=== PATIENT | female | born 1960 | race Caucasian/White ===

== ENCOUNTER 2023-04-09 11:28 | Outpatient (OUT) | payer MEDICARE, SELFPAY ==
--- NOTE | 2023-04-09 11:53 | US_ITS ---
[place] [id number] Patient Name: STONE ESPINOZA MRN: [id number] date: 1960 Sex: F Assigned Patient Location: [facility] Current Patient Location: [facility] Accession/Order Number: [id number] Exam Date: 04/09/2023 12:10 Report Date: 04/09/2023 15:19 At the request of: TIFF NORRIS Procedure: US venous doppler LE LT EXAMINATION: US venous doppler LE LT HISTORY: edema COMPARISON: No relevant comparison available. TECHNIQUE: Grayscale, color and Doppler FINDINGS: Region: Left leg Thrombus: None Flow: Normal Compressibility: Normal Augmentation: Normal US/US venous doppler LE LT IMPRESSION: No deep or superficial vein thrombus identified in the left leg *Exam performed in accordance with [facility] practice guidelines- Peripheral venous ultrasound, August 27, 2009. Electronically authenticated by: VANE WALKER Date: 04/09/2023 15:19
== END 2023-04-09 11:29 | disposition home or self-care (01) ==
PROVIDERS: PCP Family Medicine; Visit Provider Nurse Practitioner Family
DX: R60.0 Localized edema (principal)
CPT/HCPCS: 93971

== ENCOUNTER 2023-04-23 12:52 | Outpatient (OUT) | payer MEDICARE, SELFPAY ==
--- NOTE | 2023-04-23 12:56 | MM_ITS ---
Patient Name: STONE ESPINOZA MR#: [id number] : 1960 Exam Date: 04/23/2023 Ordering Doctor: TIFF NORRIS CNP RADIOLOGY REPORT PROCEDURE: MM TOMOSYNTHESIS SCREENING BI COMPARISON: MG MAMM SCREEN 3D SOSA CAD, 04/10/2022. MG MAMM SCREEN 3D SOSA CAD, 03/01/2021. MG MAMM SCREEN SOSA W CAD, 02/29/2020. MG MAMM SOSA SCRN W CAD DIG, 10/14/2013. INDICATIONS: Screening Calculator Name NCI Breast Cancer Risk Assessment Tool 5 Year Breast Cancer Risk 1.60% Lifetime Breast Cancer Risk 6.80% Personal Breast Cancer No Personal Ovarian Cancer No Treatments None Family Cancers Mother with lung cancer at age 88. LOCATION: [facility] BREAST COMPOSITION: Almost entirely fatty. FINDINGS: DIAGNOSTIC CATEGORY 2--BENIGN FINDING: RIGHT BREAST: No significant suspicious finding. Scattered benign-appearing calcifications are present. No significant change has occurred. LEFT BREAST: No significant suspicious finding. No significant change has occurred. RECOMMENDATIONS: ROUTINE MAMMOGRAM AND CLINICAL EVALUATION IN 12 MONTHS. PLEASE NOTE: A NORMAL MAMMOGRAM DOES NOT EXCLUDE THE POSSIBILITY OF BREAST CANCER. A CLINICALLY SUSPICIOUS PALPABLE LUMP SHOULD BE BIOPSIED. Dictated by: Damian Monterroso M.D. on 04/24/2023 at 13:42 Approved by: Damian Monterroso M.D. on 04/24/2023 at 13:48
--- NOTE | 2023-04-23 12:56 | XR_ITS ---
[address] [address] Patient Name: STONE ESPINOZA MRN: [id number] date: 1960 Sex: F Assigned Patient Location: [facility] Current Patient Location: [facility] Accession/Order Number: [id number] Exam Date: 04/23/2023 13:15 Report Date: 04/23/2023 13:47 At the request of: TIFF NORRIS Procedure: XR DEXA axial skeleton EXAMINATION: XR DEXA axial skeleton HISTORY: Senile Osteoporosis M81.0 COMPARISON: DEXA bone densitometry 04/19/2021 TECHNIQUE: Dual-energy X-ray absorptiometry (DXA) was performed. FINDINGS: SPINE ANALYSIS: Average bone mineral density is 0.899 g/cm2. T-score (standard deviation relative to young adult mean): -2.3 . +1.7% change since prior study. FOREARM ANALYSIS: Average bone mineral density is 0.608 g/cm2. T-score (standard deviation relative to young adult mean): -1.5 . +1.0% change since prior study. XR/XR DEXA axial skeleton IMPRESSION: World [employer] Classification: Osteopenia - Moderate Fracture Risk Electronically authenticated by: ASHWINI ARIZMENDI Date: 04/23/2023 13:47
== END 2023-04-23 12:53 | disposition home or self-care (01) ==
LOC: MAMMO 12:52
PROVIDERS: PCP Family Medicine; Visit Provider Nurse Practitioner Family
DX: M81.0 Age-related osteoporosis without current pathological fracture (principal); Z12.31 Encounter for screening mammogram for malignant neoplasm of breast; Z80.1 Family history of malignant neoplasm of trachea, bronchus and lung; M85.80 Other specified disorders of bone density and structure, unspecified site
CPT/HCPCS: 77063; 77067; 77080

== ENCOUNTER 2023-04-29 21:01 | Outpatient (REF) | payer MEDICARE, SELFPAY ==
[2023-05-06 10:14] LABS: Age Gdln ACOG Testing Note (.); HPV Aptima Negative (Negative); IGP, Aptima HPV, rfx 16/18,45 Note (.)
== END 2023-04-29 21:02 | disposition home or self-care (01) ==
LOC: LAB 21:01
PROVIDERS: PCP Family Medicine; Visit Provider Physician Assistant
DX: Z01.419 Encounter for gynecological examination (general) (routine) without abnormal findings (principal)
CPT/HCPCS: 87624; G0145

== ENCOUNTER 2023-05-28 20:08 | Outpatient (REF) | payer MEDICARE, SELFPAY ==
[2023-06-04 13:07] LABS: Age Gdln ACOG Testing Note (.); HPV Aptima Negative (Negative); IGP, Aptima HPV, rfx 16/18,45 Note (.)
== END 2023-05-28 20:09 | disposition home or self-care (01) ==
LOC: LAB 20:08
PROVIDERS: PCP Family Medicine; Visit Provider Physician Assistant
DX: Z01.419 Encounter for gynecological examination (general) (routine) without abnormal findings (principal)
CPT/HCPCS: 87624; G0145

== ENCOUNTER 2024-04-28 10:52 | Outpatient (OUT) | payer MEDICARE, SELFPAY ==
--- NOTE | 2024-04-28 10:54 | MM_ITS ---
Patient Name: STONE ESPINOZA MR#: [id number] : 1960 Exam Date: 04/28/2024 Ordering Doctor: JOO Bah . RADIOLOGY REPORT PROCEDURE: MM TOMOSYNTHESIS SCREENING BI COMPARISON: MM TOMOSYNTHESIS SCREENING BI, 04/23/2023. MG MAMM SCREEN 3D SOSA CAD, 04/10/2022. MG MAMM SCREEN 3D SOSA CAD, 03/01/2021. MG MAMM SOSA SCRN W CAD DIG, 10/14/2013. INDICATIONS: Screening Calculator Name NCI Breast Cancer Risk Assessment Tool 5 Year Breast Cancer Risk 1.60% Lifetime Breast Cancer Risk 6.60% Personal Breast Cancer No Personal Ovarian Cancer No Treatments None Family Cancers Mother with lung cancer at age 88. LOCATION: [facility] BREAST COMPOSITION: The breasts are almost entirely fatty. FINDINGS: DIAGNOSTIC CATEGORY 0--INCOMPLETE: NEED ADDITIONAL IMAGING EVALUATION. RIGHT BREAST: No significant suspicious finding. Scattered benign-appearing calcifications are present. No significant change has occurred. LEFT BREAST: New 5 mm round circumscribed mass within the anterior lower-inner quadrant. Spot magnification views and ultrasound evaluation recommended. RECOMMENDATIONS: ADDITIONAL MAMMOGRAPHIC VIEWS REQUIRED: LEFT BREAST - LEFT CRANIOCAUDAL SPOT MAGNIFICATION VIEW - LEFT OBLIQUE SPOT MAGNIFICATION VIEW - ULTRASOUND: LEFT BREAST PLEASE NOTE: A NORMAL MAMMOGRAM DOES NOT EXCLUDE THE POSSIBILITY OF BREAST CANCER. A CLINICALLY SUSPICIOUS PALPABLE LUMP SHOULD BE BIOPSIED. Dictated by: Damian Monterroso M.D. on 04/28/2024 at 15:28 Approved by: Damian Monterroso M.D. on 04/28/2024 at 15:31
== END 2024-04-28 10:53 | disposition home or self-care (01) ==
LOC: MAMMO 10:52
PROVIDERS: PCP Family Medicine; Visit Provider Physician Assistant
DX: Z12.31 Encounter for screening mammogram for malignant neoplasm of breast (principal); Z80.1 Family history of malignant neoplasm of trachea, bronchus and lung; N63.24 Unspecified lump in the left breast, lower inner quadrant
CPT/HCPCS: 77063; 77067

== ENCOUNTER 2024-05-05 19:41 | Outpatient (REF) | payer MEDICARE, SELFPAY ==
--- OUTSIDE RECORDS SUMMARY | 2024-05-05 19:47 | XMS_ITS | CCD ---
Author Organization [facility] Care Team Providers Care Poultry Raiser Name Role Phone TIFF NORRIS Admitting Unavailable TIFF NORIRS Attending Unavailable DAREK, DR KELLY Primary Care Unavailable TIFF NORRIS Consulting Unavailable KARASIK, DR MURRELL Admitting Unavailable KARASIK, DR MURRELL Attending Unavailable HOY, DR KELLY Primary Care Unavailable KARASIK, DR MURRELL Consulting Unavailable KARASIK, DR MURRELL Admitting Unavailable KARASIK, DR MURRELL Attending Unavailable HOY, DR KELLY Primary Care Unavailable KARASIK, DR MURRELL Consulting Unavailable WEST, DR VANE García Consulting Unavailable TIFF NORRIS Admitting Unavailable TIFF NORRIS Attending Unavailable HOY, DR KELLY Primary Care Unavailable TIFF NORRIS Consulting Unavailable DAREK, DR KELLY Admitting Unavailable AYAHY, DR KELLY Attending Unavailable DAREK, DR KELLY Primary Care Unavailable HOY, DR KELLY Consulting Unavailable HOY, DR KELLY Admitting Unavailable HOY, DR KELLY Attending Unavailable DAREK, DR KELLY Primary Care Unavailable DAREK, DR KELLY Consulting Unavailable Shan Calero Unavailable Robin Zhao MD Primary Care Provider [phone] QUINN QUICK Attending Unavailable ROBIN ZHAO Referring Unavailable JR. RIVERA GEORGE C Attending Unavaila IVY Billy Attending Unavailable JONAS VALDEZ Attending Unavailable JR. RIVERA GEORGE C Attending Unavaila chapo RIVERA JR., GEORGE C Referring Unavaila IVY Billy Attending Unavailable TYSON GONZALEZ Attending Unavailable TYSON GONZALEZ Referring Unavailable IVY MANRIQUE Attending Unavailable TYSON GONZALEZ Attending Unavailable Allergies Allergy Classification Reported Allergen(s) Allergy Type Date of Onset Reaction(s) Facility (1 source) Penicillins Drug allergy (disorder) 8 [facility] (12 sources) Penicillin G Drug Allergy 3 Unknown [facility] (9 sources) Other Propensity to adverse reactions 3 Unknown [facility] Medications Current Medications Medication Drug Class(es) Dates Sig (Normalized) Sig (Original) alendronic acid 70 mg oral tablet (14 sources) Bisphosphonate Start: 05-05-2024 take 1 tablet by mouth every week alendronate (Fosamax) 70 MG tablet Indications: Osteoporosis, post-menopausal (CMS/HCC) TAKE 1 TABLET BY MOUTH ONE TIME PER WEEK 30 tablet 11 05/05/2024 Active Start: 05-05-2024 take 1 tablet by chelsea th every week alendronate (Fosamax) 70 MG tablet Indications: Osteoporosis, post-menopausal (CMS/HCC) TAKE 1 TABLET BY MOUTH ONE TIME PER WEEK 30 tablet 11 05/05/2024 Active Start: 03-20-2023 End: 05-05-2024 take 1 tablet by mouth every week alendronate (Fosamax) 70 MG tablet Indications: Osteoporosis, post-menopausal (CMS/HCC) TAKE 1 TABLET BY MOUTH ONE TIME PER WEEK 30 tablet 11 03/20/2023 05/05/2024 Discontinued (Reorder) take 1 tablet by chelsea th once daily Fosamax 70 MG 1 tablet 30 minutes before the first food, beverage or medicine of the day with plain water Orally Active Zenaida Allergy 180 MG (3 sources) take 1 tablet by mouth once daily Zenaida Allergy 180 MG 1 tablet Swallow whole with water; do not take with fruit juices. Orally Once a day Active ascorbic acid 1000 mg oral tablet (9 sources) Vitamin C Ascorbic Acid (vitamin C) 1000 MG tablet 1 (one) time each day at the same time. Active aspirin 81 mg delayed release oral tablet (9 sources) Platelet Aggregation Inhibitor, Nonsteroidal Anti-inflammatory Drug aspirin 81 MG EC tablet 1 (one) time each day at the same time. Active B Complex Vitamins (VITAMIN B COMPLEX 100 IJ) (9 sources) B Complex Vitami ns (VITAMIN B COMPLEX 100 IJ) Vitamin B Complex Active B Complex Vitami ns (VITAMIN B COMPLEX 100 IJ) Vitamin B Complex 0 Active B Complex-Folic Acid (SUPER B COMPLEX MAXI PO) (9 sources) B Complex-Folic Acid (SUPER B COMPLEX MAXI PO) Super B Complex Active B Complex-Folic Acid (SUPER B COMPLEX MAXI PO) Super B Complex 0 Active betamethasone 0.5 mg/ml / clotrimazole 10 mg/ml topical cream (3 sources) Azole Antifungal, Corticosteroid clotrimazole-betamet hasone (Lotrisone) cream 1 application every 12 (twelve) hours. 0 Active Calcium (3 sources) Phosphate Binder, Calcium Calcium Active calcium citrate 1190 mg / cholecalciferol 0.005 mg oral tablet (9 sources) Vitamin D Calcium Citrate- Vitamin D (Calcium Citrate + D) 250-5 MG-MCG tablet Calcium Citrate +D Active Calcium Citrate-Vitamin D (Calcium Citrate + D3) 200-6.25 MG-MCG tablet (9 sources) Calcium Citrate- Vitamin D (Calcium Citrate + D3) 200-6.25 MG-MCG tablet Calcium Citrate+D3 Active Calcium Citrate- Vitamin D (Calcium Citrate + D3) 200-6.25 MG-MCG tablet Calcium Citrate+D3 0 Active cholecalciferol 0.125 mg ora l capsule (12 sources) Vitamin D cholecalciferol (Vitamin D-3) 125 MCG (5000 UT) capsule 1 (one) time each day at the same time. Active take 1 capsule by mouth once adam ly Cholecalciferol 125 MCG (5000 UT) 1 capsule Orally Once a day Active clobetasol propionate 0.5 mg/ml topical cream (5 sources) Corticosteroid Start: 04-16-2024 End: 06-04-2024 clobetasol (Temovate) 0.05 % cream Indications: Dermatitis Apply 1 application topically in the morning and 1 application before bedtime. Apply pea-size amount to affected area.. 30 g 05/05/2024 06/04/2024 Active docusate sodium 10 mg/ml oral suspension (3 sources) docusate sodium (Stool Softener) 150 MG/15ML oral liquid Stool Softener 0 Active estradiol 0.1 mg/ml vaginal cream (3 sources) Estrogen estradiol (Estra ce) 0.1 MG/GM vaginal cream 2 grams at bedtime Vaginal 3 times a week 0 Active fexofenadine hydrochloride 180 mg oral tablet (12 sources) Histamine-1 Receptor Antagonist fexofenadine (Zenaida) 180 MG tablet 1 (one) time each day at the same time. Active Zenaida Active Glucosamine Chondr Complex 500-400 MG (3 sources) take 1 capsule by mo uth once daily Glucosamine Chondr Complex 500-400 MG 1 capsule with a meal Orally Once a day Active Telnnbdjlaj-Jzhrcucoo-Gxh C-Mn (Glucosamine Chondroitin Complx) capsule (9 sources) take 1 capsule by mo uth every twelve hours Wzvlqbvfain-Bjylslcpk-Ihq C-Mn (Glucosamine Chondroitin Complx) capsule 1 capsule every 12 (twelve) hours. Active take 1 capsule by mo uth every twelve hours Trqfnixqihz-Kqkraubce-Ryi C-Mn (Glucosam ine Chondroitin Complx) capsule 1 capsule every 12 (twelve) hours. 0 Active magnesium gluconate 550 mg oral tablet (6 sources) take 1 tablet by chelsea th in the morning magnesium 30 MG tablet Take 30 mg by mouth in the morning and 30 mg before bedtime. Active Misc Natural Products (Glucosamine Chondroitin Adv) tablet (9 sources) Misc Natural Pro ducts (Glucosamine Chondroitin Adv) tablet as directed Orally Active Misc Natural Pro ducts (Glucosamine Chondroitin Adv) tablet as directed Orally 0 Active Multi For Her 50+ (3 sources) Multiple Vitamin (Multi Shavon min) tablet (9 sources) Multiple Vitamin (Multi Vitamin) tablet 1 (one) time each day at the same time. Active Multiple Vitamin (Multi Vitamin) tablet 1 (one) time each day at the same time. 0 Active Turmeric Curcumin 500 MG (3 sources) Turmeric Curcumi n 500 MG as directed Orally Active turmeric extract 500 mg oral capsule (9 sources) Turmeric 500 MG capsule Orally Active Turmeric 500 MG capsule Orally 0 Active vitamin b12 1 mg oral tablet (12 sources) Vitamin B12 cyanocobalamin ( Vitamin B-12) 1000 MCG tablet 1 (one) time each day at the same time. Active take 1 tablet by mouth once marisol y Cyanocobalamin 1000 MCG 1 tablet Orally Once a day Active Vitamin C 1000 MG (3 sources) take 1 tablet by chelsea th once daily Vitamin C 1000 MG 1 tablet Orally Once a day Active Zinc (10 sources) zinc 50 MG table t 1 (one) time each day at the same time. Active zinc 50 MG table t 1 (one) time each day at the same time. 0 Active take 1 tablet by mouth once marisol y Zinc 50 MG 1 tablet Orally Once a day Active zinc gluconate 50 mg oral ta blet (11 sources) zinc gluconate 5 0 MG tablet 1 (one) time each day at the same time. Active Completed/Discontinued Medications Medication Drug Class(es) Dates Sig (Normalized) Sig (Original) HYLAN G-F 20 (4 sources) Start: 03-15-2023 Synvisc Mar 16 mg Start: 03-01-2023 Synvisc Feb 16 mg Start: 02-21-2023 Synvisc Feb 16 mg Vitamin D 2000 UNIT (3 sources) Vitamin D 2000 U NIT Orally Not-Taking Problems Active Problems Problem Classification Problem Date Documented Date Episodic/Chronic Acquired foot deformities (2 sources) Hallux valgus (acquired), right foot; Translations: [Hallux valgus (acquired)] 03-11-2024 Chronic Acquired foot deformities (2 sources) Acquired deformity of toe of right foot; Translations: [Acquired deformities of toe(s), unspecified, right foot] 03-11-2024 Episodic Disorders of lipid metabolism (1 source) Hyperlipidemia, unspecified; Translations: [HYPERLIPIDEMIA UNSPECIFIED] Onset: 12-08-2021 Chronic Immunizations and screening for infectious disease (1 source) Encounter for screening for human papillomavirus (HPV); Translations: [ENC SCREENING HUMAN PAPILLOMAVIRUS] Onset: 04-01-2022 Episodic Menopausal disorders (18 sources) Primary ovarian failure; Translations: [Other primary ovarian failure] Onset: 06-24-2023 06-24-2023 Chronic Nutritional deficiencies (4 sources) Vitamin D deficiency, unspecified; Translations: [VITAMIN D DEFICIENCY UNSPECIFIED] Onset: 12-01-2021 Chronic Osteoarthritis (19 sources) Osteoarthritis of knee; Translations: [Unilateral primary osteoarthritis, left knee] Onset: 06-24-2023 Chronic Osteoporosis (11 sources) Senile osteoporosis; Translations: [Age-related osteoporosis without current pathological fracture] Onset: 06-24-2023 06-24-2023 Chronic Other ear and sense organ disorders (9 sources) Hearing loss in left ear; Translations: [Unspecified hearing loss, left ear] Onset: 06-24-2023 06-24-2023 Chronic Other ear and sense organ disorders (9 sources) Mixed conductive AND sensorineural hearing loss; Translations: [Mixed conductive and sensorineural hearing loss, unilateral, right ear with restricted hearing on the contralateral side] Onset: 06-24-2023 06-24-2023 Chronic Other ear and sense organ disorders (9 sources) Sensorineural hearing loss, bilateral; Translations: [Sensorineural hearing loss, bilateral] Onset: 06-24-2023 06-24-2023 Chronic Other female genital disorders (2 sources) Pruritus of vagina; Translations: [Other specified noninflammatory disorders of vagina] 05-05-2024 Episodic Other nervous system disorders (3 sources) Chronic pain; Translations: [Other chronic pain] Chronic Other nervous system disorders (3 sources) Other chronic pain Chronic Other non-traumatic joint disorders (3 sources) Pain in left knee Episodic Other non-traumatic joint disorders (3 sources) Pain in right hip joint; Translations: [Pain in right hip] Onset: 06-24-2023 06-24-2023 Episodic Other nutritional; endocrine; and metabolic disorders (9 sources) Obesity; Translations: [Obesity, unspecified] Onset: 06-24-2023 06-24-2023 Chronic Other screening for suspected conditions (not mental disorders or infectious disease) (9 sources) Encounter for screening mammogram for malignant neoplasm of breast; Translations: [Encounter for screening for malignant neoplasm of cervix] Onset: 12-08-2021 Episodic Other upper respiratory disease (9 sources) Chronic rhinitis; Translations: [Chronic rhinitis] Onset: 06-24-2023 06-24-2023 Chronic Residual codes; unclassified (1 source) Family history of malignant neoplasm of trachea, bronchus and lung; Translations: [FAM HX MALIG NEOPLSM TRACH BRON LNG] Onset: 04-15-2022 Episodic Residual codes; unclassified (2 sources) Postmenopausal state; Translations: [Asymptomatic menopausal state] 05-05-2024 Episodic Thyroid disorders (18 sources) Goiter; Translations: [Nontoxic goiter, unspecified] Onset: 06-24-2023 06-24-2023 Chronic Unclassified (2 sources) CONTACT W/AND (SUSP) EXPOS COVID-19; Translations: [CONTACT W/AND (SUSP) EXPOS COVID-19] Onset: 09-08-2021 Viral infection (1 source) COVID-19; Translations: [COVID-19] Onset: 09-08-2021 Past or Other Problems Problem Classification Problem Date Documented Da te Episodic/Chronic Deficiency and other anemia (1 source) Anemia, unspecified; Translations: [ANEMIA UNSPECIFIED] Onset: 12-08-2021 Episodic Diabetes mellitus without complication (1 source) Other abnormal glucose; Translations: [OTHER ABNORMAL GLUCOSE] Onset: 12-08-2021 Episodic Genitourinary symptoms and ill-defined conditions (1 source) Other abnormal findings in urine; Translations: [OTHER ABNORMAL FINDINGS IN URINE] Onset: 12-26-2021 Episodic Malaise and fatigue (1 source) Other fatigue; Translations: [OTHER FATIGUE] Onset: 12-08-2021 Episodic Other ear and sense organ disorders (9 sources) Cholesteatoma; Translations: [Unspecified cholesteatoma, unspecified ear] Onset: 06-24-2023 06-24-2023 Episodic Other ear and sense organ disorders (9 sources) Impacted cerumen of bilateral ears; Translations: [Impacted cerumen, bilateral] Onset: 06-26-2023 06-26-2023 Episodic Other inflammatory condition of skin (4 sources) Other pruritus; Translations: [OTHER PRURITUS] Onset: 12-22-2021 Episodic Other non-traumatic joint disorders (9 sources) Arthralgia of the pelvic region and thigh; Translations: [Pain in unspecified hip] Onset: 06-24-2023 06-24-2023 Episodic Other non-traumatic joint disorders (6 sources) Hip pain; Translations: [Pain in right hip] Onset: 06-24-2023 06-24-2023 Episodic Other upper respiratory infections (1 source) Acute sinusitis, unspecified; Translations: [ACUTE SINUSITIS UNSPECIFIED] Onset: 09-08-2021 Episodic Otitis media and related conditions (18 sources) Perforation of tympanic membrane; Translations: [Unspecified perforation of tympanic membrane, unspecified ear] Onset: 06-24-2023 06-24-2023 Episodic Unclassified (1 source) CONTACT W/AND (SUSP) EXPOS COVID-19; Translations: [CONTACT W/AND (SUSP) EXPOS COVID-19] Onset: 09-06-2021 Results Test Name Value Interpretation Reference Range Facility CULTURE URINEon 2022 CULTURE URINE Culture Observations : NO GROWTH. Normal [facility] Comment on above: Performed By: #### U RCX #### [facility] [address] [place] [address] Dr. Nellie Muller UA RANDOM W/MICROSCOPICon BACTERIA NONE SEEN Normal NONE SEEN [facility] Comment on above: Performed By: #### A 1C #### [facility] [address] [place] [address] Dr. Nellie Muller Bilirubin Ql (U) Negative Normal NEGATIVE [facility] Comment on above: Performed By: #### A 1C #### [facility] [address] [place] [address] Dr. Nellie Muller CAST NONE SEEN Normal NONE SEEN [facility] Comment on above: Performed By: #### A 1C #### [facility] [address] [place] [address] Dr. Nellie Muller Clarity (U) CLEAR Normal CLEAR [facility] Comment on above: Performed By: #### A 1C #### [facility] [address] [place] [address] Dr. Nellie Muller Color (U) DK. YELLOW Normal YELLOW [facility] Comment on above: Performed By: #### A 1C #### [facility] [address] [place] [address] Dr. Nellie Muller Crystals LM Nom (Urine sed) NONE SEEN Normal NONE SEEN [facility] Comment on above: Performed By: #### A 1C #### [facility] [address] [place] [address] Dr. Nellie Muller Epithelial cells LM Ql (Urine sed) RARE Normal NONE SEEN /RARE [facility] Comment on above: Performed By: #### A 1C #### [facility] [address] [place] [address] Dr. Nellie Muller Glucose Ql (U) Negative Normal NEGATIVE [facility] Comment on above: Performed By: #### A 1C #### [facility] [address] [place] [address] Dr. Nellie Muller Hemoglobin Ql (U) Negative Normal NEGATIVE [facility] Comment on above: Performed By: #### A 1C #### [facility] [address] [place] [address] Dr. Nellie Muller Ketones Ql (U) Negative Normal NEGATIVE [facility] Comment on above: Performed By: #### A 1C #### [facility] [address] [place] [address] Dr. Nellie Muller LEUKOCYTES Negative Normal NEGATIVE [facility] Comment on above: Performed By: #### A 1C #### [facility] [address] [place] [address] Dr. Nellie Muller MUCOUS NONE SEEN Normal NONE SEEN [facility] Comment on above: Performed By: #### A 1C #### [facility] [address] [place] [address] Dr. Nellie Muller Nitrite Ql (U) Negative Normal NEGATIVE [facility] Comment on above: Performed By: #### A 1C #### [facility] [address] [place] [address] Dr. Nellie Muller pH (U) 6.0 [pH] Normal 5-9 [facility] Comment on above: Performed By: #### A 1C #### [facility] [address] [place] [address] Dr. Nellie Muller RBC 0-2 Normal 0-2 [facility] Comment on above: Performed By: #### A 1C #### [facility] [address] [place] [address] Dr. Nellie Muller SPEC GRAVITY 1.020 Normal 1.005-<=1.025 [facility] Comment on above: Performed By: #### A 1C #### [facility] [address] [place] [address] Dr. Nellie Muller UA PROTEIN Negative Normal NEGATIVE/ TRACE [facility] Comment on above: Performed By: #### A 1C #### [facility] [address] [place] [address] Dr. Nellie Muller Urobilinogen Qn (U) 0.2 {Dylan'U}/dL Normal 0.2 - 1. 0 [facility] Comment on above: Performed By: #### A 1C #### [facility] [address] [place] [address] Dr. Nellie Muller WBC NONE SEEN Normal NONE SEEN [facility] Comment on above: Performed By: #### A 1C #### [facility] [address] [address] [address] Nellie Muller MG MAMM SCREEN 3D SOSA CADon 04-10-2022 MG MAMM SCREEN 3D SOSA CAD Patient: ASHLEY GANT Exam Date: 04/10/2022 : 1960 Gender:F Ordering : DR HANDY JACOME . Admission #: [id number] Family : Order #: [id number] CLICK HERE TO VIEW EXAM RADIOLOGY REPORT PROCEDURE: MAMMOGRAM SCREENING 3D BILATERAL CAD COMPARISON: MG MAMM SCREEN SOSA W CAD, 02/29/2020. MG MAMM SCREEN 3D SOSA CAD, 03/01/2021. INDICATIONS: Screening mammography Calculator Name NCI Breast Cancer Risk Assessment Tool 5 Year Breast Cancer Risk 1.50% Lifetime Breast Cancer Risk 7.00% Personal Breast Cancer No Personal Ovarian Cancer No Treatments None Family Cancers Mother with lung cancer at age 88. LOCATION: [facility] BREAST COMPOSITION: Almost entirely fatty. FINDINGS: DIAGNOSTIC CATEGORY 2--BENIGN FINDING. NO CHANGE FROM COMPARISON. Scattered benign-appearing calcifications are present. Scattered benign-appearing lymph nodes are present. RIGHT BREAST: No significant suspicious finding. Asymmetrically small, stable. Coarse calcification and densities posterior breast 12 o'clock position, unchanged LEFT BREAST: No significant suspicious finding. RECOMMENDATIONS: ROUTINE MAMMOGRAM AND CLINICAL EVALUATION IN 12 MONTHS. PLEASE NOTE: A NORMAL MAMMOGRAM DOES NOT EXCLUDE THE POSSIBILITY OF BREAST CANCER. A CLINICALLY SUSPICIOUS PALPABLE LUMP SHOULD BE BIOPSIED. Dictated by: Vane Rivas MD on 04/11/2022 at 07:19 Approved by: Vane Rivas MD on 04/11/2022 at 07:21 Normal [facility] PAP ACOG PANEL 2: 30 to 65on 04-06-2022 . . Normal [facility] Comment on above: Result Comment: Perf ormed at: WB Performed By: #### A 1C #### [facility] [address] [address] [address] Nellie Muller Age Gdln ACOG Testing 30-65 Normal [facility] Comment on above: Performed By: #### A 1C #### [facility] [address] [place] [address] Dr. Nellie Muller DIAGNOSIS: Comment Normal [facility] Comment on above: Result Comment: NEGA TIVE FOR INTRAEPITHELIAL LESION OR MALIGNANCY. CELLULAR CHANGES ASSOCIATED WITH ATROPHY ARE PRESENT. Performed at: WB Performed By: #### A 1C #### [facility] [address] [address] [address] Nellie Muller HPV Aptima Negative Normal Negative [facility] Comment on above: Result Comment: This nucleic acid amplification test detects fourteen high-risk HPV types (16,18,31,33,35,39,45,51,52,56,58,59,66,68) without differentiation. Performed at: =G Performed By: #### A 1C #### [facility] [address] [address] [address] Nellie Muller HPV Genotype Reflex Comment Normal [facility] Comment on above: Result Comment: Crit eria not met, HPV Genotype not performed. Performed at: WB Performed By: #### A 1C #### [facility] [address] [place] [address] Dr. Nellie Muller Methodology: Comment Normal [facility] Comment on above: Result Comment: This liquid based ThinPrep(R) pap test was screened with the use of an image guided system. Performed at: WB Performed By: #### A 1C #### [facility] [address] [place] [address] Dr. Nellie Muller Note: Comment Normal [facility] Comment on above: Result Comment: The Pap smear is a screening test designed to aid in the detection of premalignant and malignant conditions of the uterine cervix. It is not a diagnostic procedure and should not be used as the sole means of detecting cervical cancer. Both false-positive and false-negative reports do occur. . Performed at: WB Performed By: #### A 1C #### [facility] [address] [address] [address] Nellie Muller Performed by: Comment Normal [facility] Comment on above: Result Comment: Debbi Costa, Special Projects Coordinator Performed at: WB Performed By: #### A 1C #### [facility] [address] [address] [address] Nellie Muller Specimen adequacy: Comment Normal [facility] Comment on above: Result Comment: Sati sfactory for evaluation. Endocervical component may not be distinguished in cases of atrophy. Performed at: WB Performed By: #### A 1C #### [facility] [address] [place] [address] Dr. Nellie Muller CULTURE URINEon 12-22-2021 CULTURE URINE Culture Observations : NO GROWTH. Normal [facility] Comment on above: Performed By: #### A 1C #### [facility] [address] [place] [address] Dr. Nellie Muller UA RANDOM W/MICROSCOPICon BACTERIA TRACE Abnormal NONE SEEN [facility] Comment on above: Performed By: #### A 1C #### [facility] [address] [place] [address] Dr. Nellie Muller Bilirubin Ql (U) Negative Normal NEGATIVE [facility] Comment on above: Performed By: #### A 1C #### [facility] [address] [place] [address] Dr. Nellie Muller CAST NONE SEEN Normal NONE SEEN [facility] Comment on above: Performed By: #### A 1C #### [facility] [address] [place] [address] Dr. Nellie Muller Clarity (U) CLEAR Normal CLEAR [facility] Comment on above: Performed By: #### A 1C #### [facility] [address] [place] [address] Dr. Nellie Muller Color (U) YELLOW Normal YELLOW [facility] Comment on above: Performed By: #### A 1C #### [facility] [address] [place] [address] Dr. Nellie Muller Crystals LM Nom (Urine sed) NONE SEEN Normal NONE SEEN [facility] Comment on above: Performed By: #### A 1C #### [facility] [address] [place] [address] Dr. Nellie Muller Epithelial cells LM Ql (Urine sed) RARE Normal NONE SEEN /RARE [facility] Comment on above: Performed By: #### A 1C #### [facility] [address] [place] [address] Dr. Nellie Muller Glucose Ql (U) Negative Normal NEGATIVE [facility] Comment on above: Performed By: #### A 1C #### [facility] [address] [place] [address] Dr. Nellie Muller Hemoglobin Ql (U) Negative Normal NEGATIVE [facility] Comment on above: Performed By: #### A 1C #### [facility] [address] [place] [address] Dr. Nellie Muller Ketones Ql (U) Negative Normal NEGATIVE [facility] Comment on above: Performed By: #### A 1C #### [facility] [address] [place] [address] Dr. Nellie Muller LEUKOCYTES Negative Normal NEGATIVE [facility] Comment on above: Performed By: #### A 1C #### [facility] [address] [place] [address] Dr. Nellie Muller MUCOUS NONE SEEN Normal NONE SEEN [facility] Comment on above: Performed By: #### A 1C #### [facility] [address] [place] [address] Dr. Nellie Muller Nitrite Ql (U) Negative Normal NEGATIVE [facility] Comment on above: Performed By: #### A 1C #### [facility] [address] [place] [address] Dr. Nellie Muller pH (U) 5.0 [pH] Normal 5-9 [facility] Comment on above: Performed By: #### A 1C #### [facility] [address] [place] [address] Dr. Nellie Muller RBC 0-2 Normal 0-2 [facility] Comment on above: Performed By: #### A 1C #### [facility] [address] [place] [address] Dr. Nellie Muller SPEC GRAVITY >=1.030 Abnormal 1.005-<=1.025 [facility] Comment on above: Performed By: #### A 1C #### [facility] [address] [place] [address] Dr. Nellie Muller UA PROTEIN Negative Normal NEGATIVE/ TRACE [facility] Comment on above: Performed By: #### A 1C #### [facility] [address] [place] [address] Dr. Nellie Muller Urobilinogen Qn (U) 0.2 {Dylan'U}/dL Normal 0.2 - 1. 0 [facility] Comment on above: Performed By: #### A 1C #### [facility] [address] [place] [address] Dr. Nellie Muller WBC 0-2 Abnormal NONE SEEN [facility] Comment on above: Performed By: #### A 1C #### [facility] [address] [place] [address] Dr. Nellie Muller INSULINon 12-02-2021 Insulin 10.3 uIU/mL Normal 2.6-24.9 [facility] Comment on above: Performed By: #### A 1C #### [facility] [address] [place] [address] Dr. Nellie Muller CBC AUTO DIFFon 12-01-2021 BASO # 0.1 103/ul Normal 0.0-0.1 [facility] Comment on above: Performed By: #### C BC #### [facility] [address] [place] [address] Dr. Nellie Muller Basophils/100 WBC (Bld) 1.8 % Normal 0.2-2.0 [facility] Comment on above: Performed By: #### C BC #### [facility] [address] [place] [address] Dr. Nellie Muller EO # 0.2 103/ul Normal 0.0-0.7 [facility] Comment on above: Performed By: #### C BC #### [facility] [address] [place] [address] Dr. Nellie Muller Eosinophils/100 WBC (Bld) 4.0 % Normal 0.9-7.0 [facility] Comment on above: Performed By: #### C BC #### [facility] [address] [place] [address] Dr. Nellie Muller Erythrocyte distribution width (RBC) [Ratio] 13.1 % Normal 11.0-15.0 [facility] Comment on above: Performed By: #### C BC #### [facility] [address] [place] [address] Dr. Nellie Muller Hematocrit (Bld) [Volume fraction] 46.5 % Normal 36.0-48.0 [facility] Comment on above: Performed By: #### C BC #### [facility] [address] [place] [address] Dr. Nellie Muller Hemoglobin (Bld) [Mass/Vol] 15.3 g/dL Normal 12.0-16.0 [facility] Comment on above: Performed By: #### C BC #### [facility] [address] [place] [address] Dr. Nellie Muller IG # 0.02 10e3/ul Normal 0.00-0.03 [facility] Comment on above: Performed By: #### C BC #### [facility] [address] [place] [address] Dr. Nellie Muller IG % 0.4 % Normal 0.0-0.5 [facility] Comment on above: Performed By: #### C BC #### [facility] [address] [place] [address] Dr. Nellie Muller LYMPH # 1.3 103/ul Normal 1.2-3.8 [facility] Comment on above: Performed By: #### C BC #### [facility] [address] [place] [address] Dr. Nellie Muller Lymphocytes/100 WBC (Bld) 28.4 % Normal 20.5-60.0 [facility] Comment on above: Performed By: #### C BC #### [facility] [address] [place] [address] Dr. Nellie Muller MANUAL DIFF REQ NO Normal [facility] Comment on above: Performed By: #### C BC #### [facility] [address] [place] [address] Dr. Nellie Muller MCH (RBC) [Entitic mass] 30.4 pg Normal 26.7-34.0 [facility] Comment on above: Performed By: #### C BC #### [facility] [address] [place] [address] Dr. Nellie Muller MCHC (RBC) [Mass/Vol] 32.9 g/dL Normal 29.9-35.2 [facility] Comment on above: Performed By: #### C BC #### [facility] [address] [address] [address] Nellie Muller MCV (RBC) [Entitic vol] 92.4 fL Normal 81.0-99.0 [facility] Comment on above: Performed By: #### C BC #### [facility] [address] [address] [address] Nellie Muller MONO # 0.4 103/ul Normal 0.3-0.8 [facility] Comment on above: Performed By: #### C BC #### [facility] [address] [place] [address] Dr. Nellie Muller Monocytes/100 WBC (Bld) 9.2 % Normal 1.7-12.0 [facility] Comment on above: Performed By: #### C BC #### [facility] [address] [address] [address] Nellie Muller NEUT # 2.6 103/ul Normal 1.4-6.5 [facility] Comment on above: Performed By: #### C BC #### [facility] [address] [place] [address] Dr. Nellie Muller Neutrophils/100 WBC (Bld) 56.2 % Normal 43.0-75.0 [facility] Comment on above: Performed By: #### C BC #### [facility] [address] [address] [address] Nellie Muller Platelet mean volume (Bld) [Entitic vol] 8.9 fL Critically low 9.5-13.5 [facility] Comment on above: Performed By: #### C BC #### [facility] [address] [place] [address] Dr. Nellie Muller PLT 197 103/ul Normal 150-450 [facility] Comment on above: Performed By: #### C BC #### [facility] [address] [place] [address] Dr. Nellie Muller RBC 5.03 106/ul Normal 4.20-5.40 [facility] Comment on above: Performed By: #### C BC #### [facility] [address] [place] [address] Dr. Nellie Muller WBC 4.6 103/ul Normal 4.0-11.0 [facility] Comment on above: Performed By: #### C BC #### [facility] [address] [place] [address] Dr. Nellie Muller FREE T3on 12-01-2021 FREE T3 2.70 pg/mlL Normal 2.18-3.98 [facility] Comment on above: Performed By: #### C MP, T4, LIPID, FT3, TSH #### [facility] [address] [place] [address] Dr. Nellie Muller GLYCOHEMOGLOBIN A1Con 2021 ADA RECOMMENDATION SEE BELOW Normal [facility] Comment on above: Result Comment: ADA RECOMMENDED LIMIT 4.0 - 6.0 ADA THERAPEUTIC TARGET < 7.0 ACTION SUGGESTED > 7.0 Performed By: #### A 1C #### [facility] [address] [place] [address] Dr. Nellie Mullre Glucose [Mass/Vol] 114 mg/dL Normal [facility] Comment on above: Performed By: #### A 1C #### [facility] [address] [place] [address] Dr. Nellie Muller HbA1c (Bld) [Mass fraction] 5.6 % Normal 4.5-6.2 [facility] Comment on above: Performed By: #### A 1C #### [facility] [address] [place] [address] Dr. Nellie Muller LIPID PROFILEon 12-01-2021 CHOL-HDL RATIO NORM SEE BELOW Normal [facility] Comment on above: Result Comment: 3.3 - 4.4 LOW RISK 4.4 - 7.1 AVERAGE RISK 7.1 - 11.0 MODERATE RISK >11.0 HIGH RISK Performed By: #### C MP, T4, LIPID, FT3, TSH #### [facility] [address] [place] [address] Dr. Nellie Muller Cholesterol [Mass/Vol] 280 mg/dL Critically high <=200 [facility] Comment on above: Performed By: #### C MP, T4, LIPID, FT3, TSH #### [facility] [address] [address] [address] Nellie Muller Cholesterol in HDL [Mass/Vol] 69 mg/dL Critically high 40-60 [facility] Comment on above: Performed By: #### C MP, T4, LIPID, FT3, TSH #### [facility] [address] [address] [address] Nellie Muller Cholesterol in LDL [Mass/Vol] 186.2 mg/dL Normal [facility] Comment on above: Performed By: #### C MP, T4, LIPID, FT3, TSH #### [facility] [address] [address] [address] Nellie Muller Cholesterol.total/Ch olesterol in HDL [Mass ratio] 4.1 {ratio} Normal [facility] Comment on above: Performed By: #### C MP, T4, LIPID, FT3, TSH #### [facility] [address] [address] [address] Nellie Muller HDL NORMAL > or = 60 mg/dl - LO W CARDIOVASCULAR RISK <40 mg/dl - HIGH CARDIOVASCULAR RISK Normal [facility] Comment on above: Performed By: #### C MP, T4, LIPID, FT3, TSH #### [facility] [address] [address] [address] Nellie Muller LDL CALC NORMAL SEE BELOW Normal [facility] Comment on above: Result Comment: <100 mg/dl OPTIMAL 100 - 129 mg/dl NEAR OR ABOVE OPTIMAL 130 - 159 mg/dl BORDERLINE HIGH 160 - 189 mg/dl HIGH >190 mg/dl VERY HIGH Performed By: #### C MP, T4, LIPID, FT3, TSH #### [facility] [address] [address] [address] Nellie Muller Triglyceride [Mass/Vol] 124 mg/dL Normal <=150 [facility] Comment on above: Performed By: #### C MP, T4, LIPID, FT3, TSH #### [facility] [address] [place] [address] Dr. Nellie Muller VLDL CALC 24.8 mg/dL Normal [facility] Comment on above: Performed By: #### C MP, T4, LIPID, FT3, TSH #### [facility] [address] [place] [address] Dr. Nellie Muller PROF 14(COMP METB)on 022 Albumin [Mass/Vol] 4.0 g/dL Normal 3.4-5.0 [facility] Comment on above: Performed By: #### C MP, T4, LIPID, FT3, TSH #### [facility] [address] [place] [address] Dr. Nellie Muller Albumin/Globulin [Mass ratio] 1.4 {ratio} Normal [facility] Comment on above: Performed By: #### C MP, T4, LIPID, FT3, TSH #### [facility] [address] [place] [address] Dr. Nellie Muller ALP [Catalytic activity/Vol] 77 U/L Normal 46-116 [facility] Comment on above: Performed By: #### C MP, T4, LIPID, FT3, TSH #### [facility] [address] [place] [address] Dr. Nellie Muller ALT [Catalytic activity/Vol] 26 U/L Normal 14-59 [facility] Comment on above: Performed By: #### C MP, T4, LIPID, FT3, TSH #### [facility] [address] [place] [address] Dr. Nellie Muller Anion gap [Moles/Vol] 9.1 mmol/L Normal [facility] Comment on above: Performed By: #### C MP, T4, LIPID, FT3, TSH #### [facility] [address] [place] [address] Dr. Nellie Muller AST [Catalytic activity/Vol] 35 U/L Normal 15-37 [facility] Comment on above: Performed By: #### C MP, T4, LIPID, FT3, TSH #### [facility] [address] [place] [address] Dr. Nellie Muller Bilirubin [Mass/Vol] 0.7 mg/dL Normal 0.2-1.0 [facility] Comment on above: Performed By: #### C MP, T4, LIPID, FT3, TSH #### [facility] [address] [address] [address] Nellie Muller Calcium [Mass/Vol] 8.8 mg/dL Normal 8.5-10.1 [facility] [place] Comment on above: Performed By: #### C MP, T4, LIPID, FT3, TSH #### [facility] [address] [address] [address] Nellie Muller Chloride [Moles/Vol] 105 mmol/L Normal 98-107 [facility] Comment on above: Performed By: #### C MP, T4, LIPID, FT3, TSH #### [facility] [address] [place] [address] Dr. Nellie Muller CO2 [Moles/Vol] 31.2 mmol/L Normal 21.0-32.0 [facility] Comment on above: Performed By: #### C MP, T4, LIPID, FT3, TSH #### [facility] [address] [place] [address] Dr. Nellie Muller Creatinine [Mass/Vol] 0.94 mg/dL Normal 0.55-1.02 [facility] Comment on above: Performed By: #### C MP, T4, LIPID, FT3, TSH #### [facility] [address] [place] [address] Dr. Nellie Muller EGFR-AF CHADIAN >60 Normal >=60 [facility] Comment on above: Performed By: #### C MP, T4, LIPID, FT3, TSH #### [facility] [address] [address] [address] Nellie Muller EGFR-NON AF CHADIAN 60 mL/min/1.73m2 Normal >=60 [facility] Comment on above: Performed By: #### C MP, T4, LIPID, FT3, TSH #### [facility] [address] [address] [address] Nellie Muller Globulin (S) [Mass/Vol] 2.9 g/dL Normal [facility] Comment on above: Performed By: #### C MP, T4, LIPID, FT3, TSH #### [facility] [address] [place] [address] Dr. Nellie Muller Glucose [Mass/Vol] 101 mg/dL Normal 74-106 [facility] Comment on above: Performed By: #### C MP, T4, LIPID, FT3, TSH #### [facility] [address] [place] [address] Dr. Nellie Muller Potassium [Moles/Vol] 4.3 mmol/L Normal 3.5-5.1 [facility] Comment on above: Performed By: #### C MP, T4, LIPID, FT3, TSH #### [facility] [address] [place] [address] Dr. Nellie Muller Protein [Mass/Vol] 6.9 g/dL Normal 6.4-8.2 [facility] Comment on above: Performed By: #### C MP, T4, LIPID, FT3, TSH #### [facility] [address] [place] [address] Dr. Nellie Muller Sodium [Moles/Vol] 141 mmol/L Normal 136-145 [facility] Comment on above: Performed By: #### C MP, T4, LIPID, FT3, TSH #### [facility] [address] [place] [address] Dr. Nellie Muller Urea nitrogen [Mass/Vol] 12.0 mg/dL Normal 7.0-18.0 [facility] Comment on above: Performed By: #### C MP, T4, LIPID, FT3, TSH #### [facility] [address] [place] [address] Dr. Nellie Muller Urea nitrogen/Creatinine [Mass ratio] 12.8 mg/mg Normal [facility] Comment on above: Performed By: #### C MP, T4, LIPID, FT3, TSH #### [facility] [address] [place] [address] Dr. Nellie Muller T4on 12-01-2021 T4 [Mass/Vol] 10.00 ug/dL Normal 4.80-13.90 [facility] Comment on above: Performed By: #### C MP, T4, LIPID, FT3, TSH #### [facility] [address] [place] [address] Dr. Nellie Muller TSHon 12-01-2021 TSH 2.842 uIU/mL Normal 0.358-3.740 [facility] Comment on above: Performed By: #### C MP, T4, LIPID, FT3, TSH #### [facility] [address] [address] [address] Nellie Muller VITAMIN D 25 OHon 12-01-2021 VIT D 25-OH 110.9 ng/mL Normal [facility] Comment on above: Performed By: #### V ITAD #### [facility] [address] [place] [address] Dr. Nellie Muller VIT D RANGES SEE BELOW Normal [facility] Comment on above: Result Comment: <20 ng/mL Vit D deficient 20 - <30 ng/mL Vit D insufficient 30 - 100 ng/mL Vit D sufficient >100 ng/mL Potential Toxicity Performed By: #### V ITAD #### [facility] [address] [place] [address] Dr. Nellie Muller Covid-19 PCR ([facility])on SARS-CoV-2 (COVID-19) RNA CHRISTY+probe Ql (Unsp spec) Detected Critically abnormal NOT DETECTED [facility] Comment on above: Result Comment: This test is not yet approved or cleared by the [place] FDA. When there are no FDA-approved or cleared tests available, and other criteria are met, FDA can make tests available under an emergency access mechanism called an Emergency Use Authorization (EUA). The EUA for this test is supported by the Supervisor Picking Crew of Health and Human Service's (HHS's) declaration that circumstances exist to justify the emergency use of in vitro diagnostics for the detection and/or diagnosis of the virus that causes COVID-19. This EUA will remain in effect (meaning this test can be used) for the duration of the COVID-19 declaration justifying emergency of IVDs, unless it is terminated or revoked by FDA (after which the test may no longer be used). Performed By: #### A 1C #### [facility] [address] [place] [address] Dr. Nellie Muller INFLUENZA A AND B AGon 09-06 INFLUANE SEE BELOW Normal [facility] Comment on above: Result Comment: Nega tive for Flu A protein angiten. Infection due to Flu A cannot be ruled out. Flu A angiten in the sample may be below the detection limit of the test. Performed By: #### I NFLUAB #### [facility] [address] [place] [address] Dr. Nellie Muller INFLUBNEG SEE BELOW Normal [facility] Comment on above: Result Comment: Nega tive for Flu B protein antigen. Infection due to Flu B cannot be ruled out. Flu B antigen in the sample may be below the detection limit of the test. Performed By: #### I NFLUAB #### [facility] [address] [place] [address] Dr. Nellie Muller INFLUENZA A AG Negative Normal NEGATIVE SEE COMMENT [facility] Comment on above: Performed By: #### I NFLUAB #### [facility] [address] [place] [address] Dr. Nellie Muller INFLUENZA B AG Negative Normal NEGATIVE SEE COMMENT [facility] Comment on above: Performed By: #### I NFLUAB #### [facility] [address] [place] [address] Dr. Nellie Muller INTERNAL CONTROLS Within Normal Limits Normal Wi thin Normal Limits [facility] Comment on above: Performed By: #### I NFLUAB #### [facility] [address] [place] [address] Dr. Nellie Muller Vital Signs Date Time Vital Sign Value Performing Clinician Facility 05-05-2024 09:04-0500 Body mass index (BMI) [Ratio] 32.89 kg/m2 [facility] [employer] Work Phone: [facility] 05-05-2024 09:04-0500 Body weight 106.96 kg [employer] Work Phone: [facility] 05-05-2024 09:04-0500 Diastolic blood pressure 78 mm[Hg] [employer] Work Phone: [facility] 05-05-2024 09:04-0500 Systolic blood pressure 122 mm[Hg] [employer] Work Phone: [facility] 03-17-2024 12:58-0400 Body height 180.3 cm Tyson Gonzalez DPM Work Phone: [facility] 03-17-2024 12:58-0400 Body mass index (BMI) [Ratio] 33.33 kg/m2 Tyson Gonzalez DPM Work Phone: [facility] 03-17-2024 12:58-0400 Body weight 108.41 kg Tyson Gonzalez DPM Work Phone: [facility] 03-17-2024 12:58-0400 Diastolic blood pressure 75 mm[Hg] Tyson Gonzalez DPM Work Phone: [facility] 03-17-2024 12:58-0400 Heart rate 82 /min Tyson Gonzalez DPM Work Phone: [facility] 03-17-2024 12:58-0400 Systolic blood pressure 125 mm[Hg] Tyson Gonzalez DPM Work Phone: [facility] 03-15-2023 11:00-0400 Body height 180.34 cm Shan Calero Other [employer] Other 03-15-2023 11:00-0400 Body mass index (BMI) [Ratio] 31.94 kg/m2 Shan Calero Other [employer] Other 03-15-2023 11:00-0400 Body weight 103.87 kg Shan Calero Other [employer] Other 03-15-2023 11:00-0400 Diastolic blood pressure 80 mm[Hg] Shan Calero Other [employer] Other 03-15-2023 11:00-0400 Systolic blood pressure 130 mm[Hg] Shan Calero Other [employer] Other 02-21-2023 15:15-0400 Body height 180.34 cm Shan Calero Other [employer] Other 02-21-2023 15:15-0400 Body mass index (BMI) [Ratio] 32.02 kg/m2 Shan Calero Other [employer] Other 02-21-2023 15:15-0400 Body weight 104.15 kg Shan Calero Other [employer] Other 02-21-2023 15:15-0400 Diastolic blood pressure 80 mm[Hg] Shan Calero Other [employer] Other 02-21-2023 15:15-0400 SaO2% (BldA) [Mass fraction] 94 % Shan Calero Other [employer] Other 02-21-2023 15:15-0400 Systolic blood pressure 120 mm[Hg] Shan Calero Other [employer] Other 02-08-2023 10:00-0400 Body height 180.34 cm Shan Calero Other [employer] Other 02-08-2023 10:00-0400 Body mass index (BMI) [Ratio] 30.68 kg/m2 Shan Calero Other [employer] Other 02-08-2023 10:00-0400 Body weight 99.79 kg Shan Calero Other [employer] Other 02-08-2023 10:00-0400 Diastolic blood pressure 80 mm[Hg] Shan Calero Other [employer] Other 02-08-2023 10:00-0400 Systolic blood pressure 124 mm[Hg] Shan Calero Other [employer] Other Encounters Encounter Date Encounter Type Care Provider Facility Start: 05-05-2024 End: 05-05-2024 Bamboo flowsheet [employer] Work Phone: [facility] Start: 05-05-2024 End: 05-05-2024 Bamboo flowsheet [employer] Work Phone: [facility] Start: 05-05-2024 End: 05-05-2024 Patient encounter procedure [facility] [employer] Work Phone: [facility] Work Phone: Start: 05-05-2024 End: 05-05-2024 Periodic preventive med est patient 40-64yrs [facility] [employer] Work Phone: [facility] Comment on above: Well woman exam with routine gynecological exam; Postmenopausal state; Osteoporosis, post-menopausal (CMS/HCC); Vaginal itching Start: 03-17-2024 End: 03-17-2024 Bamboo flowsheet Tyson Gonzalez DPM Work Phone: [facility] Start: 03-17-2024 End: 03-17-2024 Bamboo flowsheet Tyson Gonzalez DPM Work Phone: [facility] Start: 03-17-2024 End: 03-17-2024 Office outpatient visit 15 minutes Tyson Gonzalez DPM Work Phone: [facility] Comment on above: Hav (hallux abducto valgus), right (Primary Dx); Acquired deformity of right toe; DJD (degenerative joint disease), ankle and foot, left Start: 03-17-2024 End: 03-17-2024 ambulatory TYSON GONZALEZ Not Available Start: 02-24-2024 End: 02-24-2024 ambulatory IVY MANRIQUE Not Available Start: 02-18-2024 End: 02-18-2024 ambulatory TYSON A OTIS Not Available Start: 01-13-2024 End: 01-13-2024 ambulatory LORETTA SHEEHAN Not Available Start: 10-22-2023 End: 10-22-2023 ambulatory JONAS VALDEZ Not Available Start: 07-15-2023 Chart abstracting Jr. Loretta Rivera DO Work Phone: [facility] Start: 07-15-2023 End: 07-15-2023 Office outpatient visit 25 minutes Jr. Loretta Rivera DO Work Phone: [facility] Comment on above: Primary osteoarthrit is of left knee (Primary Dx) Start: 07-15-2023 End: 07-15-2023 ambulatory LOERTTA SHEEHAN Not Available Start: 06-26-2023 End: 06-26-2023 ambulatory QUINN QUICK Not Available Start: 05-28-2023 End: 05-28-2023 ambulatory IVY BURTON Not Available Start: 04-29-2023 End: 04-29-2023 ambulatory IVY BURTON Not Available Start: 03-15-2023 End: 03-15-2023 ambulatory Shan Calero Other [employer] Other Start: 03-15-2023 Patient encounter procedure Shan Calero [facility] Start: 02-21-2023 End: 02-21-2023 ambulatory Shan Galilea Other [employer] Other Start: 02-21-2023 Patient encounter procedure Shan Calero [facility] Start: 02-08-2023 End: 02-08-2023 ambulatory Shan Galilea Other [employer] Other Start: 02-08-2023 Office consultation new/estab patient 60 min Shan Calero [facility] [place] Start: 2022 End: 06-01-2022 ambulatory TIFF NORRIS Facility:[facility] Start: 04-10-2022 End: 04-11-[address] HANDY JACOME Facility:[facility] Start: 03-29-2022 End: 03-29-[address] HANDY JACOME Facility:[facility] Start: 12-22-2021 End: 12-23-2021 ambulatory TIFF NORRIS Facility:[facility] Start: 12-01-2021 End: 12-02-[address] ROBIN ZHAO Facility:[facility] Start: 09-06-2021 End: 09-06-[address] ROBIN ZHAO Facility:[facility] Procedures Date Procedure Procedure Detail Performing Clinician Start: 04-28-2024 Mammography Ivy GE Work Phone: Start: 05-28-2023 Microscopic observat ion [Identifier] in Cervix by Cyto stain Tyson Gonzalez DPM Work Phone: Start: 04-10-2022 Mammography Jr. Isaiah lowe DO Work Phone: Plan of Treatment Date Care Activity Detail Author Start: 05-28-2028 Screening for malignant neoplasm of cervix [facility] Start: 03-25-2026 Screening for malignant neoplasm of colon [facility] Start: 04-28-2025 Screening for malignant neoplasm of breast Mammogram [facility] Start: 01-18-2025 End: 01-18-2025 Patient encounter procedure [facility] Start: 07-13-2024 End: 07-13-2024 Patient encounter procedure 07/13/2024 9:00 AM EST Office Visit [facility] [address] [place] [address] Jr. Loretta Rivera, [address] [address] [facility] Start: 05-05-2024 End: 05-05-2025 DXA Skeletal system Views for bone density DEXA bone density Imaging Routine Postmenopausal state Expected: 05/05/2024 (Approximate), Expires: 05/05/2025 [facility] Work Phone: Comment on above: Expected: 05/05/2024 (Approximate), Expires: 05/05/2025 Start: 05-05-2024 End: 05-05-2024 Patient encounter procedure [facility] Comment on above: Arrived Start: 04-29-2024 Medicare Annual Wellness (AWV) Medicare Annual Wellness (AWV) [facility] Start: 03-17-2024 End: 03-17-2024 Patient encounter procedure 03/17/2024 1:00 PM EDT Office Visit [facility] [address] [place] [address] Tyson Gonzalez DPM [address] [facility] [address] [place] [address] Hav (hallux abducto valgus), right (Primary Dx); Acquired deformity of right toe; DJD (degenerative joint disease), ankle and foot, left [facility] Comment on above: Hav (hallux abducto valgus), right (Primary Dx); Acquired deformity of right toe; DJD (degenerative joint disease), ankle and foot, left Start: 02-02-2024 Influenza vaccination Influenza Vacc ine (#1) [facility] Start: 01-13-2024 End: 01-13-2024 Patient encounter procedure 01/13/2024 8:30 AM EDT Office Visit [facility] [address] [facility] [address] [place] [id number] Jr. Loretta Rivera, DO [address] [facility] [address] [place] [address] [facility] Start: 07-15-2023 End: 07-15-2023 Patient encounter procedure 07/15/2023 8:00 AM EST Office Visit [facility] [address] [place] [address] [place] [phone] Jr. Loretta Rivera, DO [address] [facility] [address] [place] [address] [facility] Start: 04-10-2023 Screening for malignant neoplasm of breast Mammogram [facility] Start: 02-01-2023 Influenza vaccination Influenza Vacc ine (#1) [facility] Start: 1960 Screening for malignant neoplasm of colon [facility] THIN PREP TIS PAP AN D HR HPV DNA THIN PREP TIS PAP AND HR HPV DNA Pathology and Cytology Routine Well woman exam with routine gynecological exam Ordered: 05/05/2024 [facility] Comment on above: Ordered: 05/05/2024 Immunizations Immunization Date Immunization Notes Care Provider Fa cility 04-21-2021 influenza virus vacc ine, unspecified formulation Jr. Stepanic DO Work Phone: [facility] 06-19-2013 zoster vaccine, live Jr. Rivas panic DO Work Phone: [facility] Payers Date Payer Category Payer Medicaid [employer] MEDICARE A DVANTAGE [id number] 2022 Medicare A[employer]NA MEDICARE A DVANTAGE A[employer]NA MEDICARE REPLACEMENT [id number] 2022-Present [address] [place] [address] [id number] 1960 Medicare [id number] 1960 Medicare [id number] 1960 Unknown [id number] 1960 Unknown [id number] [id number] 1959 Unknown [id number] 2.16.840.1.380444.3.579.2.593 1959 Unknown [id number] 2.16.840.1.313968.3.579.2.593 1959 Unknown [id number] 2.16.840.1.410914.3.579.2.593 1959 Unknown [id number] 2.16.840.1.637244.3.579.2.593 1959 Unknown [id number] 2.16.840.1.415015.3.579.2.1259 1959 Unknown [id number] 2.16.840.1.351152.3.579.2.1259 1959 Unknown [id number] 2.16.840.1.710021.3.579.2.1259 1959 Unknown [id number] 2.16.840.1.784793.3.579.2.1259 1959 Unknown [id number] 2.16.840.1.092614.3.579.2.1259 1959 Unknown [id number] 2.16.840.1.036068.3.579.2.1259 1959 Unknown [id number] 2.16.840.1.857918.3.579.2.1259 1959 Unknown [id number] 2.16.840.1.819492.3.579.2.1259 1959 Unknown [id number] 2.16.840.1.164676.3.579.2.1259 1959 Unknown [id number] 2.16.840.1.472619.3.579.2.1259 1959 Unknown [id number] Social History Date Type Detail Facility Start: 06-26-2023 End: 03-17-2024 Sex Assigned At [facility] [employer] Other Start: 01-14-2023 Tobacco smoking status NHIS Never smoked tobacco [facility] Start: 01-14-2023 Tobacco use and exposure Smokeless tobacco non-user [facility] Start: 06-26-2023 End: 05-05-2024 Alcohol intake Lifetime non-drinker (finding) [facility] Start: 06-26-2023 End: 03-17-2024 History of Social function [facility] Start: 01-14-2023 Alcohol Comment caffeine 1-2 c ups per day [facility] Start: 1960 Sex Assigned At Not on file [facility] History of Present illness Narrative 05-05-2024 JOO Chamberlain - 05/05/2024 9:00 AM EST Note Date & Type Note Facility 05-05-2024 History of Presen t illness Narrative Reason for Appointment: Patient ID: Ashley Gant is a 63 y.o. female who presents for Well Women Visit Patient presents today for Annual Exam. and Consult appointment. MEDICATIONS Current Outpatient Medications Medication Instructions alendronate (Fosamax) 70 MG tablet TAKE 1 TABLET BY MOUTH ONE TIME PER WEEK Ascorbic Acid (vitamin C) 1000 MG tablet Every 24 hours aspirin 81 MG EC tablet Every 24 hours B Complex Vitamins (VITAMIN B COMPLEX 100 IJ) Vitamin B Complex B Complex-Folic Acid (SUPER B COMPLEX MAXI PO) Super B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 this document.
[2024-05-12 11:09] LABS: Age Gdln ACOG Testing Note (.); HPV Aptima Negative (Negative); IGP, Aptima HPV, rfx 16/18,45 Note (.)
== END 2024-05-05 19:42 | disposition home or self-care (01) ==
LOC: LAB 19:41
PROVIDERS: PCP Family Medicine; Visit Provider Physician Assistant
DX: Z01.419 Encounter for gynecological examination (general) (routine) without abnormal findings (principal)
CPT/HCPCS: 87624; 88175

== ENCOUNTER 2024-05-08 13:43 | Outpatient (OUT) | payer MEDICARE, SELFPAY ==
--- NOTE | 2024-05-08 13:49 | US_ITS ---
Patient Name: STONE ESPINOZA MR#: [id number] : 1960 Exam Date: 05/08/2024 Ordering Doctor: JOO Bah . RADIOLOGY REPORT PROCEDURE: MM DIAGNOSTIC MAMMO UNILAT LT, 05/08/2024, 14:03 US BREAST LT LIMITED, 05/08/2024, 14:15 COMPARISON: MM TOMOSYNTHESIS SCREENING BI, 04/28/2024. MM TOMOSYNTHESIS SCREENING BI, 04/23/2023. MG MAMM SCREEN 3D SOSA CAD, 04/10/2022. MG MAMM SCREEN 3D SOSA CAD, 03/01/2021. INDICATIONS: Abnormal Mammogram Calculator Name NCI Breast Cancer Risk Assessment Tool 5 Year Breast Cancer Risk 1.60% Lifetime Breast Cancer Risk 6.60% Personal Breast Cancer No Personal Ovarian Cancer No Treatments None Family Cancers Mother with lung cancer at age 88. LOCATION: [facility] BREAST COMPOSITION: The breasts are almost entirely fatty. FINDINGS: DIAGNOSTIC CATEGORY 4--SUSPICIOUS FOR MALIGNANCY. FINDING DOES NOT EXHIBIT CLASSIC FINDINGS OF BREAST CANCER: LEFT BREAST: Spot magnification views demonstrate persistence of a circumscribed round mass within lower-inner quadrant. Ultrasound evaluation demonstrates 2 adjacent structures at the 9 o'clock position, 5.5 cm from the nipple. One represents a 3 mm simple cyst. The other represents a 6 x 5 x 4 mm mixed cystic and solid structure which is taller than wide which increases suspicion for neoplasm. Ultrasound-guided tissue sampling is recommended. Alternatively a follow-up ultrasound evaluation in 3 months to document stability could be performed. RECOMMENDATIONS: ULTRASOUND-GUIDED CORE BIOPSY: LEFT BREAST PLEASE NOTE: A NORMAL MAMMOGRAM DOES NOT EXCLUDE THE POSSIBILITY OF BREAST CANCER. A CLINICALLY SUSPICIOUS PALPABLE LUMP SHOULD BE BIOPSIED. Dictated by: Damain Monterroso M.D. on 05/08/2024 at 14:42 Approved by: Damian Monterroso M.D. on 05/08/2024 at 15:12
== END 2024-05-08 13:44 | disposition home or self-care (01) ==
LOC: MAMMO 13:43
PROVIDERS: PCP Family Medicine; Visit Provider Physician Assistant
DX: R92.8 Other abnormal and inconclusive findings on diagnostic imaging of breast (principal); Z80.1 Family history of malignant neoplasm of trachea, bronchus and lung; N63.24 Unspecified lump in the left breast, lower inner quadrant
CPT/HCPCS: 76642; 77065

== ENCOUNTER 2024-05-19 14:12 | Outpatient (OUT) | payer MEDICARE, SELFPAY ==
--- NOTE | 2024-05-19 14:16 | US_ITS ---
[address] [address] Patient Name: STONE ESPINOZA MRN: [id number] date: 1960 Sex: F Assigned Patient Location: Current Patient Location: US Accession/Order Number: [id number] Exam Date: 05/19/2024 14:17 Report Date: 05/19/2024 15:32 At the request of: JOSY MANRIQUE Procedure: US breast vac bx w/ clip LT EXAMINATION: US breast vac bx w/ clip LT HISTORY: Mixed Cystic and Solid Left Breast Lesion COMPARISON: No relevant comparison available. TECHNIQUE: After obtaining informed consent, ultrasound-guided fine needle aspiration was performed in the usual sterile manner. FINDINGS: IMAGING: Ultrasound. BIOPSY NEEDLE: 13-gauge vacuum-assisted mammotome LOCATION: 9:00 left breast 6.3 mm lesion SPECIMEN TYPE: 4 core samples. LOCAL ANESTHETIC: 2 cc lidocaine without epi, 6 cc lidocaine with epi COMPLICATIONS: None. LABORATORY: Prepared slide smears and washings for cell block evaluation. OTHER: Negative. PATHOLOGY: Pending. An addendum will be added when results are available. US/US breast vac bx w/ clip LT IMPRESSION: 1. Uneventful ultrasound guided core biopsy left breast lesion 2. Pathology results are pending. Electronically authenticated by: VANE WALKER Date: 05/19/2024 15:32
--- NOTE | 2024-05-19 14:16 | MM_ITS ---
Patient Name: STONE ESPINOZA MR#: [id number] : 1960 Exam Date: 05/19/2024 Ordering Doctor: JOO Bah . This report includes an Addendum and supersedes previous reports for this exam. RADIOLOGY REPORT PROCEDURE: MM POST BIOPSY LT COMPARISON: MM DIAGNOSTIC MAMMO UNILAT LT, 05/08/2024. INDICATIONS: Mixed Cystic and Solid Left Breast Lesion BREAST COMPOSITION: The breasts are almost entirely fatty. FINDINGS: Post-Procedure Mammogram for Marker Placement BIOPSY MARKER: A metallic marker has been placed in the targeted location within the lower inner quadrant of the left breast. BREAST FINDINGS: The targeted lesion is no longer present Dictated by: Don Rivas MD on 05/19/2024 at 15:34 Approved by: Don Rivas MD on 05/19/2024 at 15:35 ADDENDUM: FINDINGS: DIAGNOSTIC CATEGORY 2--BENIGN FINDING: Pathologic diagnosis: No evidence of malignancy or glandular atypia. RECOMMENDATIONS: ROUTINE MAMMOGRAM AND CLINICAL EVALUATION IN 12 MONTHS. Dictated by: Don Rivas MD on 05/25/2024 at 14:50 Approved by: Don Rivas MD on 05/25/2024 at 14:51
[2024-05-19] MEDS: LIDOCAINE HCL 10 ML, SODIUM BICARBONATE 1 MEQ INJ (15:04)
[2024-05-19 15:46] VITALS: BMI 32.8
[2024-05-19] MEDS: LIDOCAINE HCL 1%-EPINEPHRINE 1:100,000 20 ML MDV 10 ML INJ (15:59)
== END 2024-05-19 16:00 | disposition home or self-care (01) ==
LOC: US 06-16 08:23
PROVIDERS: Radiology Diagnostic Radiology; PCP Family Medicine; Visit Provider Physician Assistant
DX: R92.8 Other abnormal and inconclusive findings on diagnostic imaging of breast (principal); R92.0 Mammographic microcalcification found on diagnostic imaging of breast; N63.25 Unspecified lump in the left breast, overlapping quadrants; N63.20 Unspecified lump in the left breast, unspecified quadrant
CPT/HCPCS: 19083; 77065; 88305; 88341; 88342

== ENCOUNTER 2024-05-25 08:50 | Outpatient (REF) | payer MEDICARE, SELFPAY | END 2024-05-25 08:51 | disposition home or self-care (01) | LOC: LAB 08:50 | PROVIDERS: PCP Family Medicine; Visit Provider Obstetrics & Gynecology | DX: L30.9 Dermatitis, unspecified (principal) ==

== ENCOUNTER 2025-02-11 08:50 | Outpatient (RCR) | payer MEDICARE, SELFPAY | END 2025-03-04 12:44 | disposition home or self-care (01) | LOC: PT 08:50 | PROVIDERS: PCP Family Medicine; Visit Provider Orthopaedic Surgery | DX: M17.12 Unilateral primary osteoarthritis, left knee (principal); M25.562 Pain in left knee | CPT/HCPCS: 97110; 97161 ==

== ENCOUNTER 2025-04-12 12:47 | Outpatient (OUT) | payer MEDICARE, SELFPAY ==
--- OUTSIDE RECORDS SUMMARY | 2025-03-29 09:00 | XMS_ITS | Encounter Summary ---
Author Organization [facility] Address [address] [place] [place] [address] Care Team Providers Care Hose Inspector Name Role Phone Reece Oswald MD Primary Care Provider [phone] Reason for Referral * Rehabilitation - Outpatient (Routine) - Pending ReviewSpecialtyDiagnoses / ProceduresReferred By ContactReferred To ContactPhysical Therapy Diagnoses Primary osteoarthritis of left knee Procedures MT OFFICE/OUTPATIENT NEW HIGH MDM 60 MINUTES Ivan Stevenson NP [address] [place] [address] Phone: tel: fax: Betito Chiang, PT [address] [place] [address] Phone: tel: fax: Referral IDStatusReasonStart DateExpiration DateVisits RequestedVisits [id number] Review Specialty Services Required / Reason for Visit * ReasonCommentsPre-op Visit Encounter Details DateTypeDepartmentCare Team (Latest Contact Info)Tmxjudtupaq65/27/2025 10:00 AM EDTOffice Visit [facility] [address] [place] [address] Ivan Stevenson NP [address] [place], [place] [id number] Pre-op evaluation (Primary Dx); Primary osteoarthritis of left knee Social History Tobacco UseTypesPacks/DayYears UsedDateSmoking Tobacco: NeverSmokeless Tobacco: NeverAlcohol UseStandard Drinks/WeekCommentsNever0 (1 standard drink = 0.6 oz pure alcohol)caffeine 1-2 cups per dayCommentsNoSex and Gender InformationValueDate RecordedSex Assigned at BirthNot on fileLegal SexFemale 08/15/2022 6:56 PM EDTGender IdentityNot on fileSexual OrientationNot on file documented as of this encounter Last Filed Vital Signs Vital SignReadingTime TakenCommentsBlood Pressure--Pulse--Temperature-- Respiratory Rate--Oxygen Saturation--Inhaled Oxygen Concentration--Jmggsp634 kg (239 lb)03/29/2025 9:58 AM MMLEzxbwa664.3 cm (5' 11 )03/29/2025 9:58 AM EDTBody Mass Index33.331 9:58 AM EDTdocumented in this encounter Progress Notes * Ivan Stevenson NP - 03/29/2025 10:00 AM EDT Images from the original note were not included. GENERAL HISTORY AND PHYSICAL: NAME: Ashley Gant : 1960 HISTORY OF PRESENT ILLNESS: Ashley Gant is an 64 y.o. @ female. Here for surgery instructions [place] [facility] [place] PAST MEDICAL HISTORY: Medical History[1] PAST SURGICAL HISTORY: Surgical History[2] SOCIAL HISTORY: Social History Occupational History Not on file Tobacco Use Smoking status: Never Smokeless tobacco: Never Substance and Sexual Activity Alcohol use: Never Comment: caffeine 1-2 cups per day Drug use: Never Sexual activity: Defer control/protection: Female Sterilization ALLERGIES: Allergies[3] MEDICATIONS: Current Outpatient Medications Medication Instructions alendronate (Fosamax) 70 MG tablet TAKE 1 TABLET BY MOUTH ONE TIME PER WEEK Ascorbic Acid (vitamin C) 1000 MG tablet Every 24 hours aspirin 81 MG EC tablet Every 24 hours B Complex Vitamins (VITAMIN B COMPLEX 100 IJ) Calcium Citrate-Vitamin D (Calcium Citrate + D3) 200-6.25 MG-MCG tablet cholecalciferol (VITAMIN D-3) 1,000 Units, Daily cyanocobalamin (Vitamin B-12) 1000 MCG tablet Every 24 hours Ferrex 150 Forte 150-0.025-1 MG capsule 1 capsule, Oral, Daily fexofenadine (Zenaida) 180 MG tablet Every 24 hours Pvqdhirtbwg-Oszlvbgly-Yaf C-Mn (Glucosamine Chondroitin Complx) capsule 1 capsule, Every 12 hours magnesium 30 mg, 2 times daily Multiple Vitamin (Multi Vitamin) tablet Every 24 hours Turmeric 500 MG capsule zinc 50 MG tablet Every 24 hours REVIEW OF SYSTEMS: Review of Systems Constitutional: Negative for fatigue, fever and unexpected weight change. Eyes: Negative for redness and visual disturbance. Gastrointestinal: Negative for abdominal pain. Denies Indigestion Musculoskeletal: See note: Skin: Negative for color change and rash. Neurological: Negative for light-headedness and numbness. Vitals: Body mass index is 33.33 kg/m??. PHYSICAL EXAM: Physical Exam Constitutional: General: She is not in acute distress. Appearance: Normal appearance. HENT: Head: Normocephalic and atraumatic. Right Ear: External ear normal. Left Ear: External ear normal. Nose: Nose normal. No rhinorrhea. Mouth/Throat: Mouth: Mucous membranes are moist. Dentition: No gingival swelling or dental abscesses. Pharynx: Oropharynx is clear. No pharyngeal swelling or posterior oropharyngeal erythema. Eyes: Extraocular Movements: Extraocular movements intact. Conjunctiva/sclera: Conjunctivae normal. Cardiovascular: Rate and Rhythm: Normal rate and regular rhythm. Pulses: Normal pulses. Heart sounds: Normal heart sounds. No murmur heard. Pulmonary: Effort: Pulmonary effort is normal. No respiratory distress. Breath sounds: Normal breath sounds. No wheezing or rhonchi. Abdominal: Palpations: Abdomen is soft. Tenderness: There is no abdominal tenderness. Musculoskeletal: Cervical back: Normal range of motion and neck supple. Lymphadenopathy: Cervical: No cervical adenopathy. Skin: General: Skin is warm and dry. Findings: No erythema or rash. Neurological: General: No focal deficit present. Mental Status: She is alert and oriented to person, place, and time. Psychiatric: Mood and Affect: Mood normal. Behavior: Behavior normal. Orders Placed This Encounter Procedures Ambulatory referral to Physical Therapy [place] for [place] [facility] [place] Status: Future Expected Date: 03/29/2025 Expiration Date: 09/27/2025 Referral Priority: Routine Referral Type: Rehabilitation - Outpatient Referral Reason: Specialty Services Required Referred to Provider: Betito Chiang PT Requested Specialty: Physical Therapy Number of Visits Requested: 1 ASSESSMENT: ICD-10-CM 1. Pre-op evaluation Z01.818 2. Primary osteoarthritis of left knee M17.12 Ambulatory referral to Physical Therapy PLAN: This patient presents for preadmission testing for upcoming surgery. Complete history with medical,surgery, and current allergy and medication list obtained. Consent for surgery signed and witnessedafter verbal consent to perform surgery received. All questions answered and proposed surgery scheduled. SURGERY INSTRUCTIONS March PAT April DR. OSWALD April PRE CERT SENT PT SENT NAREN NOTIFIED Follow up in about 5 weeks (around 05/06/2025) for Post-Op May 06 @ 1:00 with [facility] in [place]. [1] Past Medical History: Diagnosis Date Anemia Arthritis Bilateral tympanic membrane perforation Breast cancer screening by mammogram 04/10/2023 neg Cholesteatoma Chronic rhinitis COVID-19 Detached retina DVT (deep venous thrombosis) (HCC) Hearing loss Hearing loss of right ear History of section History of hysterectomy Nonsmoker Nontoxic multinodular goiter Obesity (BMI 30.0-34.9) Osteopenia of spine Osteoporosis Otorrhea of right ear Ovarian failure Palpitations Perforated tympanic membrane, bilateral Post-menopausal Tachycardia Thyroid nodule Vaginal atrophy Venous insufficiency Vulvar itching [2] Past Surgical History: Procedure Laterality Date BREAST SURGERY breast implant, removed after 14 years SECTION, LOW TRANSVERSE x2 HYSTERECTOMY 2017 TOTAL HIP ARTHROPLASTY Left 2011 DR FERGUSON TOTAL HIP ARTHROPLASTY Right 2012 DR FERGUSON TYMPANOSTOMY Left with T tube VAGINAL DELIVERY [3] Allergies Allergen Reactions Other Unknown Penicillin G Unknown documented in this encounter Plan of Treatment DateTypeDepartmentCare Team (Latest Contact Info)Lzgryvkrlvw25/04/2025 1:00 PM ESTOffice Visit [facility] [place] [facility] [address] [place] [address] Luis M Casey, JOO [address] [place] [address] 07/06/2025 8:30 AM ESTOffice Visit [facility] [place] [facility] [address] [facility] [address] [place] [address] Antonia Jackson MD [address] [facility] [address] [place] [address] NameTypePriorityAssociated DiagnosesOrder ScheduleAmbulatory referral to Physical TherapyOutpatient ReferralRoutine Primary osteoarthritis of left knee Expected: 03/29/2025 (Approximate), Expires: 09/27/2025documented as of this encounter Visit Diagnoses Diagnosis Pre-op evaluation- Primary Primary osteoarthritis of left knee documented in this encounter Care Teams Team MemberRelationshipSpecialtyStart DateEnd Date Reece Oswald MD [address] [place] [address] PCP - GeneralFamily Medicine01/14/23documented as of this encounter
--- OUTSIDE RECORDS SUMMARY | 2025-04-12 12:49 | XMS_ITS | Encounter Summary ---
Author Organization [facility] Address [address] [place] [address] Care Team Providers Care Stockroom Helper Name Role Phone Reece Zhao MD Primary Care Provider [phone] Encounter Details DateTypeDepartmentCare Team (Latest Contact Info)Womfukyfyea66/10/2025External Result Encounter [facility] External Department Unsolicited Jr. Stoney Rivera DO [address] [facility] [address] [place] [address] Social History Tobacco UseTypesPacks/DayYears UsedDateSmoking Tobacco: NeverSmokeless Tobacco: NeverAlcohol UseStandard Drinks/WeekCommentsNever0 (1 standard drink = 0.6 oz pure alcohol)caffeine 1-2 cups per dayCommentsNoSex and Gender InformationValueDate RecordedSex Assigned at BirthNot on fileLegal SexFemale 08/15/2022 6:56 PM EDTGender IdentityNot on fileSexual OrientationNot on file documented as of this encounter Plan of Treatment DateTypeDepartmentCare Team (Latest Contact Info)Aibdgirmppy23/04/2025 1:00 PM ESTOffice Visit [facility] [address] [facility] [address] [place] [address] Luis M Casey, JOO [address] [place] [address] 07/06/2025 8:30 AM ESTOffice Visit [facility] [address] [facility] [address] [place] [address] Antonia Jackson MD 112 [facility] [address] [place] [address] documented as of this encounter Procedures Procedure NamePriorityDate/TimeAssociated DiagnosisCommentsURINALYSIS, MANUAL EIWZPvccpef80/10/2025 10:05 AM EST documented in this encounter Results * Urinalysis, manual only (04/12/2025 10:05 AM EST)ComponentValueRef RangeTest MethodAnalysis TimePerformed AtPathologist SignatureCOLOR,URINELight-Yellow Mwohja0604/12/2025 10:19 AM [facility]trAPPEARANCE,URINE DlehsRqdva00/10/2025 10:19 AM [facility] CtrSPECIFICY GRAVITY,URINE1.0181.001 - 1.1990904/12/2025 10:19 AM [facility] CtrPH,URINE5.55.0 - 9.011 10:19 AM [facility] CtrLEUKOCYTE ESTERASE,BDJAMKjhxekncXwnwtwjb04/10/2025 10:19 AM [facility] CtrNITRITE,RUYJRYgvmfmjbYypfzjmb77/10/2025 10:19 AM [facility] CtrPROTEIN,URINENegativeNegative mg/dL04/12/2025 10:19 AM [facility] CtrGLUCOSE,URINE (UA)NormalNormal mg/dL 04/12/2025 10:19 AM [facility] CtrKETONES,URINENegative Xbfblvlo85/10/2025 10:19 AM [facility] UROBILINOGEN,URINENormalNormal mg/dL04/12/2025 10:19 AM [facility] CtrBILIRUBIN,XQPLBIztsbdrtGsoqetno40/10/2025 10:19 AM [facility] CtrOCCULT BLOOD,GYCICAfrnapsuMjyauxge09/10/2025 10:19 AM [facility] CtrSpecimen (Source)Anatomical Location / LateralityCollection Method / VolumeCollection TimeReceived TimeOther 04/12/2025 10:05 AM EST04/12/2025 10:13 AM EST Narrative [facility] - 04/12/2025 10:19 AM EST Comment please run c s if UA+ Name Collection Type:: Clean-Voided Midstream Authorizing ProviderResult TypeResult StatusJr. Stoney Boateng Stepanic DOLAB URINE ORDERABLESFinal ResultPerforming OrganizationAddressCity/State/ZIP CodePhone Number [facility] [address] [place] [address], [facility] [address] [place] [address] documented in this encounter Visit Diagnoses Not on filedocumented in this encounter Care Teams Team MemberRelationshipSpecialtyStart DateEnd Date Reece Zhao MD [address] [place] [address] PCP - GeneralFamily Medicine01/14/23documented as of this encounter
--- OUTSIDE RECORDS SUMMARY | 2025-04-12 12:49 | XMS_ITS | Encounter Summary ---
Author Organization [facility] Address [address] [place] [address] Care Team Providers Care Silk Screen Etcher Name Role Phone Reece Zhao MD Primary Care Provider [phone] Encounter Details DateTypeDepartmentCare Team (Latest Contact Info)Nzupmqvkjjn11/10/2025External Result Encounter [facility] External Department Unsolicited Jr. Stoney Rivera DO 112 [facility] [address] [place] [address] Social History Tobacco UseTypesPacks/DayYears UsedDateSmoking Tobacco: NeverSmokeless Tobacco: NeverAlcohol UseStandard Drinks/WeekCommentsNever0 (1 standard drink = 0.6 oz pure alcohol)caffeine 1-2 cups per dayCommentsNoSex and Gender InformationValueDate RecordedSex Assigned at BirthNot on fileLegal SexFemale 08/15/2022 6:56 PM EDTGender IdentityNot on fileSexual OrientationNot on file documented as of this encounter Plan of Treatment DateTypeDepartmentCare Team (Latest Contact Info)Vpiihbkjeai91/04/2025 1:00 PM ESTOffice Visit [facility] [address] [facility] [address] [place] [address] Luis M Casey, JOO [address] [place] [address] 07/06/2025 8:30 AM ESTOffice Visit [facility] [address] [facility] [address] [place] [place] [address] Antonia Jackson MD 112 [facility] [address] [address] documented as of this encounter Procedures Procedure NamePriorityDate/TimeAssociated DiagnosisCommentsCBC WITH AUTO JVKTLFBDCHDBOlwpodo40/10/2025 10:35 AM EST documented in this encounter Results * CBC auto differential (04/12/2025 10:35 AM EST)ComponentValueRef RangeTest MethodAnalysis TimePerformed AtPathologist SignatureWBC5.63.8 - 11.6 [CFU]/mL 04/12/2025 10:[address] [facility] CtrUNCORRECTED WHITE BLOOD COUNT5.63.8 - 11.6 10*3/uL04/12/2025 10:[address] [facility] CtrRBC4.703.60 - 5.00 10*6/uL04/12/2025 10:[address] [facility] FexMDUNDUKUSC62.411.8 - 15.4 g/dL04/12/2025 10:[address] [facility] DywMUNPLQKSTM17.734.0 - 46.4 %04/12/2025 10:[address] [facility] HylGNQ04.080 - 100 fL04/12/2025 10:[address] [facility] CkgKPU33.824.7 - 34.3 pg04/12/2025 10:[address] [facility] NxpPKFO32.832.0 - 35.0 g/dL04/12/2025 10:[address] [facility] CtrRED CELL DISTRIBUTION WIDTH, RDW13.311.9 - 15.3 % 04/12/2025 10:[address] [facility] CtrPLATELET FWMMH314839 - 450 10*3/uL04/12/2025 10:[address] [facility] CtrMEAN PLATELET VOLUME, MPV7.16.3 - 10.7 fL04/12/2025 10:[address] [facility] CtrNEUTROPHILS, %62.8. %04/12/2025 10:[address] [facility]tr LYMPHOCYTES, %23.5. %04/12/2025 10:[address] [facility] MONOCYTE/MACROPHAGE, %9.4. %04/12/2025 10:[address] [facility] CtrEOSINOPHILS, %2.9. %04/12/2025 10:[address] [facility] BASOPHILS, %1.4. %04/12/2025 10:[address] [facility] CtrNRBC0.0 0 - 0.5 /100{WBC}04/12/2025 10:[address] [facility] NEUTROPHILS3.51.8 - 7.7 10*3/uL04/12/2025 10:[address] [facility] CtrLYMPHOCYTES1.31.00 - 4.8 10*3/uL04/12/2025 10:[address] [facility] CtrMONOCYTES0.50.0 - 0.8 10*3/uL04/12/2025 10:55 AM [facility] CtrEOSINOPHILS0.20.0 - 0.45 10*3/uL04/12/2025 10:[address] [facility] CtrBASOPHILS0.10.0 - 0.2 10*3/uL04/12/2025 10:[address] [facility] CtrSpecimen (Source)Anatomical Location / LateralityCollection Method / VolumeCollection TimeReceived TimeBlood (Blood)04/12/2025 10:35 AM EST04/12/2025 10:42 AM EST Narrative Authorizing ProviderResult TypeResult StatusJr. Stoney NEVAREZAB BLOOD ORDERABLESFinal ResultPerforming OrganizationAddressCity/State/ZIP CodePhone Number [facility] [address] [place] [address], [facility] [address] [place] [address] documented in this encounter Visit Diagnoses Not on filedocumented in this encounter Care Teams Team MemberRelationshipSpecialtyStart DateEnd Date Reece Zhao MD [address] [facility] [place] [address] PCP - GeneralFamily Medicine01/14/23documented as of this encounter
--- OUTSIDE RECORDS SUMMARY | 2025-04-12 12:49 | XMS_ITS | Clinical Summary ---
Author Organization [facility] Healthcare Address [address] [place] [address] Care Team Providers Care Thermostat Repairer Name Role Phone Reece Zhao MD Primary Care Provider [phone] Allergies Active AllergyReactionsCriticalityNoted HfkfYnobdxbfSwtstIcpuefh28/27/2023 Penicillin GOfqfkdc92/14/2023 Medications MedicationSigDispense QuantityRefillsLast FilledStart DateEnd DateStatus Bfncniayxhi-Tkmjaykus-Tvi C-Mn (Glucosamine Chondroitin Complx) capsule 1 capsule every 12 (twelve) hoursActive cyanocobalamin (Vitamin B-12) 1000 MCG tablet 1 (one) time each day at the same timeActive fexofenadine (Zenaida) 180 MG tablet 1 (one) time each day at the same timeActive aspirin 81 MG EC tablet 1 (one) time each day at the same timeActive Ascorbic Acid (vitamin C) 1000 MG tablet 1 (one) time each day at the same timeActive B Complex Vitamins (VITAMIN B COMPLEX 100 IJ) Active Turmeric 500 MG capsule Active Multiple Vitamin (Multi Vitamin) tablet 1 (one) time each day at the same timeActive Calcium Citrate-Vitamin D (Calcium Citrate + D3) 200-6.25 MG-MCG tablet Active zinc 50 MG tablet 1 (one) time each day at the same timeActive magnesium 30 MG tablet Take 30 mg by mouth in the morning and 30 mg before bedtime.Active alendronate (Fosamax) 70 MG tablet Indications:Osteoporosis, post-menopausalTAKE 1 TABLET BY MOUTH ONE TIME PER WEEK 30 tablet ctive cholecalciferol (Vitamin D-3) 25 MCG (1000 UT) tablet Take 1,000 Units by mouth DailyActive Ferrex 150 Forte 150-0.025-1 MG capsule Indications:Pre-op evaluationTAKE 1 CAPSULE BY MOUTH EVERY DAY 90 capsule 5Active Additional Information Patient taking differently:1 capsule Oral Daily,(No times of day reported), Reported on 03/29/2025 Active Problems ProblemNoted DateDiagnosed DateHistory of fxkaunevicbd50/04/2025Otorrhea of right ear01/04/2025Mammogram afsrertt21/09/2024Mass of left vbvizo7105/11/2024 Bilateral tympanic membrane xltqptjuszi76/24/2024ilateral impacted cerumen 06/26/2023ge-related osteoporosis without current pathological fracture 06/24/20235436Gfxizekouqxxf61/22/2024hronic ffzkeynb17/22/3253Wgndgg54/22/2024 Hearing loss of left ear06/24/2023Nontoxic multinodular jdeqif6506/24/2023Obesity 06/24/2023Other primary ovarian itkpyyl6306/24/2023Osteoarthritis of knee 4Pain in joint involving pelvic region and thigh06/24/2023erforation of tympanic cloyizre68/22/2024Right hip pain06/24/2023Mixed conductive and sensorineural hearing loss of right ear with restricted hearing of left ear 06/24/2023Sensorineural hearing loss (SNHL), uxmevqbcy44/22/2024Vaginal atrophy 06/24/2023 Encounters DateTypeDepartmentCare ZxtxEvdhmxgrwpc60/10/2025External Result Encounter [facility] External Department Unsolicited Jr. Stoney Rivera, DO 04/12/2025External Result Encounter NOMS External Department Unsolicited Jr. Stoney Rivera, DO 04/12/2025External Result Encounter NOM External Department UnsolicJr. Stoney Taveras, DO 03/29/2025 10:00 AM EDTOffice Visit [facility] [address] [place] [phone] Ivan Stevenson, KIER DRIER Pre-op evaluation (Primary Dx); Primary osteoarthritis of left knee03/29/2025amboo flowsheet [facility] [address] [facility] [place] [address] Ivan Stevenson NP 03/29/20257361Neqaup22/15/2025 8:45 AM EDTOffice Visit [facility] [address] [place] [address] Jr. Stoney Rivera, DO Primary osteoarthritis of left knee (Primary Dx); Acute pain of left knee03/17/2025amboo flowsheet [facility] [address] [place] [address] Jr. Stoney Rivera, DO 03/17/20251188Ganqka31/26/2025Refill [facility] [address] [facility] [place] [address] Jr. Stoney Rivera, DO Pre-op cencvgwgzs29/10/2025Telephone [facility] [address] [place] [address] Jr. Stoney Rivera, DO 02/10/2025Orders Only [facility] [address] [facility] [place] [address] Michelle Adam MA Primary osteoarthritis of left knee (Primary Dx)02/08/2025Telephone [facility] [address] [facility] [place] [phone] Jr. Stoney Rivera, DO Surgery Questions; dental work prior to sx; Fuwxachpd11/04/2025 1:30 PM EDT Office Visit [facility] [address] [place] [address] Ivan Stevenson, HONG Pre-op evaluation (Primary Dx)02/04/2025External Result Encounter [facility]S External Department Unsolicited Jr. Stoney Rivera, DO 02/04/20259020Hdxprn61/04/2025External Result Encounter [facility]OMS External Department Unsolicited Jr. Stoney Rivera, DO 09/04/2025External Result Encounter [facility]OMS External Department Unsolicited Jr. Stoney Rivera, DO 02/04/2025External Result Encounter NOMS External Department Unsolicited Jr. Stoney Rivera, DO 02/04/2025External Result Encounter NOMS External Department Unsolicited Jr. Stoney Rivera, DO 01/21/2025 5:15 PM EDTAncillary Procedure [facility] [address] [place] [phone] Pain of left calf01/21/20254785Vnijie26/20/6329Vndogj78/19/2025 8:40 AM EDTAncillary Procedure [facility] [address] [place], [place] [address] [place] [address] 01/19/2025 8:35 AM EDTAncillary Procedure [facility] [address] [place], [place] [address] [place] [phone] 01/19/2025 8:30 AM EDTOffice Visit [facility] [address] [place], [place] [address] [place] [place] [phone] Jr. Stoney Rivera, DO Right hip pain; Left hip pain; Pain of left calf01/19/2025amboo flowsheet [facility] [place] [phone] Jr. Stoney Rivera, DO 01/19/2025Travelfrom Last 3 Months Immunizations ImmunizationAdministration DatesNext Edwin, live06/19/2013 Family History Medical HistoryRelationNameCommentsHodgkin's lymphomaBrotherEmphysemaFather CancerMaternal GrandmotherLung cancerMotherRelationNameStatusCommentsBrother Deceased2, 1 deceasedFatherDeceasedMaternal GrandfatherDeceasedMaternal GrandmotherDeceasedMotherDeceasedPaternal GrandfatherDeceasedPaternal GrandmotherDeceased Social History Tobacco UseTypesPacks/DayYears UsedDateSmoking Tobacco: NeverSmokeless Tobacco: Never Tobacco Cessation:Counseling Given: Not Answered Alcohol UseStandard Drinks/WeekCommentsNever0 (1 standard drink = 0.6 oz pure alcohol)caffeine 1-2 cups per dayCommentsNoSex and Gender Information ValueDate RecordedSex Assigned at BirthNot on fileLegal XfzKmutkb50/15/2023 6:56 PM EDTGender IdentityNot on fileSexual OrientationNot on file Last Filed Vital Signs Vital SignReadingTime TakenCommentsBlood Aljfpwih687/7708 9:08 AM EDT Lhnvt4122 8:58 AM ESTTemperature--Respiratory Shbx255702/18/2024 1:30 PM EDTOxygen Saturation--Inhaled Oxygen Concentration--Iroihe900 kg (239 lb) 03/29/2025 9:58 AM DOUZiirbi738.3 cm (5' 11 )03/29/2025 9:58 AM EDTBody Mass Index33.331 9:58 AM EDT Plan of Treatment DateTypeDepartmentCare Team (Latest Contact Info)Uvnjxfrodms12/04/2025 1:00 PM ESTOffice Visit [facility] [place] [facility] [address] [facility] [address] [place] [address] Luis M Casey, PA [address] [place] [address] 07/06/2025 8:30 AM ESTOffice Visit [facility] [address] [facility] [address] [place] [address] Antonia Jackson MD [address] [facility] [address] [place], [place] [address] Procedures Procedure NamePriorityDate/TimeAssociated DiagnosisCommentsBASIC METABOLIC PANEL Falzhdf1804/12/2025 10:35 AM EST CBC WITH AUTO AZGFHKMYKYZMUpxywnn48/10/2025 10:35 AM EST URINALYSIS, MANUAL JROSBdshytv77/10/2025 10:05 AM EST XR TIBIA/FIBULA BI02/04/2025 2:27 PM EDT URINALYSIS, MANUAL PYTFBeqtire67/04/2025 9:30 AM EDT BASIC METABOLIC YEOVVAgrylrp26/04/2025 9:20 AM EDT CBC WITH AUTO MLGWWSIOZXJXShgckbz89/04/2025 9:20 AM EDT ECG 12-LEAD02/04/2025 9:11 AM EDT VASC US LOWER EXTREMITY VENOUS DUPLEX WKUZItklbza50/21/2025 5:22 PM EDT Pain of left calf XR HIP 2 OR 3 VW DLIDGrfrlru78/19/2025 8:34 AM EDT Left hip pain XR HIP 2 OR 3 VW TIMPGIyxblho95/19/2025 8:34 AM EDT Right hip pain from Last 3 Months Results * CBC auto differential (04/12/2025 10:35 AM EST) Only the most recent of2 resultswithin the time period is included. ComponentValueRef RangeTest MethodAnalysis TimePerformed AtPathologist Signature WBC5.63.8 - 11.6 [CFU]/mL04/12/2025 10:55 AM [facility] UNCORRECTED WHITE BLOOD COUNT5.63.8 - 11.6 10*3/uL04/12/2025 10:55 AM [facility] CtrRBC4.703.60 - 5.00 10*6/uL04/12/2025 10:55 AM [facility] GvfBYDWCUYRQZ35.411.8 - 15.4 g/dL04/12/2025 10:55 AM [facility] XrmRDLZDHHVNM68.734.0 - 46.4 %04/12/2025 10:55 AM [facility] ZyoOAB43.080 - 100 fL04/12/2025 10:55 AM [facility] ZhxIUL75.824.7 - 34.3 pg04/12/2025 10:55 AM [facility] YbgWXMS02.832.0 - 35.0 g/dL04/12/2025 10:55 AM [facility] CtrRED CELL DISTRIBUTION WIDTH, RDW13.311.9 - 15.3 % 04/12/2025 10:55 AM [facility] CtrPLATELET FHJYO297769 - 450 10*3/uL04/12/2025 10:55 AM [facility] CtrMEAN PLATELET VOLUME, MPV7.16.3 - 10.7 fL04/12/2025 10:55 AM [facility] NEUTROPHILS, %62.8. %04/12/2025 10:55 AM [facility] LYMPHOCYTES, %23.5. %04/12/2025 10:55 AM [facility] MONOCYTE/MACROPHAGE, %9.4. %04/12/2025 10:55 AM [facility] CtrEOSINOPHILS, %2.9. %04/12/2025 10:55 AM [facility] BASOPHILS, %1.4. %04/12/2025 10:55 AM [facility] CtrNRBC0.00 - 0.5 /100{WBC}04/12/2025 10:55 AM [facility] CtrNEUTROPHILS 3.51.8 - 7.7 10*3/uL04/12/2025 10:55 AM [facility] LYMPHOCYTES1.31.00 - 4.8 10*3/uL04/12/2025 10:55 AM [facility] CtrMONOCYTES0.50.0 - 0.8 10*3/uL04/12/2025 10:55 AM [facility] CtrEOSINOPHILS0.20.0 - 0.45 10*3/uL04/12/2025 10:55 AM [facility] CtrBASOPHILS0.10.0 - 0.2 10*3/uL04/12/2025 10:55 AM [facility] CtrSpecimen (Source)Anatomical Location / LateralityCollection Method / VolumeCollection TimeReceived TimeBlood (Blood) 04/12/2025 10:35 AM EST04/12/2025 10:42 AM EST Narrative Authorizing ProviderResult TypeResult StatusJr. Stoney MONTGOMERY BLOOD ORDERABLESFinal ResultPerforming OrganizationAddressCity/State/ZIP CodePhone Number [facility] [address] [place] [address], [facility] [address] [place] [address] * (ABNORMAL) Basic metabolic panel (04/12/2025 10:35 AM EST) Only the most recent of2 resultswithin the time period is included. ComponentValueRef RangeTest MethodAnalysis TimePerformed AtPathologist Signature Fehfgcs3166 - 100 mg/dL04/12/2025 11:15 AM [facility] Comment: Random Glucose Reference Range is dependent on time and content of last meal. Glucose of more than 200 mg/dL in a nonstressed, ambulatory subject supports the diagnosis of Diabetes Mellitus. ADA recommended reference range QFS720 - 25 mg/dL04/12/2025 11:15 AM [facility] CtrCREATININE 0.840.60 - 1.20 mg/dL04/12/2025 11:15 AM [facility] ESTIMATED GFR>60. 11:15 AM [facility] LmkEgvlvy908 136 - 145 mmol/L106/12/2024 11:15 AM [facility] CtrPotassium, Bld4.43.5 - 5.1 mmol/L106/12/2024 11:15 AM [facility] Fgzaexfh87644 - 107 mmol/L106/12/2024 11:15 AM [facility] Carbon Xaxfkdm43.9(H)21.0 - 31.0 mmol/L106/12/2024 11:15 AM [facility] CtrAnion Gap8.56.0 - 15. 11:15 AM [facility] CtrCalcium9.28.6 - 10.3 mg/dL04/12/2025 11:15 AM [facility] CtrSpecimen (Source)Anatomical Location / LateralityCollection Method / VolumeCollection TimeReceived TimeOtherTopography unknown / Pjrsmmj2104/12/2025 10:35 AM EST04/12/2025 10:42 AM EST Narrative Authorizing ProviderResult TypeResult StatusJr. Stoney Rivera DOLAB BLOOD ORDERABLESFinal ResultPerforming OrganizationAddressCity/State/ZIP CodePhone Number [address] [address], [facility] [address] [place] [address] * Urinalysis, manual only (04/12/2025 10:05 AM EST) Only the most recent of2 resultswithin the time period is included. ComponentValueRef RangeTest MethodAnalysis TimePerformed AtPathologist Signature COLOR,URINELight-CgyyksHqycku50/10/2025 10:19 AM [facility] CtrAPPEARANCE,EWLJJNrknbHwuxw14/10/2025 10:19 AM [facility] CtrSPECIFICY GRAVITY,URINE1.0181.001 - 1.14987 10:19 AM [facility] CtrPH,URINE5.55.0 - 9.011 10:19 AM [facility] CtrLEUKOCYTE ESTERASE,MCMFHJpbpbsamCkwlaaya16/10/2025 10:19 AM [facility] CtrNITRITE,KATJWQsjmrswcYcdoyjvi66/10/2025 10:19 AM [facility] CtrPROTEIN,URINENegativeNegative mg/dL 04/12/2025 10:19 AM [facility] CtrGLUCOSE,URINE (UA)Normal Normal mg/dL04/12/2025 10:19 AM [facility] CtrKETONES,URINE RlxmtvoqSzfcuzjk80/10/2025 10:19 AM [facility] UROBILINOGEN,URINENormalNormal mg/dL04/12/2025 10:19 AM [facility] CtrBILIRUBIN,HLVQQLsdumbofMgsxycyn63/10/2025 10:19 AM [facility] CtrOCCULT BLOOD,CDESFLirpuywkZwbrdxvu13/10/2025 10:19 AM [facility] CtrSpecimen (Source)Anatomical Location / Laterality Collection Method / VolumeCollection TimeReceived RdrsMfmpk26/10/2025 10:05 AM EST04/12/2025 10:13 AM EST Narrative [facility] - 04/12/2025 10:19 AM EST Comment please run c s if UA+ Name Collection Type:: Clean-Voided Midstream Authorizing ProviderResult TypeResult StatusJr. Stoney Boateng Stepanic DOLAB URINE ORDERABLESFinal ResultPerforming OrganizationAddressCity/State/ZIP CodePhone Number [facility] [address] [place] [address], [facility] [address] [place] [address] * XR TIBIA/FIBULA BI (02/04/2025 2:27 PM EDT)Anatomical RegionLateralityModality Radiographic ImagingSpecimen (Source)Anatomical Location / Laterality Collection Method / VolumeCollection TimeReceived Time02/04/2025 2:27 PM EDT Impressions 02/04/2025 2:30 PM EDT NO ACUTE PROCESS. ? Impression dictated by: Chad White Jr., DEzioOEzio ??02/04/2025 2:28 PM ? Dictation Location: RADIO-PC-23 ? Transcribed By: ? PWS ?02/04/251427 ? Dictated By: ?Chad White Jr DO ?02/04/25 1427 ? Signed By: <Electronically signed by Chad White Jr, DO in OV> ?02/04/25 1428 Narrative 02/04/2025 2:30 PM EDT [facility] ?[facility] [place] ?[address] ? [place] [address] ?XRay Report ? Signed ? Patient: Morsher,Ashley ?MR#: [id number] ?? 8 ? : 1960 ?Acct:[id number] ? Age/Sex: 64 / F ?ADM Date: 02/04/25 ? Loc: [facility] ? Room: ?Type: REG CLI ?? Attending Dr: Stoney Rivera Jr DO ?? Copies to: Stoney Rivera Jr, DO ? Ordering Provider: Stoney Rivera Jr, DO ?? Date of Service: 02/04/25 ?? XR/XR tibia/fibula BI: PRE OP ?? ([id number]) XR/XR femur BI: PRE OP ? Bilateral lower extremity series one view each ? CLINICAL HISTORY: Preop left TKA ? COMPARISON: None ? AP views of both lower kidneys were obtained. ? Bilateral hip prostheses are place without radiographic complication. ??No acute bony process is seen. ??Mild degenerative changes involving the knees. ??Ankle mortises appears intact. ? XR/XR femur BI ?? Procedure Note Chad White Jr., DO - 02/04/2025 [facility] [place] [address] [place] [address] XRay Report Signed Patient: Elijah Gant#: [id number] 8 : 9Acct:[id number] Age/Sex: 64 / FADM Date: 02/04/25 Loc: [facility] Room:Type: REG CLI Attending Dr: Stoney Rivera Jr DO Copies to: Stoney Rivera Jr, DO Ordering Provider: Stoney Rivera Jr, DO Date of Service: 02/04/25 XR/XR tibia/fibula BI: PRE OP ([id number]) XR/XR femur BI: PRE OP Bilateral lower extremity series one view each CLINICAL HISTORY: Preop left TKA COMPARISON: None AP views of both lower kidneys were obtained. Bilateral hip prostheses are place without radiographic complication. Noacute bony process is seen. Mild degenerative changes involving the knees. Ankle mortisesappears intact. XR/XR femur BI IMPRESSION: NO ACUTE PROCESS. Impression dictated by: Chad White Jr., D.OEzio 02/04/2025 2:28 PM Dictation Location: RADIO-PC-23 Transcribed By: [facility] 02/04/25 1428 Dictated By: Chad White Jr, DO 02/04/25 1427 Signed By: <Electronically signed by Chad White Jr, DO inOV> 02/04/25 1428 Authorizing ProviderResult TypeResult StatusJr. Stoney Rivera DOIMG XR PROCEDURESFinal Result * ECG 12 lead (02/04/2025 9:11 AM EDT)Specimen (Source)Anatomical Location / LateralityCollection Method / VolumeCollection TimeReceived Time02/04/2025 9:11 AM EDT [facility] 02/04/2025 10:59 AM EDT [facility] ?[facility] [place] ?[address] ? [place] [address] ? Electrocardiograph Report ? Signed ? Patient: Ashley Gant ?MR#: [id number] ?? 8 ? : 1960 ?Acct:[id number] ? Age/Sex: 64 / F ?ADM Date: 02/04/25 ? Loc: [facility] ?Room: ?Type: REG CLI ?? Attending Dr: Stoney Rivera Jr DO ? Ordering Provider: Stoney Rivera Jr, DO ?? Date of Service: 02/04/2509/25/845 ?? ECG/ECG 12 lead ECG: pst ? Copies to: ? Test Reason : ?? Blood Pressure : ?? */* ?? mmHG ?? Vent. Rate : ??71 BPM ? Atrial Rate : ??71 BPM ? P-R Int : 150 ms ?QRS Dur : ??80 ms ?QT Int : 404 ms ? P-R-T Axes : ??33 ??14 ??46 degrees ?QTcB Int : 439 ms ? Normal sinus rhythm ?? Normal ECG ?? Confirmed by Ashley Rand ([id number]) on 02/04/2025 10:58:57 AM ? Referred By: ?Electronically Signed By: Ashley Rand ? Transcribed By: ? MUS ? Signed By ? Ashley Rand MD ? 5 1058 Procedure Note Ashley Rand MD - 02/04/2025 [facility] [place] [address] Electrocardiograph Report Signed Patient: Elijah Gant#: [id number] 8 : 9Acct:[id number] Age/Sex: 64 / FADM Date: 02/04/25 Loc: [facility] Room:Type: [facility] Attending Dr: Stoney Rivera Jr, DO Ordering Provider: Stoney Rivera Jr, DO Date of Service: 02/04/2509/25/845 ECG/ECG 12 lead ECG: pst Copies to: Test Reason : Blood Pressure : */* mmHG Vent. Rate : 71 BPM Atrial Rate : 71 BPM P-R Int : 150 ms QRS Dur : 80 ms QT Int : 404 ms P-R-T Axes : 33 14 46 degrees QTcB Int : 439 ms Normal sinus rhythm Normal ECG Confirmed by Ashley Rand ([id number]) on 02/04/2025 10:58:57 AM Referred By: Electronically Signed By: Ashley Rand Transcribed By: MUS Signed By Ashley Rand MD [id number] Authorizing ProviderResult TypeResult StatusJr. Stoney Rivera DOECG ORDERABLESFinal ResultPerforming OrganizationAddressCity/State/ZIP CodePhone Number [facility] [address] [place] [address], [place] * Vascular lower extremity venous duplex left (01/21/2025 5:22 PM EDT) Anatomical RegionLateralityModalityLower ExtremitiesUltrasoundSpecimen (Source)Anatomical Location / LateralityCollection Method / VolumeCollection TimeReceived Time01/22/2025 12:54 PM EDT Impressions 01/22/2025 1:08 PM EDT No sonographic evidence of deep venous thrombosis of the left lower extremity. ELECTRONICALLY SIGNED BY: Giovani Mcdonnell DO Narrative 01/22/2025 1:08 PM EDT EXAM: [facility] US LOWER EXTREMITY VENOUS DUPLEX LEFT TECHNIQUE: LEFT lower extremity venous duplex exam was performed. HISTORY: Left calf pain. FINDINGS: The common femoral, femoral, deep femoral, popliteal and calf veins were evaluated for deep venous thrombosis. ??The veins were evaluated with color Doppler imaging, compression and augmentation if possible. ??No sonographic evidence of deep venous thrombosis. Procedure Note Giovani Mcdonnell DO - 01/22/2025 EXAM: [facility] US LOWER EXTREMITY VENOUS DUPLEX LEFT TECHNIQUE: LEFT lower extremity venous duplex exam was performed. HISTORY: Left calf pain. FINDINGS: The common femoral, femoral, deep femoral, popliteal and calf veins were evaluated for deep venous thrombosis. The veins were evaluated with colorDoppler imaging, compression and augmentation if possible. No sonographicevidence of deep venous thrombosis. IMPRESSION: No sonographic evidence of deep venous thrombosis of the left lowerextremity. ELECTRONICALLY SIGNED BY: Giovani J Kecia, DO Authorizing ProviderResult TypeResult StatusJr. Stoney Rivera [facility] US PROCEDURESFinal Result * XR hip right 2 or 3 views (01/19/2025 8:34 AM EDT)Anatomical RegionLaterality ModalityLower Extremities, HipRightRadiographic ImagingSpecimen (Source) Anatomical Location / LateralityCollection Method / VolumeCollection Time Received Time Narrative 01/19/2025 8:51 AM EDT Imaging Result: AP and lateral of right hip showed acceptable position and alignment of right total hip arthroplasty. ??There was no evidence of loosening of the acetabular cup or femoral stem. ??Femoral head was well centered in the acetabular liner without evidence of asymmetric or accelerated wear. ?? There was no gross evidence of fracture and/or dislocation. ??Impression: Unremarkable right total hip arthroplasty. Authorizing ProviderResult TypeResult StatusJr. Stoney [facility] XR PROCEDURESFinal Result * XR hip left 2 or 3 views (01/19/2025 8:34 AM EDT)Anatomical RegionLaterality ModalityLower Extremities, HipLeftRadiographic ImagingSpecimen (Source) Anatomical Location / LateralityCollection Method / VolumeCollection Time Received Time Narrative 01/19/2025 8:51 AM EDT Imaging Result: AP and lateral of left hip showed acceptable position and alignment of left total hip arthroplasty. ??There was no evidence of loosening of the acetabular cup or femoral stem. ??Femoral head was well centered in the acetabular liner without evidence of asymmetric or accelerated wear. ?? There was no gross evidence of fracture and/or dislocation. ??Impression: Unremarkable left total hip arthroplasty. Authorizing ProviderResult TypeResult StatusJr. Stoney [facility] XR PROCEDURESFinal Result from Last 3 Months Insurance * Guarantor: Ashley Gant TypeRelation to PatientDate of BirthPhone Billing AddressPersonal/DyfqddRgvw1960 [address] [address] Care Teams Team MemberRelationshipSpecialtyStart Date Reece Zhao MD [address] [place] [address] PCP - GeneralFamily Medicine01/14/23
--- OUTSIDE RECORDS SUMMARY | 2025-04-12 12:49 | XMS_ITS | Encounter Summary ---
Author Organization [facility] Address [address] [place] [address] [place] [address] Care Team Providers Care Care Clinician Name Role Phone Reece Zhao MD Primary Care Provider [phone] Encounter Details DateTypeDepartmentCare Team (Latest Contact Info)Ocnrvjoixkb49/10/2025External Result Encounter [facility] Unsolicited Jr. Stoney Rivera DO [address] [facility] [address] [place] [address] Social History Tobacco UseTypesPacks/DayYears UsedDateSmoking Tobacco: NeverSmokeless Tobacco: NeverAlcohol UseStandard Drinks/WeekCommentsNever0 (1 standard drink = 0.6 oz pure alcohol)caffeine 1-2 cups per dayCommentsNoSex and Gender InformationValueDate RecordedSex Assigned at BirthNot on fileLegal SexFemale 08/15/2022 6:56 PM EDTGender IdentityNot on fileSexual OrientationNot on file documented as of this encounter Plan of Treatment DateTypeDepartmentCare Team (Latest Contact Info)Qemwndqnvhl79/04/2025 1:00 PM ESTOffice Visit [facility] [address] [facility] [address] [place] [address] uLis M Casey, JOO [address] [place] [address] 07/06/2025 8:30 AM ESTOffice Visit [facility] [address] [facility] [address] [place] [id number] Antonia Jackson MD [address] [facility] [address] [place] [address] documented as of this encounter Procedures Procedure NamePriorityDate/TimeAssociated DiagnosisCommentsBASIC METABOLIC PANEL Oqsqrjr7604/12/2025 10:35 AM EST documented in this encounter Results * (ABNORMAL) Basic metabolic panel (04/12/2025 10:35 AM EST)ComponentValueRef RangeTest MethodAnalysis TimePerformed AtPathologist MutazonhcZvxhpsx2772 - 100 mg/dL04/12/2025 11:15 AM [facility]trComment: Random Glucose Reference Range is dependent on time and content of last meal. Glucose of more than 200 mg/dL in a nonstressed, ambulatory subject supports the diagnosis of Diabetes Mellitus. ADA recommended reference range PZQ613 - 25 mg/dL04/12/2025 11:15 AM [facility] CtrCREATININE 0.840.60 - 1.20 mg/dL04/12/2025 11:15 AM [facility] ESTIMATED GFR>60. 11:15 AM [facility] BxbBxjvuc700 136 - 145 mmol/L106/12/2024 11:15 AM [facility] CtrPotassium, Bld4.43.5 - 5.1 mmol/L106/12/2024 11:15 AM [facility] Kygghzxp46793 - 107 mmol/L106/12/2024 11:15 AM [facility] Carbon Zrctmhb11.9(H)21.0 - 31.0 mmol/L106/12/2024 11:15 AM [facility] CtrAnion Gap8.56.0 - 15. 11:15 AM [facility] CtrCalcium9.28.6 - 10.3 mg/dL04/12/2025 11:15 AM [facility] CtrSpecimen (Source)Anatomical Location / LateralityCollection Method / VolumeCollection TimeReceived TimeOtherTopography unknown / Xyictea0804/12/2025 10:35 AM EST04/12/2025 10:42 AM EST Narrative Authorizing ProviderResult TypeResult StatusJr. Stoney Rivera DOLAB BLOOD ORDERABLESFinal ResultPerforming OrganizationAddressCity/State/ZIP CodePhone Number [facility] [address] [place] [address], [facility] [address] [place] [address] documented in this encounter Visit Diagnoses Not on filedocumented in this encounter Care Teams Team MemberRelationshipSpecialtyStart DateEnd Date Reece Zhao MD [address] [place] [id number] PCP - GeneralFamily Medicine01/14/23documented as of this encounter
--- NOTE | 2025-04-12 12:50 | US_ITS ---
The [address] [address] Patient Name: STONE ESPINOZA MRN: [id number] date: 1960 Sex: F Assigned Patient Location: US Current Patient Location: Accession/Order Number: [id number] Exam Date: 04/12/2025 12:51 Report Date: 04/13/2025 08:21 At the request of: TIFF NORRIS Procedure: US thyroid THYROID ULTRASOUND COMPARISON: None CLINICAL DATA: Thyroid nodule The right thyroid lobe measures 5.3 x 2.0 x 2.2 cm. The left lobe measures 4.0 x 1.8 x 1.8 cm. The isthmus measures 7 mm. Thyroid echotexture is heterogeneous. At the superior pole on the right, there is a cystic lesion with hypoechoic mural nodularity measuring 12 x 8 x 11 mm. At the inferior pole, there is a heterogeneous mixed echogenicity nodule measuring 6 x 6 x 6 mm. On the left at the mid to upper pole, there is an ill-defined nodule with isoechoic rim and cystic center measuring 10 x 10 x 8 mm. At the inferior pole on the left, there is another irregular mixed echogenicity nodule with hypoechoic rim and cystic center measuring 6 x 5 x 6 mm. US/US thyroid IMPRESSION: SMALL BILATERAL THYROID NODULES, DESCRIBED. Impression dictated by: Edith Comer M.D. 04/13/2025 8:21 AM Dictation Location: [place] [address] Electronically authenticated by: [id number] Y Date: 04/13/2025 08:21
--- OUTSIDE RECORDS SUMMARY | 2025-04-12 12:51 | XMS_ITS | Patient Health Record ---
Author Organization The [facility] in [place] Address [address] [place] [address] Care Team Providers Care Purse Seining Hand Name Role Phone Mary Jo Awad Primary Care Provider Hugh Zhao [phone] Allergies Allergen (clinical drug ingredient) Drug/Non Drug Allergy documented on EMR Reaction Allergy Type Onset Date Status Penicillinunknown reactionDrug AllergyActive Results Component Value Reference Range Notes IGP,Aptima HPV,Age Gdln Reviewed date:05/12/2024 08:36:46 PM Interpretation: Performing Lab: Notes/Report: SPATULA-ALONE VAGINA [facility] , Age Gdln ACOG Testing Note . L-Low Normal,H-High Normal,LL-Alert Low,HH-Alert High Performed at: [address] [place] [address] TESTS RESULT FLAG UNITS REF RANGE LAB Clinician Provided Cytology Information Source.............Vagina 01 =G [facility] [place] Age Algo ACOG Kiah... 30-65 01 Johana Quinonez MD, FLAG LEGEND: <-Panic Low,>-Panic High,A-Abnormal,AA-Critical Abnormal No. of containers..01 ThinPrep Vial IGP, Aptima HPV, rfx 16/18,45 Note . Test Methodology: Note 02 <-Panic Low,>-Panic High,A-Abnormal,AA-Critical Abnormal Performed at: L-Low Normal,H-High Normal,LL-Alert Low,HH-Alert High Satisfactory for evaluation. should not be used as the sole means of detecting cervical . 02 02 WB [facility] The Pap smear is a screening test designed to aid in the TESTS RESULT FLAG UNITS REF RANGE LAB the use of an image guided system. occur. [address] [facility] [place] [address] Paramjit Friedman, Assistant Professor Of Religion (ASCP) HPV Genotype Reflex Note 02 Note: Note 02 DIAGNOSIS: 02 detection of premalignant and malignant conditions of the uterine cervix. It is not a diagnostic procedure and Criteria not met, HPV Genotype not performed. This liquid based ThinPrep(R) pap test was screened with FLAG LEGEND: Johana Quinonez MD, NEGATIVE FOR INTRAEPITHELIAL LESION OR MALIGNANCY. Specimen adequacy: 02 Performed by: 02 cancer. Both false-positive and false-negative reports do HPV Aptima Negative Negative Forest Fire Control Officer: Johana Quinonez MD, Phone: [phone] Performed at: [facility] Forest Fire Control Officer: Johana Quinonez MD, Phone: [phone] [address] [facility], [place] [phone] This nucleic acid amplification test detects fourteen high- without differentiation. [address] [place] [phone] risk HPV types (16,18,31,33,35,39,45,51,52,56,58 ,59,66,68) Performed at: =[facility] Performing Lab: see note [facility] LBUS breast vac bx w/ clip RT Reviewed date:06/03/2024 03:32:49 PM Interpretation: Performing Lab: Notes/Report: Source Facility: [place] [address] Ultrasound Report Signed with Addenda Patient: ASHLEY GANT MR#: [id number] : 1960 Acct:[id number] Age/Sex: 63 / F ADM Date: 05/19/24 Loc: Attending Dr: Ivy Manrique Ordering Physician: Ivy Manrique Date of Service: 05/19/24 Procedure(s): US breast vac bx w/ clip LT Accession Number(s): [id number] cc: Ivy Manrique; [place] Zhao M.D. ADDENDUM [address] [place] [address] Patient Name: ASHLEY GANT MRN: [id number] date: 1960 Sex: F Assigned Patient Location: Current Patient Location: US Accession/Order Number: [id number] Exam Date: 05/19/2024 14:17 Report Date: 06/03/2024 04:55 At the request of: IVY MANRIQUE Procedure: US breast vac bx w/ clip LT Begin Addendum #1 COLLECTED DATE: 05/19/2024 Final Diagnosis Report for [facility] [place] Pathological Diagnosis: Left breast lesion at 9 o'clock, core biopsies: -Focal chronic fatty degeneration with associated histiocytic chronic inflammation, occasional small nonspecific granuloma containing hematoidin pigment, and focal pseudocystic degenerations (at last few mm) with thin fibrotic wall. -Only rare glandular element in the surrounding area. -No evidence of malignancy or glandular atypia. -AE1/3 and CD68 immunostains with reactive control are also examined supporting the above interpretation. Original Report EXAMINATION: US breast vac bx w/ clip LT HISTORY: Mixed Cystic and Solid Left Breast Lesion COMPARISON: No relevant comparison available. TECHNIQUE: After obtaining informed consent, ultrasound-guided fine needle aspiration was performed in the usual sterile manner. FINDINGS: IMAGING: Ultrasound. BIOPSY NEEDLE: 13-gauge vacuum-assisted mammotome LOCATION: 9:00 left breast 6. 3 mm lesion SPECIMEN TYPE: 4 core samples. LOCAL ANESTHETIC: 2 cc lidocaine without epi, 6 cc lidocaine with epi COMPLICATIONS: None. LABORATORY: Prepared slide smears and washings for cell block evaluation. OTHER: Negative. PATHOLOGY: Pending. An addendum will be added when results are available. Addendum Dictated By: Vane Walker M.D. Addendum Signed By: 06/03/24 0 457 Addendum Cosigned By: DD/ /27/454 TD/TT: / ADDENDUM US/US breast vac bx w/ clip LT IMPRESSION: 1. Uneventful ultrasound guided core biopsy left breast lesion 2. Pathology results are pending. Electronically authenticated by: VANE WALKER Date: 06/03/2024 04:55 Addendum Dictated By: Vane Walker M.D. Addendum Signed By: 06/03/24 0 457 Addendum Cosigned By: DD/ /27/454 TD/TT: / The [address] [address] Patient Name: ASHLEY GANT MRN: [id number] date: 1960 Sex: F Assigned Patient Location: US Current Patient Location: US Accession/Order Number: [id number] Exam Date: 05/19/2024 14:17 Report Date: 05/19/2024 15:32 At the request of: IVY MANRIQUE Procedure: US breast vac bx w/ clip LT EXAMINATION: US breast vac bx w/ clip LT HISTORY: Mixed Cystic and Solid Left Breast Lesion COMPARISON: No relevant comparison available. TECHNIQUE: After obtaining informed consent, ultrasound-guided fine needle aspiration was performed in the usual sterile manner. FINDINGS: IMAGING: Ultrasound. BIOPSY NEEDLE: 13-gauge vacuum-assisted mammotome LOCATION: 9:00 left breast 6.3 mm lesion SPECIMEN TYPE: 4 core samples. LOCAL ANESTHETIC: 2 cc lidocaine without epi, 6 cc lidocaine with epi COMPLICATIONS: None. LABORATORY: Prepared slide smears and washings for cell block evaluation. OTHER: Negative. PATHOLOGY: Pending. An addendum will be added when results are available. US/US breast vac bx w/ clip LT IMPRESSION: 1. Uneventful ultrasound guided core biopsy left breast lesion 2. Pathology results are pending. Electronically authenticated by: VANE WALKER Date: 05/19/2024 15:32 Dictated By: Vane Walker M.D. Signed By: 05/19/24 1534 DD/ 1532 TD/TT: Paradichlorobenzene Machine Operator:BEVERLEY post biopsy LT Reviewed date:05/25/2024 07:58:55 PM Interpretation: Performing Lab: Notes/Report: Source Facility: [place] [address] Mammography Report Signed Patient: ASHLEY GANT MR#: [id number] : 1960 Acct:[id number] Age/Sex: 63 / F ADM Date: 05/19/24 Loc: US Attending Dr: Ivy Manrique Ordering Physician: Ivy Manrique Results: Date of Service: 05/19/24 Follow Up: Procedure(s): MM post biopsy LT Accession Number(s): [id number] cc: Ivy Manrique; [place] Zhao M.D. Patient Name: ASHLYE GANT MR#: [id number] : 1960 Exam Date: 05/19/2024 Ordering Doctor: JOO Manrique . This report includes an Addendum and supersedes previous reports for this exam. RADIOLOGY REPORT PROCEDURE: MM POST BIOPSY LT COMPARISON: MM DIAGNOSTIC MAMMO UNILAT LT, 05/08/2024. INDICATIONS: Mixed Cystic and Solid Left Breast Lesion BREAST COMPOSITION: The breasts are almost entirely fatty. FINDINGS: Post-Procedure Mammogram for Marker Placement BIOPSY MARKER: A metallic marker has been placed in the targeted location within the lower inner quadrant of the left breast. BREAST FINDINGS: The targeted lesion is no longer present Dictated by: Vane Walker MD on 05/19/2024 at 15:34 Approved by: Vane Walker MD on 05/19/2024 at 15:35 ADDENDUM: FINDINGS: DIAGNOSTIC CATEGORY 2--BENIGN FINDING: Pathologic diagnosis: No evidence of malignancy or glandular atypia. RECOMMENDATIONS: ROUTINE MAMMOGRAM AND CLINICAL EVALUATION IN 12 MONTHS. Dictated by: Vane Walker MD on 05/25/2024 at 14:50 Approved by: Vane Walker MD on 05/25/2024 at 14:51 Dictated By: Vane Walker M.D. Signed By: 05/25/24 1452 DD/ 1451 TD/TT: Paradichlorobenzene Machine Operator:US breast LT limited Reviewed date:05/10/2024 06:21:15 PM Interpretation: Performing Lab: Notes/Report: Source Facility: [place] [address] Ultrasound Report Signed Patient: ASHLEY GANT MR#: [id number] : 1960 Acct:[id number] Age/Sex: 63 / F ADM Date: 05/08/24 Loc: MAMMO Attending Dr: Ivy Manrique Ordering Physician: Ivy Manrique Date of Service: 05/08/24 Procedure(s): US breast LT limited Accession Number(s): [id number] cc: Ivy Manrique; [place] Zhao M.D. Patient Name: ASHLEY GANT MR#: [id number] : 1960 Exam Date: 05/08/2024 Ordering Doctor: JOO Manrique . RADIOLOGY REPORT PROCEDURE: MM DIAGNOSTIC MAMMO UNILAT LT, 05/08/2024, 14:03 US BREAST LT LIMITED, 05/08/2024, 14:15 COMPARISON: MM TOMOSYNTHESIS SCREENING BI, 04/28/2024. MM TOMOSYNTHESIS SCREENING BI, 04/23/2023. MG MAMM SCREEN 3D SOSA CAD, 04/10/2022. MG MAMM SCREEN 3D SOSA CAD, 03/01/2021. INDICATIONS: Abnormal Mammogram Calculator Name NCI Breast Cancer Risk Assessment Tool 5 Year Breast Cancer Risk 1.60% Lifetime Breast Cancer Risk 6.60% Personal Breast Cancer No Personal Ovarian Cancer No Treatments None Family Cancers Mother with lung cancer at age 88. LOCATION: The [facility] BREAST COMPOSITION: The breasts are almost entirely fatty. FINDINGS: DIAGNOSTIC CATEGORY 4--SUSPICIOUS FOR MALIGNANCY. FINDING DOES NOT EXHIBIT CLASSIC FINDINGS OF BREAST CANCER: LEFT BREAST: Spot magnification views demonstrate persistence of a circumscribed round mass within lower-inner quadrant. Ultrasound evaluation demonstrates 2 adjacent structures at the 9 o'clock position, 5.5 cm from the nipple. One represents a 3 mm simple cyst. The other represents a 6 x 5 x 4 mm mixed cystic and solid structure which is taller than wide which increases suspicion for neoplasm. Ultrasound-guided tissue sampling is recommended. Alternatively a follow-up ultrasound evaluation in 3 months to document stability could be performed. RECOMMENDATIONS: ULTRASOUND-GUIDED CORE BIOPSY: LEFT BREAST PLEASE NOTE: A NORMAL MAMMOGRAM DOES NOT EXCLUDE THE POSSIBILITY OF BREAST CANCER. A CLINICALLY SUSPICIOUS PALPABLE LUMP SHOULD BE BIOPSIED. Dictated by: Damian Monterroso M.D. on 05/08/2024 at 14:42 Approved by: Damian Monterroso M.D. on 05/08/2024 at 15:12 Dictated By: Damian Monterroso M.D. Signed By: 05/08/24 1514 DD/ 1513 TD/TT: Paradichlorobenzene Machine Operator:MM diagnostic mammo BI Reviewed date:05/10/2024 06:21:15 PM Interpretation: Performing Lab: Notes/Report: Source Facility: [facility]-[address] [place] [address] [address] Mammography Report Signed Patient: ASHLEY GANT MR#: [id number] : 1960 Acct:[id number] Age/Sex: 63 / F ADM Date: 05/08/24 Loc: MAMMO Attending Dr: Ivy Manrique Ordering Physician: Ivy Manrique Results: Date of Service: 05/08/24 Follow Up: Procedure(s): MM diagnostic mammo unilat LT Accession Number(s): [id number] cc: Ivy Manrique; [place] Zhao M.D. Patient Name: ASHLEY GANT MR#: [id number] : 1960 Exam Date: 05/08/2024 Ordering Doctor: JOO Manrique . RADIOLOGY REPORT PROCEDURE: MM DIAGNOSTIC MAMMO UNILAT LT, 05/08/2024, 14:03 US BREAST LT LIMITED, 05/08/2024, 14:15 COMPARISON: MM TOMOSYNTHESIS SCREENING BI, 04/28/2024. MM TOMOSYNTHESIS SCREENING BI, 04/23/2023. MG MAMM SCREEN 3D SOSA CAD, 04/10/2022. MG MAMM SCREEN 3D SOSA CAD, 03/01/2021. INDICATIONS: Abnormal Mammogram Calculator Name NCI Breast Cancer Risk Assessment Tool 5 Year Breast Cancer Risk 1.60% Lifetime Breast Cancer Risk 6.60% Personal Breast Cancer No Personal Ovarian Cancer No Treatments None Family Cancers Mother with lung cancer at age 88. LOCATION: The [facility] BREAST COMPOSITION: The breasts are almost entirely fatty. FINDINGS: DIAGNOSTIC CATEGORY 4--SUSPICIOUS FOR MALIGNANCY. FINDING DOES NOT EXHIBIT CLASSIC FINDINGS OF BREAST CANCER: LEFT BREAST: Spot magnification views demonstrate persistence of a circumscribed round mass within lower-inner quadrant. Ultrasound evaluation demonstrates 2 adjacent structures at the 9 o'clock position, 5.5 cm from the nipple. One represents a 3 mm simple cyst. The other represents a 6 x 5 x 4 mm mixed cystic and solid structure which is taller than wide which increases suspicion for neoplasm. Ultrasound-guided tissue sampling is recommended. Alternatively a follow-up ultrasound evaluation in 3 months to document stability could be performed. RECOMMENDATIONS: ULTRASOUND-GUIDED CORE BIOPSY: LEFT BREAST PLEASE NOTE: A NORMAL MAMMOGRAM DOES NOT EXCLUDE THE POSSIBILITY OF BREAST CANCER. A CLINICALLY SUSPICIOUS PALPABLE LUMP SHOULD BE BIOPSIED. Dictated by: Damian Monterroso M.D. on 05/08/2024 at 14:42 Approved by: Damian Monterroso M.D. on 05/08/2024 at 15:12 Dictated By: Damian Monterroso M.D. Signed By: 05/08/241513 DD/ 12 TD/TT: Paradichlorobenzene Machine Operator:MM tomosynthesis screening BI Reviewed date:04/28/2024 05:35:58 PM Interpretation: Performing Lab: Notes/Report: Source Facility: [place] [address] [place] [address] Mammography Report Signed Patient: ASHLEY GANT MR#: [id number] : 1960 Acct:[id number] Age/Sex: 63 / F ADM Date: 04/28/24 Loc: MAMMO Attending Dr: Ivy Manrique Ordering Physician: Ivy Manrique Results: Date of Service: 04/28/24 Follow Up: Procedure(s): MM tomosynthesis screening BI Accession Number(s): [id number] cc: Ivy Manrique; [place] Zhao M.D. Patient Name: ASHLEY GANT MR#: [id number] : 1960 Exam Date: 04/28/2024 Ordering Doctor: JOO Manrique . RADIOLOGY REPORT PROCEDURE: MM TOMOSYNTHESIS SCREENING BI COMPARISON: MM TOMOSYNTHESIS SCREENING BI, 04/23/2023. MG MAMM SCREEN 3D SOSA CAD, 04/10/2022. MG MAMM SCREEN 3D SOSA CAD, 03/01/2021. MG MAMM SOSA SCRN W CAD DIG, 10/14/2013. INDICATIONS: Screening Calculator Name NCI Breast Cancer Risk Assessment Tool 5 Year Breast Cancer Risk 1.60% Lifetime Breast Cancer Risk 6.60% Personal Breast Cancer No Personal Ovarian Cancer No Treatments None Family Cancers Mother with lung cancer at age 88. LOCATION: The [facility] BREAST COMPOSITION: The breasts are almost entirely fatty. FINDINGS: DIAGNOSTIC CATEGORY 0--INCOMPLETE: NEED ADDITIONAL IMAGING EVALUATION. RIGHT BREAST: No significant suspicious finding. Scattered benign-appearing calcifications are present. No significant change has occurred. LEFT BREAST: New 5 mm round circumscribed mass within the anterior lower-inner quadrant. Spot magnification views and ultrasound evaluation recommended. RECOMMENDATIONS: ADDITIONAL MAMMOGRAPHIC VIEWS REQUIRED: LEFT BREAST - LEFT CRANIOCAUDAL SPOT MAGNIFICATION VIEW - LEFT OBLIQUE SPOT MAGNIFICATION VIEW - ULTRASOUND: LEFT BREAST PLEASE NOTE: A NORMAL MAMMOGRAM DOES NOT EXCLUDE THE POSSIBILITY OF BREAST CANCER. A CLINICALLY SUSPICIOUS PALPABLE LUMP SHOULD BE BIOPSIED. Dictated by: Damian Monterroso M.D. on 04/28/2024 at 15:28 Approved by: Damian Monterroso M.D. on 04/28/2024 at 15:31 Dictated By: Damian Monterroso M.D. Signed By: 04/28/24 1532 DD/ 30 TD/TT: Paradichlorobenzene Machine Operator: Reason For Referral No Information Medications Medication SIG (Take, Route, Frequency, Duration) Notes Start Date End Date Status Vitamin D3 125 MCG (5000 UT) 1 tablet Orally Onc e a day ActiveZinc 50 MG1 tablet Orally Once a dayActiveAlendronate Sodium 70 MGTAKE 1 TABLET BY MOUTH ONCE A WEEK; Duration: 84ActiveTurmeric Curcumin 500 MGas directed OrallyActiveVitamin C 1000 MG1 tablet Orally Once a dayActiveSuper B ComplexActiveCalcium Citrate +DActiveFexofenadine HCl 180 MG1 tablet Swallow whole with water; do not take with fruit juices. Orally Once a dayActive Glucosamine Chondroitin Adv -as directed OrallyActiveMulti Vitamin -1 tablet Orally Once a dayActive Social History Tobacco Use: Social History Observation Description Date Details (start date - stop date) Never Smoker NA - NA Tobacco Use/Smoking Question Answer Notes Patient is a nonsmoker Alcohol Screen (Audit-C) Question Answer Notes Did you have a drink containing alcohol in the p ast year? No Uoxqvc7UjgymtqbzhunttEfwgljmiFQBVQ-K (Standard) Question Answer Notes Did you have a drink containing alcohol in the p ast year? No Gyaptd9YpbsoblvtyjaldKxucsrrj Problems Problem Type SNOMED Code ICD Code Onset Dates Problem Status W/U Status Risk Notes Problem Age-related osteoporosis (551116 002) Age-related osteoporosis without current pathological fracture (M81.0) ActiveconfirmedProblemOsteoarthritis of knee (446034758)Unilateral primary osteoarthritis, left knee (M17.12)ActiveconfirmedProblemPalpitations (26526023) Palpitations (R00.2)ActiveconfirmedProblemOsteoarthritis (504586687) Osteoarthritis (M19.90)ActiveconfirmedProblemTachycardia (7746774)Tachycardia (R00.0)ActiveconfirmedProblemPeripheral venous insufficiency (55157660)Venous insufficiency (I87.2)ActiveconfirmedProblemAnemia (490396893)Anemia (D64.9) ActiveconfirmedProblemOsteopenia (051552286)Osteopenia (M85.80)Activeconfirmed ProblemInsomnia (380961087)Insomnia (G47.00)ActiveconfirmedProblemHiatal hernia (05297392)Hiatal hernia (K44.9)ActiveconfirmedProblemDeep venous thrombosis (870200571)DVT (deep venous thrombosis) (I82.409)ActiveconfirmedProblem Arthralgia (74543279)Arthralgia (M25.50)ActiveconfirmedProblemThyroid nodule (972344451)Thyroid nodule (E04.1)ActiveconfirmedProblemHearing loss (62284020) Hearing loss (H91.90)ActiveconfirmedProblemParesthesia (32125734)Paresthesia (R20.2)ActiveconfirmedProblemGoiter (4898732)Goiter (E04.9)Activeconfirmed ProblemSynovial popliteal cyst (disorder) (8181440752)Bakers cyst (M71.20)Active confirmedProblemDetached retina (45800213)Detached retina (H33.20)Active confirmedProblemGastroesophageal reflux disease (457256295)GE reflux (K21.9) ActiveconfirmedProblemLow back pain (finding) (777128572)Low back pain at multiple sites (M54.50)Activeconfirmed Vital Signs Temperature 98.5 degrees Fahrenheit 06/08/2024 Blood pressure ckqofpmji02 mm Hg02/08/20255525Ushqol44 in02/08/2025lood pressure tyhqyksn990 mm Hg02/08/20255613Uvaivw841.0 lbs02/08/2025BMI32.77 kg/m202/08/2025 Encounters Encounter Location Date Provider Diagnosis [facility] [address] [phone] 06/08/2024 Mary Jo Awad Cerumen impaction H61.20 [facility] [address] [place] [address] 02/08/2025 Mary Jo Awad Pre-operative clearance Z01.818 and Thyroid nodule E04.1 [facility] [address] [place] [address] 04/28/2024 Hugh mily [facility] [place] [address] [facility] [facility] [place] [address] [place] [address]/01/2025Mary Jo AwadAbnormal mammogram [place]92.[place] [address] [place] [address]/09/2024 Hugh [facility] [place] [address]/01/2025[facility] [facility] [address]/02/2025Mary Jo Awad Assessments Encounter Date Diagnosis (ICD Code) Assessment Notes Treatment Notes Treatment Clinical Notes Section Notes 06/08/2024 Cerumen impaction (ICD-10 - H61. 20) ear wash on left, some cerumen removed ear canal red , irritated fu Timmis abraham 02/08/2025Pre-operative clearance (ICD-10 - Z01.818) PST results reviewed labs ok EKG ok patient denies CP, SOB normal activity level besides knee pain ok for surgery 02/08/2025Thyroid nodule (ICD-10 - E04.1)12/08/2024bnormal mammogram (ICD-10 - R92.8) Plan Of Treatment Pending Test Test Name Order Date CMP (COMPLETE METABOLIC PANEL) 3 HEMOGLOBIN A1C (GLYCO) 03/07/2023 HEMOGLOBIN A1C (GLYCO) 02/08/2025 IRON, TOTAL 03/07/2023 LIPID PANEL (CHOL/TRIG/HDL/LDL) 03/07/20 23 LIPID PANEL (CHOL/TRIG/HDL/LDL) 02/09/20 25 CBC WITH DIFF 03/07/2023 VITAMIN D, 25 LEVEL (TOTAL) 02/08/2025 VITAMIN D, 25 LEVEL (TOTAL) 03/07/2023 DEXA Axial Skeleton (hips, pelvis, spine )* 03/07/2023 US Thyroid 02/08/2025 Insulin Level 02/08/2025 Insulin Level 03/07/2023 MAMM DIAG UNILAT LT LAURA 3D GLOBAL 12/08 THYROID PANEL (T4/TSH/FREE T3) THYROID PANEL (T4/TSH/FREE T3) 3 BI US BREAST COMPLETE LEFT 12/08/2024 Next Appt Details Provider Name:Hugh Zhao, 10:15:00 AM, [address] [place], [address], Insurance Providers Payer Name Payer Address Payer Phone Subscriber Number Group Number Insured Name Patient Relationship to Insured Coverage Start Date Coverage End Date [employer] MED[employer]ARE [address] [place], [place] [phone] [id number] Denise Gant - patient is the insured Medical (General) History Medical History History ICD Code Low back pain at multiple sites M54.50 Venous insufficiency I87.2 Bakers cyst M71.20 DVT (deep venous thrombosis) I82.409 Goiter E04.9 Palpitations R00.2 Insomnia G47.00 Detached retina H33.20 Tachycardia R00.0 Anemia D64.9 Osteoarthritis M19.90 Thyroid nodule E04.1 Arthralgia M25.50 Osteopenia M85.80 Paresthesia R20.2 GE reflux K21.9 Hiatal hernia K44.9 Hearing loss H91.90 Surgical History Surgery Date(Month/Year) Synvisc Injection- Dr Calero 09/24/2024 Complete Hysterectomy 2017 Hip Replacement- Right 2013 Hip Replacement- Left 2011 Heart Catheterization Breast Implant Removal- RightTympanostomy left ear
--- OUTSIDE RECORDS SUMMARY | 2025-04-12 12:51 | XMS_ITS | Encounter Summary ---
Author Organization [facility] Address [address] [place] [place] [address] Care Team Providers Care Provider Enrollment Specialist Name Role Phone Reece Zhao MD Primary Care Provider [phone] Encounter Details DateTypeDepartmentCare Team (Latest Contact Info)Egbshwetooy05/26/2024Clinisync Result Encounter [facility]OM[facility] External Department Unsolicited Ivy Bah PA [address] [facility] [place] [address] Social History Tobacco UseTypesPacks/DayYears UsedDateSmoking Tobacco: NeverSmokeless Tobacco: NeverAlcohol UseStandard Drinks/WeekCommentsNever0 (1 standard drink = 0.6 oz pure alcohol)caffeine 1-2 cups per dayCommentsNoSex and Gender InformationValueDate RecordedSex Assigned at BirthNot on fileLegal SexFemale 08/15/2022 6:56 PM EDTGender IdentityNot on fileSexual OrientationNot on file documented as of this encounter Plan of Treatment DateTypeDepartmentCare Team (Latest Contact Info)Dyilxtpnhry52/04/2025 1:00 PM ESTOffice Visit [facility] [address] [place] [address] Luis M Casey PA [address] [place] [address] 07/06/2025 8:30 AM ESTOffice Visit [facility] [place] [facility] [address] [facility] [address] [place] [address] Antonia Jackson MD [address] [facility] [address] [place] [address] documented as of this encounter Procedures Procedure NamePriorityDate/TimeAssociated DiagnosisCommentsMM TOMOSYNTHESIS SCREENING BI04/28/2024 3:31 PM EST documented in this encounter Results * MM TOMOSYNTHESIS SCREENING BI (04/28/2024 3:31 PM EST)Anatomical Region LateralityModalityOtherSpecimen (Source)Anatomical Location / Laterality Collection Method / VolumeCollection TimeReceived Time04/28/2024 3:31 PM EST Narrative 04/28/2024 3:32 PM EST [facility] ?[address] ? [place] [address] ? Mammography Report ? Signed ? Patient: ASHLEY GANT Jonathan ?MR#: [id number] ?? : 1960 ?Acct:[id number] ?? Age/Sex: 63 / F ?ADM Date: 04/28/24 ?? Loc: MAMMO ? Attending Dr: Ivy Bah ? Ordering Physician: Ivy Bah ?Results: ? Date of Service: 04/28/24 ?Follow Up: ? Procedure(s): MM tomosynthesis screening BI ?? Accession Number(s): [id number] ? cc: Ivy Bah; Reece Zhao M.D. ? Patient Name: ? ASHLEY GANT ? MR#: [id number] ? : 1960 ? Exam Date: 04/28/2024 ?? Ordering Doctor: JOO Bah . ? RADIOLOGY REPORT ? PROCEDURE: ? MM TOMOSYNTHESIS SCREENING BI ? COMPARISON: ? MM TOMOSYNTHESIS SCREENING BI, 04/23/2023. ??MG MAMM SCREEN 3D ?? SOSA CAD, 04/10/2022. ??MG MAMM SCREEN 3D SOSA CAD, 03/01/2021. ??MG MAMM SOSA SCRN ?? W CAD DIG, 10/14/2013. ? INDICATIONS: ? Screening ? Calculator Name ? NCI Breast Cancer Risk Assessment Tool ?? 5 Year Breast Cancer Risk ? 1.60% ?? Lifetime Breast Cancer Risk ? 6.60% ?? Personal Breast Cancer ?No ?? Personal Ovarian Cancer ? No ?? Treatments ? None ?? Family Cancers ? Mother with lung cancer at age 88. ? LOCATION: ? [facility] ? BREAST COMPOSITION: ? The breasts are almost entirely fatty. ? FINDINGS: ? DIAGNOSTIC CATEGORY 0--INCOMPLETE: NEED ADDITIONAL IMAGING EVALUATION. ? RIGHT BREAST: ??No significant suspicious finding. ??Scattered benign-appearing ?? calcifications are present. ??No significant change has occurred. ? LEFT BREAST: ??New 5 mm round circumscribed mass within the anterior ?? lower-inner quadrant. ??Spot magnification views and ultrasound evaluation ?? recommended. ? RECOMMENDATIONS: ? ADDITIONAL MAMMOGRAPHIC VIEWS REQUIRED: LEFT BREAST - LEFT CRANIOCAUDAL SPOT ?? MAGNIFICATION VIEW - LEFT OBLIQUE SPOT MAGNIFICATION VIEW - ? ULTRASOUND: LEFT BREAST ? PLEASE NOTE: ??A NORMAL MAMMOGRAM DOES NOT EXCLUDE THE POSSIBILITY OF BREAST ?? CANCER. ??A CLINICALLY SUSPICIOUS PALPABLE LUMP SHOULD BE BIOPSIED. ? Dictated by: Damian Monterroso M.D. on 04/28/2024 at 15:28 ? Approved by: Damian Monterroso M.D. on 04/28/2024 at 15:31 ? Dictated By: ?Damian Monterroso M.D. ? Signed By: ?04/28/24 1532 ? DD/ 1531 ? TD/TT: ? Social Science Professor: Procedure Note Radiology, Radiologist, MD - 04/28/2024 [place] [address] Mammography Report Signed Patient: ASHLEY GANT SMR#: [id number] : 9Acct:[id number] Age/Sex: 63 / FADM Date: 04/28/24 Loc: MAMMO Attending Dr: Ivy Bah Ordering Physician: Ivy BahResults: Date of Service: 04/28/24Follow Up: Procedure(s): MM tomosynthesis screening BI Accession Number(s): [id number] cc: Ivy Bah; Reece Zhao M.D. Patient Name: ASHLEY GANT MR#: [id number] : 1960 Exam Date: 04/28/2024 Ordering Doctor: JOO Bah . RADIOLOGY REPORT PROCEDURE: MM TOMOSYNTHESIS SCREENING BI COMPARISON: MM TOMOSYNTHESIS SCREENING BI, 04/23/2023. MG MAMM UEOAMY0I SOSA CAD, 04/10/2022. MG MAMM SCREEN 3D SOSA CAD, 03/01/2021. MG MAMM BILSCRN W CAD DIG, 10/14/2013. INDICATIONS: Screening Calculator Name NCI Breast Cancer Risk Assessment Tool 5 Year Breast Cancer Risk 1.60% Lifetime Breast Cancer Risk 6.60% Personal Breast Cancer No Personal Ovarian Cancer No Treatments None Family Cancers Mother with lung cancer at age 88. LOCATION: [facility] BREAST COMPOSITION: The breasts are almost entirely fatty. FINDINGS: DIAGNOSTIC CATEGORY 0--INCOMPLETE: NEED ADDITIONAL IMAGING EVALUATION. RIGHT BREAST: No significant suspicious finding. Scatteredbenign-appearing calcifications are present. No significant change has occurred. LEFT BREAST: New 5 mm round circumscribed mass within the anterior lower-inner quadrant. Spot magnification views and ultrasound evaluation recommended. RECOMMENDATIONS: ADDITIONAL MAMMOGRAPHIC VIEWS REQUIRED: LEFT BREAST - LEFT CRANIOCAUDALSPOT MAGNIFICATION VIEW - LEFT OBLIQUE SPOT MAGNIFICATION VIEW - ULTRASOUND: LEFT BREAST PLEASE NOTE: A NORMAL MAMMOGRAM DOES NOT EXCLUDE THE POSSIBILITY OFBREAST CANCER. A CLINICALLY SUSPICIOUS PALPABLE LUMP SHOULD BE BIOPSIED. Dictated by: Damian Monterroso M.D. on 04/28/2024 at 15:28 Approved by: Damian Monterroso M.D. on 04/28/2024 at 15:31 Dictated By: Damian Monterroso M.D. Signed By:04/28/24 1532 DD/ 1531 TD/TT: Social Science Professor: Authorizing ProviderResult TypeResult StatusAmy Olvin PACLRED BAY HOSPITALYNC IMAGINGFinal Result documented in this encounter Visit Diagnoses Not on filedocumented in this encounter Care Teams Team MemberRelationshipSpecialtyStart DateEnd Date Reece Zhao MD [address] [place] [address] PCP - GeneralFamily Medicine01/14/23documented as of this encounter
--- OUTSIDE RECORDS SUMMARY | 2025-04-12 12:51 | XMS_ITS | Clinical Summary ---
Author Organization [employer] Address [id number] [address] [place] [address] Care Team Providers Care Shank Cementer Hand Name Role Phone Unavailable Primary Care Provider Unavailabl e Social History Tobacco UseTypesPacks/DayYears UsedDateSmoking Tobacco: Never AssessedChildcare AnswerDate BxrosefsQfcyenezgJwbnjeb83/12/2019EmploymentAnswerDate Recorded TyluwgrvutItuaxrq22/12/2019Purpose - LifeAnswerDate RecordedPurpose and direction in wcnlPqjozgu28/11/2021CommentsUnknownSex and Gender InformationValueDate RecordedSex Assigned at BirthNot on fileLegal SexFemale 01/06/2015 12:08 PM EDTGender IdentityNot on fileSexual OrientationNot on file Plan of Treatment Health MaintenanceDue DateLast DoneCommentsDepression Rrvpmckhg07/29/1971Tobacco Yjpehypaj13/29/1971Adult BMI Waqahlghs26/29/1977DTaP,Tdap and Td Vaccines (1 - Tdap)1978Zoster (Shingles) Vaccine (1 of 2)2009Fall Risk Screening 2024Influenza Onvcsif5002/01/2025RSV ( or age 60+ yrs) (1 - 1-dose 75+ series)2034 Medical Devices Not on file
--- OUTSIDE RECORDS SUMMARY | 2025-04-12 12:51 | XMS_ITS | Encounter Summary ---
Author Organization [facility] Address [address] [place] [address] Care Team Providers Care Special Delivery Mail Carrier Name Role Phone Reece Zhao MD Primary Care Provider [phone] Encounter Details DateTypeDepartmentCare Team (Latest Contact Info)Amkrtwqibex30/27/2025Travel Social History Tobacco UseTypesPacks/DayYears UsedDateSmoking Tobacco: NeverSmokeless Tobacco: NeverAlcohol UseStandard Drinks/WeekCommentsNever0 (1 standard drink = 0.6 oz pure alcohol)caffeine 1-2 cups per dayCommentsNoSex and Gender InformationValueDate RecordedSex Assigned at BirthNot on fileLegal SexFemale 08/15/2022 6:56 PM EDTGender IdentityNot on fileSexual OrientationNot on file documented as of this encounter Plan of Treatment DateTypeDepartmentCare Team (Latest Contact Info)Tnvkppunuch02/04/2025 1:00 PM ESTOffice Visit [facility] [address] [facility] [address] [place] [address] Luis M Casey, PA [address] [facility] [place] [address] 07/06/2025 8:30 AM ESTOffice Visit [facility] [address] [place] [address] Antonia Jackson MD [address] [place], [place] [phone] documented as of this encounter Visit Diagnoses Not on filedocumented in this encounter Care Teams Team MemberRelationshipSpecialtyStart DateEnd Date Reece Zhao MD [address] [place] [phone] PCP - GeneralFamily Medicine01/14/23documented as of this encounter
--- OUTSIDE RECORDS SUMMARY | 2025-04-12 12:51 | XMS_ITS | Encounter Summary ---
Author Organization [facility] Address [address] [place] [place] [address] Care Team Providers Care J2Ee Software Engineer Name Role Phone Reece Zhao MD Primary Care Provider [phone] Encounter Details DateTypeDepartmentCare Team (Latest Contact Info)Czlrithgbel86/17/2024Clinisync Result Encounter [facility] External Department Unsolicited Ivy Manrique PA [address] [facility] [place] [address] Social History Tobacco UseTypesPacks/DayYears UsedDateSmoking Tobacco: NeverSmokeless Tobacco: NeverAlcohol UseStandard Drinks/WeekCommentsNever0 (1 standard drink = 0.6 oz pure alcohol)caffeine 1-2 cups per dayCommentsNoSex and Gender InformationValueDate RecordedSex Assigned at BirthNot on fileLegal SexFemale 08/15/2022 6:56 PM EDTGender IdentityNot on fileSexual OrientationNot on file documented as of this encounter Plan of Treatment DateTypeDepartmentCare Team (Latest Contact Info)Jqvkvicpaac47/04/2025 1:00 PM ESTOffice Visit [facility] [address] [address] Luis M Casey PA [address] [place] [address] 07/06/2025 8:30 AM ESTOffice Visit [facility] [place] [facility] [address] [facility] [address] [place] [address] Antonia Jackson MD [address] [facility] [address] [place] [address] documented as of this encounter Procedures Procedure NamePriorityDate/TimeAssociated DiagnosisCommentsUS GUIDED BREAST BIOPSY LT05/19/2024 3:32 PM EST documented in this encounter Results * US GUIDED BREAST BIOPSY LT (05/19/2024 3:32 PM EST)Anatomical RegionLaterality ModalityRadiographic ImagingSpecimen (Source)Anatomical Location / Laterality Collection Method / VolumeCollection TimeReceived Time05/19/2024 3:32 PM EST Narrative 05/19/2024 3:34 PM EST [facility] ?[address] ? [place] [address] ? Ultrasound Report ? Signed ? Patient: MIANTWYLADENNYASHLEY Jonathan ?MR#: [id number] ?? : 1960 ?Acct:[id number] ?? Age/Sex: 63 / F ?ADM Date: 05/19/24 ?? Loc: US ? Attending Dr: Ivy Manrique ? Ordering Physician: Ivy Manrique ?? Date of Service: 05/19/24 ?? Procedure(s): US breast vac bx w/ clip LT ?? Accession Number(s): [id number] ? cc: Ivy Manrique; Reece Zhao M.D. ? [facility] ? [address] ? [place] [address] ? Patient Name: ?? ASHLEY GANT ? MRN: [id number] ? date: 1960 ?Sex: F ?? Assigned Patient Location: US ?? Current Patient Location: US ?? Accession/Order Number: [id number] ?? Exam Date: 05/19/2024 ??14:17 ?Report Date: 05/19/2024 ??15:32 ? At the request of: ?? IVY ??BURTON ? Procedure: ??US breast vac bx w/ clip LT ? EXAMINATION: US breast vac bx w/ clip LT ? HISTORY: Mixed Cystic and Solid Left Breast Lesion ? COMPARISON: No relevant comparison available. ? TECHNIQUE: After obtaining informed consent, ultrasound-guided fine needle ?? aspiration was performed in the usual sterile manner. ? FINDINGS: ?? IMAGING: Ultrasound. ?? BIOPSY NEEDLE: 13-gauge vacuum-assisted mammotome ?? LOCATION: 9:00 left breast 6.3 mm lesion ?? SPECIMEN TYPE: 4 core samples. ?? LOCAL ANESTHETIC: 2 cc lidocaine without epi, 6 cc lidocaine with epi ?? COMPLICATIONS: None. ?? LABORATORY: Prepared slide smears and washings for cell block evaluation. ?? OTHER: Negative. ?? PATHOLOGY: Pending. An addendum will be added when results are available. ? US/US breast vac bx w/ clip LT ?? IMPRESSION: ? 1. Uneventful ultrasound guided core biopsy left breast lesion ?? 2. Pathology results are pending. ? Electronically authenticated by: VANE ??AARON ?? Date: 05/19/2024 ??15:32 ? Dictated By: ?Vane Walker M.D. ? Signed By: ?05/19/24 1534 ? DD/ 1532 ? TD/TT: ? Dietary Director: Procedure Note Radiology, Radiologist, - 05/19/2024 [place] [address] Ultrasound Report Signed Patient: ASHLEY GANT SMR#: [id number] : 1960cct:[id number] Age/Sex: 63 / FADM Date: 05/19/24 Loc: US Attending Dr: Ivy Manrique Ordering Physician: Ivy Manrique Date of Service: 05/19/24 Procedure(s): US breast vac bx w/ clip LT Accession Number(s): [id number] cc: Ivy Manrique; Reece Zhao M.D. The [address] [address] Patient Name: ASHLEY GANT MRN: [id number] date: 1960 Sex: F Assigned Patient Location: US Current Patient Location: US Accession/Order Number: [id number] Exam Date: 05/19/2024 14:17 Report Date: 05/19/2024 [...] 15:32 Dictated By: Vane Walker M.D. Signed By:05/19/24 1534 DD/ 31 TD/TT: Dietary Director: Authorizing ProviderResult TypeResult StatusAmy [place] PAIMG XR PROCEDURESFinal Result documented in this encounter Visit Diagnoses Not on filedocumented in this encounter Care Teams Team MemberRelationshipSpecialtyStart DateEnd Date Reece Zhao MD [address] [place] [phone] PCP - GeneralFamily Medicine01/14/23documented as of this encounter
--- OUTSIDE RECORDS SUMMARY | 2025-04-12 12:51 | XMS_ITS | Encounter Summary ---
Author Organization [facility] Address [address] [place] [address] Care Team Providers Care Ship Rigger Apprentice Name Role Phone Reece Zhao MD Primary Care Provider [phone] Encounter Details DateTypeDepartmentCare Team (Latest Contact Info)Eyenikhqcnk99/06/2024Clinisync Result Encounter [facility]OMS External Department Unsolicited Ivy Bah PA [address] [facility] [place] [address] Social History Tobacco UseTypesPacks/DayYears UsedDateSmoking Tobacco: NeverSmokeless Tobacco: NeverAlcohol UseStandard Drinks/WeekCommentsNever0 (1 standard drink = 0.6 oz pure alcohol)caffeine 1-2 cups per dayCommentsNoSex and Gender InformationValueDate RecordedSex Assigned at BirthNot on fileLegal SexFemale 08/15/2022 6:56 PM EDTGender IdentityNot on fileSexual OrientationNot on file documented as of this encounter Plan of Treatment DateTypeDepartmentCare Team (Latest Contact Info)Lwotmogjbxn06/04/2025 1:00 PM ESTOffice Visit [facility] [address] [place] [address] Luis M Casey PA [address] [place] [address] 07/06/2025 8:30 AM ESTOffice Visit [facility] [place] [facility] [address] [facility] [address] [place] [address] Antonia Jackson MD [address] [facility] [address] [place] [address] documented as of this encounter Procedures Procedure NamePriorityDate/TimeAssociated DiagnosisCommentsUS BREAST LT LIMITED 05/08/2024 3:13 PM EST documented in this encounter Results * US BREAST LT LIMITED (05/08/2024 3:13 PM EST)Anatomical RegionLaterality ModalityOtherSpecimen (Source)Anatomical Location / LateralityCollection Method / VolumeCollection TimeReceived Time05/08/2024 3:13 PM EST Narrative 05/08/2024 3:14 PM EST [facility] ?[address] ? [place] [address] ? Ultrasound Report ? Signed ? Patient: ASHLEY GANT ?MR#: [id number] ?? : 1960 ?Acct:[id number] ?? Age/Sex: 63 / F ?ADM Date: 05/08/24 ?? Loc: MAMMO ? Attending Dr: Ivy Bah ? Ordering Physician: Ivy Bah ?? Date of Service: 05/08/24 ?? Procedure(s): US breast LT limited ?? Accession Number(s): [id number] ? cc: Ivy Bah; Reece Zhao M.D. ? Patient Name: ? ASHLEY GANT ? MR#: [id number] ? : 1960 ? Exam Date: 05/08/2024 ?? Ordering Doctor: JOO Bah . ? RADIOLOGY REPORT ? PROCEDURE: ? MM DIAGNOSTIC MAMMO UNILAT LT, 05/08/2024, 14:03 ?? US BREAST LT LIMITED, 05/08/2024, 14:15 ? COMPARISON: ? MM TOMOSYNTHESIS SCREENING BI, 04/28/2024. ??MM TOMOSYNTHESIS ?? SCREENING BI, 04/23/2023. ??MG MAMM SCREEN 3D SOSA CAD, 04/10/2022. ??MG MAMM ?? SCREEN 3D SOSA CAD, 03/01/2021. ? INDICATIONS: ? Abnormal Mammogram ? Calculator Name ? NCI Breast Cancer Risk Assessment Tool ?? 5 Year Breast Cancer Risk ? 1.60% ?? Lifetime Breast Cancer Risk ? 6.60% ?? Personal Breast Cancer ?No ?? Personal Ovarian Cancer ? No ?? Treatments ? None ?? Family Cancers ? Mother with lung cancer at age 88. ? LOCATION: ? [facility] ? BREAST COMPOSITION: ? The breasts are almost entirely fatty. ? FINDINGS: ? DIAGNOSTIC CATEGORY 4--SUSPICIOUS FOR MALIGNANCY. FINDING DOES NOT EXHIBIT ?? CLASSIC FINDINGS OF BREAST CANCER: ? LEFT BREAST: ??Spot magnification views demonstrate persistence of a ?? circumscribed round mass within lower-inner quadrant. ?? Ultrasound evaluation demonstrates 2 adjacent structures at the 9 o'clock ?? position, 5.5 cm from the nipple. ??One represents a 3 mm simple cyst. ??The ?? other represents a 6 x 5 x 4 mm mixed cystic and solid structure which is ?? taller than wide which increases suspicion for neoplasm. ??Ultrasound-guided ?? tissue sampling is recommended. ??Alternatively a follow-up ultrasound ?? evaluation in 3 months to document stability could be performed. ? RECOMMENDATIONS: ? ULTRASOUND-GUIDED CORE BIOPSY: LEFT BREAST ? PLEASE NOTE: ??A NORMAL MAMMOGRAM DOES NOT EXCLUDE THE POSSIBILITY OF BREAST ?? CANCER. ??A CLINICALLY SUSPICIOUS PALPABLE LUMP SHOULD BE BIOPSIED. ? Dictated by: Damian Monterroso M.D. on 05/08/2024 at 14:42 ? Approved by: Damian Monterroso M.D. on 05/08/2024 at 15:12 ? Dictated By: ?Zieber,Damian M.D. ? Signed By: ?05/08/24 1514 ? DD/ 1513 ? TD/TT: ? Project Consultant: Procedure Note Radiology, Radiologist, MD - 05/08/2024 [place] [address] Ultrasound Report Signed Patient: ASHLEY GANT [facility]#: [id number] : 9Acct:[id number] Age/Sex: 63 / FADM Date: 05/08/24 Loc: MAMMO Attending Dr: Ivy Bah Ordering Physician: Ivy Bah Date of Service: 05/08/24 Procedure(s): US breast LT limited Accession Number(s): [id number] cc: Reece Chowdhury M.D. Patient Name: ASHLEY GANT MR#: [id number] : 1960 Exam Date: 05/08/2024 Ordering Doctor: JOO Bah . RADIOLOGY REPORT PROCEDURE: MM DIAGNOSTIC MAMMO UNILAT LT, 05/08/2024, 14:03 US BREAST LT LIMITED, 05/08/2024, 14:15 COMPARISON: MM TOMOSYNTHESIS SCREENING BI, 04/28/2024. MMTOMOSYNTHESIS SCREENING BI, 04/23/2023. MG MAMM SCREEN 3D SOSA CAD, 04/10/2022. MG MAMM SCREEN 3D SOSA CAD, 03/01/2021. INDICATIONS: Abnormal Mammogram Calculator Name NCI Breast Cancer Risk Assessment Tool 5 Year Breast Cancer Risk 1.60% Lifetime Breast Cancer Risk 6.60% Personal Breast Cancer No Personal Ovarian Cancer No Treatments None Family Cancers Mother with lung cancer at age 88. LOCATION: [facility] BREAST COMPOSITION: The breasts are almost entirely [...] taller than wide which increases suspicion for neoplasm.Ultrasound-guided tissue sampling is recommended. Alternatively a follow-up ultrasound evaluation in 3 months to document stability could be performed. RECOMMENDATIONS: ULTRASOUND-GUIDED CORE BIOPSY: LEFT BREAST PLEASE NOTE: A NORMAL MAMMOGRAM DOES NOT EXCLUDE THE POSSIBILITY OFBREAST CANCER. A CLINICALLY SUSPICIOUS PALPABLE LUMP SHOULD BE BIOPSIED. Dictated by: Damian Monterroso M.D. on 05/08/2024 at 14:42 Approved by: Damian oMnterroso M.D. on 05/08/2024 at 15:12 Dictated By: Damian Monterroso M.D. Signed By:05/08/24 1514 DD/ 12 TD/TT: Project Consultant: Authorizing ProviderResult TypeResult StatusAmy Olvin PACLINISYNC IMAGINGFinal Result documented in this encounter Visit Diagnoses Not on filedocumented in this encounter Care Teams Team MemberRelationshipSpecialtyStart DateEnd Date Reece Zhao MD [address] [place] [phone] PCP - GeneralFamily Medicine01/14/23documented as of this encounter
--- OUTSIDE RECORDS SUMMARY | 2025-04-12 12:51 | XMS_ITS | Encounter Summary ---
Author Organization [facility] Address [address] [place] [place] [address] Care Team Providers Care Net Software Architect Name Role Phone Reece Zhao MD Primary Care Provider [phone] Encounter Details DateTypeDepartmentCare Team (Latest Contact Info)Pkzlkytnrcz23/27/2025amboo flowsheet [facility] [address] [place] [address] Ivan Stevenson, HONG [address] [place] [address] Social History Tobacco UseTypesPacks/DayYears UsedDateSmoking Tobacco: NeverSmokeless Tobacco: NeverAlcohol UseStandard Drinks/WeekCommentsNever0 (1 standard drink = 0.6 oz pure alcohol)caffeine 1-2 cups per dayCommentsNoSex and Gender InformationValueDate RecordedSex Assigned at BirthNot on fileLegal SexFemale 08/15/2022 6:56 PM EDTGender IdentityNot on fileSexual OrientationNot on file documented as of this encounter Plan of Treatment DateTypeDepartmentCare Team (Latest Contact Info)Hvkkqblgpgm52/04/2025 1:00 PM ESTOffice Visit [facility] [address] [place] [address] [place] [address] Luis M Casey, PA [address] [place] [address] 07/06/2025 8:30 AM ESTOffice Visit [facility] [place] [facility] [address] [facility] [address] [place] [address] Antonia Jackson MD [address] [facility] [address] [place] [address] documented as of this encounter Visit Diagnoses Not on filedocumented in this encounter Care Teams Team MemberRelationshipSpecialtyStart DateEnd Date Reece Zhao MD [address] [facility] [place] [address] PCP - GeneralFamily Medicine01/14/23documented as of this encounter
--- OUTSIDE RECORDS SUMMARY | 2025-04-12 12:51 | XMS_ITS | Encounter Summary ---
Author Organization [facility] Address [address] [place] [address] Care Team Providers Care Certified Maintenance Welder Name Role Phone Reece Zhao MD Primary Care Provider [phone] Encounter Details DateTypeDepartmentCare Team (Latest Contact Info)Vyifmajlfyk92/17/2024Clinisync Result Encounter [facility] External Department Unsolicited Ivy Bah PA [address] [place] [address] Social History Tobacco UseTypesPacks/DayYears UsedDateSmoking Tobacco: NeverSmokeless Tobacco: NeverAlcohol UseStandard Drinks/WeekCommentsNever0 (1 standard drink = 0.6 oz pure alcohol)caffeine 1-2 cups per dayCommentsNoSex and Gender InformationValueDate RecordedSex Assigned at BirthNot on fileLegal SexFemale 08/15/2022 6:56 PM EDTGender IdentityNot on fileSexual OrientationNot on file documented as of this encounter Plan of Treatment DateTypeDepartmentCare Team (Latest Contact Info)Gpnzrkyxauh22/04/2025 1:00 PM ESTOffice Visit [facility] [address] [place] [address] Luis M Casey PA [address] [place] [address] 07/06/2025 8:30 AM ESTOffice Visit [facility] [place] [facility] [address] [facility] [address] [place] [address] Antonia Jackson MD [address] [facility] [address] [place] [address] documented as of this encounter Procedures Procedure NamePriorityDate/TimeAssociated DiagnosisCommentsMM POST BIOPSY LT 05/19/2024 3:36 PM EST documented in this encounter Results * MM POST BIOPSY LT (05/19/2024 3:36 PM EST)Anatomical RegionLateralityModality OtherSpecimen (Source)Anatomical Location / LateralityCollection Method / VolumeCollection TimeReceived Time05/19/2024 3:36 PM EST Narrative 05/19/2024 3:37 PM EST [facility] ?[address] ? [place] [address] ? Mammography Report ? Signed ? Patient: ASHLEY GANT ?MR#: [id number] ?? : 1960 ?Acct:[id number] ?? Age/Sex: 63 / F ?ADM Date: 12/17/24 ?? Loc: US ? Attending Dr: Ivy Bah ? Ordering Physician: Ivy Bah ?Results: ? Date of Service: 12/17/24 ?Follow Up: ? Procedure(s): MM post biopsy LT ?? Accession Number(s): [id number] ? cc: Ivy Bah; Reece Zhao M.D. ? Patient Name: ? ASHLEY GANT ? MR#: [id number] ? : 1960 ? Exam Date: 05/19/2024 ?? Ordering Doctor: JOO Bah . ? RADIOLOGY REPORT ? PROCEDURE: ? MM POST BIOPSY LT ? COMPARISON: ? MM DIAGNOSTIC MAMMO UNILAT LT, 05/08/2024. ? INDICATIONS: ? Mixed Cystic and Solid Left Breast Lesion ? BREAST COMPOSITION: ? FINDINGS: ? Post-Procedure Mammogram for Marker Placement ? BIOPSY MARKER: ? A metallic marker has been placed in the targeted location ?? within the lower inner quadrant of the left breast. ?? BREAST FINDINGS: ? The targeted lesion is no longer present ? Dictated by: Don Rivas MD on 05/19/2024 at 15:34 ? Approved by: Don Rivas MD on 05/19/2024 at 15:35 ? Dictated By: ?Don Rivas M.D. ? Signed By: ?05/19/247 ? DD/ 1536 ? TD/TT: ? Psychologist Research Assistant: Procedure Note Radiology, Radiologist, MD - 05/19/2024 [place] [address] Mammography Report Signed Patient: ASHLEY GANT SMR#: [id number] : 1960cct:[id number] Age/Sex: 63 / FADM Date: 05/19/24 Loc: US Attending Dr: Ivy Bah Ordering Physician: Ivy Priceults: Date of Service: 05/19/24Follow Up: Procedure(s): MM post biopsy LT Accession Number(s): [id number] cc: Ivy Bah; Reece Zhao M.D. Patient Name: ASHLEY GANT MR#: [id number] : 1960 Exam Date: 05/19/2024 Ordering Doctor: JOO Bah . RADIOLOGY REPORT PROCEDURE: MM POST BIOPSY LT COMPARISON: MM DIAGNOSTIC MAMMO UNILAT LT, 05/08/2024. INDICATIONS: Mixed Cystic and Solid Left Breast Lesion BREAST COMPOSITION: FINDINGS: Post-Procedure Mammogram for Marker Placement BIOPSY MARKER: A metallic marker has been placed in the targetedlocation within the lower inner quadrant of the left breast. BREAST FINDINGS: The targeted lesion is no longer present Dictated by: Don Rivas MD on 05/19/2024 at 15:34 Approved by: Don Rivas MD on 05/19/2024 at 15:35 Dictated By: Don Rivas M.D. Signed By:05/19/24 1537 DD/ 1536 TD/TT: Psychologist Research Assistant: Authorizing ProviderResult TypeResult StatusAmy Randolph PACLINISYNC IMAGINGFinal Result documented in this encounter Visit Diagnoses Not on filedocumented in this encounter Care Teams Team MemberRelationshipSpecialtyStart DateEnd Date Reece Zhao MD [address] [place] [phone] PCP - GeneralFamily Medicine01/14/23documented as of this encounter
--- OUTSIDE RECORDS SUMMARY | 2025-04-12 12:51 | XMS_ITS | Encounter Summary ---
Author Organization [facility] Address [address] [place] [address] Care Team Providers Care Station Attendant Name Role Phone Reece Zhao MD Primary Care Provider [phone] Encounter Details DateTypeDepartmentCare Team (Latest Contact Info)Drohcbszibt88/06/2024Clinisync Result Encounter [facility] External Department Unsolicited Ivy Bah PA [address] [place] [address] Social History Tobacco UseTypesPacks/DayYears UsedDateSmoking Tobacco: NeverSmokeless Tobacco: NeverAlcohol UseStandard Drinks/WeekCommentsNever0 (1 standard drink = 0.6 oz pure alcohol)caffeine 1-2 cups per dayCommentsNoSex and Gender InformationValueDate RecordedSex Assigned at BirthNot on fileLegal SexFemale 08/15/2022 6:56 PM EDTGender IdentityNot on fileSexual OrientationNot on file documented as of this encounter Plan of Treatment DateTypeDepartmentCare Team (Latest Contact Info)Znapvezlnar64/04/2025 1:00 PM ESTOffice Visit [facility] [address] [place] [address] Luis M Casey PA [address] [place] [address] 07/06/2025 8:30 AM ESTOffice Visit [facility] [place] [facility] [address] [facility] [address] [place] [address] Antonia Jackson MD [address] [facility] [address] [place] [address] documented as of this encounter Procedures Procedure NamePriorityDate/TimeAssociated DiagnosisCommentsMM DIAGNOSTIC MAMMO UNILAT LT05/08/2024 3:13 PM EST documented in this encounter Results * MM DIAGNOSTIC MAMMO UNILAT LT (05/08/2024 3:13 PM EST)Anatomical Region LateralityModalityOtherSpecimen (Source)Anatomical Location / Laterality Collection Method / VolumeCollection TimeReceived Time05/08/2024 3:13 PM EST Narrative 05/08/2024 3:14 PM EST [facility] ?[address] ? [place] [address] ? Mammography Report ? Signed ? Patient: MIANGIRISHASHLEY Jonathan ?MR#: [id number] ?? : 1960 ?Acct:[id number] ?? Age/Sex: 63 / F ?ADM Date: 05/08/24 ?? Loc: MAMMO ? Attending Dr: Ivy Bah ? Ordering Physician: Ivy Bah ?Results: ? Date of Service: 05/08/24 ?Follow Up: ? Procedure(s): MM diagnostic mammo unilat LT ?? Accession Number(s): [id number] ? cc: Ivy Bah; Reece Zhao M.D. ? Patient Name: ? ASHLEY GANT ? MR#: [id number] ? : 1960 ? Exam Date: 05/08/2024 [...] at age 87. ? LOCATION: ? [facility] ? BREAST COMPOSITION: ? The breasts [...] on 05/08/2024 at 15:12 ? Dictated By: ?Damian Monterroso M.D. ? Signed By: ?05/08/24 1514 ? DD/ 1513 ? TD/TT: ? District Associate Judge: Procedure Note Radiology, Radiologist, MD - 05/08/2024 [place] [address] Mammography Report Signed Patient: ASHLEY GANT SMR#: [id number] : 1960cct:[id number] Age/Sex: 63 / FADM Date: 05/08/24 Loc: MAMMO Attending Dr: Ivy Bah Ordering Physician: Ivy BahResults: Date of Service: 05/08/24Follow Up: Procedure(s): MM diagnostic mammo unilat LT Accession Number(s): [id number] cc: Ivy Bah; Reece Zhao M.D. Patient Name: ASHLEY GANT MR#: [id number] : 1960 Exam Date: 05/08/2024 Ordering Doctor: [...] lung cancer at age 87. LOCATION: [facility] BREAST COMPOSITION: The breasts are [...] Damian Monterroso M.D. Signed By:05/08/24 1514 DD/ 1513 TD/TT: District Associate Judge: Authorizing ProviderResult TypeResult StatusAmy [facility] CenterYN IMAGINGFinal Result documented in this encounter Visit Diagnoses Not on filedocumented in this encounter Care Teams Team MemberRelationshipSpecialtyStart DateEnd Date Reece Zhao MD [address] [place] [phone] PCP - GeneralFamily Medicine01/14/23documented as of this encounter
== END 2025-04-12 12:48 | disposition home or self-care (01) ==
LOC: US 12:47
PROVIDERS: PCP Family Medicine; Visit Provider Nurse Practitioner Family
DX: E04.1 Nontoxic single thyroid nodule (principal)
CPT/HCPCS: 76536

== ENCOUNTER 2025-04-14 11:48 | Outpatient (OUT) | payer MEDICARE, SELFPAY ==
--- OUTSIDE RECORDS SUMMARY | 2025-04-12 19:56 | XMS_ITS | Continuity of Care Document ---
Author Organization [facility] Address [address] [place] [address] Phone Care Team Providers Care Needle Leader Name Role Phone Reece Zhao MD Primary Care Provider [phone] Stoney Rivera Jr, DO Attending Provider Care Teams Patient Care Team Team Status: Active Member Role/Relationship Status Dates Reece Zhao MD Primary Care Provider Active Visit Care Team Team Status: Inactive Member Role/Relationship Status Dates Reece Zhao MD Primary Care Provider Active Start: February 04, 2025 End: February 04, 2025George Nicole Gomez DOAttrubin ProviderActiveStart: February 04, 2025 End: February 04, 2025 Visit Care Team Team Status: Inactive Member Role/Relationship Status Dates Reece Zhao MD Primary Care Provider Active Start: April 12, 2025 End: April 12, 2025George Nicole Gomez DOAttrubin ProviderActiveStart: April 12, 2025 End: April 12, 2025 Chief Complaint and Reason for Visit Chief Complaint Admit Date 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, 2025 8:33am DJD April 12, 2025 9:34am Allergies, Adverse Reactions, Alerts Allergen Type Severity Reaction Last Updated Verified Status Penicillins Allergy Unknown Unknown Reaction Lisbethbe r 2024 10:21am Yes Active Social History Smoking Status Status Start Date End Date Date of Observa tion Never smoked tobacco (finding) April 12, 2025 9:58am Observation Status Observation Response Date of Response Legal Sex Female (finding) Sex Assigned At BirthFemaleDecember 1959 Family History Relationship Condition Age at Onset Recorded Date/T lizett brother Hodgkin lymphoma Unknown Myocardial infarctionUnknownDeceasedUnknownfatherPulmonary emphysemaUnknown DeceasedUnknownParkinson's diseaseUnknownmotherDeceasedUnknownMalignant neoplasm of lungUnknown Problems Active Problems Problem Diagnosis/Recorded Date Onset Date Stat us Primary osteoarthritis of left knee August 10, 2024 1 0:36am Unknown Active Chronic pain August 10, 2024 10:36am Unknown Act delta Medications Medication Status Dose Units Route Directions Qty Days Refills S tart Date Stop Date End Date Reason(s) Instructions Adherence Fexofenadine (Zenaida Allergy) 180 mg tablet Active 180 MG PO Daily February 03, 2025 11:00pmUnknownGlucosamine-Chondroitin (Cosamin Ds) 500-400 mg zapmyxCrrvsw3NVGIDIxzyeZniorgkyl 3rd, 2025 11:00pmUnknownMultivitamin (Daily Multi-Vitamin) olkrvdFpbggl6RFFRIYjmxvQvogpkrpb 3rd, 2025 11:00pmUnknownCalcium Citrate-Vitamin D3 (Calcium Citrate + D) 315 mg-5 mcg (200 unit) tabletActive1 TABPOTwice dailySept2024 11:00pmUnknownCholecalciferol (Vitamin D3) (Vitamin D3) 125 mcg (5,000 unit) enellrYiepgp967VUOYUJjpcg dailySept2024 11:00pmUnknownVitamin B Complex (Balanced B-50) axvvikLluveg2XRIAVGpvmy February 03, 2025 11:00pmUnknownZinc 50 mg ijggotClmclm51VHYGNyiicPpjspmqas 3rd, 2025 11:00pmUnknownAscorbic Acid (Vitamin C) (Vitamin C) 1,000 mg tablet Rpqwfe1HOKKSwpbc dailySept2024 11:00pmUnknownAspirin (Aspirin Childrens) 81 mg tablet,ecuqxiujCjdbermycshe20KIBPMbprqHexrxlwqw 3rd, 2025 11:00pmNov2024 10:25amTurmeric Root Extract 500 mg lvjdpziWlkxbh527 MGPOTwice dailySept2024 11:00pmUnknownMagnesium 200 mg tabletActive 400MGPODailySept2024 11:00pmUnknownIron Ps Ozjvcex-O65-Vsdiq Acid (Ferrex 150 Forte) 150-25-1 mg-mcg-mg stmfjitLngagt4FGGAXCihts morningApril 12, 2025 12:00amUnknownAlendronate (Fosamax) 70 mg dwddrxBqyffm96HZSHechtn weekApril 2024 11:00pmTakes on Immunizations Immunization Event Date Not Given Reason Dose Number External Relations Manager Lot Number Reason(s) Given Vaccine Information Statement (VIS) Detail Administration Location COVID-19 mRNA, Comirnaty (Pfizer) August 15 COVID-19 mRNA, Comirnaty (Pfizer)September 06, 2020Influenza Quadrivalent PF MDCK March 13, 2017Influenza Quadrivalent PF MDCKOctober 2017Influenza Quadrivalent PF MDCKNovember 2019influenza, unspecified formulation April 03, 2021Quadrivalent InfluenzaApril 27, 2019Quadrivalent InfluenzaNovember 2020Tetanus, Diphtheria, Pertussis (Tdap)March 13, 2017Shingles (Zoster)June 19, 2013 Procedures Procedure Date Performed Status XR femur BI February 04, 2025 10:02am comp leted XR tibia/fibula BI February 04, 2025 10:01am c ompleted Relevant Diagnostic Tests and/or Laboratory Data Laboratory Results Test Collection Date/Time Result Date/Time Result Interpretation Reference Range Result Comment Performing Site Corrected White Blood Count February 04, 2025 8:20am February 04, 2025 9:00am 4.8 10*3/[facility]L [facility] [id number] [address] [place] [address] 52904Vpdlevkgk White Blood CountNov2024 10:35amNovember 2024 10:55am5.6 10*3/uL3.8-11.6FPro[facility] [id number] [address] [facility] 84321Wwvxdvboujh WBC CountSept2024 8:20amSept2024 9:00am4.8 10*3/uL3.8-11.[address] [place] [address] [id number] [address] [facility] 29784Mlccykgnykt WBC CountNovember 2024 10:35amNovember 2024 10:55am5.6 10*3/uL3.8-11.6F[facility] [id number] [address] [facility] 24166Umi Blood CountSeptember 2024 8:20amSeptember 2024 9:00am4.69 10*6/uL3.60-5.00[facility] [id number] [address] [facility] 58674Ahp Blood CountNovember 2024 10:35amNovember 2024 10:55am4.70 10*6/uL3.60-5.00[facility] [id number] [address] [facility] 08876WteoqolgulXofgzhgzj 2024 8:20amSeptember 2024 9:00am 14.8 g/dL11.8-15.4F[facility] [id number] [address] [facility] 68278CjexacgljlAtbfgyzw 2024 10:35amNovember 2024 10:55am14.4 g/dL11.8-15.4F[facility] [id number] [address] [place] [address] 22145OdysoxhhqtTelnnoibo 2024 8:20amSeptember 2024 9:00am 42.5 %34.0-46.4F[facility] [id number] [address] [place] [address] 23881UuxqnhhpkkPlirrmps 2024 10:35amNovember 2024 10:55am42.7 %34.0-46.4F[facility] [id number] [address] [facility] 73717Ugam Corpuscular VolumeSeptember 2024 8:20amSeptember 2024 9:00am90.5 iG49-214YeyngjtnyOhio [facility] [id number] [address] [facility] 97484Tfhc Corpuscular VolumeNovember 2024 10:35amNovember 2024 10:55am91.0 eD30-884FemnbwtaeOhio State East Hospital [facility]tr [id number] [address] [facility] 20063Udnq Corpuscular HemoglobinSeptember 2024 8:20amSeptember 2024 9:00am31.5 pg24.7-34.[address] [place] [address] Ctr [id number] [address] [facility] 60863Eszp Corpuscular HemoglobinNovember 2024 10:35amNovember 2024 10:55am30.8 pg24.7-34.3F[facility] [id number] [address] [facility] 88892Abpu Corpuscular Hemoglobin ConcentSeptember 2024 8:20am February 04, 2025 9:00am34.8 g/dL32.0-35.0[facility] [id number] [address] [place] [address] 00678Daxo Corpuscular Hemoglobin ConcentNovember 2024 10:35am November 2024 10:55am33.8 g/dL32.0-35.0[facility] [id number] [address] [place] [address] 52440Neh Cell Distribution WidthSeptember 2024 8:20amSeptember 2024 9:00am13.0 %11.9-15.[address] [place] [address] Ctr [id number] [address] [facility] 66032Pjd Cell Distribution WidthNovember 2024 10:35amNovember 2024 10:55am13.3 %11.9-15.[address] [place] [address] Ctr [id number] [address] [place] [address] 85184Joawrpbo CountSeptember 2024 8:20amSeptember 2024 9:50bx394 10*3/pC933-675TcsdfxjgfOhio [facility] [id number] [address] [place] [address] 91634Ptyciocr CountNovember 2024 10:35amNovember 2024 10:49ly301 10*3/oG466-745DnlxkdipeOhio State East Hospital [facility] [id number] [address] [facility] 08395Sqaz Platelet VolumeSeptember 2024 8:20amSeptember 2024 9:00am7.2 fL6.3-10.7F[facility] [id number] [address] [facility] [place] [address]Ybdy Platelet VolumeNov2024 10:35amNovember 2024 10:55am7.1 fL6.3-10.7F[facility] [id number] [address] [facility] [place] [address]Mkuricicsar (%) (Auto)February 04, 2025 8:20amSeptember 2024 9:00am60.2 %.[facility] [id number] [address] [facility] [place] [address]Jtrwrxqvddp (%) (Auto)April 12, 2025 10:35amNovember 2024 10:55am62.8 %.[facility] [id number] [address] [facility] [place] [address]Mmgakvvigrb (%) (Auto)February 04, 2025 8:20amSept2024 9:00am24.2 %.[facility] [id number] [address] [facility] [place] [address]Ddygazggums (%) (Auto)April 12, 2025 10:35amNovember 2024 10:55am23.5 %.[facility] [id number] [address] [facility] [place] [address]Nxqwxbvvf (%) (Auto)February 04, 2025 8:20amSept2024 9:00am10.5 %.[facility] [id number] [address] [facility] [place] [address]Wrcbkclxq (%) (Auto)April 12, 2025 10:35amNovember 2024 10:55am9.4 %.[facility] [id number] [address] [facility] [place] [address]Dxqbfsphboq (%) (Auto)February 04, 2025 8:20amSeptember 2024 9:00am3.4 %.[facility] [id number] [address] [facility] [place] [address]Pzwmijbqipv (%) (Auto)April 12, 2025 10:35amNovember 2024 10:55am2.9 %.[facility] [id number] [address] [facility] 87986Qgdlkgdrg (%) (Auto)February 04, 2025 8:20amSeptember 2024 9:00am1.7 %.[facility] [id number] [address] [facility] 69201Sgrnladge (%) (Auto)April 12, 2025 10:35amNovember 2024 10:55am1.4 %.[facility] [id number] [address] [facility] 38945Ivjqjhimf RBC Relative Count (auto)February 04, 2025 8:20am February 04, 2025 9:00am0.0 /100{WBC}0-0.5F[facility] [id number] [address] [facility] 57624Rurcchuse RBC Relative Count (auto)April 12, 2025 10:35am April 12, 2025 10:55am0.0 /100{WBC}0-0.5F[facility] [id number] [address] [facility] 23281Pibwycmaslf # (Auto)February 04, 2025 8:20amSeptember 2024 9:00am2.9 10*3/uL1.8-7.7F[facility] [id number] [address] [facility] 327[address]Orzxvqwhosi # (Auto)April 12, 2025 10:35amNovember 2024 10:55am3.5 10*3/uL1.8-7.7F[facility] [id number] [address] [facility] 498[address]Ljmykjuxpyp # (Auto)February 04, 2025 8:20amSeptember 2024 9:00am1.2 10*3/uL1.00-4.8[facility] [id number] [address] [facility] 98649Zkwvgnuhpnp # (Auto)April 12, 2025 10:35amNovember 2024 10:55am1.3 10*3/uL1.00-4.8[facility] [id number] [address] [place] [address]Monocytes # (Auto)February 04, 2025 8:20amSeptember 2024 9:00am0.5 10*3/uL0.0-0.8[facility] [id number] [address] [facility] 21539Vjigwyynn # (Auto)April 12, 2025 10:35amNovember 2024 10:55am0.5 10*3/uL0.0-0.8[facility] [id number] [address] [facility] 25456Qeyinobxzds # (Auto)February 04, 2025 8:20amSeptember 2024 9:00am0.2 10*3/uL0.0-0.45[facility] [id number] [address] [facility] 28529Txslazgruqh # (Auto)April 12, 2025 10:35amNovember 2024 10:55am0.2 10*3/uL0.0-0.45[facility] [id number] [address] [facility] 86325Ceeqrmoxz # (Auto)February 04, 2025 8:20amSeptember 2024 9:00am0.1 10*3/uL0.0-0.2F[facility] [id number] [address] [place] [address] 50845Ywrjpjsom # (Auto)April 12, 2025 10:35amNovember 2024 10:55am0.1 10*3/uL0.0-0.2F[facility] [id number] [address] [place] [address] 00154Yjaft ColorSeptember 2024 8:30amSeptember 2024 8:56am Dark-yellowAbnormal (applies to non-numeric results)[facility]ellowOhio [facility] [id number] [address] [place] [address] 33224Rprtw ColorNovember 2024 10:05amNoveer 2024 10:19amLight-yellowYellowOhio State East Hospital [facility]tr [id number] [address] [place] [address] 67829Mnhsg AppearanceSeptember 2024 8:30amSeptember 2024 8:56amClearClearOhio State East Hospital [facility]tr [id number] [address] [facility] 422[address]Nhayj AppearanceNovember 2024 10:05amNovember 2024 10:19amClearClearOhio State East Hospital [facility] [id number] [address] [facility] 453[address]Sdqku Specific GravitySeptember 2024 8:30amSeptember 2024 8:56am1.0231.001-1.030[facility] [id number] [address] [facility] 26244Jpfrt Specific GravityNovember 2024 10:05amNovember 2024 10:19am1.0181.001-1.030[facility] [id number] [address] [facility] 32252Xrzap pHSeptember 2024 8:30amSeptember 2024 8:56am5.5 5.0-9.0[facility] [id number] [address] [facility] 27298Zwycl pHNovember 2024 10:05amNovember 2024 10:19am 5.55.0-9.0[facility] [id number] [address] [facility] 97837Gggkr Leukocyte EsteraseSeptember 2024 8:30amSeptember 2024 8:56amNegativeNegativeOhio State East Hospital [facility] [id number] [address] [facility] 84912Nnshi Leukocyte EsteraseNovember 2024 10:05amNovember 2024 10:19amNegativeNegativeOhio State East Hospital [facility] [id number] [address] [facility] 79156Qavha NitriteSeptember 2024 8:30amSeptember 2024 8:56amNegativeNegativeOhio State East Hospital [facility] [id number] [address] [facility] 62952Yaddt NitriteNovember 2024 10:05amNovember 2024 10:19amNegativeNegativeOhio State East Hospital [facility] [id number] [address] [facility] 20227Hsejm ProteinSeptember 2024 8:30amSeptember 2024 8:56amNegative mg/dLNegativeFirFlower Hospital [facility] [id number] [address] [facility] 52293Ccyfy ProteinNovember 2024 10:05amNovember 2024 10:19amNegative mg/dLNegativeFirstanfords [facility] [id number] [address] [facility] 50882Znenx Glucose (UA)February 04, 2025 8:30amSeptember 2024 8:56amNormal mg/dLNormalFirFlower Hospital Ctr [id number] [address] [facility] 50201Kgacy Glucose (UA)April 12, 2025 10:05amNovember 2024 10:19amNormal mg/dLNormalFirFlower Hospital Ctr [id number] [address] [facility] 29229Vaakb KetonesSeptember 2024 8:30amSeptember 2024 8:56amNegativeNegativeRegency Hospital [facility] [id number] [address] [facility] 48639Yonpw KetonesNovember 2024 10:05amNovember 2024 10:19amNegativeNegativeFirstanfords [facility] [id number] [address] [facility] 73196Bxtoj UrobilinogenSeptember 2024 8:30amSeptember 2024 8:56amNormal mg/dLNormalFirFlower Hospital Ctr [id number] [address] [facility] 11170Lzezj UrobilinogenNovember 2024 10:05amNovember 2024 10:19amNormal mg/dLNormalFirstanfords [facility] [id number] [address] [facility] [place] [address]Dchhm BilirubinSeptember 2024 8:30amSeptember 2024 8:56amNegativeNegativeFirstanfords [facility] [id number] [address] [facility] 48149Gvwcu BilirubinNovember 2024 10:05amNovember 2024 10:19amNegativeNegativeRutherford Regional [facility] [id number] [address] [facility] 07562Zvxap Occult BloodSeptember 2024 8:30amSeptember 2024 8:56amNegativeNegativeOhio State East Hospital [facility] [id number] [address] [facility] 43817Ysxul Occult BloodNovember 2024 10:05amNovember 2024 10:19amNegativeNegativeOhio State East Hospital [facility] [id number] [address] [facility] 32996Zxibbsj LevelSeptember 2024 8:20amSeptember 2024 11:16am94 mg/dD10-346HUS recommended reference rangeRandom Glucose Reference Range is dependent on time and content of last meal. Glucose of more than 200 mg/dL in a nonstressed, ambulatory subject supports the diagnosisof Diabetes Mellitus.[facility] [id number] [address] [facility] 25890Psvxqzc LevelNovember 2024 10:35amNovember 2024 11:15am96 mg/sY85-891MYN recommended reference rangeRandom Glucose Reference Range is dependent on time and content of last meal. Glucose of more than 200 mg/dL in a nonstressed, ambulatory subject supports the diagnosisof Diabetes Mellitus.[facility] [id number] [address] [facility] 90750Bwgpz Urea NitrogenSeptember 2024 8:20amSept2024 11:16am16 mg/dL-[facility] [id number] [address] [facility] 77716Jqroa Urea NitrogenNovember 2024 10:35amNovember 2024 11:15am13 mg/dL7-[facility] [id number] [address] [facility] 87814CejxmdnptzJndvxvujt 2024 8:20amSept2024 11:16am 0.94 mg/dL0.60-1.20[facility] [id number] [address] [facility] 60707YuflgwcrhyMqktkgxa 2024 10:35amNovember 2024 11:15am0.84 mg/dL0.60-1.20[facility] [id number] [address] [facility] 37446Jlpydyxwx GFR (CKD-EPI)February 04, 2025 8:20amSeptember 2024 11:16am> 60.0 mL/MinOhio State East Hospital Ctr [id number] [address] [facility] 69456Ywugrskcf GFR (CKD-EPI)April 12, 2025 10:35amNovember 2024 11:15am> 60.0 mL/MinOhio State East Hospital [facility] [id number] [address] [facility] 938[address]Recpvv LevelSeptember 2024 8:20amSeptember 2024 11:97cf147 mmol/F021-956TuoknuyhmOhio State East Hospital [facility] [id number] [address] [facility] 99082Dcbpar LevelNovember 2024 10:35amNovember 2024 11:93pp851 mmol/H174-206HvznatexuOhio State East Hospital [facility] [id number] [address] [facility] [address]Aptugytgv LevelSeptember 2024 8:20amSeptember 2024 11:16am4.4 mmol/L3.5-5.1F[facility] [id number] [address] [facility] 03272Qowaehmgx LevelNovember 2024 10:35amNovember 2024 11:15am4.4 mmol/L3.5-5.1F[facility]als [facility] [id number] [address] [facility] 95511Iblgsjhf LevelSeptember 2024 8:20amSeptember 2024 11:42wt389 mmol/J99-095GpshvnajnOhio State East Hospital [facility] [id number] [address] [facility] 32609Wkyletci LevelNovember 2024 10:35amNovember 2024 11:90tg300 mmol/H58-277NcxuawpqzOhio State East Hospital [facility] [id number] [address] [facility] 62585Onwaxd Dioxide LevelSeptember 2024 8:20amSeptember 2024 11:16am30.3 mmol/L21.0-31.0[facility] [id number] [address] [facility] 64478Yaneme Dioxide LevelNovember 2024 10:35amNovember 2024 11:15am31.9 mmol/LAbove high .0-31.0[facility] [id number] [address] [facility] 44819Lpfey GapSeptember 2024 8:20amSeptember 2024 11:16am 9.1 mEq/L6.0-15.0[facility] [id number] [address] [facility] 45526Tsibm GapNovember 2024 10:35amNovember 2024 11:15am 8.5 mEq/L6.0-15.0[facility] [id number] [address] [facility] 87721Ahntgus LevelSeptember 2024 8:20amSeptember 2024 11:16am9.4 mg/dL8.6-10.3F[facility] [id number] [address] [facility] 00067Yusolia LevelNovember 2024 10:35amNovember 2024 11:15am9.2 mg/dL8.6-10.3FUniversity [facility]als [facility] [id number] [address] [facility] 434[address]Boopyujc Creatinine Clearance (ChemSeptember 2024 8:20am February 04, 2025 11:16amN/[facility] [id number] [address] [facility] 32869Lmxwryuq Creatinine Clearance (ChemNovember 2024 10:35am April 12, 2025 11:15amN/[facility] [id number] [address] [facility] [address] Diagnostic Imaging Reports Author Chad White The Jewish HospitalAuthoredSeptember 2024 2:27pmReport Dictated Date/TimeDictated ByStatusRadiology ReportSeptember 2024 2:27pm Chad White Jr DOcompleteZanesville [facility] Main [place] [address] [place] [address] XRay Report Signed Patient: Ashley Gant MR#: [id number] : 1960 Acct:[id number] Age/Sex: 64 / F ADM Date: 09/04/2 5 Loc: XDS Room: Type: [facility] Attending Dr: Stoney Rivera Jr, DO Copies to: Stoney Rivera Jr, DO~ Ordering Provider: Stoney Rivera Jr, DO Date of Service: 02/04/25 XR/XR tibia/fibula BI: PRE OP ([id number]) XR/XR femur BI: PRE OP Bilateral lower extremity series one view each CLINICAL HISTORY: Preop left TKA COMPARISON: None AP views of both lower kidneys were obtained. Bilateral hip prostheses are place without radiographic complication. No acute bony process is seen. Mild degenerative changes involving the knees. Ankle mortises appears intact. XR/XR femur BI IMPRESSION: NO ACUTE PROCESS. Impression dictated by: Chad White Jr., D.OEzio 02/04/2025 2:28 PM Dictation Location: [place] [address] Transcribed By: [facility] 02/04/25 1428 Dictated By: Chad White Jr, DO 02/04/25 1427 Signed By: <Electronically signed by Chad White Jr, DO in OV> 02/04/25 1428 Advance Directives Advance Directive Response Recorded Date/ Time Advance Directives No August 10 11:09am Insurance Providers Guarantor Ashley Gant Address [address] [facility] [address] [facility] [address]Agfpuqo Info.Home Phone: Coverage Status Update:2025 Payer Group Member ID Coverage Type Subscriber Relationship to Subscriber Effective Date Expiration Date [employer] [facility] PFFS [id number] Stalin Id: [id number] [address] [place] [phone] Home Phone: Self Encounters Encounter Location(s) Arrival/Admit Date Discharge/Departure Date Discharge/Departure Disposition Provider(s) Departed Clinical -X-Ray [facility] February 04, 2025 8:33am February 04, 2025 8:34am Discharged to home care or self care (routine discharge) Stoney Rivera Jr DO Departed Clinical -Pre-Surgica l Testing April 12, 2025 9:34am April 12, 2025 9:35am Discharged to home care or self care (routine discharge) Stoney Rivera Jr DO
--- OUTSIDE RECORDS SUMMARY | 2025-04-14 11:54 | XMS_ITS | Clinical Summary ---
Author Organization [facility] Healthcare Address [address] [place] [address] Care Team Providers Care Master Printer Name Role Phone Reece Zhao MD Primary Care Provider [phone] Allergies Active AllergyReactionsCriticalityNoted YsmlXbioxhbqHptbgNkgblke65/27/2023 Penicillin FZcdcabx83/14/2023 Medications MedicationSigDispense QuantityRefillsLast FilledStart DateEnd DateStatus Okvbhrrakmu-Xieidqbeu-Vky C-Mn (Glucosamine Chondroitin Complx) capsule 1 capsule [...] 03/29/2025 Active Problems ProblemNoted DateDiagnosed DateHistory of jqaqmxtrumim06/04/2025Otorrhea of right ear01/04/2025Mammogram qopypjpc23/09/2024Mass of left namech3105/11/2024 Bilateral tympanic membrane lytngfptvdt14/24/2024ilateral impacted cerumen 06/26/2023ge-related osteoporosis without current pathological fracture 06/24/20234100Osjouilgmbsny83/22/2024hronic nljiustk20/22/2157Pbzqqf98/22/2024 Hearing loss of left ear06/24/2023Nontoxic multinodular fgdrkd5106/24/2023Obesity 06/24/2023Other primary ovarian nuzasac9906/24/2023Osteoarthritis of knee 4Pain in joint involving pelvic region and thigh06/24/2023erforation of tympanic xgsnfuhw57/22/2024Right hip pain06/24/2023Mixed conductive and sensorineural hearing loss of right ear with restricted hearing of left ear 06/24/2023Sensorineural hearing loss (SNHL), mbztxrbio42/22/2024Vaginal atrophy 06/24/2023 Encounters DateTypeDepartmentCare ZgfmDbqnibfywed65/12/2025Telephone [facility] [place] [address] Ivan Stevenson, HONG 04/12/2025External Result Encounter [facility] External Department Unsolicited Jr. Stoney Rivera, DO 04/12/2025External Result Encounter [facility] External Department Unsolicited Jr. Stoney Rivera, DO 04/12/2025External Result Encounter [facility] External Department Unsolicited Jr. Stoney Rivera, DO 03/29/2025 10:00 AM EDTOffice Visit [facility] [place] [address] [place] [address] Ivan Stevenson, SUPERVISOR FERTILIZER PROCESSING Pre-op evaluation (Primary Dx); Primary osteoarthritis of left knee03/29/2025[facility] flowsheet [facility] [address] [place] [address] Ivan Stevenson, SUPERVISOR FERTILIZER PROCESSING 03/29/20258981Ghdaqn62/15/2025 8:45 AM EDTOffice Visit [facility] [address] [place] [address] Jr. Stoney Rivera, DO Primary osteoarthritis of left knee (Primary Dx); Acute pain of left knee03/17/2025[facility] flowsheet [facility] [address] [place] [address] Jr. Stoney Rivera, DO 03/17/20258777Monzdo09/26/2025Refill [facility] [address] [facility] [place] [address] Jr. Stoney Rivera, DO Pre-op xqyhdsxyck80/10/2025Telephone [facility] [address] [place] [address] Jr. Stoney Rivera, DO 02/10/2025Orders Only [facility] [address] [facility] [place] [address] Michelle Adam MA Primary osteoarthritis of left knee (Primary Dx)02/08/2025Telephone [facility] [address] [facility] [place] [address] Jr. Stoney Rivera, DO Surgery Questions; dental work prior to sx; Jeexidyqy95/04/2025 1:30 PM EDT Office Visit [facility] [address] [facility] [place] [address] Ivan Stevenson, SUPERVISOR FERTILIZER PROCESSING Pre-op evaluation (Primary Dx)02/04/2025External Result Encounter NOM External Department Unsolicited Jr. Stoney Rivera, DO 02/04/20251969Purprx35/04/2025External Result Encounter [facility] External Department Unsolicited Jr. Stoney Rivera, DO 02/04/2025External Result Encounter [facility] External Department Unsolicited Jr. Stoney Rivera, DO 02/04/2025External Result Encounter [facility] External Department Unsolicited Jr. Stoney Rivera, DO 02/04/2025External Result Encounter [facility] External Department Unsolicited Jr. Stoney Rivera, DO 01/21/2025 5:15 PM EDTAncillary Procedure [facility] [place] [facility] [address] [place] [address] Pain of left calf01/21/20255790Fawlkq60/20/7785Bvwdyh53/19/2025 8:40 AM EDTAncillary Procedure [facility] [address] [place], [place] [address] [address] 01/19/2025 8:35 AM EDTAncillary Procedure [facility] [address] [place], [place] [address] [address] 01/19/2025 8:30 AM EDTOffice Visit [facility] [address] [place], [place] [address] [address] Jr. Stoney Rivera, DO Right hip pain; Left hip pain; Pain of left calf01/19/2025amboo flowsheet [facility] [place] [address] Jr. Stoney Rivera, DO 01/19/2025Travelfrom Last 3 Months Immunizations ImmunizationAdministration DatesNext DueZostkatya, live06/19/2013 Family History Medical HistoryRelationNameCommentsHodgkin's lymphomaBrotherEmphysemaFather CancerMaternal GrandmotherLung cancerMotherRelationNameStatusCommentsBrother Deceased2, 1 deceasedFatherDeceasedMaternal GrandfatherDeceasedMaternal GrandmotherDeceasedMotherDeceasedPaternal GrandfatherDeceasedPaternal GrandmotherDeceased Social History Tobacco UseTypesPacks/DayYears UsedDateSmoking Tobacco: NeverSmokeless Tobacco: Never Tobacco Cessation:Counseling Given: Not Answered Alcohol UseStandard Drinks/WeekCommentsNever0 (1 standard drink = 0.6 oz pure alcohol)caffeine 1-2 cups per dayCommentsNoSex and Gender Information ValueDate RecordedSex Assigned at BirthNot on fileLegal SfaJsdmjh59/15/2023 6:56 PM EDTGender IdentityNot on fileSexual OrientationNot on file Last Filed Vital Signs Vital SignReadingTime TakenCommentsBlood Ljsytlnh761/7708 9:08 AM EDT Ovksb1237 8:58 AM ESTTemperature--Respiratory Klfx938102/18/2024 1:30 PM EDTOxygen Saturation--Inhaled Oxygen Concentration--Skpjam901 kg (239 lb) 03/29/2025 9:58 AM DYCZqlacu506.3 cm (5' 11 )03/29/2025 9:58 AM EDTBody Mass Index33.331 9:58 AM EDT Plan of Treatment DateTypeDepartmentCare Team (Latest Contact Info)Nfgtiudmrgc20/04/2025 1:00 PM ESTOffice Visit [facility] [place] [facility] [address] [facility] [address] [place] [address] Luis M Casey PA [address] [place] [address] 07/06/2025 8:30 AM ESTOffice Visit [facility] [address] [facility] [address] [place] [address] Antonia Jackson MD [address] [facility] [address] [place] [address] Procedures Procedure NamePriorityDate/TimeAssociated DiagnosisCommentsBASIC METABOLIC PANEL Gqnmbal6704/12/2025 10:35 AM EST CBC WITH AUTO MDTKLSZTBRHLIopfwql47/10/2025 10:35 AM EST URINALYSIS, MANUAL ICVIHevbgki62/10/2025 10:05 AM EST XR TIBIA/FIBULA BI02/04/2025 2:27 PM EDT URINALYSIS, MANUAL CWOCNdweeyh01/04/2025 9:30 AM EDT BASIC METABOLIC LXBDAHwcykpl11/04/2025 9:20 AM EDT CBC WITH AUTO DCSSRMISGILGHpqnmil74/04/2025 9:20 AM EDT ECG 12-LEAD02/04/2025 9:11 AM EDT VASC US LOWER EXTREMITY VENOUS DUPLEX BWQCZviinqc18/21/2025 5:22 PM EDT Pain of left calf XR HIP 2 OR 3 VW GNSFWtcxgcd60/19/2025 8:34 AM EDT Left hip pain XR HIP 2 OR 3 VW SFZKAYgrbqjt77/19/2025 8:34 AM EDT Right hip pain from Last 3 Months Results * CBC auto differential (04/12/2025 10:35 AM EST) Only the most recent of2 resultswithin the time period is included. ComponentValueRef RangeTest MethodAnalysis TimePerformed AtPathologist Signature WBC5.63.8 - 11.6 [CFU]/mL04/12/2025 10:55 AM [facility] UNCORRECTED WHITE BLOOD COUNT5.63.8 - 11.6 10*3/uL04/12/2025 10:55 AM [facility] CtrRBC4.703.60 - 5.00 10*6/uL04/12/2025 10:55 AM [facility] WbhLDGSYLATHZ86.411.8 - 15.4 g/dL04/12/2025 10:55 AM [facility] HxrXSFHYQVFKM99.734.0 - 46.4 %04/12/2025 10:55 AM [facility] DszWMA57.080 - 100 fL04/12/2025 10:55 AM [facility] XrwXVA13.824.7 - 34.3 pg04/12/2025 10:55 AM [facility] LasURNK87.832.0 - 35.0 g/dL04/12/2025 10:55 AM [facility] CtrRED CELL DISTRIBUTION WIDTH, RDW13.311.9 - 15.3 % 04/12/2025 10:55 AM [facility] CtrPLATELET ZOGFU562161 - 450 10*3/uL04/12/2025 10:55 AM [facility] CtrMEAN PLATELET VOLUME, MPV7.16.3 - 10.7 fL04/12/2025 10:55 AM [facility] NEUTROPHILS, %62.8. %04/12/2025 10:55 AM [facility] LYMPHOCYTES, %23.5. %04/12/2025 10:55 AM [facility] MONOCYTE/MACROPHAGE, %9.4. %04/12/2025 10:55 AM [facility] CtrEOSINOPHILS, %2.9. %04/12/2025 10:55 AM [facility] BASOPHILS, %1.4. %04/12/2025 10:55 AM [facility] CtrNRBC0.00 - 0.5 /100{WBC}04/12/2025 10:55 AM [facility] CtrNEUTROPHILS 3.51.8 - 7.7 10*3/uL04/12/2025 10:55 AM [facility] LYMPHOCYTES1.31.00 - 4.8 10*3/uL04/12/2025 10:55 AM [facility] CtrMONOCYTES0.50.0 - 0.8 10*3/uL04/12/2025 10:55 AM [facility] CtrEOSINOPHILS0.20.0 - 0.45 10*3/uL04/12/2025 10:55 AM [facility] CtrBASOPHILS0.10.0 - 0.2 10*3/uL1103/2025 10:55 AM [facility] CtrSpecimen (Source)Anatomical Location / LateralityCollection Method / VolumeCollection TimeReceived TimeBlood (Blood) 04/12/2025 10:35 AM EST04/12/2025 10:42 AM EST Narrative Authorizing ProviderResult TypeResult StatusJr. Stoney Rivera DOLAB BLOOD ORDERABLESFinal ResultPerforming OrganizationAddressCity/State/ZIP CodePhone Number [facility] [address] [place] [address], [facility] [address] [place] [address] * (ABNORMAL) Basic metabolic panel (04/12/2025 10:35 AM EST) Only the most recent of2 resultswithin the time period is included. ComponentValueRef RangeTest MethodAnalysis TimePerformed AtPathologist Signature Iwluczy3679 - 100 mg/dL04/12/2025 11:15 AM [facility] Comment: Random Glucose Reference Range is dependent on time and content of last meal. Glucose of more than 200 mg/dL in a nonstressed, ambulatory subject supports the diagnosis of Diabetes Mellitus. ADA recommended reference range OPQ951 - 25 mg/dL04/12/2025 11:15 AM [facility] CtrCREATININE 0.840.60 - 1.20 mg/dL04/12/2025 11:15 AM [facility] ESTIMATED GFR>60. 11:15 AM [facility] RujUqxjrf076 136 - 145 mmol/L106/12/2024 11:15 AM [facility] CtrPotassium, Bld4.43.5 - 5.1 mmol/L106/12/2024 11:15 AM [facility] Sstoxafo56458 - 107 mmol/L106/12/2024 11:15 AM [facility] Carbon Tkcfgqy58.9(H)21.0 - 31.0 mmol/L106/12/2024 11:15 AM [facility] CtrAnion Gap8.56.0 - 15. 11:15 AM [facility] CtrCalcium9.28.6 - 10.3 mg/dL04/12/2025 11:15 AM [facility] CtrSpecimen (Source)Anatomical Location / LateralityCollection Method / VolumeCollection TimeReceived TimeOtherTopography unknown / Ktpfvza2704/12/2025 10:35 AM EST04/12/2025 10:42 AM EST Narrative Authorizing ProviderResult TypeResult StatusJr. Stoney Rivera DOLAB BLOOD ORDERABLESFinal ResultPerforming OrganizationAddressCity/State/ZIP CodePhone Number [facility] [address] [place] [address], [facility] [address] [place] [address] * Urinalysis, manual only (04/12/2025 10:05 AM EST) Only the most recent of2 resultswithin the time period is included. ComponentValueRef RangeTest MethodAnalysis TimePerformed AtPathologist Signature COLOR,URINELight-InxbspDqwtem52/10/2025 10:19 AM [facility] CtrAPPEARANCE,GYMYBAfzydNiabm35/10/2025 10:19 AM [facility] CtrSPECIFICY GRAVITY,URINE1.0181.001 - 1.2893904/12/2025 10:19 AM [facility] CtrPH,URINE5.55.0 - 9.011 10:19 AM [facility] CtrLEUKOCYTE ESTERASE,VCPKLLjpsexodYlwqbbde06/10/2025 10:19 AM [facility] CtrNITRITE,SMVSUPfmmzxabUfyubmwl06/10/2025 10:19 AM [facility] CtrPROTEIN,URINENegativeNegative mg/dL 04/12/2025 10:19 AM [facility] CtrGLUCOSE,URINE (UA)Normal Normal mg/dL04/12/2025 10:19 AM [facility] CtrKETONES,URINE ChzazmyrNcewccrs18/10/2025 10:19 AM [facility] UROBILINOGEN,URINENormalNormal mg/dL04/12/2025 10:19 AM [facility] CtrBILIRUBIN,KJUCRKjrbbcedGdbnkbea40/10/2025 10:19 AM [facility] CtrOCCULT BLOOD,XXZDDAuhoxjypDhstniva89/10/2025 10:19 AM EST [facility] CtrSpecimen (Source)Anatomical Location / Laterality Collection Method / VolumeCollection TimeReceived MeuyBtybu38/10/2025 10:05 AM EST04/12/2025 10:13 AM EST Narrative [facility] - 04/12/2025 10:19 AM EST Comment please run c s if UA+ Name Collection Type:: Clean-Voided Midstream Authorizing ProviderResult TypeResult StatusJr. Stoney Boateng Stepanic DOLAB URINE ORDERABLESFinal ResultPerforming OrganizationAddressCity/State/ZIP CodePhone Number [facility] [address] [place] [address], [facility] [address] [place] [address] * XR TIBIA/FIBULA BI (02/04/2025 2:27 PM EDT)Anatomical RegionLateralityModality Radiographic ImagingSpecimen (Source)Anatomical Location / Laterality Collection Method / VolumeCollection TimeReceived Time02/04/2025 2:27 PM EDT Impressions 02/04/2025 2:30 PM EDT NO ACUTE PROCESS. ? Impression dictated by: Chad White Jr., D.OEzio ??02/04/2025 2:28 PM ? Dictation Location: RADIO-PC-23 ? Transcribed By: ? PWS ?02/04/25 1428 ? Dictated By: ?Chad White Jr DO ?02/04/25 1427 ? Signed By: <Electronically signed by Chad White Jr DO in OV> ?09/04/25 1428 Narrative 02/04/2025 2:[address] [facility] ?[facility] [place] ?[address] ? [place] [address] ?XRay Report ? Signed ? Patient: Morsher,Ashley ?MR#: [id number] ?? 8 ? : 1960 ?Acct:[id number] ? Age/Sex: 64 / F ?ADM Date: 02/04/25 ? [facility] Room: ?Type: REG CLI ?? Attending Dr: Stoney Rivera Jr DO ?? Copies to: Stoney Rivera Jr, DO ? Ordering Provider: Stoney Rivera Jr, DO ?? Date of Service: 02/04/25 ?? XR/XR tibia/fibula BI: PRE OP ?? ([id number]) XR/XR femur BI: PRE OP ? Bilateral [...] Note Chad White Jr., DO - 02/04/2025 [facility] [place] [address] [place] [address] XRay Report Signed Patient: Elijah Gant#: [id number] 8 : 9Acct:[id number] Age/Sex: 64 / FADM Date: 02/04/25 Loc: [facility] Room:Type: REG CLI Attending Dr: Stoney Rivera Jr DO Copies to: Stoney Rivera Jr, DO Ordering Provider: Stoney Rivera Jr, DO Date of Service: 02/04/25 XR/XR tibia/fibula BI: PRE OP ([id number]) XR/XR femur BI: PRE OP Bilateral lower [...] Jr., D.OEzio 02/04/2025 2:28 PM Dictation Location: [place] [address] Transcribed By: [facility] 02/04/25 1428 Dictated By: Chad White Jr, DO 02/04/25 1427 Signed By: <Electronically signed by Chad White Jr, DO inOV> 02/04/25 1428 Authorizing ProviderResult TypeResult StatusJr. Stoney Rivera DOIMG XR PROCEDURESFinal Result * ECG 12 lead (02/04/2025 9:11 AM EDT)Specimen (Source)Anatomical Location / LateralityCollection Method / VolumeCollection TimeReceived Time02/04/2025 9:11 AM EDT [facility] - 02/04/2025 10:[address] [facility] ?[facility] [place] ?[address] ? [place] [address] ? Electrocardiograph Report ? Signed ? Patient: Ashley Gant ?MR#: [id number] ?? 8 ? : 1960 ?Acct:[id number] ? Age/Sex: 64 / F ?ADM Date: [...] Normal ECG ?? Confirmed by Ashley Rand ([id number]) on 02/04/2025 10:58:57 AM ? Referred By: ?Electronically Signed By: Ashley Rand ? Transcribed By: ? MUS ? Signed By ? Ashley Rand MD ? 5 [id number] Procedure Note Ashley Rand MD - 02/04/2025 [facility] [place] [address] Electrocardiograph Report Signed Patient: Elijah Gant#: [id number] 8 : 9Acct:[id number] Age/Sex: 64 / FADM Date: 02/04/25 Loc: Room:Type: [facility] Attending Dr: Stoney Rivera Jr, DO Ordering [...] rhythm Normal ECG Confirmed by Ashley Rand ([id number]) on 02/04/2025 10:58:57 AM Referred By: Electronically Signed By: Ashley Rand Transcribed By: MUS Signed By Ashley Rand MD 5 [id number] Authorizing ProviderResult TypeResult StatusJr. Stoney Rivera DOEC ORDERABLESFinal ResultPerforming OrganizationAddressCity/State/ZIP CodePhone Number [facility] [address] [place] [address], [place] * Vascular US lower extremity venous duplex left (01/21/2025 5:22 PM EDT) Anatomical RegionLateralityModalityLower ExtremitiesUltrasoundSpecimen (Source)Anatomical Location / LateralityCollection Method / VolumeCollection TimeReceived Time01/22/2025 12:54 PM EDT Impressions 01/22/2025 1:08 PM EDT No sonographic evidence of deep venous thrombosis of the left lower extremity. ELECTRONICALLY SIGNED BY: Giovani Mcdonnell DO Narrative 01/22/2025 1:08 PM EDT EXAM: [facility] US LOWER EXTREMITY VENOUS DUPLEX LEFT TECHNIQUE: [...] Note Giovani Mcdonnell DO - 01/22/2025 EXAM: [facility] US LOWER EXTREMITY VENOUS DUPLEX LEFT TECHNIQUE: [...] the left lowerextremity. ELECTRONICALLY SIGNED BY: Giovani Mcdonnell DO Authorizing ProviderResult TypeResult StatusJr. Stoney Rivera [facility] US PROCEDURESFinal Result * XR hip right [...] hip arthroplasty. Authorizing ProviderResult TypeResult StatusJr. Stoney Rivera [facility] XR PROCEDURESFinal Result * XR hip left [...] hip arthroplasty. Authorizing ProviderResult TypeResult StatusJr. Stoney Rivera [facility] XR PROCEDURESFinal Result from Last 3 Months Insurance * Guarantor: Ashley Gant TypeRelation to PatientDate of BirthPhone Billing AddressPersonal/AgvcrhXkgr1960 [address] [address] Care Teams Team MemberRelationshipSpecialtyStart DateEnd Reece Zhao MD [address] [place] [address] PCP - GeneralFamily Medicine01/14/23
--- OUTSIDE RECORDS SUMMARY | 2025-04-14 11:54 | XMS_ITS | Encounter Summary ---
Author Organization [facility] Address [address] [place] [address] Care Team Providers Care Rag Sorter And Cutter Name Role Phone Reece Zhao MD Primary Care Provider [phone] Encounter Details DateTypeDepartmentCare Team (Latest Contact Info)Mepzopnvsjk56/10/2025External Result Encounter [facility] External Department Unsolicited Jr. Stoney Rivera DO [address] [facility] [address] [place] [address] Social History Tobacco UseTypesPacks/DayYears UsedDateSmoking Tobacco: NeverSmokeless Tobacco: NeverAlcohol UseStandard Drinks/WeekCommentsNever0 (1 standard drink = 0.6 oz pure alcohol)caffeine 1-2 cups per dayCommentsNoSex and Gender InformationValueDate RecordedSex Assigned at BirthNot on fileLegal SexFemale 08/15/2022 6:56 PM EDTGender IdentityNot on fileSexual OrientationNot on file documented as of this encounter Plan of Treatment DateTypeDepartmentCare Team (Latest Contact Info)Iodsuuqeqbj73/04/2025 1:00 PM ESTOffice Visit [facility] [address] [facility] [address] [place] [address] Luis M Casey, JOO [address] [place] [address] 07/06/2025 8:30 AM ESTOffice Visit [facility] [address] [facility] [address] [place] [address] Antonia Jackson MD [address] [facility] [address] [place] [address] documented as of this encounter Procedures Procedure NamePriorityDate/TimeAssociated DiagnosisCommentsURINALYSIS, MANUAL PROODlrqpsu10/10/2025 10:05 AM EST documented in this encounter Results * Urinalysis, manual only (04/12/2025 10:05 AM EST)ComponentValueRef RangeTest MethodAnalysis TimePerformed AtPathologist SignatureCOLOR,URINELight-Yellow Opzirv6204/12/2025 10:19 AM [facility] CtrAPPEARANCE,URINE SnavuReytm73/10/2025 10:19 AM [facility] CtrSPECIFICY GRAVITY,URINE1.0181.001 - 1.4398304/12/2025 10:19 AM [facility] CtrPH,URINE5.55.0 - 9.011 10:19 AM [facility] CtrLEUKOCYTE ESTERASE,HPYEYXfdwtwgqAlxaczzc76/10/2025 10:19 AM [facility] CtrNITRITE,JEDOREwnluiskNepmlxkg51/10/2025 10:19 AM [facility] CtrPROTEIN,URINENegativeNegative mg/dL04/12/2025 10:19 AM [facility] CtrGLUCOSE,URINE (UA)NormalNormal mg/dL 04/12/2025 10:19 AM [facility] CtrKETONES,URINENegative Xrwhonwl59/10/2025 10:19 AM [facility] UROBILINOGEN,URINENormalNormal mg/dL04/12/2025 10:19 AM [facility] CtrBILIRUBIN,JZNPYDhsbdujzVrazqomz37/10/2025 10:19 AM [facility] CtrOCCULT BLOOD,TRZKRRljrvxupHvhafeku04/10/2025 10:19 AM [facility] CtrSpecimen (Source)Anatomical Location / LateralityCollection Method / VolumeCollection TimeReceived TimeOther 04/12/2025 10:05 AM EST04/12/2025 10:13 AM EST Narrative REPLACED BY [facility] - 04/12/2025 10:19 AM EST Comment please run c s if UA+ Name Collection Type:: Clean-Voided Midstream Authorizing ProviderResult TypeResult StatusJr. Stoney Boateng Stepanic DOLAB URINE ORDERABLESFinal ResultPerforming OrganizationAddressCity/State/ZIP CodePhone Number REPLACED BY [facility] [address] [place] [address], [facility] [address] [place] [address] documented in this encounter Visit Diagnoses Not on filedocumented in this encounter Care Teams Team MemberRelationshipSpecialtyStart DateEnd Date Reece Zhao MD [address] [place] [address] PCP - GeneralFamily Medicine01/14/23documented as of this encounter
--- OUTSIDE RECORDS SUMMARY | 2025-04-14 11:54 | XMS_ITS | Encounter Summary ---
Author Organization [facility] Address [address] [place] [address] Care Team Providers Care Horse Breeder Name Role Phone Reece Zhao MD Primary Care Provider [phone] Encounter Details DateTypeDepartmentCare Team (Latest Contact Info)Xrkwdchrhxx58/10/2025External Result Encounter [facility] External Department Unsolicited Jr. Stoney Rivera DO 112 [facility] [address] [place] [address] Social History Tobacco UseTypesPacks/DayYears UsedDateSmoking Tobacco: NeverSmokeless Tobacco: NeverAlcohol UseStandard Drinks/WeekCommentsNever0 (1 standard drink = 0.6 oz pure alcohol)caffeine 1-2 cups per dayCommentsNoSex and Gender InformationValueDate RecordedSex Assigned at BirthNot on fileLegal SexFemale 08/15/2022 6:56 PM EDTGender IdentityNot on fileSexual OrientationNot on file documented as of this encounter Plan of Treatment DateTypeDepartmentCare Team (Latest Contact Info)Cbiqahxwupm17/04/2025 1:00 PM ESTOffice Visit [facility] [address] [facility] [address] [place] [address] Luis M Casey, JOO [address] [place] [address] 07/06/2025 8:30 AM ESTOffice Visit [facility] [address] [facility] [address] [place] [address] Antonia Jackson MD 112 [facility] [address] [place] [address] documented as of this encounter Procedures Procedure NamePriorityDate/TimeAssociated DiagnosisCommentsCBC WITH AUTO BGSWQVUCWUDMLmqvjhe90/10/2025 10:35 AM EST documented in this encounter Results * CBC auto differential (04/12/2025 10:35 AM EST)ComponentValueRef RangeTest MethodAnalysis TimePerformed AtPathologist SignatureWBC5.63.8 - 11.6 [CFU]/mL 04/12/2025 10:55 AM [facility] CtrUNCORRECTED WHITE BLOOD COUNT5.63.8 - 11.6 10*3/uL04/12/2025 10:55 AM [facility] CtrRBC4.703.60 - 5.00 10*6/uL04/12/2025 10:55 AM [facility] QhyWDZTYSWGCU94.411.8 - 15.4 g/dL04/12/2025 10:55 AM [facility] XvcJZCMPIPGJB47.734.0 - 46.4 %04/12/2025 10:55 AM [facility] LcjEKC34.080 - 100 fL04/12/2025 10:55 AM [facility] ZkcKLL16.824.7 - 34.3 pg04/12/2025 10:55 AM [facility] NbpHQKZ86.832.0 - 35.0 g/dL04/12/2025 10:55 AM [facility] CtrRED CELL DISTRIBUTION WIDTH, RDW13.311.9 - 15.3 % 04/12/2025 10:55 AM [facility] CtrPLATELET EXPTS065533 - 450 10*3/uL04/12/2025 10:55 AM [facility] CtrMEAN PLATELET VOLUME, MPV7.16.3 - 10.7 fL04/12/2025 10:55 AM [facility] CtrNEUTROPHILS, %62.8. %04/12/2025 10:55 AM [facility]tr LYMPHOCYTES, %23.5. %04/12/2025 10:55 AM [facility]tr MONOCYTE/MACROPHAGE, %9.4. %04/12/2025 10:55 AM [facility] CtrEOSINOPHILS, %2.9. %04/12/2025 10:55 AM [facility] BASOPHILS, %1.4. %04/12/2025 10:55 AM [facility] CtrNRBC0.0 0 - 0.5 /100{WBC}04/12/2025 10:55 AM [facility] NEUTROPHILS3.51.8 - 7.7 10*3/uL04/12/2025 10:55 AM [facility] CtrLYMPHOCYTES1.31.00 - 4.8 10*3/uL04/12/2025 10:55 AM [facility] CtrMONOCYTES0.50.0 - 0.8 10*3/uL04/12/2025 10:55 AM [facility] CtrEOSINOPHILS0.20.0 - 0.45 10*3/uL04/12/2025 10:55 AM [facility] CtrBASOPHILS0.10.0 - 0.2 10*3/uL04/12/2025 10:55 AM [facility] CtrSpecimen (Source)Anatomical Location / LateralityCollection Method / VolumeCollection TimeReceived TimeBlood (Blood)04/12/2025 10:35 AM EST04/12/2025 10:42 AM EST Narrative Authorizing ProviderResult TypeResult StatusJr. Stoney NEVAREZAB BLOOD ORDERABLESFinal ResultPerforming OrganizationAddressCity/State/ZIP CodePhone Number [facility] [address] [place] [address], [facility] [address] [place] [address] documented in this encounter Visit Diagnoses Not on filedocumented in this encounter Care Teams Team MemberRelationshipSpecialtyStart DateEnd Date Reece Zhao MD [address] [facility] [place] [address] PCP - GeneralFamily Medicine01/14/23documented as of this encounter
--- OUTSIDE RECORDS SUMMARY | 2025-04-14 11:54 | XMS_ITS | Encounter Summary ---
Author Organization [facility] Address [address] [place] [address] Care Team Providers Care Math Coach Name Role Phone Reece Zhao MD Primary Care Provider [phone] Encounter Details DateTypeDepartmentCare Team (Latest Contact Info)Idkuenjxfgp04/17/2024Clinisync Result Encounter [facility]S External Department Unsolicited Ivy Manrique PA [address] [facility] [place] [address] Social History Tobacco UseTypesPacks/DayYears UsedDateSmoking Tobacco: NeverSmokeless Tobacco: NeverAlcohol UseStandard Drinks/WeekCommentsNever0 (1 standard drink = 0.6 oz pure alcohol)caffeine 1-2 cups per dayCommentsNoSex and Gender InformationValueDate RecordedSex Assigned at BirthNot on fileLegal SexFemale 08/15/2022 6:56 PM EDTGender IdentityNot on fileSexual OrientationNot on file documented as of this encounter Plan of Treatment DateTypeDepartmentCare Team (Latest Contact Info)Nhmnkocqfoa68/04/2025 1:00 PM ESTOffice Visit [facility] [address] [place] [place] [address] Luis M Casey PA [address] [place] [address] 07/06/2025 8:30 AM ESTOffice Visit [facility] [place] [facility] [address] [facility] [address] [place] [address] Antonia Jackson MD [address] [facility] [address] [place] [address] documented as of this encounter Procedures Procedure NamePriorityDate/TimeAssociated DiagnosisCommentsUS GUIDED BREAST BIOPSY LT05/19/2024 3:32 PM EST documented in this encounter Results * US GUIDED BREAST BIOPSY LT (05/19/2024 3:32 PM EST)Anatomical RegionLaterality ModalityRadiographic ImagingSpecimen (Source)Anatomical Location / Laterality Collection Method / VolumeCollection TimeReceived Time05/19/2024 3:32 PM EST Narrative 05/19/2024 3:34 PM EST [facility] ?[address] ? [place] [address] ? Ultrasound Report ? Signed ? Patient: MIANTWYLADENNYASHLEY Jonathan ?MR#: [id number] ?? : 1960 ?Acct:[id number] ?? Age/Sex: 63 / F ?ADM Date: 05/19/24 ?? Loc: US ? Attending Dr: Ivy Manrique ? Ordering Physician: Ivy Manrique ?? Date of Service: 05/19/24 ?? Procedure(s): US breast vac bx w/ clip LT ?? Accession Number(s): [id number] ? cc: Ivy Manrique; Reece Zhao M.D. ? [facility] ? [address] ? [place] [address] ? Patient Name: ?? ASHLEY GANT ? MRN: [id number] ? date: 1960 ?Sex: F ?? Assigned Patient Location: US ?? Current Patient Location: US ?? Accession/Order Number: [id number] ?? Exam Date: 05/19/2024 ??14:17 ?Report Date: [...] 1534 ? DD/ 1532 ? TD/TT: ? Wick And Base Assembler: Procedure Note Radiology, Radiologist, - 05/19/2024 [place] [address] Ultrasound Report Signed Patient: ASHLEY GANT SMR#: [id number] : 1960cct:[id number] Age/Sex: 63 / FADM Date: 05/19/24 Loc: US Attending Dr: Ivy Manrique Ordering Physician: Ivy Manrique Date of Service: 05/19/24 Procedure(s): US breast vac bx w/ clip LT Accession Number(s): [id number] cc: Ivy Manrique; Reece Zhao M.D. The [address] [address] Patient Name: ASHLEY GANT MRN: [id number] date: 1960 Sex: F Assigned Patient Location: US Current Patient Location: US Accession/Order Number: [id number] Exam Date: 05/19/2024 14:17 Report Date: 05/19/2024 [...] M.D. Signed By:05/19/24 1534 DD/ 31 TD/TT: Wick And Base Assembler: Authorizing ProviderResult TypeResult StatusAmy [place] PAIMG XR PROCEDURESFinal Result documented in this encounter Visit Diagnoses Not on filedocumented in this encounter Care Teams Team MemberRelationshipSpecialtyStart DateEnd Date Reece Zhao MD [address] [place] [address] PCP - GeneralFamily Medicine01/14/23documented as of this encounter
--- OUTSIDE RECORDS SUMMARY | 2025-04-14 11:54 | XMS_ITS | Encounter Summary ---
Author Organization [facility] Address [address] [place] [address] Care Team Providers Care Quality Worker Name Role Phone Reece Zhao MD Primary Care Provider [phone] Encounter Details DateTypeDepartmentCare Team (Latest Contact Info)Aljyqdkpfqa87/26/2024Clinisync Result Encounter [facility]S External Department Unsolicited Ivy Bah PA [address] [facility] [place] [address] Social History Tobacco UseTypesPacks/DayYears UsedDateSmoking Tobacco: NeverSmokeless Tobacco: NeverAlcohol UseStandard Drinks/WeekCommentsNever0 (1 standard drink = 0.6 oz pure alcohol)caffeine 1-2 cups per dayCommentsNoSex and Gender InformationValueDate RecordedSex Assigned at BirthNot on fileLegal SexFemale 08/15/2022 6:56 PM EDTGender IdentityNot on fileSexual OrientationNot on file documented as of this encounter Plan of Treatment DateTypeDepartmentCare Team (Latest Contact Info)Atpegzjlajq30/04/2025 1:00 PM ESTOffice Visit [facility] [address] [place] [place] [address] Luis M Casey PA [address] [place] [address] 07/06/2025 8:30 AM ESTOffice Visit [facility] [place] [facility] [address] [place] [address] [place] [address] Antonia Jackson MD [address] [facility] [address] [place] [address] documented as of this encounter Procedures Procedure NamePriorityDate/TimeAssociated DiagnosisCommentsMM TOMOSYNTHESIS SCREENING BI04/28/2024 3:31 PM EST documented in this encounter Results * MM TOMOSYNTHESIS SCREENING BI (04/28/2024 3:31 PM EST)Anatomical Region LateralityModalityOtherSpecimen (Source)Anatomical Location / Laterality Collection Method / VolumeCollection TimeReceived Time04/28/2024 3:31 PM EST Narrative 04/28/2024 3:32 PM EST [facility] ?[address] ? [place] [address] ? Mammography Report ? Signed ? Patient: ASHLEY GANT Jonathan ?MR#: [id number] ?? : 1960 ?Acct:[id number] ?? Age/Sex: 63 / F ?ADM Date: 04/28/24 ?? Loc: MAMMO ? Attending Dr: Ivy Bah ? Ordering Physician: Ivy Bah ?Results: ? Date of Service: 04/28/24 ?Follow Up: ? Procedure(s): MM tomosynthesis screening BI ?? Accession Number(s): [id number] ? cc: Ivy Bah; Reece Zhao M.D. ? Patient Name: ? ASHLEY GANT ? MR#: [id number] ? : 1960 ? Exam Date: 04/28/2024 [...] at age 87. ? LOCATION: ? [facility] ? BREAST COMPOSITION: ? The breasts [...] 1532 ? DD/ 1531 ? TD/TT: ? Filer Repairer: Procedure Note Radiology, Radiologist, MD - 04/28/2024 [place] [address] Mammography Report Signed Patient: ASHLEY GANT SMR#: [id number] : 9Acct:[id number] Age/Sex: 63 / FADM Date: 04/28/24 Loc: MAMMO Attending Dr: Ivy Bah Ordering Physician: Ivy BahResults: Date of Service: 04/28/24Follow Up: Procedure(s): MM tomosynthesis screening BI Accession Number(s): [id number] cc: Ivy Bah; Reece Zhao M.D. Patient Name: ASHLEY GANT MR#: [id number] : 1960 Exam Date: 04/28/2024 Ordering Doctor: JOO Bah . RADIOLOGY REPORT PROCEDURE: MM TOMOSYNTHESIS SCREENING BI COMPARISON: MM TOMOSYNTHESIS SCREENING BI, 04/23/2023. MG MAMM VKFYBY7K SOSA CAD, 04/10/2022. MG MAMM SCREEN 3D SOSA CAD, 03/01/2021. MG MAMM BILSCRN W CAD DIG, 10/14/2013. INDICATIONS: Screening Calculator Name NCI Breast Cancer Risk Assessment Tool 5 Year Breast Cancer Risk 1.60% Lifetime Breast Cancer Risk 6.60% Personal Breast Cancer No Personal Ovarian Cancer No Treatments None Family Cancers Mother with lung cancer at age 88. LOCATION: [facility] BREAST COMPOSITION: The breasts are almost [...] M.D. Signed By:04/28/24 1532 DD/ 1531 TD/TT: Filer Repairer: Authorizing ProviderResult TypeResult StatusAmy Olvin PACLWIREGRASS MEDICAL CENTERYNC IMAGINGFinal Result documented in this encounter Visit Diagnoses Not on filedocumented in this encounter Care Teams Team MemberRelationshipSpecialtyStart DateEnd Date Reece Zhao MD [address] [place] [address] PCP - GeneralFamily Medicine01/14/23documented as of this encounter
--- OUTSIDE RECORDS SUMMARY | 2025-04-14 11:54 | XMS_ITS | Encounter Summary ---
Author Organization [facility] Address [address] [place] [address] Care Team Providers Care Nursing Executive Name Role Phone Reece Zhao MD Primary Care Provider [phone] Encounter Details DateTypeDepartmentCare Team (Latest Contact Info)Inmqltsbddj87/12/2025Telephone [facility] [address] [facility] [place] [address] Ivan Stevenson NP [address] [place] [address] Social History Tobacco UseTypesPacks/DayYears UsedDateSmoking Tobacco: NeverSmokeless Tobacco: NeverAlcohol UseStandard Drinks/WeekCommentsNever0 (1 standard drink = 0.6 oz pure alcohol)caffeine 1-2 cups per dayCommentsNoSex and Gender InformationValueDate RecordedSex Assigned at BirthNot on fileLegal SexFemale 08/15/2022 6:56 PM EDTGender IdentityNot on fileSexual OrientationNot on file documented as of this encounter Miscellaneous Notes * Telephone Encounter - Ivan Stevenson NP - 04/14/2025 9:09 AM EST Xeralto Rx for post op. Will take 10mg for 14 days post op. documented in this encounter Plan of Treatment DateTypeDepartmentCare Team (Latest Contact Info)Twiissrujdc26/04/2025 1:00 PM ESTOffice Visit [facility] [place] [facility] [address] [facility] [address] [place] [address] Luis M Casey PA [address] [facility] [place] [address] 07/06/2025 8:30 AM ESTOffice Visit [facility] [place] [facility] [address] [facility] [address] [place] [address] Antonia Jackson MD [address] [facility] [address] [place] [address] documented as of this encounter Visit Diagnoses Diagnosis History of DVT (deep vein thrombosis)- Primary Status post total left knee replacement documented in this encounter Care Teams Team MemberRelationshipSpecialtyStart DateEnd Date Reece Zhao MD [address] [facility] [place] [address] PCP - GeneralFamily Medicine01/14/23documented as of this encounter
--- OUTSIDE RECORDS SUMMARY | 2025-04-14 11:54 | XMS_ITS | Encounter Summary ---
Author Organization [facility] Address [address] [place] [place] [address] Care Team Providers Care Stereo Equipment Installer Name Role Phone Reece Zhao MD Primary Care Provider [phone] Encounter Details DateTypeDepartmentCare Team (Latest Contact Info)Dcqfwdxfqhr82/06/2024Clinisync Result Encounter [facility]OMS External Department Unsolicited Ivy Bah PA [address] [facility] [place] [address] Social History Tobacco UseTypesPacks/DayYears UsedDateSmoking Tobacco: NeverSmokeless Tobacco: NeverAlcohol UseStandard Drinks/WeekCommentsNever0 (1 standard drink = 0.6 oz pure alcohol)caffeine 1-2 cups per dayCommentsNoSex and Gender InformationValueDate RecordedSex Assigned at BirthNot on fileLegal SexFemale 08/15/2022 6:56 PM EDTGender IdentityNot on fileSexual OrientationNot on file documented as of this encounter Plan of Treatment DateTypeDepartmentCare Team (Latest Contact Info)Jcviqmwuvkt82/04/2025 1:00 PM ESTOffice Visit [facility] [address] [place] [address] Luis M Casey PA [address] [place] [address] 07/06/2025 8:30 AM ESTOffice Visit [facility] [place] [facility] [address] [facility] [address] [place] [address] Antonia Jackson MD [address] [facility] [address] [place] [address] documented as of this encounter Procedures Procedure NamePriorityDate/TimeAssociated DiagnosisCommentsMM DIAGNOSTIC MAMMO UNILAT LT05/08/2024 3:13 PM EST documented in this encounter Results * MM DIAGNOSTIC MAMMO UNILAT LT (05/08/2024 3:13 PM EST)Anatomical Region LateralityModalityOtherSpecimen (Source)Anatomical Location / Laterality Collection Method / VolumeCollection TimeReceived Time05/08/2024 3:13 PM EST Narrative 05/08/2024 3:14 PM EST [facility] ?[address] ? [place] [address] ? Mammography Report ? Signed ? Patient: MIANGIRISHASHLEY Jonathan ?MR#: [id number] ?? : 1960 ?Acct:[id number] ?? Age/Sex: 63 / F ?ADM Date: 05/08/24 ?? Loc: MAMMO ? Attending Dr: Ivy Bah ? Ordering Physician: Ivy Bah ?Results: ? Date of Service: 05/08/24 ?Follow Up: ? Procedure(s): MM diagnostic mammo unilat LT ?? Accession Number(s): [id number] ? cc: Ivy Bah; Reece Zhao M.D. ? Patient Name: ? ASHLEY GANT ? MR#: [id number] ? : 1960 ? Exam Date: 05/08/2024 [...] at age 87. ? LOCATION: ? [facility] ? BREAST COMPOSITION: ? The breasts [...] 1514 ? DD/ 1513 ? TD/TT: ? Senior Medical Technologist: Procedure Note Radiology, Radiologist, MD - 05/08/2024 [place] [address] Mammography Report Signed Patient: ASHLEY GANT SMR#: [id number] : 1960cct:[id number] Age/Sex: 63 / FADM Date: 05/08/24 Loc: MAMMO Attending Dr: Ivy Bah Ordering Physician: Ivy BahResults: Date of Service: 05/08/24Follow Up: Procedure(s): MM diagnostic mammo unilat LT Accession Number(s): [id number] cc: Ivy Bah; Reece Zhao M.D. Patient Name: ASHLEY GANT MR#: [id number] : 1960 Exam Date: 05/08/2024 Ordering Doctor: [...] lung cancer at age 87. LOCATION: [facility] BREAST COMPOSITION: The breasts are almost [...] M.D. Signed By:05/08/24 1514 DD/ 1513 TD/TT: Senior Medical Technologist: Authorizing ProviderResult TypeResult StatusAmy Phoenixville HospitalYN IMAGINGFinal Result documented in this encounter Visit Diagnoses Not on filedocumented in this encounter Care Teams Team MemberRelationshipSpecialtyStart DateEnd Date Reece Zhao MD [address] [place] [address] PCP - GeneralFamily Medicine01/14/23documented as of this encounter
--- OUTSIDE RECORDS SUMMARY | 2025-04-14 11:54 | XMS_ITS | Clinical Summary ---
Author Organization [employer] Address [id number] [address] [place] [address] Care Team Providers Care Dextrine Mixer Name Role Phone Unavailable Primary Care Provider Unavailabl e Social History Tobacco UseTypesPacks/DayYears UsedDateSmoking Tobacco: Never AssessedChildcare AnswerDate TshsbzvzWjhneluvbKwfdzho82/12/2019EmploymentAnswerDate Recorded SnvrqdbezbSvrqyqg32/12/2019Purpose - LifeAnswerDate RecordedPurpose and direction in plgpFljticp70/11/2021CommentsUnknownSex and Gender InformationValueDate RecordedSex Assigned at BirthNot on fileLegal SexFemale 01/06/2015 12:08 PM EDTGender IdentityNot on fileSexual OrientationNot on file Plan of Treatment Health MaintenanceDue DateLast DoneCommentsDepression Vznfjqaam58/29/1971Tobacco Jmydjxfef87/29/1971Adult BMI Vfdjknnzf07/29/1977DTaP,Tdap and Td Vaccines (1 - Tdap)1978Zoster (Shingles) Vaccine (1 of 2)2009Fall Risk Screening 2024Influenza Xrltwqs7702/01/2025RSV ( or age 60+ yrs) (1 - 1-dose 75+ series)2034 Medical Devices Not on file
--- OUTSIDE RECORDS SUMMARY | 2025-04-14 11:54 | XMS_ITS | Encounter Summary ---
Author Organization [facility] Address [address] [place] [address] Care Team Providers Care Web Interface Developer Name Role Phone Reece Zhao MD Primary Care Provider [phone] Encounter Details DateTypeDepartmentCare Team (Latest Contact Info)Ijmolkqrvww51/10/2025External Result Encounter NOMS External Department Unsolicited Jr. Stoney Rivera DO [address] [facility] [address] [place] [address] Social History Tobacco UseTypesPacks/DayYears UsedDateSmoking Tobacco: NeverSmokeless Tobacco: NeverAlcohol UseStandard Drinks/WeekCommentsNever0 (1 standard drink = 0.6 oz pure alcohol)caffeine 1-2 cups per dayCommentsNoSex and Gender InformationValueDate RecordedSex Assigned at BirthNot on fileLegal SexFemale 08/15/2022 6:56 PM EDTGender IdentityNot on fileSexual OrientationNot on file documented as of this encounter Plan of Treatment DateTypeDepartmentCare Team (Latest Contact Info)Blhutgcewzm26/04/2025 1:00 PM ESTOffice Visit [facility] [address] [facility] [address] [place] [address] Luis M Casey, JOO [address] [place] [address] 07/06/2025 8:30 AM ESTOffice Visit [facility] [address] [facility] [address] [place] [address] Antonia Jackson MD 112 [facility] [address] [place] [address] documented as of this encounter Procedures Procedure NamePriorityDate/TimeAssociated DiagnosisCommentsBASIC METABOLIC PANEL Olrvadf8704/12/2025 10:35 AM EST documented in this encounter Results * (ABNORMAL) Basic metabolic panel (04/12/2025 10:35 AM EST)ComponentValueRef RangeTest MethodAnalysis TimePerformed AtPathologist LycppxplpLhjjvie5397 - 100 mg/dL04/12/2025 11:[address] [facility] CtrComment: Random Glucose Reference Range is dependent on time and content of last meal. Glucose of more than 200 mg/dL in a nonstressed, ambulatory subject supports the diagnosis of Diabetes Mellitus. ADA recommended reference range IRC285 - 25 mg/dL04/12/2025 11:[address] [facility] CtrCREATININE 0.840.60 - 1.20 mg/dL04/12/2025 11:[address] [facility] ESTIMATED GFR>60. 11:[address] [facility] ReuCfsibh181 136 - 145 mmol/L106/12/2024 11:[address] [facility] CtrPotassium, Bld4.43.5 - 5.1 mmol/L106/12/2024 11:[address] [facility]tr Pcwpuoch82361 - 107 mmol/L106/12/2024 11:[address] [facility] Carbon Skdxplb48.9(H)21.0 - 31.0 mmol/L106/12/2024 11:[address] [facility] CtrAnion Gap8.56.0 - 15. 11:[address] [facility] CtrCalcium9.28.6 - 10.3 mg/dL04/12/2025 11:[address] [facility] CtrSpecimen (Source)Anatomical Location / LateralityCollection Method / VolumeCollection TimeReceived TimeOtherTopography unknown / Blhyhtz9404/12/2025 10:35 AM EST04/12/2025 10:42 AM EST Narrative Authorizing ProviderResult TypeResult StatusJr. Stoney Rivera DOLAB BLOOD ORDERABLESFinal ResultPerforming OrganizationAddressCity/State/ZIP CodePhone Number [facility] [address] [place] [address], [facility] [address] [place] [address] documented in this encounter Visit Diagnoses Not on filedocumented in this encounter Care Teams Team MemberRelationshipSpecialtyStart DateEnd Date Reece Zhao MD [address] [place] [address] PCP - GeneralFamily Medicine01/14/23documented as of this encounter
--- OUTSIDE RECORDS SUMMARY | 2025-04-14 11:55 | XMS_ITS | Encounter Summary ---
Author Organization [facility] Address [address] [place] [address] Care Team Providers Care Photographic Machine Operator Name Role Phone Reece Zhao MD Primary Care Provider [phone] Encounter Details DateTypeDepartmentCare Team (Latest Contact Info)Pdqchxzavjc31/06/2024Clinisync Result Encounter [facility] External Department Unsolicited Ivy Bah PA [address] [place] [address] Social History Tobacco UseTypesPacks/DayYears UsedDateSmoking Tobacco: NeverSmokeless Tobacco: NeverAlcohol UseStandard Drinks/WeekCommentsNever0 (1 standard drink = 0.6 oz pure alcohol)caffeine 1-2 cups per dayCommentsNoSex and Gender InformationValueDate RecordedSex Assigned at BirthNot on fileLegal SexFemale 08/15/2022 6:56 PM EDTGender IdentityNot on fileSexual OrientationNot on file documented as of this encounter Plan of Treatment DateTypeDepartmentCare Team (Latest Contact Info)Lvgshphytjc23/04/2025 1:00 PM ESTOffice Visit [facility] [address] [place] [address] Luis M Casey PA [address] [place] [address] 07/06/2025 8:30 AM ESTOffice Visit [facility] [place] [facility] [address] [facility] [address] [place] [address] Antonia Jackson MD [address] [facility] [address] [place] [address] documented as of this encounter Procedures Procedure NamePriorityDate/TimeAssociated DiagnosisCommentsUS BREAST LT LIMITED 05/08/2024 3:13 PM EST documented in this encounter Results * US BREAST LT LIMITED (05/08/2024 3:13 PM EST)Anatomical RegionLaterality ModalityOtherSpecimen (Source)Anatomical Location / LateralityCollection Method / VolumeCollection TimeReceived Time05/08/2024 3:13 PM EST Narrative 05/08/2024 3:14 PM EST [facility] ?[address] ? [place] [address] ? Ultrasound Report ? Signed ? Patient: ASHLEY GANT ?MR#: [id number] ?? : 1960 ?Acct:[id number] ?? Age/Sex: 63 / F ?ADM Date: 05/08/24 ?? Loc: MAMMO ? Attending Dr: Ivy Bah ? Ordering Physician: Ivy Bah ?? Date of Service: 05/08/24 ?? Procedure(s): US breast LT limited ?? Accession Number(s): [id number] ? cc: Ivy Bah; Reece Zhao M.D. ? Patient Name: ? ASHLEY GANT ? MR#: [id number] ? : 1960 ? Exam Date: 05/08/2024 [...] at age 87. ? LOCATION: ? [facility] ? BREAST COMPOSITION: ? The breasts [...] ? DD/ 1513 ? TD/TT: ? Senior Marketing Associate: Procedure Note Radiology, Radiologist, MD - 05/08/2024 [place] [address] Ultrasound Report Signed Patient: ASHLEY GANT [facility]#: [id number] : 9Acct:[id number] Age/Sex: 63 / FADM Date: 05/08/24 Loc: MAMMO Attending Dr: Ivy Bah Ordering Physician: Ivy Bah Date of Service: 05/08/24 Procedure(s): US breast LT limited Accession Number(s): [id number] cc: Reece Chowdhury M.D. Patient Name: ASHLEY GANT MR#: [id number] : 1960 Exam Date: 05/08/2024 Ordering Doctor: OJO Bah . RADIOLOGY REPORT PROCEDURE: MM DIAGNOSTIC [...] lung cancer at age 87. LOCATION: [facility] BREAST COMPOSITION: The breasts are almost [...] M.D. Signed By:05/08/24 1514 DD/ 12 TD/TT: Senior Marketing Associate: Authorizing ProviderResult TypeResult StatusAmy Olvin PACLINISYNC IMAGINGFinal Result documented in this encounter Visit Diagnoses Not on filedocumented in this encounter Care Teams Team MemberRelationshipSpecialtyStart DateEnd Date Reece Zhao MD [address] [place] [phone] PCP - GeneralFamily Medicine01/14/23documented as of this encounter
--- OUTSIDE RECORDS SUMMARY | 2025-04-14 11:55 | XMS_ITS | Encounter Summary ---
Author Organization [facility] Address [address] [place] [address] Care Team Providers Care Environmental Health Aide Name Role Phone Reece Zhao MD Primary Care Provider [phone] Encounter Details DateTypeDepartmentCare Team (Latest Contact Info)Mnqhtszaqmm77/17/2024Clinisync Result Encounter [facility] External Department Unsolicited Ivy Bah PA [address] [place] [address] Social History Tobacco UseTypesPacks/DayYears UsedDateSmoking Tobacco: NeverSmokeless Tobacco: NeverAlcohol UseStandard Drinks/WeekCommentsNever0 (1 standard drink = 0.6 oz pure alcohol)caffeine 1-2 cups per dayCommentsNoSex and Gender InformationValueDate RecordedSex Assigned at BirthNot on fileLegal SexFemale 08/15/2022 6:56 PM EDTGender IdentityNot on fileSexual OrientationNot on file documented as of this encounter Plan of Treatment DateTypeDepartmentCare Team (Latest Contact Info)Xdmyziqjswg00/04/2025 1:00 PM ESTOffice Visit [facility] [address] [place] [place] [address] Luis M Casey PA [address] [place] [address] 07/06/2025 8:30 AM ESTOffice Visit [facility] [place] [facility] [address] [facility] [address] [place] [address] Antonia Jackson MD [address] [facility] [address] [place] [address] documented as of this encounter Procedures Procedure NamePriorityDate/TimeAssociated DiagnosisCommentsMM POST BIOPSY LT 05/19/2024 3:36 PM EST documented in this encounter Results * MM POST BIOPSY LT (05/19/2024 3:36 PM EST)Anatomical RegionLateralityModality OtherSpecimen (Source)Anatomical Location / LateralityCollection Method / VolumeCollection TimeReceived Time05/19/2024 3:36 PM EST Narrative 05/19/2024 3:37 PM EST [facility] ?[address] ? [place] [address] ? Mammography Report ? Signed ? Patient: ASHLEY GANT ?MR#: [id number] ?? : 1960 ?Acct:[id number] ?? Age/Sex: 63 / F ?ADM Date: 12/17/24 ?? Loc: US ? Attending Dr: Ivy Bah ? Ordering Physician: Ivy Bah ?Results: ? Date of Service: 12/17/24 ?Follow Up: ? Procedure(s): MM post biopsy LT ?? Accession Number(s): [id number] ? cc: Ivy Bah; Reece Zhao M.D. ? Patient Name: ? ASHLEY GANT ? MR#: [id number] ? : 1960 ? Exam Date: 05/19/2024 [...] ?05/19/247 ? DD/ 1536 ? TD/TT: ? Skid Worker: Procedure Note Radiology, Radiologist, MD - 05/19/2024 [place] [address] Mammography Report Signed Patient: ASHLEY GANT SMR#: [id number] : 1960cct:[id number] Age/Sex: 63 / FADM Date: 05/19/24 Loc: [place] Attending Dr: Ivy Bah Ordering Physician: Ivy Priceults: Date of Service: 05/19/24Follow Up: Procedure(s): MM post biopsy LT Accession Number(s): [id number] cc: Ivy Bah; Reece Zhao M.D. Patient Name: ASHLEY GANT MR#: [id number] : 1960 Exam Date: 05/19/2024 Ordering Doctor: [...] M.D. Signed By:05/19/24 1537 DD/ 1536 TD/TT: Skid Worker: Authorizing ProviderResult TypeResult StatusAmy [place] PACLINISYNC IMAGINGFinal Result documented in this encounter Visit Diagnoses Not on filedocumented in this encounter Care Teams Team MemberRelationshipSpecialtyStart DateEnd Date Reece Zhao MD [address] [place] [phone] PCP - GeneralFamily Medicine01/14/23documented as of this encounter
--- OUTSIDE RECORDS SUMMARY | 2025-04-14 12:02 | XMS_ITS | CCD ---
Author Organization [facility] Care Team Providers Care Printing Plate Maker Name Role Phone MARY JO NORRIS Admitting Unavailable MARY JO NORRIS Attending Unavailable AYAHY, DR KELLY Primary Care Unavailable MARY JO NORRIS Consulting Unavailable KARASIK, DR MURRELL Admitting Unavailable KARASIK, DR MURRELL Attending Unavailable HOY, DR KELLY Primary Care Unavailable KARASIK, DR MURRELL Consulting Unavailable KARASIK, DR MURRELL Admitting Unavailable KARASIK, DR MURRELL Attending Unavailable HOY, DR KELLY Primary Care Unavailable KARASIK, DR MURRELL Consulting Unavailable WEST, DR VANE García Consulting Unavailable MYRNA, MARY JO Admitting Unavailable MYRNA, MARY JO Attending Unavailable HOY, DR KELLY Primary Care Unavailable MYRNA, MARY JO Consulting Unavailable DAREK, DR KELLY Admitting Unavailable HOY, DR KELLY Attending Unavailable AYAHY, DR KELLY Primary Care Unavailable HOY, DR KELLY Consulting Unavailable HOY, DR KELLY Admitting Unavailable HOY, DR KELLY Attending Unavailable DAREK, DR KELLY Primary Care Unavailable DAREK, DR KELLY Consulting Unavailable Shan Kan Unavailable Robin Oswald MD Primary Care Provider Ivy Bah PA-C Attending Provider [phone] Piotr Hutton DO Attending Provider Robin Oswald MD Primary Care Provider Robin Oswald MD Primary Care Provider Robin Oswald MD Primary Care Provider Mary Jo Whitten Attending Provider Loretta Rivera DO Attending Provider Robin Oswald MD Primary Care Provider [phone] QUINN QUICK Attending Unavailable STEPANIC, JR., LORETTA Boateng Attending Unavaila ble STEPANIC, JR., LORETTA Boateng Referring Unavaila ble STEPANIC, JR., LORETTA Boateng Attending Unavaila ble IVY BAH Attending Unavailable STEPANIC, JR., LORETTA Boateng Attending Unavaila ble QUINN QUICK Attending Unavailable STEPANIC, JR., LORETTA Boateng Attending Unavaila ble STEPANIC, JR., LORETTA Boateng Referring Unavaila ble STEPANIC, JR., LORETTA Boateng Referring Unavaila ble DHALIWALHALLE Attending Unavailable STEPANIC, JR., LORETTA Boateng Attending Unavaila ble DHALIWALHALLE Attending Unavailable OLVIN, IVY Attending Unavailable PIOTR HUTTON Attending Unavailable QUINN QUICK Attending Unavailable Robin Oswald Primary Care Unavailable Mary Jo Norrise Admitting Unavailable Mary Jo Norrise Attending Unavailable Stepanic Jr, Loretta Admitting Unavailable Stepanic Jr, Loretta Attending Unavailable Robin Oswald Primary Care Unavailable Robin Oswald Primary Care Unavailable Stepanic Jr Loretta Admitting Unavailable Stepanic Jr, Loretta Attending Unavailable Ivy Bah L Admitting Unavailable Ivy Bah L Attending Unavailable Piort Hutton Admitting Unavailable Piotr Hutton Attending Unavailable Robin Oswald MD Primary Care Provider [phone] Loretta Rivera DO Attending Provider Allergies Allergy ClassificationReported Allergen(s)Allergy TypeDate of OnsetReaction(s) Facility (1 source)PenicillinsDrug allergy (disorder)23-56[facility]6538[facility] ([facility] sources)Penicillin GDrug Fblxzlq51-65-3202YxenyblYUDV Healthcare (20 sources)OtherPropensity to adverse fdiazogfr12-09-8125JgymusxHEAS Healthcare (1 source)PenicillinDrug Gkxenwv82-23-2272QmhdbdkcrFlower Hospital Repository (1 source)PenicillinsDrug allergy (disorder)94-37-4840NaivevzniFlower Hospital Repository Medications Current Medications MedicationDrug Class(es)DatesSig (Normalized)Sig (Original)alendronic acid 70 mg oral tablet (20 sources)BisphosphonateStart: 78-44-4660vixb 1 tablet by mouth every week Start: 03-20-2023 End: 23-11-3899wvuu 1 tablet by mouth every weekalendronate (Fosamax) 70 MG tablet Indications: Osteoporosis, post-menopausal TAKE 1 TABLET BY MOUTH ONE TIME PER WEEK 30 tablet 11 05/05/2024 Activetake 1 tablet by mouth once daily Fosamax 70 MG 1 tablet 30 minutes before the first food, beverage or medicine of the day with plainwater Orally ActiveAllegra Allergy 180 MG (3 sources)take 1 tablet by mouth once dailyAllegra Allergy 180 MG 1 tablet Swallow whole with water; do not take with fruit juices. Orally Once a day Activeascorbic acid 1000 mg oral tablet (20 sources)Vitamin CStart: 76-29-3538jpyr 1 g by mouth twice dailyAscorbic Acid (vitamin C) 1000 MG tablet 1 (one) time each day at the same time ActiveB Complex Vitamins (VITAMIN B COMPLEX 100 IJ) (20 sources)B Complex Vitamins (VITAMIN B COMPLEX 100 IJ) ActiveB Complex Vitamins (VITAMIN B COMPLEX 100 IJ) Vitamin B Complex ActiveB Complex Vitamins (VITAMIN B COMPLEX 100 IJ) Vitamin B Complex 0 ActiveB Complex-Folic Acid (SUPER B COMPLEX MAXI PO) (20 sources) End: 06-12-2024 Complex-Folic Acid (SUPER B COMPLEX MAXI PO) Super B Complex 06/12/2024 Discontinued (Therapy completed)B Complex-Folic Acid (SUPER B COMPLEX MAXI PO) Super B Complex ActiveB Complex-Folic Acid (SUPER B COMPLEX MAXI PO) Super B Complex 0 Activebetamethasone 0.5 mg/ml / clotrimazole 10 mg/ml topical cream (3 sources)Azole Antifungal, Corticosteroidclotrimazole-betamethasone (Lotrisone) cream 1 application every 12 (twelve) hours. 0 ActiveCalcium (3 sources)Phosphate Binder, CalciumCalcium Activecalcium citrate 1500 mg / cholecalciferol 200 unt oral tablet (20 sources)Vitamin DStart: 08-99-2965vlnw 1 tablet by mouth twice daily End: 10-15-2174Biyyazn Citrate-Vitamin D (Calcium Citrate + D) 250-5 MG-MCG tablet Calcium Citrate +D 06/12/2024 Discontinued (Therapy completed)Calcium Citrate-Vitamin D (Calcium Citrate + D3) 200-6.25 MG-MCG tablet (20 sources)Calcium Citrate-Vitamin D (Calcium Citrate + D3) 200-6.25 MG-MCG tablet ActiveCalcium Citrate-Vitamin D (Calcium Citrate + D3) 200-6.25 MG-MCG tablet Calcium Citrate+D3 ActiveCalcium Citrate-Vitamin D (Calcium Citrate + D3) 200-6.25 MG-MCG tablet Calcium Citrate+D3 0 Activecephalexin 500 mg oral capsule (2 sources)Cephalosporin AntibacterialStart: 11-17-2024 End: 69-98-7667nfcq 1 capsule by mouth in the morningcephalexin (Keflex) 500 MG capsule Indications: Yeast infection Take 1 capsule (500 mg) by mouth inthe morning and 1 capsule (500 mg) before bedtime. Do all this for 10 days. 20 capsule 11/17/2024 11/27/2024 Activecholecalciferol 0.125 mg oral tablet (20 sources)Vitamin DStart: 55-28-7036zwjf 1 tablet by mouth twice dailytake 1 tablet by mouth once dailycholecalciferol (Vitamin D-3) 25 MCG (1000 UT) tablet Take 1,000 Units by mouth Daily Active End: 55-43-5809guequkkhuwgraqc (Vitamin D-3) 125 MCG (5000 UT) capsule 1 (one) time each day at the same time. 06/12/2024 Discontinued (Therapy completed)take 1 capsule by mouth once dailyCholecalciferol 125 MCG (5000 UT) 1 capsule Orally Once a day Activechondroitin sulfates 400 mg / glucosamine hydrochloride 500 mg oral tablet (2 sources)Start: 51-04-7958haqe 3 tablets by mouth once dailyciprofloxacin 3 mg/ml / dexamethasone 1 mg/ml otic suspension (3 sources)Corticosteroid, Quinolone AntimicrobialStart: 06-12-2024 End: 54-65-0944nknvpmefghuce-dexAMETHasone (CiproDEX) otic suspension Indications: Bilateral chronic otorrhea Administer 4 drops into each ear in the morning and 4 drops before bedtime. Do all this for 7 days. 7.5 mL 06/12/2024 06/19/2024 Activeclobetasol propionate 0.5 mg/ml topical cream (20 sources)CorticosteroidStart: 06-11-2024 End: 16-51-8099gwsjdcrdts (Temovate) 0.05 % cream Indications: Chronic dermatitis , Atopic dermatitis, unspecifiedtype Apply 1 application topically 2 (two) times a week Pea-size amount applied topically twice weekly. 60 g 3 06/11/2024 09/09/2024 ActiveStart: 04-16-2024 End: 73-84-5646oumxyqquvm (Temovate) 0.05 % cream Indications: Dermatitis Apply 1 application topically in the morning and 1 application before bedtime. Apply pea-size amount to affected area.. 30 g 05/05/2024 06/04/2024 ActiveStart: 02-24-2024 End: 70-39-3307ymscqjbtts (Temovate) 0.05 % cream Indications: Vaginal itching Apply 1 application topically Dailyfor 14 days 45 g 02/24/2024 03/09/2024 Active docusate sodium 10 mg/ml oral suspension (3 sources)docusate sodium (Stool Softener) 150 MG/15ML oral liquid Stool Softener 0 Activeestradiol 0.1 mg/ml vaginal cream (3 sources)Estrogenestradiol (Estrace) 0.1 MG/GM vaginal cream 2 grams at bedtime Vaginal 3 times a week 0 Activefexofenadine hydrochloride 180 mg oral tablet (20 sources)Histamine-1 Receptor AntagonistStart: 27-57-0494qwjx 1 tablet by mouth once dailyAllegra Activefluconazole 150 mg oral tablet (7 sources)Azole AntifungalStart: 11-17-2024 End: 84-71-1608smnzuxbzoby (Diflucan) 150 MG tablet TAKE 1 TABLET BY MOUTH FOR 1 DOSE 11/17/2024 01/05/2025 Discontinued (Therapy completed)Start: 11-17-2024 End: 36-52-6884ekdi 1 tablet by mouth once, then take 1 tablet by mouth once fluconazole (Diflucan) 150 MG tablet Indications: Yeast infection Take 1 tablet (150 mg) by mouth 1(one) time for 1 dose This is a 1 time dose, take single tablet by mouth. 1 tablet 1 11/17/2024 11/17/2024 ExpiredStart: 02-24-2024 End: 04-93-4754insy 1 tablet by mouth once, then take 1 tablet by mouth once fluconazole (Diflucan) 150 MG tablet Indications: Vaginal itching , Yeast infection Take 1 tablet (150 mg) by mouth 1 (one) time for 1 dose This is a 1 time dose, take single tablet by mouth. 1 tablet 1 02/24/2024 02/24/2024 Active folic acid 1 mg / polysaccharide iron complex 150 mg / vitamin b12 0.025 mg oral capsule (16 sources)Vitamin Z06Msxuw: 70-53-5179kihe 1 capsule by mouth once daily in the morningStart: 02-04-2025 End: 81-50-2582csxu 1 capsule by mouth once dailyFerrex 150 Forte 150-0.025-1 MG capsule Indications: Pre-op evaluation TAKE 1 CAPSULE BY MOUTH EVERY DAY 90 capsule 1 03/02/2025 ActiveGlucosamine Chondr Complex 500-400 MG (3 sources)take 1 capsule by mouth once dailyGlucosamine Chondr Complex 500-400 MG 1 capsule with a meal Orally Once a day HopbdwPzdaafsgrnh-Vehzimlfa-Sax C-Mn (Glucosamine Chondroitin Complx) capsule (20 sources)take 1 capsule by mouth every twelve zwqmsMmirpqmpkkh-Evdjpdqfz-Gos C-Mn (Glucosamine Chondroitin Complx) capsule 1 capsule every 12 (twelve)hours Activetake 1 capsule by mouth every twelve kkzjiOmojgvpxdve-Nctyjmdbt-Lbc C-Mn (Glucosamine Chondroitin Complx) capsule 1 capsule every 12 (twelve)hours. Activetake 1 capsule by mouth every twelve ydzfaEhfygwpznpw-Ohefptncg-Jry C-Mn (Glucosamine Chondroitin Complx) capsule 1 capsule every 12 (twelve)hours. 0 ActiveMagnesium (2 sources)Start: 52-71-7508ende 2 tablets by mouth once dailyStart: 02-04-2025 take 2 tablets by mouth once dailymagnesium gluconate 550 mg oral tablet (20 sources)take 1 tablet by mouth in the morningmagnesium 30 MG tablet Take 30 mg by mouth in the morning and 30 mg before bedtime. ActiveMisc Natural Products (Glucosamine Chondroitin Adv) tablet (20 sources) End: 89-42-8772Bawr Natural Products (Glucosamine Chondroitin Adv) tablet as directed Orally 06/12/2024 Discontinued (Therapy completed)Misc Natural Products (Glucosamine Chondroitin Adv) tablet as directed Orally ActiveMisc Natural Products (Glucosamine Chondroitin Adv) tablet as directed Orally 0 ActiveMulti For Her 50+ (3 sources)Multiple Vitamin (Multi Vitamin) tablet (20 sources)Multiple Vitamin (Multi Vitamin) tablet 1 (one) time each day at the same time ActiveMultiple Vitamin (Multi Vitamin) tablet 1 (one) time each day at the same time. ActiveMultiple Vitamin (Multi Vitamin) tablet 1 (one) time each day at the same time. 0 ActiveMultivitamin (Daily Multi-Vitamin) tablet (2 sources)Start: 64-54-1655bflq 1 tablet by mouth once dailyStart: 02-04-2025 take 1 tablet by mouth once dailynystatin 100 unt/mg topical powder (8 sources)Polyene AntifungalStart: 11-17-2024 End: 68-50-8243zmxggjyl (Mycostatin) 795836 UNIT/GM powder Indications: Yeast infection Apply topically in the morning and in the evening and before bedtime. 15 g 11/17/2024 01/05/2025 Discontinued (Therapy completed)Turmeric Curcumin 500 MG (3 sources)Turmeric Curcumin 500 MG as directed Orally ActiveTurmeric extract (20 sources)Turmeric 500 MG capsule ActiveTurmeric 500 MG capsule Orally Active Turmeric 500 MG capsule Orally 0 ActiveTurmeric Root Extract 500 mg capsule (2 sources)Start: 86-71-3237wfvx 1 capsule by mouth twice dailyStart: 02-04-2025 take 1 capsule by mouth twice dailyVitamin B Complex (Balanced B-50) tablet (2 sources)Start: 60-89-4992hklv 1 tablet by mouth once dailyStart: 02-04-2025 take 1 tablet by mouth once dailyvitamin b12 1 mg oral tablet (20 sources)Vitamin Q12bipsfsqvpvrnba (Vitamin B-12) 1000 MCG tablet 1 (one) time each day at the same time Activetake 1 tablet by mouth once daily Cyanocobalamin 1000 MCG 1 tablet Orally Once a day ActiveVitamin C 1000 MG (3 sources)take 1 tablet by mouth once dailyVitamin C 1000 MG 1 tablet Orally Once a day ActiveZinc (20 sources)Start: 68-01-9242yyyr 1 tablet by mouth once dailyStart: 02-04-2025 take 1 tablet by mouth once dailyzinc 50 MG tablet 1 (one) time each day at the same time Activezinc 50 MG tablet 1 (one) time each day at the same time. Active zinc 50 MG tablet 1 (one) time each day at the same time. 0 Activetake 1 tablet by mouth once dailyZinc 50 MG 1 tablet Orally Once a day Activezinc gluconate 50 mg oral tablet (20 sources) End: 76-83-1114chtf gluconate 50 MG tablet 1 (one) time each day at the same time 01/05/2025 Discontinued (Therapycompleted) Completed/Discontinued Medications MedicationDrug Class(es)DatesSig (Normalized)Sig (Original)aspirin 81 mg chewable tablet (20 sources)Platelet Aggregation Inhibitor, Nonsteroidal Anti-inflammatory Drug Start: 02-04-2025 End: 81-26-1216qynm 1 tablet by mouth once dailyAspirin (Aspirin Childrens) 81 mg tablet,chewable Discontinued 81 MG PO Daily February 03, 2025 11:00pm April 12, 2025 10:25amaspirin 81 MG EC tablet 1 (one) time each day at the same time ActiveHYLAN G-F 20 (4 sources)Start: 24-75-2195Zghulab Mar, 16 mgStart: 47-44-3598Gtnwyna Feb, 16 mgStart: 12-19-5094Fkndqkz Feb, 16 mgVitamin D 2000 UNIT (3 sources)Vitamin D 2000 UNIT Orally Not-Taking Problems Active Problems Problem ClassificationProblemDateDocumented DateEpisodic/ChronicAcquired foot deformities (4 sources)Hallux valgus (acquired), right foot; Translations: [Hallux valgus (acquired)]22-94-8572HokufqqJxyfkoyu foot deformities (4 sources)Acquired deformity of toe of right foot; Translations: [Acquired deformities of toe(s), unspecified, right foot]50-18-1761Dyhripxm Administrative/social admission (1 source)Patient encounter status; Translations: [Persons encountering health services in other specified circumstances]29-52-1094HmfalxzdVvcwqckju of lipid metabolism (1 source)Hyperlipidemia, unspecified; Translations: [HYPERLIPIDEMIA UNSPECIFIED]Onset: 78-80-8834LygdwibAowydsfefgyzo and screening for infectious disease (1 source)Encounter for screening for human papillomavirus (HPV); Translations: [ENC SCREENING HUMAN PAPILLOMAVIRUS]Onset: 77-25-0766NfnkrwjyZndqyrxdgv disorders (20 sources)Primary ovarian failure; Translations: [Other primary ovarian failure]Onset: 24-56-835568183642-57-3147DyfidkvLdmfqdv (4 sources)Mycosis; Translations: [Candidiasis, unspecified]23-84-7443Noprzgpc Nutritional deficiencies (4 sources)Vitamin D deficiency, unspecified; Translations: [VITAMIN D DEFICIENCY UNSPECIFIED]Onset: 08-31-4687AcbohwmUfmcvuebpdjigj (20 sources)Osteoarthritis of knee; Translations: [Unilateral primary osteoarthritis, left knee]Onset: 80-59-7822IvbkifwFkzeecrpohqg (20 sources)Senile osteoporosis; Translations: [Age-related osteoporosis without current pathological fracture]Onset: 735614-06-4380GptbxpmKbejw connective tissue disease (2 sources)Pain of left calf; Translations: [Pain in left lower leg]01-19-2025 EpisodicOther ear and sense organ disorders (20 sources)Hearing loss in left ear; Translations: [Unspecified hearing loss, left ear]Onset: 705787-84-6668UnxcucdMifsn ear and sense organ disorders (20 sources)Mixed conductive AND sensorineural hearing loss; Translations: [Mixed conductive and sensorineural hearing loss, unilateral, right ear with restricted hearing on the contralateral side]Onset: hronic Other ear and sense organ disorders (20 sources)Sensorineural hearing loss, bilateral; Translations: [Sensorineural hearing loss, bilateral]Onset: 689830-61-1468BholxojSgxzy ear and sense organ disorders (15 sources)Hearing loss of left ear; Translations: [Unspecified hearing loss, left ear]Onset: 043531-38-2306OwndkjnDovrl ear and sense organ disorders (4 sources)Otorrhea; Translations: [Otorrhea, bilateral]45-71-5798RiozsagiBjorz female genital disorders (5 sources)Pruritus of vagina; Translations: [Other specified noninflammatory disorders of vagina]98-91-2093YrdlglaaArdox nervous system disorders (9 sources)Chronic pain; Translations: [Other chronic pain]48-42-2580Eppwlmk Other nervous system disorders (11 sources)Other chronic pain; Translations: [Other chronic pain]ChronicOther non-traumatic joint disorders (9 sources)Pain in left knee; Translations: [Pain in joint, lower leg]Episodic Other non-traumatic joint disorders (3 sources)Pain in right hip joint; Translations: [Pain in right hip]Onset: 600842-52-8859XenynfzfKnlbd nutritional; endocrine; and metabolic disorders (20 sources)Obesity; Translations: [Obesity, unspecified]Onset: 06-24-2023 08-85-9836ZfhgrjxBhafw upper respiratory disease (20 sources)Chronic rhinitis; Translations: [Chronic rhinitis]Onset: 06-24-2023 15-86-0936MkjqoiuOctypyxi codes; unclassified (1 source)Family history of malignant neoplasm of trachea, bronchus and lung; Translations: [FAM HX MALIG NEOPLSM TRACH BRON LNG]Onset: 78-09-4364Bzidnrbi Residual codes; unclassified (2 sources)Postmenopausal state; Translations: [Asymptomatic menopausal state] 60-14-4399VxnxovhbXxorgacw codes; unclassified (2 sources)Flushing; Translations: [Flushing]67-31-9725ZxvoedhbYydbubr disorders (20 sources)Goiter; Translations: [Nontoxic goiter, unspecified]Onset: 779811-71-5542GyndnvqJymxlhfavcqk (2 sources)CONTACT W/AND (SUSP) EXPOS COVID-19; Translations: [CONTACT W/AND (SUSP) EXPOS COVID-19]Onset: 93-40-3699Pdyewdxyvmtx (2 sources)Preprocedural examination jzeq50-81-7277Citaz infection (1 source)COVID-19; Translations: [COVID-19]Onset: 09-08-2021 Past or Other Problems Problem ClassificationProblemDateDocumented DateEpisodic/ChronicDeficiency and other anemia (1 source)Anemia, unspecified; Translations: [ANEMIA UNSPECIFIED]Onset: 13-36-3570DihrrrxiOknqleqi mellitus without complication (1 source)Other abnormal glucose; Translations: [OTHER ABNORMAL GLUCOSE]Onset: 11-88-9633MutiyoibFhylnrvbmbsrz symptoms and ill-defined conditions (1 source)Other abnormal findings in urine; Translations: [OTHER ABNORMAL FINDINGS IN URINE]Onset: 68-21-2979FoqunbqjKgpjtno and fatigue (1 source)Other fatigue; Translations: [OTHER FATIGUE]Onset: 95-30-4193Swrpgicl Nonmalignant breast conditions (20 sources)Lump in left breast; Translations: [Unspecified lump in the left breast, unspecified quadrant]Onset: 139949-08-1910PfhjbqqzPcanf ear and sense organ disorders (20 sources)Cholesteatoma; Translations: [Unspecified cholesteatoma, unspecified ear]Onset: 674515-34-9323AadogmzePqvhc ear and sense organ disorders (20 sources)Impacted cerumen of bilateral ears; Translations: [Impacted cerumen, bilateral]Onset: 856528-17-2996NzadhhkrMdemu ear and sense organ disorders (20 sources)Otorrhea of right ear; Translations: [Otorrhea, right ear]Onset: 670532-75-8551QjlrdrwwMinim inflammatory condition of skin (4 sources)Other pruritus; Translations: [OTHER PRURITUS]Onset: 12-22-2021 EpisodicOther non-traumatic joint disorders (20 sources)Arthralgia of the pelvic region and thigh; Translations: [Pain in unspecified hip]Onset: 127668-76-1210YotadcnhOdpze non-traumatic joint disorders (20 sources)Hip pain; Translations: [Pain in right hip]Onset: 06-24-2023 31-90-9431ZszzzkpxBevvv screening for suspected conditions (not mental disorders or infectious disease) (20 sources)Encounter for screening mammogram for malignant neoplasm of breast; Translations: [Encounter for screening for malignant neoplasm of cervix]Onset: 65-82-5715CwvqnntwXatsb upper respiratory infections (1 source)Acute sinusitis, unspecified; Translations: [ACUTE SINUSITIS UNSPECIFIED]Onset: 37-84-0132KvwammpyPagagi media and related conditions (20 sources)Perforation of tympanic membrane; Translations: [Unspecified perforation of tympanic membrane, unspecified ear]Onset: EpisodicUnclassified (1 source)CONTACT W/AND (SUSP) EXPOS COVID-19; Translations: [CONTACT W/AND (SUSP) EXPOS COVID-19]Onset: 09-06-2021 Results Test NameValueInterpretationReference RangeFacilityBasic Metabolic PanelOrdered By: Loretta Rivera on 43-81-3495Hyjle gap [Moles/Vol]8.5 mmol/LNormal6.0-15.0 F[facility] HospitalComment on above:Performed By: #### BMP #### [facility] [address] [place] [address] USACalcium [Mass/Vol]9.2 mg/dLNormal8.6-10.3FMagruder Memorial HospitalComment on above:Result Comment: PERFORMED BY: [place] [address] PATHOLOGIST VP TREASURER LONI WRIGHT M.D.Performed By: #### BMP #### [place] [address] USAChloride [Moles/Vol]107 mmol/ZBfpaet69-964LuebeehvpFlower HospitalComment on above:Performed By: #### BMP #### [place] [address] USACO2 [Moles/Vol]31.9 mmol/LHigh21.0-31.0Flower HospitalComment on above:Performed By: #### BMP #### [place] [address] USACreatinine [Mass/Vol]0.84 mg/dLNormal0.60-1.20F[facility] HospitalComment on above:Performed By: #### BMP #### [place] [address] USAGlucose [Mass/Vol]96 mg/fBFwyppg32-173CpmlcxvehFlower HospitalComment on above:Result Comment: Random Glucose Reference Range is dependent on time and content of last meal. Glucose of more than 200 mg/dL in a nonstressed, ambulatory subject supports the diagnosis of Diabetes Mellitus. ADA recommended reference rangePerformed By: #### BMP #### [facility] [address] [place] [address] USAADA recommended reference rangeRandom Glucose Reference Range is dependent on time and content of last meal. Glucose of more than 200 mg/dL in a nonstressed, ambulatory subject supports the diagnosisof Diabetes Mellitus.Potassium [Moles/Vol]4.4 mmol/LNormal3.5-5.1FMagruder Memorial HospitalComment on above:Performed By: #### BMP #### [facility] [address] [place] [address] USASodium [Moles/Vol]143 mmol/LIimizy250-754IiznrdvfmFlower HospitalComment on above:Performed By: #### BMP #### [facility] [address] [place] [address] USAUrea nitrogen [Mass/Vol]13 mg/dLNormal7-25Flower HospitalComment on above:Performed By: #### BMP #### [facility] [address] [place] [address] USABasic Metabolic Panelon 08-59-1588KDV/1.73 sq M.predicted MDRD (S/P/Bld) [Vol rate/Area]mL/min/{1.73_m2}NormalThe [facility] Harrisburg Physician GroupComment on above:Performed By: #### BMP #### [facility] [address] [place] [address] USABasic metabolic 1998 panelon 61-18-9125Mfhcm gap [Moles/Vol]8.5 mmol/L6.0 - 15.0NOMS HealthcareCalcium [Mass/Vol]9.2 mg/dL8.6 - 10.3 mg/dLNOMS HealthcareChloride [Moles/Vol]107 mmol/L98 - 107 mmol/LNOMS HealthcareCO2 [Moles/Vol]31.9 mmol/LHigh21.0 - 31.0 mmol/LNOMS Healthcare Creatinine (U) [Mass/Vol]0.84 mg/dL0.60 - 1.20 mg/dLNOMS HealthcareESTIMATED GFR NOMS HealthcareGlucose [Mass/Vol]96 mg/dL70 - 100 mg/dLNOCO HealthcareComment on above:Random Glucose Reference Range is dependent on time and content of last meal. Glucose of more than 200 mg/dL in a nonstressed, ambulatory subject supports the diagnosis of Diabetes Mellitus. ADA recommended reference range Interpretation and review of laboratory resultsAbnormalNOCO HealthcarePotassium [Moles/Vol]4.4 mmol/L3.5 - 5.1 mmol/LNOMS HealthcareSodium [Moles/Vol]143 mmol/L 136 - 145 mmol/LNOMS HealthcareUrea nitrogen [Mass/Vol]13 mg/dL7 - 25 mg/dLNOCass Medical CenterNOCO HealthcareBilirubin Test strip Ql (U)Ordered By: Loretta Rivera on 61-78-3706Uvxsyvmsp Ql (U)NegativeNegativeFlower Hospital CBC W Auto Differential panel (Bld)on 01-84-7133Sfdeycavo (Bld) [#/Vol]0.1 10*3/uL0.0 - 0.2 10*3/uLNOMS HealthcareBasophils/100 WBC Manual cnt (Syn fld)1.4 %.[facility] Veterans' HospitalEosinophils (Bld) [#/Vol]0.2 10*3/uL0.0 - 0.45 10*3/uLNOMS HealthcareEosinophils/100 WBC Manual cnt (Syn fld)2.9 %.[facility] Erythrocyte distribution width (RBC) [Ratio]13.3 %11.9 - 15.3 %[facility] Hematocrit (Bld) [Volume fraction]42.7 %34.0 - 46.4 %[facility] HospitalHemoglobin (Bld) [Mass/Vol]14.4 g/dL11.8 - 15.4 g/dLHarry S. Truman Memorial Veterans' HospitalLymphocytes (Bld) [#/Vol]1.3 10*3/uL1.00 - 4.8 10*3/uLNOMS HealthcareLymphocytes/100 WBC Manual cnt (Syn fld)23.5 %.[facility]' HospitalMCH (RBC) [Entitic mass]30.8 pg24.7 - 34.3 pg [facility] HospitalMCHC (RBC) [Mass/Vol]33.8 g/dL32.0 - 35.0 g/dLHarry S. Truman Memorial Veterans' HospitalMCV (RBC) [Entitic vol]91.0 fL80 - 100 fLHarry S. Truman Memorial Veterans' HospitalMonocytes (Bld) [#/Vol]0.5 10*3/uL0.0 - 0.8 10*3/uLNOMS HealthcareMonocytes+Macrophages/100 WBC Manual cnt (Syn fld)9.4 %.NOMS HealthcareNeutrophils (Bld) [#/Vol]3.5 10*3/uL1.8 - 7.7 10*3/uLNOMS HealthcareNeutrophils/100 WBC Manual cnt (Syn fld)62.8 %.NOMS HealthcareNRBC0.0 /100{WBC}0 - 0.5 /100{WBC}NOMS HealthcarePlatelet mean volume (Bld) [Entitic vol]7.1 fL6.3 - 10.7 fLNOMS HealthcarePlatelets (Bld) [#/Vol]243 10*3/uL150 - 450 10*3/uLNOMS HealthcareRBC LM.HPF (Urine sed) [#/Area]4.70 10*6/uL3.60 - 5.00 10*6/uLNOMS HealthcareWBC (Bld) [#/Vol]5.6 10*3/uL3.8 - 11.6 10*3/uLNOMS HealthcareWBC LM.HPF (Urine sed) [#/Area]5.6 [CFU]/mL3.8 - 11.6 [CFU]/mLNOMS HealthcareNOMS HealthcareComplete Blood Count Auto DiffOrdered By: Loretta Rivera on 50-33-3332Lgaayawpz (Bld) [#/Vol]0.1 10*3/uLNormal0.0-0.2 [facility] HospitalComment on above:Result Comment: PERFORMED BY: [place] [address] PATHOLOGIST VP TREASURER LONI WRIGHT M.D.Performed By: #### CBC #### [facility] [address] [place] [address] USABasophils/100 WBC (Bld)1.4 %Normal.Flower HospitalComment on above:Performed By: #### CBC #### [facility] [address] [place] [address] USAEosinophils (Bld) [#/Vol]0.2 10*3/uLNormal0.0-0.45 [facility] HospitalComment on above:Performed By: #### CBC #### [facility] [address] [place] [id number] USAEosinophils/100 WBC (Bld)2.9 %Normal.Flower HospitalComment on above:Performed By: #### CBC #### [facility] [address] [place] [address] USAErythrocyte distribution width (RBC) [Ratio]13.3 %Normal 11.9-15.3FMagruder Memorial HospitalComment on above:Performed By: #### CBC #### [facility] [address] [place] [address] USAHematocrit (Bld) [Volume fraction]42.7 %Thdept47.0-46.4 [facility] HospitalComcorewell health [facility] on above:Performed By: #### CBC #### [facility] [address] [place] [address] USAHemoglobin (Bld) [Mass/Vol]14.4 g/hCCtyhja48.8-15.4 [facility] HospitalComment on above:Performed By: #### CBC #### [facility] [address] [place] [address] USALymphocytes (Bld) [#/Vol]1.3 10*3/uLNormal1.00-4.8 [facility]lower HospitalComment on above:Performed By: #### CBC #### [facility] [address] [place] [id number] USALymphocytes/100 WBC (Bld)23.5 %Normal.Flower HospitalComment on above:Performed By: #### CBC #### [facility] [address] [place] [address] USAMCH (RBC) [Entitic mass]30.8 edEgmbzj78.7-34.3FMagruder Memorial HospitalComment on above:Performed By: #### CBC #### [facility] [address] [place] [address] USAMCV (RBC) [Entitic vol]91.0 zCCyjfqg70-870BowzqruwvFlower HospitalComment on above:Performed By: #### CBC #### [facility] [address] [place] [address] USAMonocytes (Bld) [#/Vol]0.5 10*3/uLNormal0.0-0.8Flower HospitalComment on above:Performed By: #### CBC #### [facility] [address] [place] [address] USAMonocytes/100 WBC (Bld)9.4 %Normal.Flower HospitalComment on above:Performed By: #### CBC #### [facility] [address] [place] [address] USANeutrophils (Bld) [#/Vol]3.5 10*3/uLNormal1.8-7.7FMagruder Memorial HospitalComment on above:Performed By: #### CBC #### [facility] [address] [place] [address] USANeutrophils/100 WBC (Bld)62.8 %Normal.Flower HospitalComment on above:Performed By: #### CBC #### [facility] [address] [place] [address] USAPlatelet mean volume (Bld) [Entitic vol]7.1 fLNormal 6.3-10.7FMagruder Memorial HospitalComment on above:Performed By: #### CBC #### [facility] [address] [place] [address] USAPlatelets (Bld) [#/Vol]243 10*3/cXKahlyb482-052YpnatmzmjFlower HospitalComment on above:Performed By: #### CBC #### [facility] [address] [place] [address] USARBC (Bld) [#/Vol]4.70 10*6/uLNormal3.60-5.00Flower HospitalComment on above:Performed By: #### CBC #### [facility] [address] [place] [address] USAWBC (Bld) [#/Vol]5.6 10*3/uLNormal3.8-11.6FMagruder Memorial HospitalComment on above:Performed By: #### CBC #### [facility] [address] [place] [address] USAComplete Blood Count Auto Diffon 40-11-9788Toav Corpuscular HGB Conc33.8 g/lYZdoqdb77.0-35.0The [facility] Physician GroupComment on above:Performed By: #### CBC #### [facility] [address] [place] [address] USANRBC%0.0 /100{WBC}Normal0-0.5The [facility] Comment on above:Performed By: #### CBC #### [facility] [address] [place] [address] USAWhite Blood Count5.6 [CFU]/mLNormal3.8-11.6The [facility] Physician GroupComment on above:Performed By: #### CBC #### [facility] [address] [place] [address] USAGlomerular filtration rate [Volume Rate/Area] in Serum, Plasma or Blood by CreatinineOrdered By: Loretta Rivera on 42-45-0961Nhbhmhgztm filtration rate [Volume Rate/Area] in Serum, Plasma or Blood by Creatinine> 60.0 mL/MinFlower HospitalGlucose [Mass/volume] in Urine by Test stripOrdered By: Loretta Rivera on 01-11-7304Iofzymd Test strip (U) [Mass/Vol] Normal mg/dLNormalFlower HospitalHemoglobin Test strip Ql (U) Ordered By: Loretta Rivera on 29-26-0231Xsaoantexx Ql (U)NegativeNegative Flower HospitalLeukocytes [#/volume] corrected for nucleated erythrocytes in Blood by Automated counOrdered By: Loretta Rivera on 04-12-2025 WBC corrected for nucl RBC Auto (Bld) [#/Vol]5.6 10*3/uL3.8-11.6FMagruder Memorial HospitalMCHC Auto (RBC) [Mass/Vol]Ordered By: Loretta Rivera on 32-61-5097QXDQ (RBC) [Mass/Vol]33.8 g/dL32.0-35.0Flower HospitalNitrite Test strip Ql (U)Ordered By: Loretta Rivera on 23-25-1749Kbxnkij Ql (U)NegativeNegativeFlower HospitalNo Panel Information Ordered By: Loretta Rivera on 06-69-5865Riuivcrl Creatinine Clearance (ChemN/A Flower HospitalNucleated erythrocytes [Presence] in Blood by Automated countOrdered By: Loretta Rivera on 67-50-1186Xeeibbknc RBC Auto Ql (Bld)0.0 /100{WBC}0-0.5FMagruder Memorial HospitalPST Type and Screenon 47-19-4999AJA and Rh group Nom (Bld)Blood group A Rh(D) positiveNoCentral Harnett Hospital Physician GroupComment on above:Order Comment: Comment please run c s if UA+ Name Collection Type:: Clean-Voided MidstreamProtein Test strip (U) [Mass/Vol] Ordered By: Loretta Rivera on 29-13-5124Pqrgipz (U) [Mass/Vol]NegativeNegative [facility] Hospitalpecific gravity Test strip (U) [Rel density] Ordered By: Loretta Rivera on 74-85-4423Leqagmxx gravity (U) [Rel density]1.018 1.001-1.030Flower HospitalUrinalysisOrdered By: Loretta Rivera on 95-63-8551Ctvzlngedm (U)ClearNormalClearFlower HospitalComment on above:Order Comment: Comment please run c s if UA+ Name Collection Type:: Clean-Voided MidstreamPerformed By: #### UA #### [facility] [address] [place] [address] USAColor (U)Light-yellowNormalYellowFlower HospitalComment on above:Order Comment: Comment please run c s if UA+ Name Collection Type:: Clean-Voided MidstreamPerformed By: #### UA #### [facility] [address] [place] [id number] USAKetones Ql (U)NegativeNormalNegAultman Alliance Community HospitalComment on above:Order Comment: Comment please run c s if UA+ Name Collection Type:: Clean-Voided MidstreamPerformed By: #### UA #### [facility] [address] [place] [address] USALeukocyte esterase Test strip Ql (U)NegativeNormalNegative Flower HospitalComment on above:Order Comment: Comment please run c s if UA+ Name Collection Type:: Clean-Voided MidstreamPerformed By: #### UA #### [facility] [address] [place] [address] USApH (U)5.5 [pH]Normal5.0-9.0Flower HospitalComment on above:Order Comment: Comment please run c s if UA+ Name Collection Type:: Clean-Voided MidstreamPerformed By: #### UA #### [place] [address] USAUrinalysison 73-89-9751Vgtwyppgm,UrineNegativeNormal NegativeThe [facility] Physician GroupComment on above:Order Comment: Comment please run c s if UA+ Name Collection Type:: Clean-Voided MidstreamPerformed By: #### UA #### [place] [address] USAGlucose Ql (U)NormalNormalNormBrecksville VA / Crille Hospitale [facility] Physician GroupComment on above:Order Comment: Comment please run c s if UA+ Name Collection Type:: Clean-Voided MidstreamPerformed By: #### UA #### [place] [address] USANitrite,UrineNegativeNormalNegativeThe [facility] Physician GroupComment on above:Order Comment: Comment please run c s if UA+ Name Collection Type:: Clean-Voided MidstreamPerformed By: #### UA #### [place] [id number] USAOccult Blood,UrineNegativeNormalNegativeThe [facility] Physician GroupComment on above:Order Comment: Comment please run c s if UA+ Name Collection Type:: Clean-Voided MidstreamResult Comment: PERFORMED BY: [place] [address] PATHOLOGIST VP TREASURER LONI WRIGHT M.D.Performed By: #### UA #### [facility] [address] [place] [address] USAProtein,UrineNegativeNormalNegativeThe [facility] Physician GroupComment on above:Order Comment: Comment please run c s if UA+ Name Collection Type:: Clean-Voided MidstreamPerformed By: #### UA #### [facility] [address] [place] [address] USASpecificy [place],Urine1.553Pyyfou3.001-1.030The [facility] Physician GroupComment on above:Order Comment: Comment please run c s if UA+ Name Collection Type:: Clean-Voided MidstreamPerformed By: #### UA #### [place] [address] USAUrobilinogen,UrineNormalNormalNormalThe [facility] Physician GroupComment on above:Order Comment: Comment please run c s if UA+ Name Collection Type:: Clean-Voided MidstreamPerformed By: #### UA #### [place] [address] USAUrinalysis, manual onlyon 56-94-3485Arvucroxwb (U)Clear ClearNOMS HealthcareBILIRUBIN,URINENegativeNegativeNOMS HealthcareColor (U) Light-YellowYellowNOMS HealthcareGlucose Ql (U)NormalNormal mg/dLNOCO Healthcare Ketones Ql (U)NegativeNegativeNOCass Medical CenterLeukocyte esterase Test strip Ql (U)NegativeNegativeNOCO HealthcareNITRITE,URINENegativeNegativeNOCO Healthcare OCCULT BLOOD,URINENegativeNegativeNOMS HealthcarepH (U)5.5 [pH]5.0 - 9.0NOMS HealthcarePROTEIN,URINENegativeNegative mg/dLNOCO HealthcareSPECIFICY GRAVITY,URINE1.0181.001 - 1.030NOMS HealthcareUROBILINOGEN,URINENormalNormal mg/dLNOCO HealthcareComment please run c s if UA+ Name Collection Type:: Clean-Voided MidstreamFIRSt. Clair Hospital Urobilinogen Test strip (U) [Mass/Vol]Ordered By: Loretta Rivera on 04-12-2025 Urobilinogen (U) [Mass/Vol]Normal mg/dLNoCleveland Clinic Mercy Hospital Appearance of UrineOrdered By: Loretta Rivera on 47-59-4064Lzpyucnymd (U)Clear NormalCleThe Jewish HospitalComment on above:Order Comment: Comment Culture if UA positive Name Collection Type:: Clean-Voided MidstreamPerformed By: #### UA #### [facility] [address] [place] [address] USABasic Metabolic Panelon 70-32-3818CMX/1.73 sq M.predicted MDRD (S/P/Bld) [Vol rate/Area]mL/min/{1.73_m2}NormalThe [facility] Physician GroupComment on above:Performed By: #### BMP, CBC #### [facility] [address] [place] [id number] USABasic metabolic 1998 panelon 78-88-3695Afwaj gap [Moles/Vol]9.1 mmol/L6.0 - 15.0NOMS HealthcareCalcium [Mass/Vol]9.4 mg/dL8.6 - 10.3 mg/dLNOMS HealthcareChloride [Moles/Vol]105 mmol/L98 - 107 mmol/LNOMS HealthcareCO2 [Moles/Vol]30.3 mmol/L21.0 - 31.0 mmol/LNOMS HealthcareCreatinine (U) [Mass/Vol]0.94 mg/dL0.60 - 1.20 mg/dLNOCO HealthcareESTIMATED GFRNOMS HealthcareGlucose [Mass/Vol]94 mg/dL70 - 100 mg/dLNOCO HealthcareComment on above:Random Glucose Reference Range is dependent on time and content of last meal. Glucose of more than 200 mg/dL in a nonstressed, ambulatory subject supports the diagnosis of Diabetes Mellitus. ADA recommended reference range Potassium [Moles/Vol]4.4 mmol/L3.5 - 5.1 mmol/LNOMS HealthcareSodium [Moles/Vol] 140 mmol/L136 - 145 mmol/LNOMS HealthcareUrea nitrogen [Mass/Vol]16 mg/dL7 - 25 mg/dLNOCass Medical CenterNOMS HealthcareBasophils [#/volume] in Blood by Automated counton 77-23-7421Euhybyiuk (Bld) [#/Vol]0.1 10*3/uLNormal0.0-0.2N[facility] Healthcare Comment on above:Result Comment: PERFORMED BY: [place] [address] PATHOLOGIST VP TREASURER LONI WRIGHT M.D.Performed By: #### BMP, CBC #### [facility] [address] [place] [address] USABasophils/100 leukocytes in Blood by Automated count Ordered By: Loretta Rivera on 78-29-0505Rfqwxhgmz/100 WBC (Bld)1.7 %Normal. Flower HospitalComment on above:Performed By: #### BMP, CBC #### [place] [address] USABilirubin Test strip Ql (U)Ordered By: Loretta Rivera on 51-75-9242Ddlxrcwed Ql (U)NegativeNegativeAultman Orrville Hospital W Auto Differential panel (Bld)on 41-39-2576Cyrsvxnwi/100 WBC Manual cnt (Syn fld)1.7 %.NOMS HealthcareEosinophils/100 WBC Manual cnt (Syn fld)3.4 %.[facility] HospitalErythrocyte distribution width (RBC) [Ratio]13 %11.9 - 15.3 %NOMPutnam County Memorial HospitalLymphocytes/100 WBC Manual cnt (Syn fld)24.2 %.[facility] Monocytes+Macrophages/100 WBC Manual cnt (Syn fld)10.5 %.[facility] Neutrophils/100 WBC Manual cnt (Syn fld)60.2 %.NOMS HealthcareNRBC0 /100{WBC}0 - 0.5 /100{WBC}NOM HealthcareRBC LM.HPF (Urine sed) [#/Area]4.69 10*6/uL3.60 - 5.00 10*6/uLNOMS HealthcareWBC LM.HPF (Urine sed) [#/Area]4.8 [CFU]/mL3.8 - 11.6 [CFU]/mLNOMS HealthcareCalcium [Mass/volume] in Serum or PlasmaOrdered By: Loretta Rivera on 80-17-4544Ncytuqk [Mass/Vol]9.4 mg/dLNormal8.6-10.3FMagruder Memorial HospitalComment on above:Result Comment: PERFORMED BY: [place] [address] PATHOLOGIST VP TREASURER LONI WRIGHT M.D.Performed By: #### BMP, CBC #### [place] [address] USACarbon dioxide, total [Moles/volume] in Serum or Plasma Ordered By: Loretta Rivera on 71-39-6267RB2 [Moles/Vol]30.3 mmol/LNormal 21.0-31.0Flower HospitalComment on above:Performed By: #### BMP, CBC #### [place] [address] USAChloride [Moles/volume] in Serum or PlasmaOrdered By: Loretta Rivera on 69-12-9818Glzkuvld [Moles/Vol]105 mmol/TUupalz35-570NgysqfcnuFlower HospitalComment on above:Performed By: #### BMP, CBC #### [place] [address] USAColor of Urine by AutoOrdered By: Loretta Rivera on 63-56-4535Uaqhk (U)Dark-yellowCritically abnormalYellowFlower HospitalComment on above:Order Comment: Comment Culture if UA positive Name Collection Type:: Clean-Voided MidstreamPerformed By: #### UA #### [place] [address] USAComplete Blood Count Auto Diffon 95-27-8489Ousd Corpuscular HGB Conc34.8 g/qCJtlshu74.0-35.0The [facility] Physician GroupComment on above:Performed By: #### BMP, CBC #### [place] [address] USANRBC%0.0 /100{WBC}Normal0-0.5The [facility] Comment on above:Performed By: #### BMP, CBC #### [place] [address] USAWhite Blood Count4.8 [CFU]/mLNormal3.8-11.6The [facility] Physician GroupComment on above:Performed By: #### BMP, CBC #### [facility] [address] [place], [place] [address] USACreatinine [Mass/volume] in Serum or PlasmaOrdered By: Loretta Rivera on 94-87-1204Yruhjkafxt [Mass/Vol]0.94 mg/dLNormal0.60-1.20 Flower HospitalComment on above:Performed By: #### BMP, CBC #### [facility] [address] [place] [address] USAECG 12 lead ECGon 34-61-1671AID 12 lead [facility]UC [facility] [address] [place], [place] [id number] Electrocardiograph Report Signed Patient: Aslhey Espinoza MR#: [id number] 8 : 1960 Acct:[id number] Age/Sex: 64 / F ADM Date: 02/04/25 Loc: Room: Type: [facility] Attending Dr: Loretta Rivera Jr, DO Ordering Provider: Loretta Rivera Jr, DO Date of Service: 02/04/2509/25/845 [...] rhythm Normal ECG Confirmed by Ashley Rand ([id number]) on 02/04/2025 10:58:57 AM Referred By: Electronically Signed By: Ashley Rand Transcribed By: MUS Signed By Ashley Rand MD 5 [id number] Physician GroupEosinophils [#/volume] in Blood by Automated counton 12-94-5364Kusxhtlpsor (Bld) [#/Vol]0.2 10*3/uLNormal0.0-0.45 NOMS HealthcareComment on above:Performed By: #### BMP, CBC #### [facility] [address] [place] [id number] USAEosinophils/100 leukocytes in Blood by Automated count Ordered By: Loretta Rivera on 15-86-4229Nbzvzsumykh/100 WBC (Bld)3.4 %Normal. Flower HospitalComment on above:Performed By: #### BMP, CBC #### [facility] [address] [place] [address] USAErythrocyte distribution width [Ratio] by Automated count Ordered By: Loretta Rivera on 16-06-8619Tgrrgyncrub distribution width (RBC) [Ratio]13.0 %Ptmqcp76.9-15.3FMagruder Memorial HospitalComment on above: Performed By: #### BMP, CBC #### [facility] [address] [place] [address] USAErythrocytes [#/volume] in Blood by Automated countOrdered By: Loretta Rivera on 44-86-0658KMB (Bld) [#/Vol]4.69 10*6/uLNormal3.60-5.00 Flower HospitalComment on above:Performed By: #### BMP, CBC #### [facility] [address] [place] [address] USAGlomerular filtration rate [Volume Rate/Area] in Serum, Plasma or Blood by CreatinineOrdered By: Loretta Rivera on 53-62-4428Ptuhdxabhs filtration rate [Volume Rate/Area] in Serum, Plasma or Blood by Creatinine> 60.0 mL/MinFlower HospitalGlucose [Mass/volume] in Serum or Plasma Ordered By: Loretta Rivera on 44-13-8843Lslnztm [Mass/Vol]94 mg/hFMqunty76-300 Flower HospitalComment on above:ADA recommended reference rangeRandom Glucose Reference Range is dependent on time and content of last meal. Glucose of more than 200 mg/dL in a nonstressed, ambulatory subject supports the diagnosisof Diabetes Mellitus.Result Comment: Random Glucose Reference Range is dependent on time and content of last meal. Glucose of more than 200 mg/dL in a nonstressed, ambulatory subject supports the diagnosis of Diabetes Mellitus. ADA recommended reference rangePerformed By: #### BMP, CBC #### [facility] [address] [place] [address] USAGlucose [Mass/volume] in Urine by Test stripOrdered By: Loretta Rivera on 07-86-1517Ngqyjiv Test strip (U) [Mass/Vol]Normal mg/dLNormal [facility] HospitalHematocrit [Volume Fraction] of Blood by Automated counton 25-69-5214Jzyujflcgo (Bld) [Volume fraction]42.5 %Normal 34.0-46.4NOCO HealthcareComment on above:Performed By: #### BMP, CBC #### [facility] [address] [place] [address] USAHemoglobin Test strip Ql (U)Ordered By: Loretta Rivera on 82-43-9280Okvnqrdtgt Ql (U)NegativeNegAultman Alliance Community Hospital Hemoglobin [Mass/volume] in Bloodon 85-36-2940Zphwyukcyq (Bld) [Mass/Vol]14.8 g/oGGkeuza31.8-15.4NOCO HealthcareComment on above:Performed By: #### BMP, CBC #### [facility] [address] [place] [address] USAKetones [Presence] in Urine by Test stripOrdered By: Loretta Rivera on 21-60-0964Qmjjair Ql (U)NegativeKnox Community HospitalComment on above:Order Comment: Comment Culture if UA positive Name Collection Type:: Clean-Voided MidstreamPerformed By: #### UA #### [facility] [address] [place] [address] USALeukocyte esterase [Presence] in Urine by Test strip Ordered By: Loretta Rivera on 14-89-1575Exsmxqvgk esterase Test strip Ql (U) NegativeNormProvidence HospitalComment on above:Order Comment: Comment Culture if UA positive Name Collection Type:: Clean-Voided MidstreamPerformed By: #### UA #### [facility] [address] [place] [address] USALeukocytes [#/volume] corrected for nucleated erythrocytes in Blood by Automated counOrdered By: Loretta iRvera on 72-86-7375NUH corrected for nucl RBC Auto (Bld) [#/Vol]4.8 10*3/uL3.8-11.6FMagruder Memorial HospitalLeukocytes [#/volume] in Blood by Automated counton 97-24-6937GKQ (Bld) [#/Vol]4.8 10*3/uLNormal3.8-11.6NOMS HealthcareComment on above:Performed By: #### BMP, CBC #### [facility] [address] [place] [id number] USALymphocytes [#/volume] in Blood by Automated counton 31-73-1522Ngfplsvslln (Bld) [#/Vol]1.2 10*3/uLNormal1.00-4.8N[facility] Healthcare Comment on above:Performed By: #### BMP, CBC #### [place] [address] USALymphocytes/100 leukocytes in Blood by Automated count Ordered By: Loretta Rivera on 15-47-7633Kscxfeahoct/100 WBC (Bld)24.2 %Normal. [facility]lower HospitalComment on above:Performed By: #### BMP, CBC #### [place] [id number] USAMCH [Entitic mass] by Automated counton 62-37-7071CFN (RBC) [Entitic mass]31.5 daInwfue52.7-34.3NOMS HealthcareComment on above: Performed By: #### BMP, CBC #### [place] [id number] USAMCHC [Mass/volume] by Automated counton 09-49-8534NDUI (RBC) [Mass/Vol]34.8 g/dL32.0-35.0NOMS HealthcareMCV [Entitic volume] by Automated counton 87-93-3794HTR (RBC) [Entitic vol]90.5 kQDiidff47-856QWAM HealthcareComment on above:Performed By: #### BMP, CBC #### [place] [id number] USAMonocytes [#/volume] in Blood by Automated counton 36-57-5969Axbmjgiqk (Bld) [#/Vol]0.5 10*3/uLNormal0.0-0.8NOCO HealthcareComment on above:Performed By: #### BMP, CBC #### [facility] [address] [place] [address] USAMonocytes/100 leukocytes in Blood by Automated count Ordered By: Loretta Rivera on 90-58-3283Nvjasolfm/100 WBC (Bld)10.5 %Normal. Flower HospitalComment on above:Performed By: #### BMP, CBC #### [facility] [address] [place] [address] USANeutrophils [#/volume] in Blood by Automated counton 95-02-1997Baxwshmxeym (Bld) [#/Vol]2.9 10*3/uLNormal1.8-7.7N[facility] Healthcare Comment on above:Performed By: #### BMP, CBC #### [facility] [address] [place] [address] USANeutrophils/100 leukocytes in Blood by Automated count Ordered By: Loretta Rivera on 63-95-6856Rxwojhsozjd/100 WBC (Bld)60.2 %Normal. Flower HospitalComment on above:Performed By: #### BMP, CBC #### [facility] [address] [place] [address] USANitrite Test strip Ql (U)Ordered By: Loretta Rivera on 82-19-3938Ckzcjiv Ql (U)NegativeNegativeFlower HospitalNo Panel Informationon 66-09-4560XCYNHarry S. Truman Memorial Veterans' HospitalNo Panel InformationOrdered By: Loretta Rivera on 18-74-1887Cqaanfkk Creatinine Clearance (ChemN/AFMagruder Memorial HospitalNucleated erythrocytes [Presence] in Blood by Automated countOrdered By: Loretta Rivera on 81-16-0317Kejestiht RBC Auto Ql (Bld)0.0 /100{WBC}0-0.5FMagruder Memorial HospitalPST Type and Screenon 02-04-2025 ABO and Rh group Nom (Bld)Blood group A Rh(D) positiveNormalThe [facility] Physician GroupComment on above:Order Comment: Date of Surgery: [id number] # of PRBC units on hold?: 2Platelet mean volume [Entitic volume] in Blood by Automated counton 78-99-6480Pmrusvpk mean volume (Bld) [Entitic vol]7.2 fLNormal 6.3-10.7NOMS HealthcareComment on above:Performed By: #### BMP, CBC #### [facility] [address] [place] [id number] USAPlatelets [#/volume] in Blood by Automated counton 72-08-5345Nutpdsktx (Bld) [#/Vol]222 10*3/yBLwncfy990-533ZMYR HealthcareComment on above:Performed By: #### BMP, CBC #### [address] [address] USAPotassium [Moles/volume] in Serum or PlasmaOrdered By: Loretta Rivera on 57-91-4221Midkqtvcz [Moles/Vol]4.4 mmol/LNormal3.5-5.1 Flower HospitalComment on above:Performed By: #### BMP, CBC #### [place] [id number] USAProtein Test strip (U) [Mass/Vol]Ordered By: Loretta Rivera on 56-87-1960Wjcpisi (U) [Mass/Vol]NegativeNegativeUC West Chester Hospitalerum or plasma anion gap determinationOrdered By: Loretta Rivera on 61-10-5250Lxsfl gap [Moles/Vol]9.1 mmol/LNormal6.0-15.0Flower HospitalComment on above:Performed By: #### BMP, CBC #### [address] [address] USASodium [Moles/volume] in Serum or PlasmaOrdered By: Loretta Rivera on 25-61-4313Ophvtw [Moles/Vol]140 mmol/FFwpicv840-611NnrorfbbyFlower HospitalComment on above:Performed By: #### BMP, CBC #### [address] [address] USASpecific gravity Test strip (U) [Rel density]Ordered By: Loretta Pastranaregency hospital of [place] on 56-01-9117Tkkezpaa gravity (U) [Rel density]1.0231.001-1.030 Flower HospitalUrea nitrogen [Mass/volume] in Serum or Plasma Ordered By: Loretta Victorianoregency hospital of [facility] on 58-59-9399Fpbo nitrogen [Mass/Vol]16 mg/dLNormal 12-25Flower HospitalComment on above:Performed By: #### BMP, CBC #### [facility] [address] [place] [address] USAUrinalysison 16-79-3644Yipnytnql,UrineNegativeNormal NegativeThe [facility] Physician GroupComment on above:Order Comment: Comment Culture if UA positive Name Collection Type:: Clean-Voided MidstreamPerformed By: #### UA #### [place] [address] USAGlucose Ql (U)NormalNormalNormalThe [facility] Physician GroupComment on above:Order Comment: Comment Culture if UA positive Name Collection Type:: Clean-Voided MidstreamPerformed By: #### UA #### [place] [address] USANitrite,UrineNegativeNormalNegativeThe [facility] Physician GroupComment on above:Order Comment: Comment Culture if UA positive Name Collection Type:: Clean-Voided MidstreamPerformed By: #### UA #### [place] [id number] USAOccult Blood,UrineNegativeNormalNegativeThe [facility] Physician GroupComment on above:Order Comment: Comment Culture if UA positive Name Collection Type:: Clean-Voided MidstreamResult Comment: PERFORMED BY: [place] [address] PATHOLOGIST VP TREASURER LONI WRIGHT M.D.Performed By: #### UA #### [place] [address] USAProtein,UrineNegativeNormalNegativeThe [facility] Physician GroupComment on above:Order Comment: Comment Culture if UA positive Name Collection Type:: Clean-Voided MidstreamPerformed By: #### UA #### [facility] [address] [place] [address] USASpecificy [place],Urine1.148Cdfyvj7.001-1.030The [facility] Physician GroupComment on above:Order Comment: Comment Culture if UA positive Name Collection Type:: Clean-Voided MidstreamPerformed By: #### UA #### [facility] [address] [place] [address] USAUrobilinogen,UrineNormalNormalNormalThe [facility] Physician GroupComment on above:Order Comment: Comment Culture if UA positive Name Collection Type:: Clean-Voided MidstreamPerformed By: #### UA #### [place] [address] USAUrinalysis, manual onlyon 98-85-3578Lvitqzdtsk (U)Clear ClearNOMS HealthcareBILIRUBIN,URINENegativeNegativeNOMS HealthcareColor (U) Dark-YellowCritically abnormalYellowNOMS HealthcareGlucose Ql (U)NormalNormal mg/dLNOCO HealthcareInterpretation and review of laboratory resultsAbnormalNOMS HealthcareKetones Ql (U)NegativeNegativeNOMS HealthcareLeukocyte esterase Test strip Ql (U)NegativeNegativeNOMS HealthcareNITRITE,URINENegativeNegativeNOMS HealthcareOCCULT BLOOD,URINENegativeNegativeNOMS HealthcarepH (U)5.5 [pH]5.0 - 9.0NOMS HealthcarePROTEIN,URINENegativeNegative mg/dLNOCO HealthcareSPECIFICY GRAVITY,URINE1.0231.001 - 1.030NOMS HealthcareUROBILINOGEN,URINENormalNormal mg/dLNOMS HealthcareComment Culture if UA positive Name Collection Type:: Clean-Voided MidstreamFIRELANDSUrobilinogen Test strip (U) [Mass/Vol]Ordered By: Loretta Rivera on 54-39-1663Zldwykkvxsup (U) [Mass/Vol]Normal mg/dLNoCleveland Clinic Mercy HospitalX-ray reportOrdered By: Chad White on 62-88-6167Vnjob reportUC MEDICAL CENTER Main [facility] [address] [place] [address] XRay Report Signed Patient: Ashley Espinoza MR#: [id number] : 1960 Acct:[id number] Age/Sex: 64 / F ADM Date: 5 Loc: [facility]: Loretta Rivera Jr DO Copies to: Loretta Rivera Jr, DO~ Ordering Provider: Loretta Rivera Jr, DO Date of Service: 02/04/25 XR/XR tibia/fibula BI: PRE OP ([id number]) XR/XR femur BI: PRE OP Bilateral lower [...] Jr., D.OEzio 02/04/2025 2:28 PM Dictation Location: [place] [address] Transcribed By: [facility] 02/04/25 1428 Dictated By: Chad White Jr, DO 02/04/25 1427 Signed By: 02/04/25 1428 Flower HospitalXR tibia/fibula BIon 80-41-5583MM tibia/fibula [facility] Main [address] [address] XRay Report Signed Patient: Ashley Espinoza MR#: [id number] : 1960 Acct:[id number] Age/Sex: 64 / F ADM Date: 02/04/25 Loc: [facility] Room: Type: [facility] Attending Dr: Loretta Rivera Jr DO Copies to: Loretta Rivera Jr, DO Ordering Provider: Loretta Rivera Jr, DO Date of Service: 02/04/25 XR/XR tibia/fibula BI: PRE OP ([id number]) XR/XR femur BI: PRE OP Bilateral lower [...] PROCESS. Impression dictated by: Chad White Jr., D.O. 02/04/2025 2:28 PM Dictation Location: [place] [address] Transcribed By: [facility] 02/04/25 1428 Dictated By: Chad White Jr, DO 02/04/25 1427 Signed By: 02/04/25 1428[facility] Physician GrouppH of Urine by Test stripOrdered By: Loretta Rivera on 60-32-0059dR (U)5.5 [pH]Normal5.0-9.0Flower HospitalComment on above:Order Comment: Comment Culture if UA positive Name Collection Type:: Clean-Voided MidstreamPerformed By: #### UA #### [place] [address] USAUS.doppler Lower extremity vein - lefton 01-22-2025 No sonographic evidence of deep venous thrombosis of the left lower extremity. ELECTRONICALLY SIGNED BY: FAITH Price EXAM: [facility] US LOWER EXTREMITY VENOUS DUPLEX LEFT TECHNIQUE: LEFT lower extremity venous duplex exam was performed. HISTORY: Left calf pain. FINDINGS: The common femoral, femoral, deep femoral, popliteal and calf veins were evaluated for deep venous thrombosis. The veins were evaluated with color Doppler imaging, compression and augmentation if possible. No sonographic evidence of deep venous thrombosis. IMAGINGSteffGiovani minor DO - 01/22/2025 EXAM: [facility] US LOWER EXTREMITY VENOUS DUPLEX LEFT TECHNIQUE: LEFT lower extremity venous duplex exam was performed. HISTORY: Left calf pain. FINDINGS: The common femoral, femoral, deep femoral, popliteal and calf veins were evaluated for deep venous thrombosis. The veins were evaluated with color Doppler imaging, compression and augmentation if possible. No sonographic evidence of deep venous thrombosis. IMPRESSION: No sonographic evidence of deep venous thrombosis of the left lower extremity. ELECTRONICALLY SIGNED BY: Giovani Mcdonnell DO [facility].doppler Lower extremity vein - leftOrdered By: Giovani Mcdonnell on 47-71-8394YXWK gloStream Work Phone: US.doppler Lower extremity vein - lefton 01-21-2025 Radiology Study observation (narrative)[facility] US LOWER EXTREMITY VENOUS DUPLEX LEFTon 16-28-5260DIMX US LOWER EXTREMITY VENOUS DUPLEX LEFTEXAM: [facility] US LOWER EXTREMITY VENOUS DUPLEX LEFT TECHNIQUE: LEFT lower extremity venous duplex exam was performed. HISTORY: Left calf pain. FINDINGS: The common femoral, femoral, deep femoral, popliteal and calf veins were evaluated for deep venous thrombosis. The veins were evaluated with color Doppler imaging, compression and augmentation if possible. No sonographic evidence of deep venous thrombosis. IMPRESSION: No sonographic evidence of deep venous thrombosis of the left lower extremity. ELECTRONICALLY SIGNED BY: Sara PriceDeer Park Hospital Informationon 25-80-8384Ckdiflyhy Study observation (narrative)[facility] Hip - left 3 Viewson 08-81-4859Xodiyme Result: AP and lateral of left hip showed acceptable position and alignment of left total hip arthroplasty. There was no evidence of loosening of the acetabular cup or femoral stem. Femoral head was well centered in the acetabular liner without evidence of asymmetric or accelerated wear. There was no gross evidence of fracture and/or dislocation. Impression: Unremarkable left total hip arthroplasty. [facility] Hip - right 3 Viewson 02-73-1416Rtbffkw Result: AP and lateral of right hip showed acceptable position and alignment of right total hip arthroplasty. There was no evidence of loosening of the acetabular cup or femoral stem. Femoral head was well centered in the acetabular liner without evidence of asymmetric or accelerated wear. There was no gross evidence of fracture and/or dislocation. Impression: Unremarkable right total hip arthroplasty. [facility] diagnostic mammo LT w/CADon 37-15-1210GO diagnostic mammo LT w/[facility] [address] [place], [place] [address] Mammography Report Signed Patient: Ashley Espinoza MR#: [id number] 8 : 1960 Acct:[id number] Age/Sex: 64 / F Adm Date: 01/04/25 Loc: [place] Room: Type: [facility] Attending Dr: Mary Jo Norris [employer]-C Ordering Provider: Mary Jo Norris CNP Date of Service: 01/04/25 Procedure(s): MM diagnostic mammo LT w/CAD Accession Number(s): ([id number]) MM/MM diagnostic mammo LT w/CAD: R92 Copies to: MD Mary Jo Baez CNP CLINICAL DATA: History of benign biopsy of the left breast. Follow-up. Left DIAGNOSTIC MAMMOGRAM - WITH TOMOSYNTHESIS AND CAD COMPARISON:Mammograms dating back to 2023. Tomosynthesis imaging was obtained using low-dose digital technique. This examination was reviewed with the aid of CAD. FINDINGS: The left breast is composed of scattered fibroglandular densities. No new areas of architectural distortion, worrisome masses or suspicious microcalcifications. MM/MM diagnostic mammo LT w/CAD IMPRESSION: NO MAMMOGRAPHIC EVIDENCE OF MALIGNANCY. PATIENT SHOULD RETURN IN APRIL 2025 FOR BILATERAL SCREENING MAMMOGRAPHY. RESULT CODE: 1 Negative DENSITY CODE: 2 (approximately 25-50% glandular) There are scattered areas of fibroglandular density. FOLLOW UP: 6M The false-negative rate of mammography is approximately 10-percent. Management of a palpable abnormality must be based on clinical grounds. Patient was entered into a reminder system with a target due date for the next mammogram. Impression dictated by: Chad White Jr., D.OEzio 01/04/2025 9:12 AM Dictation Location: [facility] Dictated By: Chad White Jr, DO 01/04/25 0909 Signed By: 01/04/[address] [place] [address] Physician GroupMammography reportOrdered By: Chad White on 10-38-4904Nnilgwrugh imaging [facility] [address] [place] [address] Mammography Report Signed Patient: Ashley Espinoza MR#: [id number] : 1960 Acct:[id number] Age/Sex: 64 / F Adm Date: 5 Loc: [place] Room: Type: [facility] Attending Dr: Mary Jo Norris [employer]-C Ordering Provider: Mary Jo Norris CNP Date of Service: 01/04/25 Procedure(s): MM diagnostic mammo LT w/CAD Accession Number(s): ([id number]) MM/MM diagnostic mammo LT w/CAD: R92 Copies to: MD Mary Jo Baez CNP~ CLINICAL DATA: History of benign biopsy of the left breast. Follow-up. Left DIAGNOSTIC MAMMOGRAM - WITH TOMOSYNTHESIS AND CAD COMPARISON:Mammograms dating back to 2023. Tomosynthesis imaging was obtained using low-dose digital technique. This examination was reviewed with the aid of CAD. FINDINGS: The left breast is composed of scattered fibroglandular densities. No new areas of architectural distortion, worrisome masses or suspicious microcalcifications. MM/MM diagnostic mammo LT w/CAD IMPRESSION: NO MAMMOGRAPHIC EVIDENCE OF MALIGNANCY. PATIENT SHOULD RETURN IN APRIL 2025 FOR BILATERAL SCREENING MAMMOGRAPHY. RESULT CODE: 1 Negative DENSITY CODE: 2 (approximately 25-50% glandular) There are scattered areas of fibroglandular density. FOLLOW UP: 6M The false-negative rate of mammography is approximately 10-percent. Management of a palpable abnormality must be based on clinical grounds. Patient was entered into a reminder system with a target due date for the next mammogram. Impression dictated by: Chad White Jr., D.O. 01/04/2025 9:12 AM Dictation Location: [facility] Dictated By: Chad White Jr, DO 01/04/25 0909 Signed By: 01/04/25 0912 Flower HospitalXR Knee - left 1 or 2 Viewson 48-48-2342Mpveoif Result: X-rays AP and lateral of left knee show mild degenerative changes with mild flattening of the articular surfaces to the medial joint line with decreased joint space height to the medial joint line. Lateral joint line appeared to be well preserved there was subchondral sclerosis noted at the medial joint line, patellofemoral joint showed significant DJD. There is no evidence of fracture or dislocation. Bony structures visualized appeared to be adequately ossified. NOMS HealthcareNOMS HealthcareRadiology Study observation (narrative)[facility] HealthcareNo Panel InformationOrdered By: Piotr Hutton on 44-84-9471Uosgsfsrzfzvg Pathology TestSee Wyandot Memorial HospitalComment on above:See report. Scanned copy available in EMR.Pathology Request for Lab Corpon 42-05-0718Nrekvggmv Request for Lab CorpNoCentral [facility] Comment on above:Order Comment: PATHOLOGY AMBULATORY SPECIMENResult Comment: See report. Scanned copy available in EMR. PERFORMED BY: [address] [place] [address] PATHOLOGIST VP TREASURER LOREE MADDEN M.D.Performed By: #### PATH TO [facility] #### [address] [address] [facility] 05-19-2024L Specimen: [id number] Received: 05/20/24 Status: EDGAR Moya Num: [id number] Spec Type: Surgical Subm Dr: Vane Rivas MD Tissues: A BREAST CORE NO CALCS (LT BREAST) Procedures: HE/4, Gross/Micro L4, AE1-AE3/2, CD68/2 Age/ Patient Sex Location Account Attending Physician Ashley Espinoza 63/F LABELL [id number] Ivy Bah NP-C SPEC NUM: [id number] RECD: 05/20/24 STATUS: EDGAR MOYA NUM: [id number] HILDA: 05/19/24 [facility] DR: Vane Rivas MD ENTERED: 05/20/[address]: Go,Crista ARZATE SPEC TYPE: Surgical DEPT: [facility] ENTERED BY: [id number] RECV BY: [id number] ORDERED: HE/4, Gross/Micro L4, AE1-AE3/2, CD68/2 ORDERED: HE/4, Gross/Micro L4, AE1-AE3/2, CD68/2 Pathological Diagnosis Left breast lesion at the 9:00, core biopsies: -Focal chronic fatty degeneration with associated histiocytic chronic inflammation, occasional small nonspecific granuloma containing hematoidin pigment, and focal pseudocystic degenerations (at least few mm) with thin fibrotic wall -Only rare glandular element in the surrounding area -No evidence of malignancy or glandular atypia -AE1/3 and CD68 immunostains with reactive control are also examined supporting the above interpretation Clinical Information Left breast 9:00 mixed cystic and solid lesion Gross Description Part A is received in formalin labeled with the patients name, date of , and L breast are 4 pale king to yellow sanchez, delicate needle core biopsy segments, 0.9-1.8 cm in length with detached fragments of fibrofatty tissue, 0.9 x 0.6 x 0.2 cm in aggregate. The cores are entirely submitted in Cassette A1 with the fragmented fibrofatty tissue filtered, and Specimen: [id number] Received: 05/20/24 Status: EDGAR Moya Num: [id number] Spec Type: Surgical Subm Dr: Vane Rivas MD Tissues: A BREAST CORE NO CALCS (LT BREAST) Procedures: HE/4, Gross/Micro L4, AE1-AE3/2, CD68/2 Patient: MadhuTed aldanaa [id number] (Continued) Specimen: [id number] Received: 05/20/24 (Continued) Gross Description (Continued) Signed (signature on file) Kar Muller MD 05/22/24 0901 Specimen: [id number] Received: 05/20/24 Status: EDGAR Moya Num: [id number] Spec Type: Surgical Subm Dr: Vane Rivas MD Tissues: A BREAST CORE NO CALCJonathan (LT BREAST) Procedures: HE/4, Gross/Micro L4, AE1-AE3/2, CD68/2 Patient: Ashley Espinoza [id number] (Continued) Specimen: [id number] Received: 05/20/24-1347 (Continued) Gross Description (Continued) entirely submitted in Cassette A2. Fixation time: Time tissue removed from patient: 1507 Time specimen placed in formalin: 1508 Cold ischemic time: 1 minute Total fixation time: 26 hours and 30 minutes (2, anders, GR91-0500 A) Microscopic Description Microscopic examinations are performed supporting the above interpretation CPT Codes 43458 97014 93712 Specimen: [id number] Received: 05/20/24 Status: EDGAR Moya Num: [id number] Spec Type: Surgical Subm Dr: Vane Rivas MD Tissues: A BREAST CORE NO CALCS (LT BREAST) Procedures: HE/4, Gross/Micro L4, AE1-AE3/2, CD68/2 Patient: Ashley Espinoza [id number] (Continued) Signed (signature on file) Kar Muller MD 05/22/[address] [place] [address] Physician Group POST BIOPSY LTon 95-44-[place]204[place] [address] Mammography Report Signed Patient: ASHLEY ESPINOZA MR#: [id number] : 1960 Acct:[id number] Age/Sex: 63 / F ADM Date: 05/19/24 Loc: US Attending Dr: Ivy Bah Ordering Physician: Ivy Bah Results: Date of Service: 05/19/24 Follow Up: Procedure(s): MM post biopsy LT Accession Number(s): [id number] cc: Ivy Bah; Robin Oswald M.D. Patient Name: ASHLEY ESPINOZA MR#: [id number] : 1960 Exam Date: 05/19/2024 Ordering Doctor: [...] is no longer present Dictated by: Vane Rivas MD on 05/19/2024 at 15:34 Approved by: Vane Rivas MD on 05/19/2024 at 15:35 Dictated By: Vane Rivas M.D. Signed By: 05/19/24 1537 DD/ TD/TT: Management Professionals:TBHRadiology, Radiologist, - 05/19/2024 [place] [address] Mammography Report Signed Patient: ASHLEY ESPINOZA MR#: [id number] : 1960 Acct:[id number] Age/Sex: 63 / F ADM Date: 05/19/24 Loc: US Attending Dr: Ivy Bah Ordering Physician: Ivy Bah Results: Date of Service: 05/19/24 Follow Up: Procedure(s): MM post biopsy LT Accession Number(s): [id number] cc: Ivy Bah; Robin Oswald M.D. Patient Name: ASHLEY ESPINOZA MR#: [id number] : 1960 Exam Date: 05/19/2024 Ordering Doctor: [...] is no longer present Dictated by: Vane Rivas MD on 05/19/2024 at 15:34 Approved by: Vane Rivas MD on 05/19/2024 at 15:35 Dictated By: Vane Rivas M.D. Signed By: 05/19/24 1537 DD/ 35 TD/TT: Management Professionals: MARE HealthcareRadiology Study observation (narrative)MARE HealthcareMM POST BIOPSY LTOrdered By: Radiologist Radiology on 02-28-8476YXOU Healthcare Work Phone: US GUIDED BREAST BIOPSY LTon 47-78-6792JfvHoliday, [place] [address] Ultrasound Report Signed Patient: ASHLEY ESPINOZA MR#: [id number] : 1960 Acct:[id number] Age/Sex: 63 / F ADM Date: 05/19/24 Loc: US Attending Dr: Ivy Bah Ordering Physician: Ivy Bah Date of Service: 05/19/24 Procedure(s): US breast vac bx w/ clip LT Accession Number(s): [id number] cc: Ivy Bah; Robin Oswald M.D. [place] [phone] Patient Name: ASHLEY ESPINOZA MRN: [id number] date: 1960 Sex: F Assigned Patient Location: Current Patient Location: Accession/Order Number: [id number] Exam Date: 05/19/2024 14:17 Report Date: 05/19/2024 15:32 At the request of: IVY BAH Procedure: US breast vac bx w/ clip [...] results are pending. Electronically authenticated by: VANE RIVAS Date: 05/19/2024 15:32 Dictated By: Vane Rivas M.D. Signed By: 05/19/24 1534 DD/ 31 TD/TT: Management Professionals:TBHRadiology, Radiologist, MD - 05/19/2024 [place] [address] Ultrasound Report Signed Patient: ASHLEY ESPINOZA MR#: [id number] : 1960 Acct:[id number] Age/Sex: 63 / F ADM Date: 05/19/24 Loc: US Attending Dr: Ivy Bah Ordering Physician: Ivy Bah Date of Service: 05/19/24 Procedure(s): US breast vac bx w/ clip LT Accession Number(s): [id number] cc: Ivy Bah; Robin Oswald M.D. [place] [id number] Patient Name: ASHLEY ESPINOZA MRN: [id number] date: 1960 Sex: F Assigned Patient Location: Current Patient Location: Accession/Order Number: [id number] Exam Date: 05/19/2024 14:17 Report Date: 05/19/2024 15:32 At the request of: IVY BAH Procedure: US breast vac bx w/ clip [...] results are pending. Electronically authenticated by: VANE RIVAS Date: 05/19/2024 15:32 Dictated By: Vane Rivas M.D. Signed By: 05/19/241533 DD/ 31 TD/TT: Management Professionals: [facility] HealthcareRadiology Study observation (narrative)NOMS HealthcareUS GUIDED BREAST BIOPSY LTOrdered By: Radiologist Radiology on 61-09-3943DTQA Healthcare Work Phone: IGP,APTIMA HPV,AGE GDLNon 39-42-0130WTC GDLN ACOG TESTINGNote.[facility] HealthcareComment on above:TESTS RESULT FLAG UNITS REF RANGE LAB Clinician Provided Cytology Information Source.............Vagina No. of containers..01 ThinPrep Vial Age Algo ACOG Kiah... 30-65 01 FLAG LEGEND: L-Low Normal,H-High Normal,LL-Alert Low,HH-Alert High <-Panic Low,>-Panic High,A-Abnormal,AA-Critical Abnormal Performed at: 01 =[address] [facility] [address] Johana Quinonez MD, HPV APTIMANegativeNegativeMOUNTAINSTAR HEALTHCARE HealthcareComment on above:This nucleic acid amplification test detects fourteen high- risk HPV types (16,18,31,33,35,39,45,51,52,56,58,59,66,68) without differentiation. Performed at: =[address] [id number] Hot Box Operator: Johana Quinonez MD, Phone: [phone] Performed at: [address] [id number] Hot Box Operator: Johana Quinonez MD, Phone: [phone] IGP, APTIMA HPV, RFX 16/18,45Note.[facility] Memorial Veterans' HospitalComment on above:TESTS RESULT FLAG UNITS REF RANGE LAB DIAGNOSIS: 02 NEGATIVE FOR INTRAEPITHELIAL LESION OR MALIGNANCY. Specimen adequacy: 02 Satisfactory for evaluation. Performed by: Claire Friedman, Atmospheric Sciences Professor (ASCP) . 02 Note: Note 02 The Pap smear is a screening test designed to aid in the detection of premalignant and malignant conditions of the uterine cervix. It is not a diagnostic procedure and should not be used as the sole means of detecting cervical cancer. Both false-positive and false-negative reports do occur. Test Methodology: Note 02 This liquid based ThinPrep(R) pap test was screened with the use of an image guided system. HPV Genotype Reflex Note 02 Criteria not met, HPV Genotype not performed. FLAG LEGEND: L-Low Normal,H-High Normal,LL-Alert Low,HH-Alert High <-Panic Low,>-Panic High,A-Abnormal,AA-Critical Abnormal Performed at: 02 [facility] [address] [place] [address] Johana Quinonez MD, [facility] DIAGNOSTIC MAMMO UNILAT LTon 27-28-2711YzrHoliday, [place] [address] Mammography Report Signed Patient: ASHLEY ESPINOZA MR#: [id number] : 1960 Acct:[id number] Age/Sex: 63 / F ADM Date: 05/08/24 Loc: MAMMO Attending Dr: Ivy Bah Ordering Physician: Ivy Bah Results: Date of Service: 05/08/24 Follow Up: Procedure(s): MM diagnostic mammo unilat LT Accession Number(s): [id number] cc: Ivy Bah; Robin Oswald M.D. Patient Name: ASHLEY ESPINOZA MR#: [id number] : 1960 Exam Date: 05/08/2024 Ordering Doctor: JOO Bah . RADIOLOGY REPORT PROCEDURE: MM DIAGNOSTIC MAMMO UNILAT LT, 05/08/2024, 14:03 US BREAST LT LIMITED, 05/08/2024, 14:15 COMPARISON: MM TOMOSYNTHESIS SCREENING BI, 04/28/2024. MM TOMOSYNTHESIS SCREENING BI, 04/23/2023. MG MAMM SCREEN 3D EDGARDO CAD, 04/10/2022. MG MAMM SCREEN 3D EDGARDO CAD, 03/01/2021. INDICATIONS: Abnormal Mammogram Calculator Name NCI Breast Cancer Risk Assessment Tool 5 Year Breast Cancer Risk 1.60% Lifetime Breast Cancer Risk 6.60% Personal Breast Cancer No Personal Ovarian Cancer No Treatments None Family Cancers Mother with lung cancer at age 88. LOCATION: [facility] BREAST COMPOSITION: The breasts are almost [...] M.D. Signed By: 05/08/241513 DD/ 12 TD/TT: Management Professionals:TBHRadiology, Radiologist, MD - 05/08/2024 [place] [address] Mammography Report Signed Patient: ASHLEY ESPINOZA MR#: [id number] : 1960 Acct:[id number] Age/Sex: 63 / F ADM Date: 05/08/24 Loc: MAMMO Attending Dr: Ivy Bah Ordering Physician: Ivy Bah Results: Date of Service: 05/08/24 Follow Up: Procedure(s): MM diagnostic mammo unilat LT Accession Number(s): [id number] cc: Ivy Bah; Robin Oswald M.D. Patient Name: ASHLEY ESPINOZA MR#: [id number] : 1960 Exam Date: 05/08/2024 Ordering Doctor: JOO Bah . RADIOLOGY REPORT PROCEDURE: MM DIAGNOSTIC MAMMO UNILAT LT, 05/08/2024, 14:03 US BREAST LT LIMITED, 05/08/2024, 14:15 COMPARISON: MM TOMOSYNTHESIS SCREENING BI, 04/28/2024. MM TOMOSYNTHESIS SCREENING BI, 04/23/2023. MG MAMM SCREEN 3D EDGARDO CAD, 04/10/2022. MG MAMM SCREEN 3D EDGARDO CAD, 03/01/2021. INDICATIONS: Abnormal Mammogram Calculator Name NCI Breast Cancer Risk Assessment Tool 5 Year Breast Cancer Risk 1.60% Lifetime Breast Cancer Risk 6.60% Personal Breast Cancer No Personal Ovarian Cancer No Treatments None Family Cancers Mother with lung cancer at age 88. LOCATION: [facility] BREAST COMPOSITION: The breasts are almost [...] Signed By: 05/08/24 1514 DD/ 1513 TD/TT: Management Professionals: MARE Flores InformationOrdered By: Radiologist Radiology on 25-14-2761KQRF [employer] Work Phone: No Panel Informationon 81-71-8250Wnkrmxrzd Study observation (narrative)MARE Mathew BREAST LT LIMITEDon 27-83-7643[place], [place] [address] Ultrasound Report Signed Patient: ASHLEY ESPIONZA MR#: [id number] : 1960 Acct:[id number] Age/Sex: 63 / F ADM Date: 05/08/24 Loc: MAMMO Attending Dr: Ivy Bah Ordering Physician: Ivy Bah Date of Service: 05/08/24 Procedure(s): US breast LT limited Accession Number(s): [id number] cc: Ivy Bah; Robin Oswald M.D. Patient Name: ASHLEY ESPINOZA MR#: [id number] : 1960 Exam Date: 05/08/2024 Ordering Doctor: JOO Bah . RADIOLOGY REPORT PROCEDURE: MM DIAGNOSTIC MAMMO UNILAT LT, 05/08/2024, 14:03 US BREAST LT LIMITED, 05/08/2024, 14:15 COMPARISON: MM TOMOSYNTHESIS SCREENING BI, 04/28/2024. MM TOMOSYNTHESIS SCREENING BI, 04/23/2023. MG MAMM SCREEN 3D EDGARDO CAD, 04/10/2022. MG MAMM SCREEN 3D EDGARDO CAD, 03/01/2021. INDICATIONS: Abnormal Mammogram Calculator Name NCI Breast Cancer Risk Assessment Tool 5 Year Breast Cancer Risk 1.60% Lifetime Breast Cancer Risk 6.60% Personal Breast Cancer No Personal Ovarian Cancer No Treatments None Family Cancers Mother with lung cancer at age 88. LOCATION: [facility] BREAST COMPOSITION: The breasts are almost [...] Monterroso M.D. Signed By: 05/08/24 1514 DD/ TD/TT: Management Professionals:TBHRadiology, Radiologist, - 05/08/2024 [place] [address] Ultrasound Report Signed Patient: ASHLEY ESPINOZA MR#: [id number] : 1960 Acct:[id number] Age/Sex: 63 / F ADM Date: 05/08/24 Loc: MAMMO Attending Dr: Ivy Bah Ordering Physician: Ivy Bah Date of Service: 05/08/24 Procedure(s): US breast LT limited Accession Number(s): [id number] cc: Ivy Bah; Robin Oswald M.D. Patient Name: ASHLEY ESPINOZA MR#: [id number] : 1960 Exam Date: 05/08/2024 Ordering Doctor: JOO Bah . RADIOLOGY REPORT PROCEDURE: MM DIAGNOSTIC MAMMO UNILAT LT, 05/08/2024, 14:03 US BREAST LT LIMITED, 05/08/2024, 14:15 COMPARISON: MM TOMOSYNTHESIS SCREENING BI, 04/28/2024. MM TOMOSYNTHESIS SCREENING BI, 04/23/2023. MG MAMM SCREEN 3D EDGARDO CAD, 04/10/2022. MG MAMM SCREEN 3D EDGARDO CAD, 03/01/2021. INDICATIONS: Abnormal Mammogram Calculator Name NCI Breast Cancer Risk Assessment Tool 5 Year Breast Cancer Risk 1.60% Lifetime Breast Cancer Risk 6.60% Personal Breast Cancer No Personal Ovarian Cancer No Treatments None Family Cancers Mother with lung cancer at age 88. LOCATION: [facility] BREAST COMPOSITION: The breasts are almost [...] Dictated By: Damian Monterroso M.D. Signed By: 05/08/244 DD/ 12 TD/TT: Management Professionals: MARE Arias TOMOSYNTHESIS SCREENING BIon [id number], [place] [address] Mammography Report Signed Patient: ASHLEY ESPINOZA MR#: [id number] : 1960 Acct:[id number] Age/Sex: 63 / F ADM Date: 04/28/24 Loc: MAMMO Attending Dr: Ivy Bah Ordering Physician: Ivy Bah Results: Date of Service: 04/28/24 Follow Up: Procedure(s): MM tomosynthesis screening BI Accession Number(s): [id number] cc: Ivy Bah; Robin Oswald M.D. Patient Name: ASHLEY ESPINOZA MR#: [id number] : 1960 Exam Date: 04/28/2024 Ordering Doctor: JOO Bah . RADIOLOGY REPORT PROCEDURE: MM TOMOSYNTHESIS SCREENING BI COMPARISON: MM TOMOSYNTHESIS SCREENING BI, 04/23/2023. MG MAMM SCREEN 3D EDGARDO CAD, 04/10/2022. MG MAMM SCREEN 3D EDGARDO CAD, 03/01/2021. MG MAMM EDGARDO SCRN W CAD DIG, 10/14/2013. INDICATIONS: Screening Calculator Name NCI Breast Cancer Risk Assessment Tool 5 Year Breast Cancer Risk 1.60% Lifetime Breast Cancer Risk 6.60% Personal Breast Cancer No Personal Ovarian Cancer No Treatments None Family Cancers Mother with lung cancer at age 88. LOCATION: [facility] BREAST COMPOSITION: The breasts are almost [...] By: Damian Monterroso M.D. Signed By: 04/28/24 153 DD/ 153 TD/TT: Management Professionals:TBHRadiology, Radiologist, MD - 04/28/2024 [place] [address] Mammography Report Signed Patient: ASHLEY ESPINOZA MR#: [id number] : 1960 Acct:[id number] Age/Sex: 63 / F ADM Date: 04/28/24 Loc: MAMMO Attending Dr: Ivy Bah Ordering Physician: Ivy Bah Results: Date of Service: 04/28/24 Follow Up: Procedure(s): MM tomosynthesis screening BI Accession Number(s): [id number] cc: Ivy Bah; Robin Oswald M.D. Patient Name: ASHLEY ESPINOZA MR#: [id number] : 1960 Exam Date: 04/28/2024 Ordering Doctor: JOO Bah . RADIOLOGY REPORT PROCEDURE: MM TOMOSYNTHESIS SCREENING BI COMPARISON: MM TOMOSYNTHESIS SCREENING BI, 04/23/2023. MG MAMM SCREEN 3D EDGARDO CAD, 04/10/2022. MG MAMM SCREEN 3D EDGARDO CAD, 03/01/2021. MG MAMM EDGARDO SCRN W CAD DIG, 10/14/2013. INDICATIONS: Screening Calculator Name NCI Breast Cancer Risk Assessment Tool 5 Year Breast Cancer Risk 1.60% Lifetime Breast Cancer Risk 6.60% Personal Breast Cancer No Personal Ovarian Cancer No Treatments None Family Cancers Mother with lung cancer at age 88. LOCATION: [facility] BREAST COMPOSITION: The breasts are almost [...] Monterroso M.D. Signed By: 04/28/24 1532 DD/ 1531 TD/TT: Management Professionals: [facility] HospitalRad[facility] Study observation (narrative)[facility] TOMOSYNTHESIS SCREENING BIOrdered By: Radiologist Radiology on 19-89-9601ZXBMHarry S. [facility]' [facility] Work Phone: URETHRITIS/DISCHARGE PLUS VAGINITIS (HTRX)on 96-57-8834GYIPCKQBQ VAGINAE0.000NOMS HealthcareATOPOBIUM VAGINAENot detectedNOMS HealthcareBVAB 2,3 (BACTERIAL VAGINOSIS ASSOCIATED BACTERIA 2, 3); MOBILUNCUS SPP0.000NOMS HealthcareBVAB 2,3 (BACTERIAL VAGINOSIS ASSOCIATED BACTERIA 2, 3); MOBILUNCUS SPPNot detectedNOMS HealthcareCANDIDA ALBICANS, PARAPSILOSIS, TROPICALIS0.000NOMS HealthcareCANDIDA ALBICANS, PARAPSILOSIS, TROPICALISNot detectedNOMS HealthcareCANDIDA GLABRATA0.000NOMS HealthcareCANDIDA GLABRATANot detectedNOMS HealthcareCANDIDA KRUSEI0.000NOMS HealthcareCANDIDA KRUSEINot detectedNOMS HealthcareCHLAMYDIA TRACHOMATIS0.000NOMS HealthcareCHLAMYDIA TRACHOMATISNot detectedNOMS HealthcareGARDNERELLA VAGINALIS0.000[facility] GARDNERELLA VAGINALISNot detectedNOMS HealthcareMEGASPHAERA (TYPES 1, 2)0.000 NOMS HealthcareMEGASPHAERA (TYPES 1, 2)Not detectedNOMS HealthcareMYCOPLASMA GENITALIUM0.000NOMS HealthcareMYCOPLASMA GENITALIUMNot detectedNOMS Healthcare NEISSERIA GONORRHOEAE0.000NOMS HealthcareNEISSERIA GONORRHOEAENot detectedNOMS HealthcareTRICHOMONAS VAGINALIS0.000NOMS HealthcareTRICHOMONAS VAGINALISNot detectedNOMS HealthcareNOMS HealthcareCytology Cervical or vaginal smear or scraping studyon 57-40-3935WJPT HealthcareCULTURE URINEon 58-03-5515LRDCAUM URINECulture Observations: NO GROWTH.NormalCherrington HospitalComment on above:Performed By: #### URCX #### [facility] [address] [address] [address] Nellie Schuler RANDOM W/MICROSCOPICon 26-91-5101DGEKKUJGRFPL SEENNormalNONE SEENCherrington HospitalComment on above:Performed By: #### A1C #### [facility] [address] [address] [address] Nellie Solano Ql (U)NegativeNormalNEGATIVECherrington Hospital Comment on above:Performed By: #### A1C #### [facility] [address] [address] [address] Nellie Galvez SEENNormalNONE SEENCherrington HospitalComment on above:Performed By: #### A1C #### [facility] [address] [address] [address] Nellie Garcia (U)CLEARNormalCLEARCherrington HospitalComment on above: Performed By: #### A1C #### [facility] [address] [address] [address] Nellie Linda (U)DK. YELLOWNormalYELLOWCherrington HospitalComment on above:Performed By: #### A1C #### [facility] [address] [address] [address] Nellie Jo LM Nom (Urine sed)NONE SEENNormalNONE SEENCherrington HospitalComment on above:Performed By: #### A1C #### [facility] [address] [address] [address] Yilan ChangEpithelial cells LM Ql (Urine sed)RARENormalNONE SEEN /RAREThe [facility] HospitalComment on above:Performed By: #### A1C #### [facility] [address] [place] [address] Dr. Nellie MullerGlucose Ql (U)NegativeNormalNEGATIVECherrington HospitalComment on above:Performed By: #### A1C #### [facility] [address] [place] [address] Dr. Nellie MullerHemoglobin Ql (U)NegativeNormalNEGATIVEAcmc Healthcare System Glenbeigh on above:Performed By: #### A1C #### [facility] [address] [place] [address] Dr. Nellie MullerKetones Ql (U)NegativeNormalNEGATIVECherrington HospitalComment on above:Performed By: #### A1C #### [facility] [address] [place] [address] Dr. Nellie MullerLEUKOCYTESNegativeNormalNEGATIVECherrington HospitalComment on above:Performed By: #### A1C #### [facility] [address] [place] [address] Dr. Nellie MullerMUCOUSNONE SEENNormalNONE SEENCherrington HospitalComment on above:Performed By: #### A1C #### [facility] [address] [place] [address] Dr. Nellie MullerNitrite Ql (U)NegativeNormalNEGATIVECherrington HospitalComment on above:Performed By: #### A1C #### [facility] [address] [place] [address] Dr. Nellie MullerpH (U)6.0 [pH]Normal5-9[facility] on above: Performed By: #### A1C #### [facility] [address] [place] [address] Dr. Nellie MullerWathiUXZ0-9Jrbzzx2-6Txu [facility] HospitalComment on above:Performed By: #### A1C #### [facility] [address] [place] [address] Dr. Yilan ChangSPEC GRAVITY1.836Iznaiw4.005-<=1.025The [facility] HospitalComment on above:Performed By: #### A1C #### [facility] [address] [address] [address] Nellie Schuler PROTEINNegativeNormalNEGATIVE/ TRACEThe [facility] Comment on above:Performed By: #### A1C #### [facility] [address] [address] [address] Nellie MullerUrobilinogen Qn (U)0.2 {Dylan'U}/dLNormal0.2 - 1.0The [facility] HospitalComment on above:Performed By: #### A1C #### [facility] [address] [place] [address] Dr. Nellie MullerWBCNONE SEENNormalNONE SEENThe [facility] HospitalComment on above: Performed By: #### A1C #### [facility] [address] [place] [address] Dr. Nellie MullerMG MAMM SCREEN 3D EDGARDO CADon 17-86-4673GP MAMM SCREEN 3D EDGARDO CAD Patient: ASHLEY ESPINOZA Exam Date: 04/10/2022 : 1960 Gender:F Ordering : DR HANDY JACOME . Admission #: [id number] Family : Order #: [id number] CLICK HERE TO VIEW EXAM RADIOLOGY REPORT PROCEDURE: MAMMOGRAM SCREENING 3D BILATERAL CAD COMPARISON: MG MAMM SCREEN EDGARDO W CAD, 02/29/2020. MG MAMM SCREEN 3D EDGARDO CAD, 03/01/2021. INDICATIONS: Screening mammography Calculator Name NCI Breast Cancer Risk Assessment Tool 5 Year Breast Cancer Risk 1.50% Lifetime Breast Cancer Risk 7.00% Personal Breast Cancer No Personal Ovarian Cancer No Treatments None Family Cancers Mother with lung cancer at age 88. LOCATION: [facility] BREAST COMPOSITION: Almost entirely fatty. FINDINGS: DIAGNOSTIC [...] LUMP SHOULD BE BIOPSIED. Dictated by: Vane Rvias MD on 04/11/2022 at 07:19 Approved by: Vane Rivas MD on 04/11/2022 at 07:21[facility] HospitalOG PANEL 2: 30 to 65on 04-06-2022..NormalThe [facility] HospitalComcorewell health [facility] on above:Result Comment: Performed at: WBPerformed By: #### A1C #### [facility] [address] [place] [address] Dr. Nellie MullerAge Gdln ACOG Zwpvtni62-17RrgejyZedCommunity Regional Medical CenterComcorewell health [facility] on above:Performed By: #### A1C #### [facility] [address] [place] [address] Dr. Nellie MullerDIAGNOSIS:CommentKettering Health Springfield on above: Result Comment: NEGATIVE FOR INTRAEPITHELIAL LESION OR MALIGNANCY. CELLULAR CHANGES ASSOCIATED WITH ATROPHY ARE PRESENT. Performed at: WBPerformed By: #### A1C #### [facility] [address] [place] [address] Dr. Nellie Verdugo AptimaNegativeNormalNegativeCherrington HospitalComcorewell health [facility] on above:Result Comment: This nucleic acid amplification test detects fourteen high-risk HPV types (16,18,31,33,35,39,45,51,52,56,58,59,66,68) without differentiation. Performed at: =GPerformed By: #### A1C #### [facility] [address] [place] [address] Dr. Nellie Verdugo Genotype ReflexCommentFisher-Titus Medical CenterComcorewell health [facility] on above:Result Comment: Criteria not met, HPV Genotype not performed. Performed at: WBPerformed By: #### A1C #### [facility] [address] [place] [address] Dr. Nellie MullerMethodology:CommentKettering Health Springfield on above: Result Comment: This liquid based ThinPrep(R) pap test was screened with the use of an image guided system. Performed at: WBPerformed By: #### A1C #### [facility] [address] [place] [address] Dr. Nellie MullerNote:CommentKettering Health Springfield on above:Result Comment: The Pap smear is a screening test designed to aid in the detection of premalignant and malignant conditions of the uterine cervix. It is not a diagnostic procedure and should not be used as the sole means of detecting cervical cancer. Both false-positive and false-negative reports do occur. . Performed at: WBPerformed By: #### A1C #### [facility] [address] [place] [address] Dr. Nellie MullerPerformed by:CommentKettering Health Springfield on above: Result Comment: Carla Costa, Atmospheric Sciences Professor Performed at: WBPerformed By: #### A1C #### [facility] [address] [place] [address] Dr. Nellie Ramosimeselwyn adequacy:CommentKettering Health Springfield on above:Result Comment: Satisfactory for evaluation. Endocervical component may not be distinguished in cases of atrophy. Performed at: WBPerformed By: #### A1C #### [facility] [address] [place] [address] Dr. Nellie StoreyLTSELENA URINEon 73-14-7543RGVCFVJ URINECulture Observations: NO GROWTH.NormalThe [facility] HospitalComment on above:Performed By: #### A1C #### [facility] [address] [place] [address] Dr. Nellie MullerUA RANDOM W/MICROSCOPICon 02-25-1319OLSRCLNVVYLMIRlthpaqkFXEX SEENCherrington HospitalComment on above:Performed By: #### A1C #### [facility] [address] [place] [address] Dr. Nellie MullerBilirubin Ql (U)NegativeNormalNEGATIVEThe [facility] Comment on above:Performed By: #### A1C #### [facility] [address] [place] [address] Dr. Nellie MullerCASTTAE SEENNormalNONE SEENCherrington HospitalComment on above:Performed By: #### A1C #### [facility] [address] [address] [address] Nellie MullerClarity (U)CLEARNormalCLEARCherrington HospitalComment on above: Performed By: #### A1C #### [facility] [address] [address] [address] Nellie Perkinslor (U)YELLOWNormalYELLOWCherrington HospitalComment on above: Performed By: #### A1C #### [facility] [address] [address] [address] Nellie MullerCrystals LM Nom (Urine sed)NONE SEENNormalNONE SEENCherrington HospitalComment on above:Performed By: #### A1C #### [facility] [address] [place] [address] Dr. Ballard ChangEpithelial cells LM Ql (Urine sed)RARENormalNONE SEEN /RARECherrington HospitalComment on above:Performed By: #### A1C #### [facility] [address] [place] [address] Dr. Nellie MullerGlucose Ql (U)NegativeNormalNEGATIVECherrington HospitalComment on above:Performed By: #### A1C #### [facility] [address] [place] [address] Dr. Nellie MullerHemoglobin Ql (U)NegativeNormalNEGATIVEAcmc Healthcare System Glenbeigh on above:Performed By: #### A1C #### [facility] [address] [place] [address] Dr. Nellie MullerKetones Ql (U)NegativeNormalNEGATIVECherrington HospitalComment on above:Performed By: #### A1C #### [facility] [address] [address] [address] Nellie MullerLEUKOCYTESNegativeNormalNEGATIVECherrington HospitalComcorewell health [facility] on above:Performed By: #### A1C #### [facility] [address] [place] [address] Dr. Nellie MullerMUCOUSNONE SEENNormalNONE SEENCherrington HospitalComment on above:Performed By: #### A1C #### [facility] [address] [place] [address] Dr. Nellie Hargrove Ql (U)NegativeNormalNEGATIVEThe [facility] HospitalComment on above:Performed By: #### A1C #### [facility] [address] [place] [address] Dr. Nellie MullerpH (U)5.0 [pH]Normal5-9The [facility] HospitalComment on above: Performed By: #### A1C #### [facility] [address] [place] [address] Dr. Nellie MullerXpajvLJA5-9Lzoecc0-5Erm [facility] HospitalComment on above:Performed By: #### A1C #### [facility] [address] [place] [address] Dr. Nellie MullerSPEC GRAVITY>=1.755Fskiyrzp3.005-<=1.025The [facility] Comment on above:Performed By: #### A1C #### [facility] [address] [place] [address] Dr. Nellie Schuler PROTEINNegativeNormalNEGATIVE/ TRACEThe [facility] Comment on above:Performed By: #### A1C #### [facility] [address] [place] [address] Dr. Nellie Johnson Qn (U)0.2 {Dylan'U}/dLNormal0.2 - 1.0The [facility] HospitalComment on above:Performed By: #### A1C #### [facility] [address] [place] [address] Dr. Nellie MullerWBC0-2AbnormalNONE SEENThe [facility] HospitalComment on above: Performed By: #### A1C #### [facility] [address] [place] [address] Dr. Nellie MullerINSULINon 12-61-0610Ykqrpla04.3 uIU/mLNormal2.6-24.9The [facility] HospitalComment on above:Performed By: #### A1C #### [facility] [address] [place] [address] Dr. Nellie Corado AUTO DIFFon 10-17-7276TEOD #0.1 103/ulNormal0.0-0.1The [facility] HospitalComment on above:Performed By: #### CBC #### [facility] [address] [place] [address] Dr. Nellie MullerBasophils/100 WBC (Bld)1.8 %Normal0.2-2.0The [facility] Comment on above:Performed By: #### CBC #### [facility] [address] [place] [address] Dr. Nellie Patel #0.2 103/ulNormal0.0-0.7The [facility] HospitalComment on above: Performed By: #### CBC #### [facility] [address] [place] [address] Dr. Nellie Roseosinophils/100 WBC (Bld)4.0 %Normal0.9-7.0[facility] Comment on above:Performed By: #### CBC #### [facility] [address] [place] [address] Dr. Nellie Roserythrocyte distribution width (RBC) [Ratio]13.1 %Gfzqyz54.0-15.0 The [facility] HospitalComment on above:Performed By: #### CBC #### [facility] [address] [place] [address] Dr. Nellie MullerHematocrit (Bld) [Volume fraction]46.5 %Gshzrm70.0-48.0The [facility] HospitalComment on above:Performed By: #### CBC #### [facility] [address] [place] [address] Dr. Nellie MullerHemoglobin (Bld) [Mass/Vol]15.3 g/jXSbqnvj60.0-16.0The [facility] HospitalComment on above:Performed By: #### CBC #### [facility] [address] [place] [address] Dr. Nellie Kothari #0.02 10e3/ulNormal0.00-0.03The [facility] HospitalComment on above:Performed By: #### CBC #### [facility] [address] [place] [address] Dr. Nellie Kothari %0.4 %Normal0.0-0.5The [facility] on above: Performed By: #### CBC #### [facility] [address] [place] [address] Dr. Nellie Spann #1.3 103/ulNormal1.2-3.8The [facility] HospitalComcorewell [facility] on above:Performed By: #### CBC #### [facility] [address] [place] [address] Dr. Nellie Hectorhocytes/100 WBC (Bld)28.4 %Lgqkrd08.5-60.0[facility] on above:Performed By: #### CBC #### [facility] [address] [place] [address] Dr. Nellie DuarnUAL DIFF REQNONormalThe [facility] HospitalComment on above: Performed By: #### CBC #### [facility] [address] [place] [address] Dr. Nellie Bragg (RBC) [Entitic mass]30.4 dsHzknsr33.7-34.0[facility] on above:Performed By: #### CBC #### [facility] [address] [place] [address] Dr. Nellie Bragg (RBC) [Mass/Vol]32.9 g/cUJgvulg05.9-35.2[facility] on above:Performed By: #### CBC #### [facility] [address] [place] [address] Dr. Nellie Bragg (RBC) [Entitic vol]92.4 uJBtmpeu61.0-99.0[facility] on above:Performed By: #### CBC #### [facility] [address] [place] [address] Dr. Nellie Cardenas #0.4 103/ulNormal0.3-0.8[facility] on above:Performed By: #### CBC #### [facility] [address] [address] [address] Nellie Vidalocytes/100 WBC (Bld)9.2 %Normal1.7-12.0[facility] Comment on above:Performed By: #### CBC #### [facility] [address] [place] [address] Dr. Nellie SpicerUT #2.6 103/ulNormal1.4-6.5The [facility] HospitalComment on above:Performed By: #### CBC #### [facility] [address] [place] [address] Dr. Nellie Spicerutrophils/100 WBC (Bld)56.2 %Kpkjur35.0-75.0The [facility] HospitalComment on above:Performed By: #### CBC #### [facility] [address] [place] [address] Dr. Nellie Lovelllet mean volume (Bld) [Entitic vol]8.9 fLCritically low 9.5-13.5The [facility] HospitalComment on above:Performed By: #### CBC #### [facility] [address] [place] [address] Dr. Nellie MullerPLT197 103/myIrbpwz893-925Biq [facility] HospitalComment on above: Performed By: #### CBC #### [facility] [address] [place] [address] Dr. Nellie MullerRBC5.03 106/ulNormal4.20-5.40The [facility] HospitalComment on above:Performed By: #### CBC #### [facility] [address] [place] [address] Dr. Nellie MullerWBC4.6 103/ulNormal4.0-11.0The [facility] HospitalComment on above: Performed By: #### CBC #### [facility] [address] [place] [address] Dr. Nellie MullerFRTRACY T3on 05-80-2645DPCG T32.70 pg/mlLNormal2.18-3.98The Go HospitalComment on above:Performed By: #### CMP, T4, LIPID, FT3, TSH #### [facility] [address] [address] [address] Nellie MullerGLYCOHEMOGLOBIN A1Con 14-11-7247MTT RECOMMENDATIONSEE BELOWMercy Health St. Vincent Medical CenterComcorewell [facility] on above:Result Comment: ADA RECOMMENDED LIMIT 4.0 - 6.0 ADA THERAPEUTIC TARGET < 7.0 ACTION SUGGESTED > 7.0Performed By: #### A1C #### [facility] [address] [place] [address] Dr. Nellie MullerGlucose [Mass/Vol]114 mg/dLKettering Health Springfield on above:Performed By: #### A1C #### [facility] [address] [place] [address] Dr. Nellie MullerHbA1c (Bld) [Mass fraction]5.6 %Normal4.5-6.2[facility] on above:Performed By: #### A1C #### [facility] [address] [place] [address] Dr. Nellie MullerLIPID PROFILEon [id number]-HDL RATIO NORMSEE [facility] HospitalComcorewell [facility] on above:Result Comment: 3.3 - 4.4 LOW RISK 4.4 - 7.1 AVERAGE RISK 7.1 - 11.0 MODERATE RISK >11.0 HIGH RISKPerformed By: #### CMP, T4, LIPID, FT3, TSH #### [facility] [address] [place] [address] Dr. Nellie MullerCholesterol [Mass/Vol]280 mg/dLCritically high<=200The [facility] on above:Performed By: #### CMP, T4, LIPID, FT3, TSH #### [facility] [address] [place] [address] Dr. Nellie MullerCholesterol in HDL [Mass/Vol]69 mg/dLCritically jzfd61-39Nkh [facility] on above:Performed By: #### CMP, T4, LIPID, FT3, TSH #### [facility] [address] [place] [address] Dr. Nellie Laraesterol in LDL [Mass/Vol]186.2 mg/dLFisher-Titus Medical CenterComment on above:Performed By: #### CMP, T4, LIPID, FT3, TSH #### [facility] [address] [address] [address] Nellie Gilmore.total/Cholesterol in HDL [Mass ratio]4.1 {ratio} NormalThe [facility] HospitalComment on above:Performed By: #### CMP, T4, LIPID, FT3, TSH #### [facility] [address] [address] [address] Nellie Iniguez NORMAL> or = 60 mg/dl - LOW CARDIOVASCULAR RISK <40 mg/dl - HIGH CARDIOVASCULAR RISKNoCommunity Regional Medical CenterComment on above:Performed By: #### CMP, T4, LIPID, FT3, TSH #### [facility] [address] [address] [address] Nellie MullerLDL CALC NORMALSEE BELOWFisher-Titus Medical CenterComment on above:Result Comment: <100 mg/dl OPTIMAL 100 - 129 mg/dl NEAR OR ABOVE OPTIMAL 130 - 159 mg/dl BORDERLINE HIGH 160 - 189 mg/dl HIGH >190 mg/dl VERY HIGH Performed By: #### CMP, T4, LIPID, FT3, TSH #### [facility] [address] [address] [address] Nellie MullerTriglyceride [Mass/Vol]124 mg/dLNormal<=150[facility] Comment on above:Performed By: #### CMP, T4, LIPID, FT3, TSH #### [facility] [address] [address] [address] Nellie MullerVLDL CALC24.8 mg/dLNoCommunity Regional Medical CenterComment on above: Performed By: #### CMP, T4, LIPID, FT3, TSH #### [facility] [address] [address] [address] Nellie MullerPROF 14(COMP METB)on 54-67-4580Jtolunu [Mass/Vol]4.0 g/dLNormal 3.4-5.0The [facility] Hospitalment on above:Performed By: #### CMP, T4, LIPID, FT3, TSH #### [facility] [address] [place] [address] Dr. Nellie MullerAlbumin/Globulin [Mass ratio]1.4 {ratio}NormalThe [facility] Hospitalment on above:Performed By: #### CMP, T4, LIPID, FT3, TSH #### [facility] [address] [place] [address] Dr. Nellie Jacome [Catalytic activity/Vol]77 U/IGjyeoa90-541Gjw [facility] HospitalComcorewell [facility] on above:Performed By: #### CMP, T4, LIPID, FT3, TSH #### [facility] [address] [place] [address] Dr. Nellie Patel [Catalytic activity/Vol]26 U/DXbhsog87-78Krw [facility] HospitalComment on above:Performed By: #### CMP, T4, LIPID, FT3, TSH #### [facility] [address] [place] [address] Dr. Nellie Aguilera gap [Moles/Vol]9.1 mmol/LNormalThe [facility] Hospitalment on above:Performed By: #### CMP, T4, LIPID, FT3, TSH #### [facility] [address] [place] [address] Dr. Nellie Jolly [Catalytic activity/Vol]35 U/XWqedwt42-34Hnj [facility] on above:Performed By: #### CMP, T4, LIPID, FT3, TSH #### [facility] [address] [place] [address] Dr. Nellie MullerBilirubin [Mass/Vol]0.7 mg/dLNormal0.2-1.0The [facility] Comment on above:Performed By: #### CMP, T4, LIPID, FT3, TSH #### [facility] [address] [place] [address] Dr. Nellie MullerCalcium [Mass/Vol]8.8 mg/dLNormal8.5-10.1[facility] Comment on above:Performed By: #### CMP, T4, LIPID, FT3, TSH #### [facility] [address] [place] [address] Dr. Nellie MullerChloride [Moles/Vol]105 mmol/OAluizt05-569SxzCherrington Hospital Comment on above:Performed By: #### CMP, T4, LIPID, FT3, TSH #### [facility] [address] [address] [address] Nellie MullerCO2 [Moles/Vol]31.2 mmol/KEdmcxu93.0-32.0[facility] Comment on above:Performed By: #### CMP, T4, LIPID, FT3, TSH #### [facility] [address] [place] [address] Dr. Nellie MullerCreatinine [Mass/Vol]0.94 mg/dLNormal0.55-1.02[facility] HospitalComment on above:Performed By: #### CMP, T4, LIPID, FT3, TSH #### [facility] [address] [place] [address] Dr. Nellie RoseGFR-AF CUBAN>60Normal>=60C[facility]rington HospitalComment on above:Performed By: #### CMP, T4, LIPID, FT3, TSH #### [facility] [address] [place] [address] Dr. Nellie Aranda-NON AF QHMGDIUY51 mL/min/1.45m5Wdnmkd>=60C[facility] HospitalComment on above:Performed By: #### CMP, T4, LIPID, FT3, TSH #### [facility] [address] [place] [address] Dr. Nellie MullerGlobulin (S) [Mass/Vol]2.9 g/dLNormalThe [facility] HospitalComment on above:Performed By: #### CMP, T4, LIPID, FT3, TSH #### [facility] [address] [place] [address] Dr. Nellie MullerGlucose [Mass/Vol]101 mg/bEHphpxw53-688KouCherrington Hospital Comment on above:Performed By: #### CMP, T4, LIPID, FT3, TSH #### [facility] [address] [place] [address] Dr. Nellie MullerPotassium [Moles/Vol]4.3 mmol/LNormal3.5-5.1The [facility] Comment on above:Performed By: #### CMP, T4, LIPID, FT3, TSH #### [facility] [address] [place] [address] Dr. Nellie MullerProtein [Mass/Vol]6.9 g/dLNormal6.4-8.2The [facility] Comment on above:Performed By: #### CMP, T4, LIPID, FT3, TSH #### [facility] [address] [place] [address] Dr. Nellie MullerSodium [Moles/Vol]141 mmol/FGexylc939-183Kyb [facility] Comment on above:Performed By: #### CMP, T4, LIPID, FT3, TSH #### [facility] [address] [place] [address] Dr. Nellie MullerUrea nitrogen [Mass/Vol]12.0 mg/dLNormal7.0-18.0[facility]rington HospitalComment on above:Performed By: #### CMP, T4, LIPID, FT3, TSH #### [facility] [address] [place] [address] Dr. Nellie Mora nitrogen/Creatinine [Mass ratio]12.8 mg/mgNormalThe [facility] HospitalComment on above:Performed By: #### CMP, T4, LIPID, FT3, TSH #### [facility] [address] [place] [address] Dr. Nellie Brush4on 20-41-4600F2 [Mass/Vol]10.00 ug/dLNormal4.80-13.90The [facility] on above:Performed By: #### CMP, T4, LIPID, FT3, TSH #### [facility] [address] [place] [address] Dr. Nellie Hardy 18-52-8689LWI7.842 uIU/mLNormal0.358-3.740[facility] on above:Performed By: #### CMP, T4, LIPID, FT3, TSH #### [facility] [address] [place] [address] Dr. Nellie MullerVITAMIN D 25 OHon 63-06-2121RWK D 25-OH110.9 ng/mLNormalAdena Health System on above:Performed By: #### VITAD #### [facility] [address] [place] [address] Dr. Nellie Traore D RANGESSEE [facility] on above: Result Comment: <20 ng/mL Vit D deficient 20 - <30 ng/mL Vit D insufficient 30 - 100 ng/mL Vit D sufficient >100 ng/mL Potential ToxicityPerformed By: #### VITAD #### [facility] [address] [place] [address] Dr. Nellie MullerCovid-19 PCR (CVDTBH)on 08-55-6846ZYJJ-CoV-2 (COVID-19) RNA CHRISTY+probe Ql (Unsp spec)DetectedCritically abnormalNOT DETECTEDAdena Health System on above:Result Comment: This test is not yet approved or cleared by the [place] FDA. When there are no FDA-approved or cleared tests available, and other criteria are met, FDA can make tests available under an emergency access mechanism called an Emergency Use Authorization (EUA). The EUA for this test is supported by the [place] of Health and Human Service's (HHS's) declaration [...] no longer be used). Performed By: #### A1C #### [facility] [address] [place] [address] Dr. Nellie MullerINFLLUZ ELENANZA A AND B AGon 06-19-7301KBQYLEFLZSYIJ [facility] on above:Result Comment: Negative for Flu A protein angiten. Infection due to Flu A cannot be ruled out. FluA angiten in the sample may be below the detection limit of the test.Performed By: #### INFLUAB #### [facility] [address] [place] [address] Dr. Nellie WagnerUBNEGHSEE Marion HospitalComment on above: Result Comment: Negative for Flu B protein antigen. Infection due to Flu B cannot be ruled out. FluB antigen in the sample may be below the detection limit of the test.Performed By: #### INFLUAB #### [facility] [address] [place] [address] Dr. Nellie Betancourt AGNegativeNormalNEGATIVE SEE COMMENTThe [facility] on above:Performed By: #### INFLUAB #### [facility] [address] [place] [address] Dr. Nellie Richardson AGNegativeNormalNEGATIVE SEE COMMENTThe [facility] HospitalComcorewell health [facility] on above:Performed By: #### INFLUAB #### [facility] [address] [place] [address] Dr. Nellie MullerINTERNAL CONTROLSWithin Normal LimitsNormalWithin Normal Limits The [facility] HospitalComcorewell [facility] on above:Performed By: #### INFLUAB #### [facility] [address] [place] [address] Dr. Nellie Muller Vital Signs Date TimeVital SignValuePerforming OpeemdknrPjpmkvdh30-97-3154 09:58-0400Body .3 cmSelect Medical Trihealth Rehabilitation Hospitalt Elva [employer] Work Phone: [facility] HospitalAtngaouecp63-93-0179 09:58-0400Body mass index (BMI) [Ratio]33.33 kg/i3Uykdn Elva [employer] Work Phone: [phone] S. Truman Memorial Veterans' HospitalLuiebmokss21-77-4753 09:58-0400Body .41 kgGrant Elva [employer] Work Phone: [phone] S. Truman Memorial Veterans' HospitalNwbjfnxqmz95-17-4261 13:20-0400Body duimmj899.3 cmHalle Dhaliwal [employer] Work Phone: [phone] [place], [place] [address]Rmunkuvbve62-93-3030 13:20-0400Body mass index (BMI) [Ratio]32.36 kg/m8Zpyhp Elva [employer] Work Phone: [facility]' HospitalNqrzbtkwxl58-43-2023 13:20-0400Body nwihyw056.23 kgGrant Elva [employer] Work Phone: [facility] HospitalJwqxodqsgb01-90-9422 09:08-0400Body .3 cmQuinn Quick MD Work Phone: [facility]' HospitalCzhjjeckiz01-47-4891 09:08-0400Body mass index (BMI) [Ratio]32.5 kg/p9QbqgwyQuinn Quick MD Work Phone: [facility]' HospitalLfejjddxpn74-40-6746 09:08-0400Body .69 kgHiluli Quick MD Work Phone: [facility] HospitalKzuaqqjaoo89-65-8065 09:08-0400Diastolic blood mm[Hg]Quinn Quick MD Work Phone: [facility]' HospitalKxavnebuvw88-48-0283 09:08-0400Systolic blood ulvenwlv099 mm[Hg]Quinn Quick MD Work Phone: [facility] HospitalGveuwccaye88-66-3453 14:59-0400Body mass index (BMI) [Ratio]32.6 kg/m2Ivy GE Work Phone: [facility]' HospitalLdlkxumzea97-67-3770 14:59-0400Body zahxkm025.03 kgIvy GE Work Phone: [facility] HospitalObqaunrhsu97-93-6862 14:59-0400Diastolic blood kqwqvcba53 mm[Hg]Ivy GE Work Phone: [facility] HospitalOwfhrmpmkq94-95-9259 14:59-0400Systolic blood wuwucszf224 mm[Hg]Ivy GE Work Phone: [facility] HospitalJphjgvhgod25-72-8803 15:11-0400Body detzgs960.34 [facility] 15:11-0400Body mass index (BMI) [Ratio]33.6 kg/j1TdjxofxzmFlower Hospital05-01-2025 15:11-0400Body .31 kgF[facility]05-01-2025 15:11-0400Diastolic blood fkytmsej68 mm[Hg][facility]05-01-2025 15:11-0400 Heart rate97 /[facility]05-01-2025 15:11-2576FjW3% (BldA) [Mass fraction]97 %[facility]05-01-2025 15:11-0400 Systolic blood vyqthwjv021 mm[Hg][facility]04-24-2025 15:01-0400Body qekuao637.34 cmF[facility]04-24-2025 15:01-0400Body mass index (BMI) [Ratio]33.6 kg/e9SkbxvvmgvFlower Hospital04-24-2025 15:01-0400Body oggzur077.31 kgF[facility] 09-24-2024 15:01-0400Diastolic blood yanylhmq239 mm[Hg][facility]04-24-2025 15:01-0400Heart rate62 /[facility]04-24-2025 15:01-9162UuT4% (BldA) [Mass fraction]97 %[facility]04-24-2025 15:01-0400Systolic blood yughsupc223 mm[Hg][facility]04-17-2025 14:54-0400Diastolic blood paydehlp32 mm[Hg] [facility]04-17-2025 14:54-0400Heart rate96 /[facility]04-17-2025 14:54-9163UmE2% (BldA) [Mass fraction]96 % [facility]04-17-2025 14:54-0400Systolic blood mm[Hg][facility]03-10-2025 12:20-0400Body .48 kg Ivy Bah PA-C Work Phone: [facility]03-10-2025 12:20-0400 Diastolic blood mbsalmbb60 mm[Hg]Ivy Bah PA-C Work Phone: [phone] [place], [place] 7280103-10-2025 12:20-0400 Heart rate86 /minIvy Bah PA-C Work Phone: [phone] [place], [place] 7280103-10-2025 12:20-0400 SaO2% (BldA) [Mass fraction]96 %Ivy Bah PA-C Work Phone: 1(295)658-[address] [place], [place] [address]28[address]03-10-2025 12:20-0400 Systolic blood mm[Hg]Ivy Bah PA-C Work Phone: [phone] [place], [place] 6247902-04-2025 08:58-0500 Body lfkzus178.3 cmQuinn Quick MD Work Phone: [phone]02-04-2025 08:58-0500Body mass index (BMI) [Ratio]32.08 kg/n6RczztqQuinn Quick MD Work Phone: 1(630)[address] [place], [place] 9834602-04-2025 08:58-0500Body .33 kgQuinn Quick MD Work Phone: [phone])[address] [place], [place] 9834602-04-2025 08:58-0500Diastolic blood wcqwzofj64 mm[Hg]Quinn Quick MD Work Phone: [phone] HospitalT[facility]' HospitalDftrszeous91-41-0006 08:58-0500Heart rate96 /min Quinn Quick MD Work Phone: [phone])[address] [place], [place] 9834602-04-2025 08:58-0500Systolic blood hucjoqdd379 mm[Hg]Quinn Quick MD Work Phone: [phone])[address] [place], [place] 9834601-10-2025 09:38-0500Body sjkzok542.3 cmQuinn Quick MD Work Phone: [phone])[address] [place], [place] 9834601-10-2025 09:38-0500Body mass index (BMI) [Ratio]32.64 kg/x4JikbtkQuinn Quick MD Work Phone: [phone])[address] [place], [place] 9834601-10-2025 09:38-0500Body iiyait858.14 kgQuinn Quick MD Work Phone: [facility]' HospitalSvpjcedypr01-92-9813 09:38-0500Diastolic blood mm[Hg]Quinn Quick MD Work Phone: [facility] HospitalYtbmtvsbhk45-28-9163 09:38-0500Heart rate82 /min Quinn Quick MD Work Phone: [facility] HospitalUcrqgdcnuu33-94-9106 09:38-0500Systolic blood kecefupm814 mm[Hg]Quinn Quick MD Work Phone: [facility]' HospitalOiyvcpxqqj32-91-4028 11:55-0500Body mass index (BMI) [Ratio]32.64 kg/a2Lmaoy Brennen DO Work Phone: [facility] HospitalYjgormwkvm07-71-4922 11:55-0500Body yniqtq092.14 kgCorey Brennen DO Work Phone: [facility] HospitalYjtkqjxcpl70-26-7806 11:55-0500Diastolic blood lofszbnf78 mm[Hg]Piotr Brennen DO Work Phone: [facility]' HospitalLzettutbul71-02-4266 11:55-0500Systolic blood kymkhxgg495 mm[Hg]Piotr Brennen DO Work Phone: [facility]' HospitalJgerlypoxe34-10-0974 09:04-0500Body mass index (BMI) [Ratio]32.89 kg/m2Ivy GE Work Phone: [facility]' HospitalRivtdcylvp90-46-4058 09:04-0500Body qlmaei337.96 kgIvy GE Work Phone: [facility]' HospitalRiogmlmjzr30-10-3722 09:04-0500Diastolic blood dddmsvyt16 mm[Hg]Ivy GE Work Phone: [facility] HospitalKhxttifxwu01-47-3526 09:04-0500Systolic blood jjzoqlnj625 mm[Hg]Ivy GE Work Phone: [facility]' HospitalBpebkbqshh24-41-4178 12:58-0400Body odotjy570.3 cmTyson Gonzalez DPM Work Phone: [facility]' HospitalLmzryvrkis50-44-9324 12:58-0400Body mass index (BMI) [Ratio]33.33 kg/e2Djvjgojq Brown DPM Work Phone: [address] [address]Mzjanxucue93-75-4477 12:58-0400Body .41 kgTyson Carlos DPM Work Phone: [address] [address]Tjpsizvveu68-62-0094 12:58-0400Diastolic blood ftaljzpn77 mm[Hg]Tyson Gonzalez DPM Work Phone: [address] [address]Bauwgchrcv27-92-6645 12:58-0400Heart rate82 /min Tyson Gonzalez DPM Work Phone: [address] [address]Atrqqgmmnj11-67-7510 12:58-0400Systolic blood mmotqyma080 mm[Hg]Tyson Gonzalez DPM Work Phone: [facility]' HospitalFbqcpupnfh26-35-9948 10:07-0400Body mass index (BMI) [Ratio]33.19 kg/m2Amy Olvin PA Work Phone: [facility]' HospitalTxtgjfxzec02-79-9682 10:07-0400Body .96 kgAmy Olvin PA Work Phone: [facility]' HospitalCbxhofewme66-51-0872 13:30-0400Body .3 cmAnnashabnam Gonzalez DPM Work Phone: [address] [address]Qwnqetbkep14-49-6679 13:30-0400Body mass index (BMI) [Ratio]32.78 kg/z5Zoudtplr Carlos DPM Work Phone: [address] [address]Ukwjgdqjjc94-80-2046 13:30-0400Body bmghba042.59 kgTyson Carlos DPM Work Phone: [address] [address]Bvebdfrsam08-60-5803 13:30-0400Diastolic blood oaqsgmxv61 mm[Hg]Tyson Gonzalez DPM Work Phone: [address] [address]Qhufhkapod26-24-1287 13:30-0400Heart rate74 /min Tyson Gonzalez DPM Work Phone: [facility] Wvkrssqekp40-46-6914 13:30-0400Respiratory rate18 /minTyson Gonzalez DPM Work Phone: [facility] HospitalWgsdkjjaoa96-06-4399 13:30-0400Systolic blood mm[Hg]Tyson Gonzalez DPM Work Phone: [facility]' HospitalWvzcedtrrd88-91-2619 11:00-0400Body rmxcge737.34 cmSmk Kan Other [employer] Other 10-13-2023 11:00-0400Body mass index (BMI) [Ratio] 31.94 kg/g3Hspixo Galilea Other [employer] Other 10-13-2023 11:00-0400Body unpjak469.87 kgShlennyemilio Galilea Other [employer] Other 10-13-2023 11:00-0400Diastolic blood rikxauzy59 mm[Hg] Shan Kan Other [employer] Other 10-13-2023 11:00-0400Systolic blood sxrrzsuk968 mm[Hg] Shan Kan Other [employer] Other 09-21-2023 15:15-0400Body xfjikl504.34 Vamsicassandra Galilea Other [employer] Other 09-21-2023 15:15-0400Body mass index (BMI) [Ratio] 32.02 kg/m1Sjcdmz Zaky Other [employer] Other 09-21-2023 15:15-0400Body .15 kgSherif Galilea Other [place] [employer] Other 09-21-2023 15:15-0400Diastolic blood mm[Hg] Shan Kan Other [employer] Other 09-21-2023 15:15-5233FwT8% (BldA) [Mass fraction]94 % Shan Kan Other [employer] Other 09-21-2023 15:15-0400Systolic blood ecfzoxtl344 mm[Hg] Shan Kan Other [employer] Other 09-08-2023 10:00-0400Body .34 cmSmk Kan Other [facility] [employer] Other 09-08-2023 10:00-0400Body mass index (BMI) [Ratio] 30.68 kg/p3Jsjjxbtash Kan Other [employer] Other 09-08-2023 10:00-0400Body rwycxa11.79 kgShtash Kan Other [employer] Other 09-08-2023 10:00-0400Diastolic blood nrgsntve50 mm[Hg] Shan Kan Other [employer] Other 09-08-2023 10:00-0400Systolic blood uougjtio434 mm[Hg] Shan Kan Other [employer] Other Encounters Encounter DateEncounter TypeCare ProviderFacilityStart: 04-12-2025 End: 59-15-5091Kvewctqp Result EncounterJr. Loretta Tasneem Nicole DO Work Phone: noms External Department UnsolicitedStart: 04-12-2025 End: 88-30-2077Onsquruc Result EncounterJr. Loretta Tasneem Victorianoanic DO Work Phone: noms External Department UnsolicitedStart: 04-12-2025 End: 56-00-9423Vbbyocp encounter procedureGeormarielena Pastranalori Jr EG-Urk-Fyofkxep Testing Work Phone: Start: 04-12-2025 End: 32-73-7049hnvvrozmzmPjkqfe Victorianolori JrFacility:[facility] Hospitaltart: 03-29-2025 End: 60-28-9208Jicvbs flowsheetHalle Dhaliwal [employer] Work Phone: NOXT [facility]edicsStart: 03-29-2025 End: 95-36-5671Uwcmii flowsheetHalle Dhaliwal [employer] Work Phone: NOZE [facility]opaedicsStart: 03-29-2025 End: 64-75-6120Dbqkouu encounter procedureHalle Dhaliwal [employer] Work Phone: NOCB [facility] OrthopaedicsComment on above:Pre-op evaluation (Primary Dx); Primary osteoarthritis of left kneeStart: 03-29-2025 End: 94-52-4493Wcaxeaavllvzc examination Anh Dhaliwal [employer] Work Phone: noms HealthcareStart: 03-29-2025 End: 14-85-2100owbruugehaHFXYV T OLSENNot AvailableStart: 03-17-2025 End: 72-93-3970Hezugi flowsheetJr. Loretta Pastranaanic DO Work Phone: noms [facility]edicsStart: 03-17-2025 End: 11-62-3596Qscjoi flowsheetJr. Loretta Pastranaanic DO Work Phone: noms [place] [facility]opaedicsStart: 03-17-2025 End: 64-31-0698Hbbcve outpatient visit 40 minutesJr. Loretta Rivera DO Work Phone: NOMS [place] OrthopaedicsComment on above:Primary osteoarthritis of left knee (Primary Dx); Acute pain of left kneeStart: 03-17-2025 End: 22-23-4796zecblyrqewCP., LORETTA RIVERANot AvailableStart: 02-26-2025 End: 79-62-0462Taujwifcemxyz examination doneJr. Loretta Rivera DO Work Phone: NOMS HealthcareStart: 02-26-2025 End: 94-13-9902NqwajgIh. Loretta Rivera DO Work Phone: NOM[facility]opaedicsComment on above:Pre-op evaluationStart: 02-10-2025 End: 43-11-0517Ahrdumtpd encounterJr. Loretta Rivera DO Work Phone: [facility] [place] [facility]opaedicsStart: 02-08-2025 End: 07-80-8973Jbgcznjsy encounterJr. Loretta Rivera DO Work Phone: NODB [facility]opaedicsComment on above:Surgery QuestionsStart: 02-04-2025 End: 70-19-4094Zuyfkdiu Result EncounterJr. Loretta Rivera DO Work Phone: NOWQ External Department UnsolicitedStart: 02-04-2025 End: 73-36-7028Qplmbbsk Result EncounterJr. Loretta Rivera DO Work Phone: NOST External Department UnsolicitedStart: 02-04-2025 End: 53-37-2162Yqsaydb encounter procedureHalle Dhaliwal [employer] Work Phone: N[facility]opaedicsComment on above:Pre-op evaluation (Primary Dx)Start: 02-04-2025 End: 02-80-4169Ykrkyutpipgjt examination doneHalle Dhaliwal [employer] Work Phone: NOMS HealthcareStart: 02-04-2025 End: 62-72-2171usjupyrkqyWMHMY T OLSENNot AvailableStart: 02-04-2025 End: 53-28-9460Bgsppot encounter procedureGeorge Tasneem Rivera Jr DO-[facility]trStart: 02-04-2025 End: 68-03-4483ufcmmegfvsQjyzlyh M Hoy MD Work Phone: [facility] Work Phone: Start: 01-21-2025 End: 74-79-2736ghuxiiumlkHXLORETTA Holguin AvailableStart: 01-19-2025 End: 04-03-1297Iukmef flowsheetJr. Loretta Rivera DO Work Phone: [facility]edicsStart: 01-19-2025 End: 83-86-3770Toqnsu flowsheetJr. Loretta Rivera DO Work Phone: NOXH [facility]opaedicsStart: 01-19-2025 End: 99-92-9519Utzegj outpatient visit 15 minutesJr. Loretta Rivera DO Work Phone: [facility]opaedicsComment on above:Right hip pain; Left hip pain; Pain of left calfStart: 01-19-2025 End: [id number]., LORETTA Osman AvailableStart: 01-05-2025 End: [id number] flowsheetQuinn Quick MD Work Phone: [facility]ologyStart: 01-05-2025 End: [id number] flowsGenaro Quick MD Work Phone: [facility]ologyStart: 01-05-2025 End: 45-33-1423Mgouno outpatient visit 10 minutesHiluli Quick MD Work Phone: [facility] OtolaryngologyComment on above:Bilateral tympanic membrane perforation (Primary Dx); Hot flashesStart: 01-05-2025 End: 89-46-9035pdwnoygkpgLACJPT H TIMMISNot AvailableStart: 01-04-2025 End: 71-31-8620Higxbum encounter procedureManinderasia Angy Norris [facility] Work Phone: Start: 01-04-2025 End: 18-63-7979cneqbbrcqjDxymgfa M Hoy MD Work Phone: [facility] Work Phone: Start: 12-02-2024 End: 93-69-4451Inwhxy flowsheetJr. Loretta Boateng Steplori DO Work Phone: noms SWS ORTHOStart: 12-02-2024 End: 50-15-7261Akpdco flowsheetJr. Loretta Boateng Stepanic DO Work Phone: noms SWS ORTHOStart: 12-02-2024 End: 71-48-5285Erpffk outpatient visit 40 minutesJr. Loretta Rivera DO Work Phone: NOCG SWS ORTHOComment on above:Primary osteoarthritis of left knee (Primary Dx); Acute pain of left kneeStart: 12-02-2024 End: 34-18-6497gsejqjsexjUV., LORETTA Osman AvailableStart: 11-17-2024 End: 40-69-3679blwbdowitrMMF RAMEYNot AvailableStart: 11-17-2024 End: 93-25-4338Baijzn flowsheetJr. Loretta Rivera DO Work Phone: NOZX FB ORTHOPAEDICSStart: 11-17-2024 End: 55-09-5163Ujeaus flowsheetJr. Loretta Rivera DO Work Phone: noms FB ORTHOPAEDICSStart: 11-17-2024 End: 99-16-2464Jzesvk outpatient visit 15 minutesAmy Olvin GE Work Phone: noms BCP OBComment on above:Yeast infectionPrimary osteoarthritis of left knee (Primary Dx); Acute pain of left kneeStart: 11-17-2024 End: 05-81-0464rpizzsndamNN., LORETTA Osman AvailableStart: 10-01-2024 End: 36-26-4358ehpmjiqakyPukjipjbbUniversity Hospitals [facility] Work Phone: Start: 10-01-2024 End: 36-39-3715Sbpjbmf encounter procedureFirretreat [facility] Physician [facility] Work Phone: Start: 09-24-2024 End: 07-16-9237gnnuohbzozYsmvnfoas [facility] Work Phone: Start: 09-24-2024 End: 02-44-4153Mtrkiqv encounter procedureFirretreat doctors' hospital Physician [facility] Work Phone: Start: 09-17-2024 End: 16-49-8652Jrwssju encounter procedureAt[facility] Phys[facility] Work Phone: Start: 08-10-2024 End: 16-41-6386dpudhfjjywJln Olvin GE-Tasneem Work Phone: [facility] Work Phone: Start: 08-10-2024 End: 83-72-9137Ogbjkfb encounter procedureIvy Bah PA-Tasneem Work Phone: [facility] Work Phone: Start: 07-28-2024 End: 05-84-1249Broduf flowsheetJr. Loretta Rivera DO Work Phone: noms FB ORTHOPAEDICSStart: 07-28-2024 End: 48-52-8812Vvpadk flowsheetJr. Loretta Rivera DO Work Phone: noms FB ORTHOPAEDICSStart: 07-28-2024 End: 87-50-4770Bgvuud outpatient visit 15 minutesJr. Loretta Rivera DO Work Phone: noms FB ORTHOPAEDICSComment on above:Primary osteoarthritis of left kneeStart: 07-28-2024 End: 97-47-7889fnazzptgorBM., LORETTA Osman AvailableStart: 07-07-2024 End: 91-79-9051Hnloqk flowsheetHiluli Quick MD Work Phone: noms CI ENTStart: 07-07-2024 End: 87-53-2367Cqelqh Cony Quick MD Work Phone: noms CI ENTStart: 07-07-2024 End: 07-42-6580Bpopbz outpatient visit 10 minutesHiluli Quick MD Work Phone: noms CI ENTComment on above:Bilateral chronic otorrhea (Primary Dx)Start: 07-07-2024 End: 50-28-5441mvehsxjeliAEAXQS Jody Dee AvailableStart: 06-19-2024 End: 61-93-5370Mslvzdcvk encounterHiluli Quick MD Work Phone: noms CI ENTComment on above:Med RefillStart: 06-12-2024 End: 11-42-3105Ghphgv flowsheetQuinn Quick MD Work Phone: noms ENT NORWALKStart: 06-12-2024 End: 06-93-5828Ehnila Cony Quick MD Work Phone: noms ENT NORWALKStart: 06-12-2024 End: 98-44-8350Glvszl outpatient visit 25 minutesHiluli Quick MD Work Phone: noms ENT NORWALKComment on above:Bilateral impacted cerumen (Primary Dx); Bilateral chronic otorrhea; Bilateral tympanic membrane perforationStart: 06-12-2024 End: 60-95-6022sybejqvwggMMPCSX Jody Dee AvailableStart: 05-25-2024 End: 03-85-0293Gudnlrbk ReferredIvy Bah PA-C Work Phone: [facility] Path Spec [facility] HospStart: 05-25-2024 End: 43-62-4598Hsosnrp encounter procedureCorey Brennen DO Work Phone: noms BCP OBComment on above:Itching in the vaginal area; Encounter for biopsyStart: 05-25-2024 End: 69-45-7846liaawdjmkmARPOD FAZIONot AvailableStart: 05-19-2024 End: 79-10-7202iqeomqqbiePzn Theodore BahFacility:[facility] Start: 05-19-2024 End: 13-16-1486Czlwvrek ReferredIvy Bah PA-C Work Phone: [facility] Path Spec [facility] HospStart: 05-19-2024 End: 78-35-7633Wpbmvafkp Result EncounterAmy Olvin GE Work Phone: noms External Department UnsolicitedStart: 05-19-2024 End: 46-13-1105Bsttkkyho Result EncounterAmy Olvin GE Work Phone: noms External Department UnsolicitedStart: 05-08-2024 End: 44-76-0239Snhamqfyu Result EncounterAmy Olvin GE Work Phone: noms External Department UnsolicitedStart: 05-08-2024 End: 74-61-3048Yfmzyzyyu Result EncounterAmy Olvin GE Work Phone: noms External Department UnsolicitedStart: 05-05-2024 End: 45-15-8423Syhcqi flowsheetIvy GE Work Phone: noms BCP OBStart: 05-05-2024 End: 34-17-3205Jytidf flowsheetIvy GE Work Phone: noms BCP OBStart: 05-05-2024 End: 59-12-1556Znbvnwfak Result EncounterAmy Olvin GE Work Phone: noMS External Department UnsolicitedStart: 05-05-2024 End: 95-04-6955Qzbvltr encounter procedureIvy GE Work Phone: [facility] Work Phone: Start: 05-05-2024 End: 25-92-8688Uxewnsif preventive med est patient 40-64yrsAmy Olvin GE Work Phone: [facility] OBComment on above:Well woman exam with routine gynecological exam; Postmenopausal state; Osteoporosis, post-menopausal (CMS/HCC); Vaginal itchingStart: 05-05-2024 End: 94-68-4382zfrqmvqaujANX RAMEYNot AvailableStart: 04-28-2024 End: 62-43-9308Pmdkuvqsz Result EncounterAmy Olvin GE Work Phone: noms External Department UnsolicitedStart: 04-28-2024 End: 24-03-6033Sjelhlwnq Result EncounterIvy GE Work Phone: noms External Department UnsolicitedStart: 03-17-2024 End: 18-47-9968Gogdox Trevor Gonzalez DPM Work Phone: noms MS PODStart: 03-17-2024 End: 07-68-6426Ohqbjg Trevor Gonzalez DPM Work Phone: noms MS PODStart: 03-17-2024 End: 18-79-3748Rqdvae outpatient visit 15 minutesTyson Gonzalez DPM Work Phone: noms MS PODComment on above:Hav (hallux abducto valgus), right (Primary Dx); Acquired deformity of right toe; DJD (degenerative joint disease), ankle and foot, leftStart: 02-24-2024 End: 39-14-1377Yyseaq Nahed GE Work Phone: noms BCP OBStart: 02-24-2024 End: 93-18-1049Qjansi flowsYudith GE Work Phone: noms BCP OBStart: 02-24-2024 End: 08-57-5644Zrwzgbsi Result EncounterIvy GE Work Phone: noms External Department UnsolicitedStart: 02-24-2024 End: 40-96-9370Iumqmr outpatient visit 15 minutesIvy GE Work Phone: noms BCP OBComment on above:Vaginal itching; Yeast infectionStart: 02-18-2024 End: 10-86-3756Zhbgsy flowsheetNicholas Asia Gonzalez DPM Work Phone: NOMS SC PODStart: 02-18-2024 End: 60-78-0119Krcciw flowsheetNicholas A Brown DPM Work Phone: NOMS MS PODStart: 02-18-2024 End: 97-74-8876Guencv outpatient new 30 minutesNicholas Asia Gonzalez DPM Work Phone: noms MS PODComment on above:Hav (hallux abducto valgus), right (Primary Dx); Acquired deformity of right toe; DJD (degenerative joint disease), ankle and foot, leftStart: 94-09-9630Ukinf abstractingJr. Loretta Rivera DO Work Phone: noms CI ORTHOPAEDICSStart: 07-15-2023 End: 32-23-9439Qzfgia outpatient visit 25 minutesJr. Loretta Rivera DO Work Phone: noms SWS ORTHOComment on above:Primary osteoarthritis of left knee (Primary Dx)Start: 03-15-2023 End: 70-50-6083lnmmfbhcvhDcblxp [facility] [employer] Other Start: 12-04-3607Zvuaokw encounter procedureSherif ZakyFPG Pain ManagementStart: 02-21-2023 End: 95-08-7667jhtctaowkmRikarq Galilea Other nort [employer] Other Start: 87-81-3756Szjzelc encounter procedureSherif ZakyFPG Pain ManagementStart: 02-08-2023 End: 48-21-0000vksnvvtfoyGhholt Galilea Other [employer] Other Start: 76-91-3990Xjaykw consultation new/estab patient 59 Lisbeth ZakyFPG Pain Management [place]walkStart: 2022 End: 29-32-6759ehrshemrduDCRNAF CRAMERFacility:G6Ojzpz: 04-10-2022 End: 55-26-6116icbuzjnowfCV HANDY JACOMEFacility:Z2Byefz: 03-29-2022 End: 11-39-1274btjlyqllzdRF HANDY JACOMEFacility:Q8Myvan: 12-22-2021 End: 16-14-4566itxekzvvhrQEEPRD CRAMERFacility:H2Russg: 12-01-2021 End: 35-78-1803nlyletaffvYU ROBIN HOYFacility:Q6Lpthy: 09-06-2021 End: 45-31-3182pgyhndboazFY ROBIN HOYFacility:H1 Procedures DateProcedureProcedure DetailPerforming ClinicianStart: 13-28-6605Pmltkouf screenDouglas HoyComment on above:Order Comment: Comment please run c s if UA+ Name Collection Type:: Clean-Voided MidstreamResult Comment: PERFORMED BY: [address] [place] [address] PATHOLOGIST VP TREASURER LONI WRIGHT M.D.Start: 14-95-5081Likhk metabolic panel calcium totalJr. Loretta Boateng Steplori DO Work Phone: Start: 54-58-9667Jgzlvkul blood count with white cell differential, automatedJr. Loretta Boateng Steplori DO Work Phone: Start: 57-49-6722Exzvo dip stick/tablet rgnt non-auto w/o micrscpJr. Loretta Rivera DO Work Phone: Start: 47-80-8485Snfne X-ray of bilateral femurs Robin Oswald MD Work Phone: [phone]-art: 70-30-8317Cdamt X-ray of bilateral tibia and bilateral fibulaRobin Oswald MD Work Phone: Start: 09-98-7080Dnhiuzfp screenDouglas HoyComment on above:Order Comment: Date of Surgery: 20250218 # of PRBC units on hold?: 2Result Comment: PERFORMED BY: [facility] [place] [address] PATHOLOGIST VP TREASURER LONI RWIGHT M.D.Start: 09-47-0843Lrsam dip stick/tablet rgnt non-auto w/o micrscpJr. Loretta Boateng Nicole DO Work Phone: Start: 50-05-8179Omqzj metabolic panel calcium total Jr. Loretta Boateng Nicole DO Work Phone: Start: 56-50-1636Buymkjdl blood count with white cell differential, automatedJr. Loretta Boateng Nicole DO Work Phone: Start: 28-55-6197Ymwiz hip unilateral with pelvis 2-3 viewsJr. Loretta Boateng Nicole DO Work Phone: Start: 01-04-2025H/O: hysterectomyHistory of hysterectomyQuinn Quick MD Work Phone: Start: 87-54-6567Meajcocalmf of left breastRobin Oswald MD Work Phone: Start: 27-92-8580Yditkczmyr examination knee 1/2 views Jr. Loretta Boateng Nicole DO Work Phone: Start: 48-58-9247UM POST BIOPSY LTIvy GE Work Phone: Start: 00-89-3071AZ GUIDED BREAST BIOPSY LTIvy GE Work Phone: Start: 59-76-0679PM DIAGNOSTIC MAMMO UNILAT LTIvy GE Work Phone: Start: 42-55-0146KW BREAST LT LIMITEDIvy GE Work Phone: Start: 92-74-0895SZO,APTIMA HPV,AGE GDLNIvy GE Work Phone: Start: 00-44-4765Bgijquonbxf observation [Identifier] in Cervix by Cyto stainCorey Brennen DO Work Phone: Start: 31-98-4149CB TOMOSYNTHESIS SCREENING BIIvy GE Work Phone: Start: 63-90-7907HgcuufckzxrAun Ramey PA Work Phone: Start: 72-73-4990PQEGJTGHZA/DISCHARGE PLUS VAGINITIS (HTRX)Ivy GE Work Phone: Start: 64-19-0563Azwwgbiikky observation [Identifier] in Cervix by Cyto stainIvy GE Work Phone: Start: 63-83-0173Zvjv cerv/vag auto thin layer prep mnl screenIvy GE Work Phone: Start: 17-60-9145XdqsepcpgvcJl. Stepanic DO Work Phone: Start: 54-06-4056Sybwaacjmyt observation [Identifier] in Cervix by Cyto stainTyson Gonzalez DPM Work Phone: Plan of Treatment DateCare ActivityDetailAuthorStart: 43-28-0972Srgtqugnr for malignant neoplasm of cervixNOMS HealthcareStart: 56-95-2726Rcqsmggwf for malignant neoplasm of cervixPap SmearNOMS HealthcareStart: 76-90-2453Dfzmalobf for malignant neoplasm of cervixNOMS HealthcareStart: 37-76-7945Eoickuuyq for malignant neoplasm of colonNOMS HealthcareStart: 07-06-2025 End: 34-12-2609Rpwinpu encounter ywwonzcym30/03/2026 8:30 AM EST Office Visit [facility] [address] [facility] [address] [place] [address] Quinn Quick MD [address] [place] [address] [facility] OtolaryngologyStart: 05-06-2025 End: 87-62-1766Mduhyxy encounter ukkqofgmg84/04/2025 1:00 PM EST Office Visit [facility] [address] [place], [id number] Luis M Casey, PA [address] [facility] [address] [facility] OrthopaedicsStart: 82-03-2189Rlmfniyfj for malignant neoplasm of breastMammogramNOCO Healthcare Start: 03-29-2025 End: 32-29-9433Omnsgik encounter procedureNOMS Yadav OrthopaedicsComment on above:ArrivedStart: 03-17-2025 End: 69-38-9841Cnlkffk encounter procedureNOMS Parker OrthopaedicsComment on above:ArrivedStart: 03-04-2025 End: 99-53-5586Wjoezek encounter qqqludhwr68/02/2025 10:00 AM EDT [facility] [address] [facility] [address] [place] [address] Luis M Casey, PA [address] [facility] [place] [address] [facility] OrthopaedicsStart: 02-04-2025 End: 85-05-1594Libmhko encounter lfenfdpwy96/04/2025 1:30 PM EDT Office Visit [facility] [address] [place] [phone] Halle Dhaliwal, [employer] [address] [facility] [place] [address] MARE Yadav OrthopaedicsStart: 29-76-0862Tnkrpafie vaccinationNOMS HealthcareStart: 01-26-2025 End: 88-63-7006Vchwdsu encounter procedureNOMS FB ORTHOPAEDICSStart: 01-19-2025 End: 84-35-4363Dddcaba encounter procedureNO [facility]burg OrthopaedicsComment on above:Right hip pain; Left hip painStart: 01-18-2025 End: 68-68-2365Vwghkmy encounter procedureNOMS SWS ORTHOStart: 01-05-2025 End: 04-68-1670Smfixzc encounter procedureNOMS CI ENTComment on above:Arrived Start: 12-02-2024 End: 95-93-9813Agmifof encounter procedureNOMS SWS ORTHOComment on above:Arrived Start: 11-17-2024 End: 18-11-4288Mljgevk encounter procedureNOMS FB ORTHOPAEDICSComment on above: ArrivedStart: 07-28-2024 End: 46-22-4854Lenxdnm encounter prsuxswlu64/25/2025 8:30 AM EST Office Visit [facility] [address] [place] [address] Jr. Loretta Rivera, DO [address] [facility] [address] [place] [address] Primary osteoarthritis of left kneeNOMS FB ORTHOPAEDICSComment on above:Primary osteoarthritis of left kneeStart: 07-14-2024 End: 17-99-9816Mffxgjr encounter lauzrilgj81/11/2025 8:45 AM EST Office Visit [facility] [address] [place] [address] Jr. Loretta Rivera, DO [address] [facility] [address] [place] [address] NOMS FB ORTHOPAEDICSStart: 07-13-2024 End: 29-41-6980Cjbmiqr encounter aegjpbcry03/10/2025 9:00 AM EST Office Visit [facility] [address] [place] [address] Jr. Loretta Rivera, DO [address] [facility] [address] [place] [address] NOMS FB ORTHOPAEDICSStart: 07-07-2024 End: 19-22-6068Teonlhc encounter procedureNOMS CI ENTComment on above:Arrived Start: 06-12-2024 End: 00-86-5661Lsiyicy encounter sdaovkjrx53/10/2025 9:50 AM EST Office [facility] [address] [place] [address] Quinn Quick MD [address] [facility] [place] [address] ArrivedNOMS [facility] CARTERKComment on above:ArrivedStart: 70-38-6236Trugkmbnfyhg Vaccine: 65+ Years (1 of 1 - PCV)Pneumococcal Vaccine: 65+ Years (1 of 1 - PCV)NOM HealthcareStart: 05-25-2024 End: 30-87-9487Ngfauyt encounter wevhupfhq85/23/2024 11:30 AM EST Procedure Visit [facility] [address] [place] [address] Piotr Hutton DO [address] [facility] [place] [address] [facility] OBStart: 05-05-2024 End: 70-86-2423HMM Skeletal system Views for bone densityDEXA bone density Imaging Routine Postmenopausal state Expected: 05/05/2024 (Approximate), Expires:05/05/2025[facility] Work Phone: comment on above:Expected: 05/05/2024 (Approximate), Expires: 05/05/2025Start: 05-05-2024 End: 25-50-2408Tppmgzi encounter procedureNOGLENDALE MEMORIAL [facility] OBComment on above:Arrived Start: 11-27-2024Medicare Annual Wellness (AWV)Medicare Annual Wellness (AWV) [facility] HealthcareStart: 03-17-2024 End: 31-51-6918Xlogwdd encounter procedureNOCOMMUNITY HOSPITAL [facility] [place] PODComment on above:Hav (hallux abducto valgus), right (Primary Dx); Acquired deformity of right toe; DJD (degenerative joint disease), ankle and foot, leftStart: 02-24-2024 End: 63-01-3483Awualgo encounter epbitfpts53/23/2024 9:40 AM EDT Office Visit [facility] [address] [place] [address] Ivy Bah PA [address] [place] [address] ArrivedNOMS BCP OBComment on above:ArrivedStart: 02-18-2024 End: 51-16-1133Fifotrxsliaw / ancillary services dtnibqvmuy75/17/2024 1:40 PM EDT Ancillary Procedure [facility] [address] [place] [address] ArrivedNOMS SC PODComment on above:ArrivedStart: 02-18-2024 End: 09-55-2294Bumstbr encounter exsdbynpc99/17/2024 1:30 PM EDT Office Visit [facility] [address] [place] [address] Tyson Gonzalez, DPStefan [address] [facility] [address] [place] [address] ArrivedNOMS SC PODComment on above:ArrivedStart: 02-02-2024 Influenza vaccinationInfluenza Vaccine (#1)NOMS HealthcareStart: 01-13-2024 End: 74-55-8217Knoyapj encounter nxujowile89/12/2024 8:30 AM EDT Office Visit [facility] [address] [facility] [address] [place] [address] Jr. Loretta Rivera, DO [address] [facility] [address] [place] [address] [facility] ORTHOStart: 07-15-2023 End: 75-89-5018Qaexyde encounter nvdjrjoji01/12/2024 8:00 AM EST Office Visit [facility] [address] [facility] [address] [place] [address] Jr. Loretta Rivera, DO [address] [facility] [address] [place] [address] [facility] ORTHOStart: 65-58-3065Xlbyitusc for malignant neoplasm of breastMammogramNOMS HealthcareStart: 02-01-2023 Influenza vaccinationInfluenza Vaccine (#1)NOMS HealthcareStart: 2009 Pneumococcal Vaccine: 65+ Years (1 of 1 - PCV)Pneumococcal Vaccine: 65+ Years (1 of 1 - PCV)[facility] HealthcareStart: 62-05-7900Rxwlepwuw for malignant neoplasm of colonNOCO HealthcareBacteria identified in Urine by CultureUrine culture Microbiology Routine Vaginal itching Ordered: 02/24/2024[facility] HealthcareComment on above:Ordered: 02/24/2024iopsy vaginalBiopsy vaginal Procedures Routine Itching in the vaginal area Ordered: 05/25/2024[facility] Healthcare Work Phone: comment on above:Ordered: 05/25/2024HLAMYDIA TRACHOMATIS (GENITO/STI)CHLAMYDIA TRACHOMATIS (GENITO/STI) Lab Routine Vaginal itching Ordered: 02/24/2024[facility] HealthcareComment on above:Ordered: 02/24/2024 Neisseria gonorrhoeae DNA [Presence] in Unspecified specimen by CHRISTY with probe detectionNeisseria gonorrhea DNA probe, direct Lab Routine Vaginal itching Ordered: 02/24/2024[facility] HealthcareComment on above:Ordered: 02/24/2024 SURESWAB(R) ADVANCED VAGINITIS PLUS, TMASURESWAB(R) ADVANCED VAGINITIS PLUS, TMA Pathology and Cytology Routine Vaginal itching Ordered: 02/24/2024[facility] Healthcare Work Phone: comment on above:Ordered: 02/24/2024THIN PREP TIS PAP AND HR HPV DNATHIN PREP TIS PAP AND HR HPV DNA Pathology and Cytology Routine Well woman exam with routine gynecological exam Ordered: 05/05/2024[facility] HealthcareComment on above:Ordered: 05/05/2024XR Foot - left 3 ViewsXR foot 3+ views left Imaging Routine DJD (degenerative joint disease), ankle and foot, left 02/18/2024 1:35 PM EDSHRIN[facility] Healthcare Work Phone: Immunizations Immunization DateImmunizationNotesCare PxaflyhsAkueaflz04-60-0860nysskssdp, injectable, quadrivalent, preservative freeIvy Bah PA-C Work Phone: [facility]11-19-2021influenza virus vaccine, unspecified formulationJr. Stepanic DO Work Phone: [facility] HospitalHrcrqiakyu73-28-6534cfnjikalm virus vaccine, unspecified formulationAmy [place] PA-C Work Phone: [phone] [place], [place] [address]04-06-2021COVID-19 mRNA, Comirnaty (Pfizer)Ivy [place] PA-C Work Phone: [phone] [place], [place] [address]03-15-2021COVID-19 mRNA, Comirnaty (Pfizer)Ivy Olvin PA-C Work Phone: [phone] [place], [place] [address]11-13-2020Influenza, injectable, Madin Aleyda Canine Kidney, preservative free, quadrivalentAmy Olvin PA-C Work Phone: [phone] [place], [place] 7[address]11-25-2019influenza, injectable, quadrivalent, preservative freeAmy [place] PA-C Work Phone: [phone] [place], [place] 7[address]0110-19-2018Influenza, injectable, Madin Aleyda Canine Kidney, preservative free, quadrivalentAmy Olvin PA-C Work Phone: [phone] [place], [place] 7280110-11-2017Influenza, injectable, Madin Aleyda Canine Kidney, preservative free, quadrivalentAmy Olvin PA-C Work Phone: [phone] [place], [place] 7[address]0110-11-2017tetanus toxoid, reduced diphtheria toxoid, and acellular pertussis vaccine, adsorbedAmy Olvin PA-C Work Phone: [phone] [place], [place] 7[address]0101-17-2014zoster vaccine, liveJr. Stepanic DO Work Phone: [facility] Payers DatePayer CategoryPayerPolicy [id number]-pay2023MedicaidAETNA MEDICARE ADVANTAGE [id number] 2023MedicareAETNA MEDICARE ADVANTAGE AETNA MEDICARE REPLACEMENT [id number] 2022-Present [address] [place] [id number] [id number] [id number] [id number] 2.840.1.034047.3.57[id number] 2.840.1.136509.3.57[id number] 2.840.1.005967.3.57[id number] 2.840.1.071110.3.57[id number] 2.0.1.634991.3.57[id number] 2.16840.1.223699.3.579.[id number] 2.16840.1.163653.3.579.[id number] 2.16840.1.596656.3.57[id number] 2.16840.1.637793.3.579.2.883303-08-9589Fyrtkyf14001442 2.16.840.1.234839.3.57[id number] 2.16.840.1.588102.3.579.2.[id number] 2.16.840.1.095507.3.57[id number] 2.16.840.1.650462.3.579.[id number] 2.16.840.1.107170.3.579.2.1[id number] 2.840.1.572681.3.579.2.5[id number] 2.840.1.162581.3.579.[id number] 2.16.840.1.740878.3.579.2.788332-75-0984Qxoqftk3131076 2.16840.1.512761.3.579.2.053872-99-1376Jbrxpwt1089939 2.840.1.167670.3.579.2.333294-30-9954Fffocfm6493427 2.16840.1.870238.3.579.2.934947-62-9918Eogyfxu2188550 2.16840.1.662624.3.579.2.577439-71-3673Btvqgbr0934646 2.16840.1.719556.3.579.2.469837-24-7352Nvgbhlw6629651 2.16840.1.197672.3.579.2.4143Fbtxwgf76109012 2.16.840.1.256702.3.579.2.531 Djiwcnx23791800 2..840.1.55413[id number] 2.16.840.1.690154.3.579.2.531 Social History DateTypeDetailFacilityStart: 06-26-2023 End: 25-81-7311Nvw Assigned At [facility] [employer] Other Start: 01-14-2023 End: 59-62-2663Hyksaid smoking status NHISNever smoked tobaccoNOMS Healthcare Start: 70-31-7898Vpsoebm use and exposureSmokeless tobacco non-userNOMS HealthcareStart: 06-26-2023 End: 81-48-8239Mthyqhc intakeLifetime non-drinker (finding)[facility] HealthcareStart: 06-26-2023 End: 42-32-9889Edufuvo of Social functionNOMS HealthcareStart: 03-94-7580Lzzvfmn Commentcaffeine 1-2 cups per dayNOMS HealthcareStart: 49-07-3542Pol [facility]igned At [facility] CenterNot on fileMOUNTAINSTAR HEALTHCARE HealthcareStart: 08-10-2024 End: 29-14-6299BwqCklegx (finding)[facility]: 27-57-5307Aaj [facility]igned At [facility]art: 78-28-8483VozQerycdDPCV Healthcare Clinical Notes 02-08-2023 to 03-29-2025 Note Date & MkbnWqclLsfsyjvr35-82-1182 History of Present illness Narrative* Halle Dhaliwal NP - 03/29/2025 10:00 AM EDT Images from the original note were not included. GENERAL HISTORY AND PHYSICAL: NAME: Ashley Espinoza : 1960 HISTORY OF PRESENT ILLNESS: Ashley Espinoza is an 64 y.o. @ female. Here for surgery instructions left total knee arthroplasty April 22 at [facility] PAST MEDICAL HISTORY: Medical History[1] PAST SURGICAL [...] (Zenaida) 180 MG tablet Every 24 hours Cmrjqvybrvr-Nqhbwpuxn-Qam C-Mn (Glucosamine Chondroitin Complx) capsule 1 capsule, [...] numbness. Vitals: Body mass index is 33.33 kg/m . PHYSICAL EXAM: Physical Exam Constitutional: General: She [...] left total knee arthroplasty April 22 @ [facility] Standing Status: Future Expected Date: 03/29/2025 Expiration [...] May 06 @ 1:00 with [facility] in [place]. [1] Past Medical History: Diagnosis Date Anemia [...] 2017 TOTAL HIP ARTHROPLASTY Left 2011 DR STEPANIC TOTAL HIP ARTHROPLASTY Right 2012 DR RIVERA TYMPANOSTOMY Left with T tube VAGINAL DELIVERY [3] Allergies Allergen Reactions Other Unknown Penicillin G Unknown documented in this encounterHarry S. Truman Memorial Veterans' [id number] History of Present illness Narrative* Ezio Lua Tasneem Rivera, DO - 03/17/2025 8:45 AM EDT Images from the original note were not included. HISTORY OF PRESENT ILLNESS: EST PT Ashley Espinoza is an 64 y.o. @ female. (EST PT) - RECHECK (L) KNEE S/P PT @[facility] XRAY (L) KNEE EPIC 07/28/24 XRAY (L) KNEE EPIC 01/13/24 XRAYS, 01/14/23 IN CHANGE NO MRI NO MDP / PREDNISONE S/P CORTISONE INJ 02/20/21 S/P SYNVISC SERIES PER DR KAN 03/15/23, 10/01/24 S/P GEL-ONE 03/06/21 S/P PT @[facility] S/P PT / CONTINUES HEP. ANTERIOR DISCOMFORT - DENIES RADIATION. SOME SWELLING. STIFFNESS AFTER PROLONGED SITTING. OCCASIONAL WEAKNESS / INSTABILITY. DENIES WAKING HS. ADMITS LOCKING / FREQUENT POPPING. LIMITED ROM. TYL PRN. ICING / ELEVATING PRN. DENIES TOPICALS. WEARING COMPRESSION SOCKS REGULARLY. 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 ALLERGIES: Allergies[1] HOME MEDICATIONS: Current Outpatient Medications Medication Instructions [...] (Zenaida) 180 MG tablet Every 24 hours Gumijfgzuag-Fhgsquylj-Ern C-Mn (Glucosamine Chondroitin Complx) capsule 1 capsule, Every 12 hours magnesium 30 mg, 2 times daily Multiple Vitamin (Multi Vitamin) tablet Every 24 hours Turmeric 500 MG capsule zinc 50 MG tablet Every 24 hours PHYSICAL EXAM: Knee Musculoskeletal Exam Gait Gait is normal. Limp: left Inspection Leg length disparity: no discrepancy Left Erythema: none Effusion: moderate Edema: moderate Ecchymosis: none Deformity: none Alignment: valgus Palpation Left Left knee palpation is unremarkable. Increased warmth: none Masses: none Crepitus: patellofemoral and lateral Tenderness: present Lateral joint line: mild Patella: severe Range of Motion Left Left knee range of motion is normal. Active extension: 10 Passive extension: 10 Active flexion: 110 Passive flexion: 120 Strength Left Left knee strength [...] to calculate BMI. Tobacco Use: Low Risk (03/17/2025) Patient History Smoking Tobacco Use: Never Smokeless Tobacco Use: Never Passive Exposure: Not on file Alcohol Use: Not on file IMAGING: Procedures No orders of the defined types were placed in this encounter. ASSESSMENT: No diagnosis found. PLAN: Patient has participated for 5 weeks and a one-on-one physical therapy program with a Licensed therapist which did not improve her symptoms. She has tried nonsteroidal anti-inflammatories, acetaminophen, she has had a cortisone injection, she has had Visco supplementation without relief of her symptoms. She has xaon-qs-otjj arthritis to her patellofemoral joint and greater than 70% joint loss to her lateral joint line with some chondral sclerosis and marginal osteophytic formation noted to the medial and lateral joint lines. We will resubmit her insurance which denied approval for her total knee because she was not in a formal physical therapy program and proceed with a total knee arthroplasty Left knee. We have discussed both surgical and nonsurgical treatment options with the patient and the risks and benefits associated with both. The patient is requesting surgical intervention because the patient's symptoms were affecting the patient's activities of daily living and ability to sleep. The patient's symptoms were unresponsive to outpatient treatment options. After lengthy discussions involving but not limited to both surgical and nonsurgical treatment options the patient has requested surgical intervention and we will see them back on the day of surgery. The patient understands the risks ofsaid treatment. We have discussed both surgical and nonsurgical treatment options with the patient at length and the risks and benefits associated with both. The patient is requesting surgical intervention because they have not responded to outpatient treatment options including but not limited to rest ice, and home exercise program. Pain and decreased range of motion are affecting the patient''s ability to sleep and activities of daily living and we have recommended surgical intervention. We recommended surgery in the form of a total knee arthroplasty. Factors including the patient's age and longevity of pro sthesis, usual postoperative course, and possible need for revision in the future, and leg length inequality postoperatively were discussed at length. We have discussed with the patient that this is a major orthopedic procedure. We discussed that the patient may require more than the average 30 MEDlimited and may require greater than 7 days narcotic treatment postoperatively. Therefore, patient's narcotic usage will be tailored on an individual basis. If this patient at the time of surgery hasany of the following: Morbidities including but not limited to history of falling, cognitive impairment, BMI greater than 30, end-stage renal disease, respiratory failure, heart failure, kidney failure, liver failure, diabetes, cardiac event in the last year, sleep apnea, disorder, excessive tobacco use, if at the time of surgery the patient is greater than 80 years old, or the patient requires discharge to a longterm facility, the patient may require to have additional inpatient hospital stay days following the surgery. Physical therapy is contraindicated in this patient''s case because of the pkrp-lu-iqwy articulation of the patient's knee.. Questions answered in laymen terms at the bedside. The diagnosis, home exercise plan and any ongoing restrictions/ recommendations reviewed. If unable to be reached in office, I recommend evaluation at nearest Emergency Room if any symptoms worsened or new symptoms develop for requiring urgent evaluation. [1] Allergies Allergen Reactions Other Unknown Penicillin G Unknown documented in this encounterHarry S. Truman Memorial Veterans' HospitalNofxafeigv65-98-1932 Telephone encounter Note* Telephone Encounter - Cassy Villa - 02/10/2025 10:53 AM EDT Confirmed with ashley that PT referral sent to [facility] Also advised her she could discontinue the iron for now [facility] [id number] Miscellaneous Notes* Telephone Encounter - Cassy Villa - 02/10/2025 10:53 AM EDT Confirmed with ashley that PT referral sent to [facility] Also advised her she could discontinue the iron for now * Telephone Encounter - Michelle Adam MA - 02/10/2025 8:59 AM EDT I spoke with Ashley. Insurance would like her to do physical therapy first. Unfortunately, her surgery will have to be cancelled. The patient would like to go to [facility] - order has been sent. * Telephone Encounter - Sharita Arcos - 02/10/2025 8:25 AM EDT Patient called and left if anything was found out about her surgery on 02/18. [phone] * Telephone Encounter - Michelle Adam MA - 02/09/2025 10:51 AM EDT I called patient and left a voicemail, I need to speak to her about her procedure next week. She will need to complete physical therapy. * Telephone Encounter - Michelle Adam MA - 02/08/2025 1:39 PM EDT I called and spoke to the patient. She asked about the Ensure we would like her to drink. Also ward got an email about her insurance denying her procedure. I let her know that I was aware and would talk to Dr. Rivera tomorrow and then give her a call back. * Telephone Encounter - Ana Caraballo - 02/08/2025 1:17 PM EDT Ashley had left a message for you to please give her a call she has some questions for you. [phone] documented in this [facility]09-10-2025 Telephone encounter Note* Telephone Encounter - Cassy Villa - 02/10/2025 10:49 AM EDT Error duplicate message [facility] [id number] Miscellaneous Notes* Telephone Encounter - Cassy Villa - 02/10/2025 10:49 AM EDT Error duplicate message documented in this encounterHarry S. Truman Memorial Veterans' [id number] Telephone encounter Note* Telephone Encounter - Michelle Adam MA - 02/10/2025 8:59 AM EDT I spoke with Ashley. Insurance would like her to do physical therapy first. Unfortunately, her surgery will have to be cancelled. The patient would like to go to [facility] - order has been sent. [facility] [id number] Telephone encounter Note* Telephone Encounter - Sharita Arocs - 02/10/2025 8:25 AM EDT Patient called and left vm if anything was found out about her surgery on 02/18. [phone] [place] [id number] Telephone encounter Note* Telephone Encounter - Michelle Adam MA - 02/09/2025 10:51 AM EDT I called patient and left a voicemail, I need to speak to her about her procedure next week. She will need to complete physical therapy. [facility] [id number] Telephone encounter Note* Telephone Encounter - Michelle Adam MA - 02/08/2025 1:39 PM EDT I called and spoke to the patient. She asked about the Ensure we would like her to drink. Also ward got an email about her insurance denying her procedure. I let her know that I was aware and would talk to Dr. Rivera tomorrow and then give her a call back. [facility] HospitalOepdysmjtj08-99-4184 Telephone encounter Note* Telephone Encounter - Ana Caraballo - 02/08/2025 1:17 PM EDT Ashley had left a message for you to please give her a call she has some questions for you. [phone] [facility] [id number] History of Present illness Narrative* Halle Dhaliwal NP - 02/04/2025 1:30 PM EDT Images from the original note were not included. GENERAL HISTORY AND PHYSICAL: NAME: Ashley Espinoza : 1960 HISTORY OF PRESENT ILLNESS: Ashley Espinoza is an 64 y.o. @ female. Here for surgery instructions left total knee [place] [facility] [place]. PAST MEDICAL HISTORY: Past Medical History: Diagnosis Date Anemia Arthritis [...] nodule Vaginal atrophy Venous insufficiency Vulvar itching PAST SURGICAL HISTORY: Past Surgical History: Procedure Laterality Date BREAST SURGERY breast implant, removed after 14 years SECTION, LOW TRANSVERSE x2 HYSTERECTOMY 2017 TOTAL HIP ARTHROPLASTY Left 2011 DR RIVERA TOTAL HIP ARTHROPLASTY Right 2012 DR RIVERA TYMPANOSTOMY Left with T tube VAGINAL DELIVERY SOCIAL HISTORY: Social History Occupational History Not on file Tobacco Use Smoking status: Never Smokeless tobacco: Never Substance and Sexual Activity Alcohol use: Never Comment: caffeine 1-2 cups per day Drug use: Never Sexual activity: Defer control/protection: Female Sterilization ALLERGIES: Allergies Allergen Reactions Other Unknown Penicillin G Unknown MEDICATIONS: Current Outpatient Medications Medication Instructions alendronate [...] (Zenaida) 180 MG tablet Every 24 hours Irhxtgqnwuy-Yxcvmkkff-Jgd C-Mn (Glucosamine Chondroitin Complx) capsule 1 capsule, Every 12 hours Iron Polysacch Gfaky-Q61-KE (Poly-Iron 150 Forte) 150-0.025-1 MG capsule 1 tablet, Oral, Daily magnesium 30 mg, 2 times daily Multiple [...] and numbness. Vitals: Body mass index is 32.36 kg/m . PHYSICAL EXAM: Physical Exam Constitutional: General: She is not in acute distress. Appearance: Normal appearance. HENT: Head: Normocephalic and atraumatic. Right Ear: External ear normal. Left Ear: External ear normal. Nose: Nose normal. No rhinorrhea. Mouth/Throat: Mouth: Mucous membranes are moist. Pharynx: No posterior oropharyngeal erythema. Eyes: Extraocular Movements: Extraocular movements intact. Conjunctiva/sclera: Conjunctivae normal. Cardiovascular: Rate and Rhythm: Normal rate and regular rhythm. Pulses: Normal pulses. Heart sounds: No murmur heard. Pulmonary: Effort: Pulmonary effort [...] Therapy Home therapy for left total knee February 18 [place] [facility] [place] Status: Future Expected Date: 02/04/2025 Expiration Date: 08/04/2025 Referral Priority: Routine Referral Type: Rehabilitation - Outpatient Referral Reason: Specialty Services Required Referred to Provider: Betito Chiang PT Requested Specialty: Physical Therapy Number of Visits Requested: 1 ASSESSMENT: ICD-10-CM 1. Pre-op evaluation Z01.818 Iron Polysacch Xpasi-B50-WK (Poly-Iron 150 Forte) 150-0.025-1 MG capsule Ambulatory referral to Physical Therapy PLAN: This patient presents for preadmission testing for upcoming surgery. Complete history with medical,surgery, and current allergy and medication list obtained. Consent for surgery signed and witnessedafter verbal consent to perform surgery received. All questions answered and proposed surgery scheduled. SURGERY INSTRUCTIONS EZIO 4TH PAT AT [facility] DR. OSWALD @ 10:30 PRE CERT SENT NAREN NOTIFIED XERALTO POST OP Follow up in about 4 weeks (around 03/04/2025) for Post-Op March 04 @ 10:00 in [place] with Jonas. documented in this encounterHarry S. Truman [facility] Veterans' [id number] History of Present illness Narrative* Jr. Loretta Rivera, DO - 01/19/2025 8:30 AM EDT Images from the original note were not included. HISTORY OF PRESENT ILLNESS: EST PT Ashley Espinoza is an 64 y.o. @ female. Left hip: EST PT HERE FOR YEARLY RECHECK LT YAW ~13 YRS (2011) AND RT YAW ~12 YRS (2012) - DOING WELL XRAY B/L HIPS TODAY EPIC 01/19/25 XRAY EXA 01/18/21 HX XRAYS [facility] 01/17/19 XRAY RT HIP AND L-SPINE 12/24/18 [facility] VERY PLEASED. PT IS PLEASED- NOTES OCCASIONAL TWINGE OF DISCOMFORT- NO PAIN MEDS- GOOD ROM Right hip: EST PT S/P RT YAW ~12YRS (2012)-DOING WELL XRAY B/L HIPS TODAY EPIC 01/19/25 XRAY EXA 01/18/21 XRAYS 01/17/18 @ [facility]. XRAY RT HIP AND L-SPINE 12/24/20 [facility]. OCCASIONAL TWINGE OF PAIN- GOOD ROM PT IS SCHEDULED FOR LT TKA 02/18/25 ALLERGIES: Allergies Allergen Reactions Other Unknown Penicillin [...] (Zenaida) 180 MG tablet Every 24 hours Tbgyprvafnp-Uxtbmtgxi-Xpd C-Mn (Glucosamine Chondroitin Complx) capsule 1 capsule, Every 12 hours magnesium 30 mg, 2 times daily Multiple Vitamin (Multi Vitamin) tablet Every 24 hours Turmeric 500 MG capsule zinc 50 MG tablet Every 24 hours PHYSICAL EXAM: Hip Musculoskeletal Exam Gait Gait is normal. Inspection Leg length disparity: no discrepancy Right Erythema: none Ecchymosis: none Edema: none Deformity: none Previous incision: anterolateral Incision: well-healed Left Left hip inspection is normal. Previous incision: anterolateral Incision: well-healed Palpation Right Right hip palpation is normal. Increased warmth: none Tenderness: none Left Left hip palpation is normal. Range of Motion Right Right hip range of motion is within functional limits. Active ROM: normal. Passive ROM: normal. Active extension: 30. Passive extension: 30. Active flexion: 120. Passive flexion: 120. Active internal rotation: 35. Passive internal rotation: 35. Active external rotation: 40. Passive external rotation: 40. Active adduction: 25. Passive adduction: 25. Active abduction: 40. Passive abduction: 40. Left Left hip range of motion is within functional limits. Strength Right Right hip strength is normal. Extension: 5/5. Flexion: 5/5. Internal rotation: 5/5. External rotation: 5/5. Adduction: 5/5. Abduction: 5/5. Left Left hip strength is normal. Neurovascular Right Right hip neurovascular exam is normal. Pulses - PT: normal Posterior tibial: 2+ Left Left hip neurovascular exam is normal. General Constitutional: appears stated age Labored breathing: no Psychiatric: normal mood and affect Neurological: alert and oriented x3 Skin: intact Lymphadenopathy: none .hip Vitals: There is no height or weight on file to calculate BMI. Tobacco Use: Low Risk (01/19/2025) Patient History Smoking Tobacco Use: Never Smokeless Tobacco Use: Never Passive Exposure: Not on file Alcohol Use: Not on file IMAGING: XR hip right 2 or 3 views Imaging Result: AP and lateral of right hip showed acceptable position and alignment of right total hip arthroplasty. There was no evidence of loosening of the acetabular cup or femoral stem. Femoral head was well centered in the acetabular liner without evidence of asymmetric or accelerated wear. There was no gross evidence of fracture and/or dislocation. Impression: Unremarkable right total hip arthroplasty. XR hip left 2 or 3 views Imaging Result: AP and lateral of left hip showed acceptable position and alignment of left total hip arthroplasty.There was no evidence of loosening of the acetabular cup or femoral stem. Femoral head was well centered in the acetabular liner without evidence of asymmetric or accelerated wear. There was no grossevidence of fracture and/or dislocation. Impression: Unremarkable left total hip arthroplasty. Procedures Orders Placed This Encounter Procedures XR hip right 2 or 3 views Reason for exam:: PAIN XR hip left 2 or 3 views Reason for exam:: PAIN Vascular US lower extremity venous duplex left Standing Status: Future Number of Occurrences: 1 Expected Date: 01/19/2025 Expiration Date: 01/19/2026 Scheduling Instructions: VENOUS DOPPLER LT STEVIE PARKER; PLEASE CALL PT TO SCHEDULE Reason for exam:: LEFT CALF PAIN ASSESSMENT: ICD-10-CM 1. Right hip pain M25.551 XR hip right 2 or 3 views 2. Left hip pain M25.552 XR hip left 2 or 3 views 3. Pain of left calf M79.662 Vascular US lower extremity venous duplex left PLAN: Patient is scheduled for total knee arthroplasty. We have x-rayed her bilateral hips for her yearlyfollow-up. We have discussed her symptoms and x-rays today length.She has chronic swelling and a history of a DVT to her left lower extremity. We will recommend Xarelto postop for her total knee. We'll see her back in a month to replace her left knee. We have also ordered an ultrasound of her left lower extremity to ensure that she does not have recurrent blood clot. Questions answered in laymen terms at the bedside. The diagnosis, home exercise plan and any ongoing restrictions/ recommendations reviewed. If unable to be reached in office, I recommend evaluation at nearest Emergency Room if any symptoms worsened or new symptoms develop for requiring urgent evaluation. documented in this encounterHarry S. Truman Memorial Veterans' [id number] History of Present illness Narrative* Quinn Quick MD - 01/05/2025 9:10 AM EDT Subjective Patient ID: Ashley Espinoza is a 64 y.o. 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 06/26/2023 Bilateral impacted cerumen 06/26/2023 Mammogram abnormal 05/11/2024 Mass of left breast 05/11/2024 History of hysterectomy 01/04/2025 Otorrhea of right ear 01/04/2025 Resolved Ambulatory Problems Diagnosis Date Noted No Resolved Ambulatory Problems Past Medical History: Diagnosis Date Anemia Arthritis Breast cancer screening by mammogram 04/10/2023 COVID-19 Detached retina DVT (deep venous thrombosis) (HCC) Hearing loss Hearing loss of right ear History of section Nonsmoker Obesity (BMI 30.0-34.9) Osteopenia of spine Osteoporosis Ovarian failure Palpitations Perforated tympanic membrane, bilateral Post-menopausal Tachycardia Thyroid nodule Venous insufficiency Vulvar itching Past Surgical History: Procedure Laterality Date BREAST SURGERY breast implant, removed after 14 years SECTION, LOW TRANSVERSE x2 HYSTERECTOMY 2017 TOTAL HIP ARTHROPLASTY Left 2011 DR RIVERA TOTAL HIP ARTHROPLASTY Right 2012 DR RIVERA TYMPANOSTOMY Left with T tube VAGINAL DELIVERY Allergies Allergen Reactions Other Unknown Penicillin G Unknown Current Outpatient Medications on File Prior to Visit Medication Sig Dispense Refill alendronate (Fosamax) 70 MG tablet TAKE 1 TABLET BY MOUTH ONE TIME PER WEEK 30 tablet 11 Ascorbic Acid (vitamin C) 1000 MG tablet 1 (one) time each day at the same time aspirin 81 MG EC tablet 1 (one) time each day at the same time B Complex Vitamins (VITAMIN B COMPLEX 100 IJ) Calcium Citrate-Vitamin D (Calcium Citrate + D3) 200-6.25 MG-MCG tablet cholecalciferol (Vitamin D-3) 25 MCG (1000 UT) tablet Take 1,000 Units by mouth Daily cyanocobalamin (Vitamin B-12) 1000 MCG tablet 1 (one) time each day at the same time fexofenadine (Zenaida) 180 MG tablet 1 (one) time each day at the same time Ajodcahqnia-Xrxaogrio-Lep C-Mn (Glucosamine Chondroitin Complx) capsule 1 capsule every 12 (twelve)hours magnesium 30 MG tablet Take 30 mg by mouth in the morning and 30 mg before bedtime. Multiple Vitamin (Multi Vitamin) tablet 1 (one) time each day at the same time Turmeric 500 MG capsule zinc 50 MG tablet 1 (one) time each day at the same time [DISCONTINUED] fluconazole (Diflucan) 150 MG tablet TAKE 1 TABLET BY MOUTH FOR 1 DOSE [DISCONTINUED] nystatin (Mycostatin) 376080 UNIT/GM powder Apply topically in the morning and in the evening and before bedtime. 15 g 0 [DISCONTINUED] zinc gluconate 50 MG tablet 1 (one) time each day at the same time No current facility-administered medications on file prior to visit. Objective Last Recorded Vitals Vitals: 01/05/25 0908 BP: 123/77 ENT Physical Exam Ear Ear comments: RT C/D ant perf. LT pinpoint ant/sup perf. Assessment/Plan Diagnoses and all orders for this visit: Bilateral tympanic membrane perforation Hot flashes Stable edgardo perfs Recommend discussing hot flashes with Dr Oswald documented in this encounterHarry S. Truman Memorial Veterans' [id number] History of Present illness Narrative* Jr. Loretta Rivera, DO - 12/02/2024 1:30 PM EDT Images from the original note were not included. HISTORY OF PRESENT ILLNESS: EST PT Ashley Espinoza is an 64 y.o. @ female. (EST PT) - RECHECK (L) KNEE - HERE TO DISCUSS SURGICAL OPTIONS XRAY (L) KNEE EPIC 07/28/24 XRAY (L) KNEE EPIC 01/13/24 XRAYS, 01/14/23 IN CHANGE NO MRI NO MDP / PREDNISONE S/P CORTISONE INJ 02/20/21 S/P SYNVISC SERIES PER DR KAN 03/15/23, 10/01/24 S/P GEL-ONE 03/06/21 NO PHYSICAL THERAPY ANTERIOR DISCOMFORT - DENIES RADIATION. SOME SWELLING. STIFFNESS AFTER PROLONGED SITTING. OCCASIONAL WEAKNESS / INSTABILITY. DENIES WAKING HS. ADMITS LOCKING / POPPING. GOOD ROM. TYL PRN. ICING / ELEVATING PRN. DENIES TOPICALS. WEARING COMPRESSION STOCKINGS REGULARLY. 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 ALLERGIES: Allergies Allergen Reactions Other Unknown Penicillin G Unknown HOME MEDICATIONS: Current Outpatient Medications Medication Instructions alendronate (Fosamax) 70 MG tablet TAKE 1 TABLET BY MOUTH ONE TIME PER WEEK Ascorbic Acid (vitamin C) 1000 MG tablet Every 24 hours aspirin 81 MG EC tablet Every 24 hours B Complex Vitamins (VITAMIN B COMPLEX 100 IJ) Vitamin B Complex Calcium Citrate-Vitamin D (Calcium Citrate + D3) 200-6.25 MG-MCG tablet Calcium Citrate+D3 cyanocobalamin (Vitamin B-12) 1000 MCG tablet Every 24 hours fexofenadine (Zenaida) 180 MG tablet Every 24 hours Nljkrsbpjww-Fhaounirt-Tzv C-Mn (Glucosamine Chondroitin Complx) capsule 1 capsule, Every 12 hours magnesium 30 mg, 2 times daily Multiple Vitamin (Multi Vitamin) tablet Every 24 hours nystatin (Mycostatin) 516088 UNIT/GM powder Topical, 3 times daily Turmeric 500 MG capsule Orally zinc 50 MG tablet Every 24 hours zinc gluconate 50 MG tablet Every 24 hours PHYSICAL EXAM: Knee Musculoskeletal Exam Gait Gait is normal. Limp: left Inspection Leg length disparity: no discrepancy Left Erythema: none Effusion: moderate Edema: none Ecchymosis: none Deformity: none Alignment: valgus Palpation Left Left knee palpation is unremarkable. Increased warmth: none Masses: none Crepitus: patellofemoral and lateral Tenderness: present Lateral joint line: mild Patella: severe Range of Motion Left Left knee range of motion is normal. Active extension: 0 Active flexion: 120 Passive flexion: 120 Strength Left Left knee strength [...] to calculate BMI. Tobacco Use: Low Risk (12/02/2024) Patient History Smoking Tobacco Use: Never Smokeless Tobacco Use: Never Passive Exposure: Not on file Alcohol Use: Not on file IMAGING: Procedures No orders of the defined types were placed in this encounter. ASSESSMENT: ICD-10-CM 1. Primary osteoarthritis of left knee M17.12 2. Acute pain of left knee M25.562 PLAN: We have discussed her case with her at length including both surgical and nonsurgical treatment options and the risks and benefits associated with both and she is requesting a left total knee arthroplasty understanding that we may not be able to replace her patella Or we may use a patellar augment if needed.We will see her back on the day of surgery. She fully understands the risks and benefits of said surgical program. We have discussed both surgical and nonsurgical treatment options with the patient and the risks and benefits associated with both. The patient is requesting surgical intervention because the patient's symptoms were affecting the patient's activities of daily living and ability to sleep. The patient's symptoms were unresponsive to outpatient treatment options. After lengthy discussions involving but not limited to both surgical and nonsurgical treatment options the patient has requested surgical intervention and we will see them back on the day of surgery. The patient understands the risks ofsaid treatment. We have discussed both surgical and nonsurgical treatment options with the patient at length and the risks and benefits associated with both. The patient is requesting surgical intervention because they have not responded to outpatient treatment options including but not limited to rest ice, and home exercise program. Pain and decreased range of motion are affecting the patient''s ability to sleep and activities of daily living and we have recommended surgical intervention. We recommended surgery in the form of a total knee arthroplasty. Factors including the patient's age and longevity of pro sthesis, usual postoperative course, and possible need for revision in the future, and leg length inequality postoperatively were discussed at length. We have discussed with the patient that this is a major orthopedic procedure. We discussed that the patient may require more than the average 30 MEDlimited and may require greater than 7 days narcotic treatment postoperatively. Therefore, patient's narcotic usage will be tailored on an individual basis. If this patient at the time of surgery hasany of the following: Morbidities including but not limited to history of falling, cognitive impairment, BMI greater than 30, end-stage renal disease, respiratory failure, heart failure, kidney failure, liver failure, diabetes, cardiac event in the last year, sleep apnea, disorder, excessive tobacco use, if at the time of surgery the patient is greater than 80 years old, or the patient requires discharge to a longterm facility, the patient may require to have additional inpatient hospital stay days following the surgery. Physical therapy is contraindicated in this patient''s case because of the qdck-ex-sbqu articulation of the patient's knee.. Questions answered in laymen terms at the bedside. The diagnosis, home exercise plan and any ongoing restrictions/ recommendations reviewed. If unable to be reached in office, I recommend evaluation at nearest Emergency Room if any symptoms worsened or new symptoms develop for requiring urgent evaluation. documented in this encounterHarry S. Truman Memorial Veterans' [id number] History of Present illness Narrative* JOO Chamberlain - 11/17/2024 3:00 PM EDT Images from the original note were not included. Reason for Appointment: Patient ID: Ashley Espinoza is a 64 y.o. female who presents for Rash Redness Patient presents today for Acute Visit. MEDICATIONS Current Outpatient Medications Medication Instructions alendronate (Fosamax) 70 MG tablet TAKE 1 TABLET BY MOUTH ONE TIME PER WEEK Ascorbic Acid (vitamin C) 1000 MG tablet Every 24 hours aspirin 81 MG EC tablet Every 24 hours B Complex Vitamins (VITAMIN B COMPLEX 100 IJ) Vitamin B Complex Calcium Citrate-Vitamin D (Calcium Citrate + D3) 200-6.25 MG-MCG tablet Calcium Citrate+D3 cephalexin (KEFLEX) 500 mg, Oral, 2 times daily cyanocobalamin (Vitamin B-12) 1000 MCG tablet Every 24 hours fexofenadine (Zneaida) 180 MG tablet Every 24 hours Wfddcrmrxtx-Xvdducibl-Nic C-Mn (Glucosamine Chondroitin Complx) capsule 1 capsule, Every 12 hours magnesium 30 mg, 2 times daily Multiple Vitamin (Multi Vitamin) tablet Every 24 hours nystatin (Mycostatin) 060409 UNIT/GM powder Topical, 3 times daily Turmeric 500 MG capsule Orally zinc 50 MG tablet Every 24 hours zinc gluconate 50 MG tablet Every 24 hours ALLERGIES Allergies Allergen Reactions Other Unknown Penicillin G Unknown PROBLEMS Active Ambulatory Problems Diagnosis Date Noted Age-related osteoporosis without current pathological fracture 06/24/2023 Cholesteatoma 06/24/2023 Chronic rhinitis 06/24/2023 Goiter 06/24/2023 Hearing loss of left ear 06/24/2023 Nontoxic multinodular goiter 06/24/2023 Obesity 06/24/2023 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 Respiratory: Negative. Cardiovascular: Negative. Gastrointestinal: Negative. Genitourinary: Negative. Musculoskeletal: Negative. Skin: Positive for rash. Red, pruitic fungal appear rash on abdomen and right inguinal region Neurological: Negative. All other systems reviewed and are negative. Hematological: Negative. Endocrine: Negative. Allergic/Immunologic: Negative. OBJECTIVE Objective: Physical Exam Constitutional: Appearance: Normal appearance. She is normal weight. Comments: Red raised pruitic rash consistent with tinea HENT: Head: Normocephalic. Cardiovascular: Rate and Rhythm: Normal rate. Pulses: Normal pulses. Pulmonary: Effort: Pulmonary effort is normal. Breath sounds: Normal breath sounds. Abdominal: Palpations: Abdomen is soft. Musculoskeletal: General: Normal range of motion. Neurological: General: No focal deficit present. Mental Status: She is alert and oriented to person, place, and time. Skin: Findings: Erythema and rash present. Comments: Red pruitic rash to abdomen and right inguinal area. Psychiatric: Mood and Affect: Mood normal. Behavior: Behavior normal. Thought Content: Thought content normal. Judgment: Judgment normal. Vitals and nursing note reviewed. Vitals: Estimated body mass index is 32.6 kg/m as calculated from the following: Height as of 07/07/24: 5' 11 . Weight as of this encounter: 233 lb 12 oz. BP: 140/84 No LMP recorded (lmp unknown). Patient has had a hysterectomy. ASSESSMENT & PLAN ICD-10-CM 1. Yeast infection B37.9 cephalexin (Keflex) 500 MG capsule fluconazole (Diflucan) 150 MG tablet nystatin (Mycostatin) 007570 UNIT/GM powder Patient present with rash to abdomen and inguinal area. Consistent with tinea. Patient had been using clobetasole and states symptoms not improving. We will start patient on diflucan and nystatin powder. Patient also prescribed keflex as rash was tender and moist. Patient will follow up if symptomsnot improving in next several days. Documented by JOO Chamberlain on behalf of: JOO Chamberlain documented in this encounterHarry S. Truman Memorial Veterans' [id number] History of Present illness Narrative* Jr. Loretta Rivera, - 11/17/2024 8:00 AM EDT Images from the original note were not included. HISTORY OF PRESENT ILLNESS: EST ERA Espinoza is an 64 y.o. @ female. 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 ALLERGIES: Allergies Allergen Reactions Other Unknown Penicillin G Unknown HOME MEDICATIONS: Current Outpatient Medications Medication Instructions alendronate (Fosamax) 70 MG tablet TAKE 1 TABLET BY MOUTH ONE TIME PER WEEK Ascorbic Acid (vitamin C) 1000 MG tablet Every 24 hours aspirin 81 MG EC tablet Every 24 hours B Complex Vitamins (VITAMIN B COMPLEX 100 IJ) Vitamin B Complex Calcium Citrate-Vitamin D (Calcium Citrate + D3) 200-6.25 MG-MCG tablet Calcium Citrate+D3 cephalexin (KEFLEX) 500 mg, Oral, 2 times daily cyanocobalamin (Vitamin B-12) 1000 MCG tablet Every 24 hours fexofenadine (Zenaida) 180 MG tablet Every 24 hours Chyeyafhtdw-Ztbzuxxdg-Znv C-Mn (Glucosamine Chondroitin Complx) capsule 1 capsule, Every 12 hours magnesium 30 mg, 2 times daily Multiple Vitamin (Multi Vitamin) tablet Every 24 hours nystatin (Mycostatin) 963284 UNIT/GM powder Topical, 3 times daily Turmeric 500 MG capsule Orally zinc 50 MG tablet Every 24 hours zinc gluconate 50 MG tablet Every 24 hours PHYSICAL EXAM: Knee Musculoskeletal Exam Gait Gait is normal. Limp: left Inspection Leg length disparity: no discrepancy Left Erythema: none Effusion: mild Edema: none Ecchymosis: none Deformity: none Alignment: valgus Palpation Left Left knee palpation is unremarkable. Increased warmth: none Masses: none Crepitus: patellofemoral and lateral Tenderness: present Lateral joint line: mild Patella: severe Range of Motion Left Left knee range of motion is normal. Active extension: 0 Active flexion: 120 Passive flexion: 120 Strength Left Left knee strength [...] to calculate BMI. Tobacco Use: Low Risk (11/17/2024) Patient History Smoking Tobacco Use: Never Smokeless Tobacco Use: Never Passive Exposure: Not on file Alcohol Use: Not on file IMAGING: Procedures No orders of the defined types were placed in this encounter. ASSESSMENT: ICD-10-CM 1. Primary osteoarthritis of left knee M17.12 2. Acute pain of left knee M25.562 PLAN: We have discussed her results of Visco supplementation, physical exam, and symptoms For her left knee. Discussed surgical versus nonsurgical treatment options and possibly replacing her in May. She understands risks and benefits of waiting until May. We'll see her back in January to recheck her right hip and discuss her left knee at that time. We have discussed restrictions and home exercise program. Questions answered in laymen terms at the bedside. The diagnosis, home exercise plan and any ongoing restrictions/ recommendations reviewed. If unable to be reached in office, I recommend evaluation at nearest Emergency Room if any symptoms worsened or new symptoms develop for requiring urgent evaluation. documented in this encounterHarry S. Truman Memorial Veterans' [id number] Evaluation note* Diagnosis Onset Date Resolution Status Admit Date Chronic pain acuteMarch 2024 12:16pmPrimary osteoarthritis of left kneeacuteMarch 2024 12:16pmChronic painacuteApril 2024 2:48pmPrimary osteoarthritis of left kneeacuteApril 2024 2:48pmChronic painacuteApril 2024 2:54pm Primary osteoarthritis of left kneeacuteApril 2024 2:54pm [facility] Work Phone: 1(528) 907-821203-10-2025 Evaluation note* Diagnosis Onset Date Resolution Status Admit Date Chronic pain acuteMarch 2024 12:16pmPrimary osteoarthritis of left kneeacuteMarch 2024 12:16pmChronic painacuteApril 2024 2:48pmPrimary osteoarthritis of left kneeacuteApril 2024 2:48pmChronic painacuteApril 2024 2:54pm Primary osteoarthritis of left kneeacuteApril 2024 2:54pmChronic painacute May 2024 3:00pmPrimary osteoarthritis of left kneeacuteMay 2024 3:00pm [facility] Work Phone: 1(877) 692-439002-25-2025 History of Present illness Narrative* Jr. Loretta Rivera, - 07/28/2024 8:30 AM EST Images from the original note were not included. HISTORY OF PRESENT ILLNESS: EST PT Ashley Espinoza is an 64 y.o. @ female. (EST PT) RECHECK (L) KNEE - 6 MONTH F/U- XRAY LT KNEE TODAY EPIC 07/28/24 XRAY LT KNEE EPIC 01/13/24 XRAYS, 01/14/23 IN CHANGE NO MRI NO MDP / PREDNISONE S/P CORTISONE INJ 02/20/21 S/P SYNVISC SERIES 03/15/23 - DR KAN S/P GEL-ONE 03/06/21 NO PHYSICAL THERAPY PAIN MGMT ; DR KAN (VISCO) ACHES DIFFUSE IN KNEE, DEPENDS ON WHAT SHE IS DOING AND THE WEATHER. NO PAIN MEDS. +ICE AFTER EXERCISING. USING TREADMILL AND STATIONARY BIKE. +POPPING, GRINDING. DENIES GIVING OUT. WEARING COMPRESSION STOCKINGS. DOES NOT WAKE AT HS. LIMITED ROM. PAIN WITH KNEELING. ALLERGIES: Allergies Allergen Reactions Other Unknown Penicillin G Unknown HOME MEDICATIONS: Current Outpatient Medications Medication Instructions alendronate (Fosamax) 70 MG tablet TAKE 1 TABLET BY MOUTH ONE TIME PER WEEK Ascorbic Acid (vitamin C) 1000 MG tablet Every 24 hours aspirin 81 MG EC tablet Every 24 hours B Complex Vitamins (VITAMIN B COMPLEX 100 IJ) Vitamin B Complex Calcium Citrate-Vitamin D (Calcium Citrate + D3) 200-6.25 MG-MCG tablet Calcium Citrate+D3 clobetasol (Temovate) 0.05 % cream 1 application , Topical, 2 times weekly, Pea- size amount appliedtopically twice weekly. cyanocobalamin (Vitamin B-12) 1000 MCG tablet Every 24 hours fexofenadine (Zenaida) 180 MG tablet Every 24 hours Zmghbclgbws-Kzepxbsgn-Lah C-Mn (Glucosamine Chondroitin Complx) capsule 1 capsule, Every 12 hours magnesium 30 mg, 2 times daily Multiple Vitamin (Multi Vitamin) tablet Every 24 hours Turmeric 500 MG capsule Orally zinc 50 MG tablet Every 24 hours zinc gluconate 50 MG tablet Every 24 hours PHYSICAL EXAM: Knee Musculoskeletal Exam Gait Gait is normal. Antalgic: left Limp: left Inspection Leg length disparity: no discrepancy Left Erythema: none Effusion: mild Edema: none Ecchymosis: none Deformity: none Alignment: valgus Palpation Left Left knee palpation is unremarkable. Increased warmth: none Masses: none Crepitus: patellofemoral and lateral Tenderness: present Lateral joint line: mild Patella: mild Range of Motion Left Left knee range of motion is normal. Active extension: 0 Active flexion: 120 Passive flexion: 120 Strength Left Left knee strength [...] to calculate BMI. Tobacco Use: Low Risk (07/28/2024) Patient History Smoking Tobacco Use: Never Smokeless Tobacco Use: Never Passive Exposure: Not on file Alcohol Use: Not on file IMAGING: XR knee 1 or 2 views left Imaging Result: X-rays AP and lateral of left knee show mild degenerative changes with mild flattening of the articular surfaces to the medial joint line with decreased joint space height to the medial joint line. Lateral joint line appeared to be well preserved there was subchondral sclerosis noted at the medial joint line, patellofemoral joint showed significant DJD. There is no evidence of fracture or dislocation. Bony structures visualized appeared to be adequately ossified. Procedures Orders Placed This Encounter Procedures XR knee 1 or 2 views left Order Specific Question: Reason for exam: Answer: pain ASSESSMENT: ICD-10-CM 1. Primary osteoarthritis of left knee M17.12 XR knee 1 or 2 views left PLAN: We have discussed possible Visco supplementation versus total knee replacement. She is going to Dr Kan for visco. Follow up in late November for possible RTKA in the Fall Questions answered in laymen terms at the bedside. The diagnosis, home exercise plan and any ongoing restrictions/ recommendations reviewed. If unable to be reached in office, I recommend evaluation at nearest Emergency Room if any symptoms worsened or new symptoms develop for requiring urgent evaluation. documented in this encounterHarry S. Truman [facility] Veterans' [id number] History of Present illness Narrative* Quinn Quick MD - 07/07/2024 9:00 AM EST Subjective Patient ID: Ashley Espinoza is a 64 y.o. 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 06/26/2023 Bilateral impacted cerumen 06/26/2023 Mammogram abnormal 05/11/2024 Mass of left breast 05/11/2024 Resolved Ambulatory Problems Diagnosis Date Noted No [...] membrane, bilateral Post-menopausal Tachycardia Thyroid nodule (CMS/HCC) Venous insufficiency Vulvar itching Past Surgical History: Procedure Laterality Date BREAST SURGERY breast implant, removed after 14 years SECTION, LOW TRANSVERSE x2 HYSTERECTOMY 2017 TOTAL HIP ARTHROPLASTY Left 2011 DR RIVERA TOTAL HIP ARTHROPLASTY Right 2013 DR RIVERA TYMPANOSTOMY Left with T tube VAGINAL DELIVERY Allergies Allergen Reactions Other Unknown Penicillin G Unknown Current Outpatient Medications on File Prior to Visit Medication Sig Dispense Refill alendronate (Fosamax) 70 MG tablet TAKE 1 TABLET BY MOUTH ONE TIME PER WEEK 30 tablet 11 Ascorbic Acid (vitamin C) 1000 MG tablet 1 (one) time each day at the same time. aspirin 81 MG EC tablet 1 (one) time each day at the same time. B Complex Vitamins (VITAMIN B COMPLEX 100 IJ) Vitamin B Complex Calcium Citrate-Vitamin D (Calcium Citrate + D3) 200-6.25 MG-MCG tablet Calcium Citrate+D3 clobetasol (Temovate) 0.05 % cream Apply 1 application topically 2 (two) times a week Pea-size amount applied topically twice weekly. 60 g 3 cyanocobalamin (Vitamin B-12) 1000 MCG tablet 1 (one) time each day at the same time. fexofenadine (Zenaida) 180 MG tablet 1 (one) time each day at the same time. Obufmlilchq-Nuadcipkz-Hit C-Mn (Glucosamine Chondroitin Complx) capsule 1 capsule every 12 (twelve)hours. magnesium 30 MG tablet Take 30 mg by mouth in the morning and 30 mg before bedtime. Multiple Vitamin (Multi Vitamin) tablet 1 (one) time each day at the same time. Turmeric 500 MG capsule Orally zinc 50 MG tablet 1 (one) time each day at the same time. zinc gluconate 50 MG tablet 1 (one) time each day at the same time. No current facility-administered medications on file prior to visit. Objective Last Recorded Vitals Vitals: 07/07/24 0858 BP: 124/77 Pulse: 96 ENT Physical Exam Ear Ear comments: RT - C/D ant 30% perf. LT - C/D ant <5% perf Assessment/Plan Diagnoses and all orders for this visit: Bilateral chronic otorrhea Otorrhea resolved and ears look good. Check perfs every 6 mo. Pt instructed not to allow irrigationof her ears documented in this encounterHarry S. Truman [facility] Veterans' [id number] Telephone encounter Note* Telephone Encounter - Edith Mendez - 06/19/2024 1:23 PM EST Pt cld back and she states does not have any drainage so she will you on the scheduled appt 2/4 [facility] [id number] Miscellaneous Notes* Telephone Encounter - Edith Mendez - 06/19/2024 1:23 PM EST Pt cld back and she states does not have any drainage so she will you on the scheduled appt 2/4 * Telephone Encounter - Lisa Quick - 06/19/2024 11:42 AM EST Left message for pt to call Dr Quick's office. * Telephone Encounter - Quinn Quick MD - 06/19/2024 8:14 AM EST Needs to F/U if drainage recurs * Telephone Encounter - Lisa Quick - 06/19/2024 8:03 AM EST Pt wants to know if she can have the rx for ear drops refilled before her next visit? documented in this encounterHarry S. Truman [facility]' [id number] Telephone encounter Note* Telephone Encounter - Lisa Quick - 06/19/2024 11:42 AM EST Left message for pt to call Dr Quick's office. [facility] [id number] Telephone encounter Note* Telephone Encounter - Quinn Quick MD - 06/19/2024 8:14 AM EST Needs to F/U if drainage recurs [facility] [id number] Telephone encounter Note* Telephone Encounter - Lisa Quick - 06/19/2024 8:03 AM EST Pt wants to know if she can have the rx for ear drops refilled before her next visit? [id number] History of Present illness Narrative* Quinn Quick MD - 06/12/2024 9:50 AM EST Images from the original note were not included. Subjective Patient ID: Ashley Espinoza is a 64 y.o. female who presents for Ear Problem (1 year follow up ears/ drainage) Pt reports edgardo L>R otorrhea. 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 06/26/2023 Bilateral impacted cerumen 06/26/2023 Mammogram abnormal 05/11/2024 Mass of left breast 05/11/2024 Resolved Ambulatory Problems Diagnosis Date Noted No [...] membrane, bilateral Post-menopausal Tachycardia Thyroid nodule (CMS/HCC) Venous insufficiency Vulvar itching Past Surgical History: Procedure Laterality Date BREAST SURGERY breast implant, removed after 14 years SECTION, LOW TRANSVERSE x2 HYSTERECTOMY 2017 TOTAL HIP ARTHROPLASTY Left 2011 DR RIVERA TOTAL HIP ARTHROPLASTY Right 2013 DR RIVERA TYMPANOSTOMY Left with T tube VAGINAL DELIVERY Allergies Allergen Reactions Other Unknown Penicillin G Unknown Current Outpatient Medications on File Prior to Visit Medication Sig Dispense Refill alendronate (Fosamax) 70 MG tablet TAKE 1 TABLET BY MOUTH ONE TIME PER WEEK 30 tablet 11 Ascorbic Acid (vitamin C) 1000 MG tablet 1 (one) time each day at the same time. aspirin 81 MG EC tablet 1 (one) time each day at the same time. B Complex Vitamins (VITAMIN B COMPLEX 100 IJ) Vitamin B Complex Calcium Citrate-Vitamin D (Calcium Citrate + D3) 200-6.25 MG-MCG tablet Calcium Citrate+D3 clobetasol (Temovate) 0.05 % cream Apply 1 application topically 2 (two) times a week Pea-size amount applied topically twice weekly. 60 g 3 cyanocobalamin (Vitamin B-12) 1000 MCG tablet 1 (one) time each day at the same time. fexofenadine (Zenaida) 180 MG tablet 1 (one) time each day at the same time. Mwkfplvlsdt-Blnttlixv-Jpf C-Mn (Glucosamine Chondroitin Complx) capsule 1 capsule every 12 (twelve)hours. magnesium 30 MG tablet Take 30 mg by mouth in the morning and 30 mg before bedtime. Multiple Vitamin (Multi Vitamin) tablet 1 (one) time each day at the same time. Turmeric 500 MG capsule Orally zinc 50 MG tablet 1 (one) time each day at the same time. zinc gluconate 50 MG tablet 1 (one) time each day at the same time. [DISCONTINUED] B Complex-Folic Acid (SUPER B COMPLEX MAXI PO) Super B Complex [DISCONTINUED] Calcium Citrate-Vitamin D (Calcium Citrate + D) 250-5 MG-MCG tablet Calcium Citrate +D [DISCONTINUED] cholecalciferol (Vitamin D-3) 125 MCG (5000 UT) capsule 1 (one) time each day at thesame time. [DISCONTINUED] Misc Natural Products (Glucosamine Chondroitin Adv) tablet as directed Orally No current facility-administered medications on file prior to visit. Objective Last Recorded Vitals Vitals: 06/12/24 0938 BP: 131/83 Pulse: 82 ENT Physical Exam Ear Ear Canals: bilateral ear canals impacted cerumen observed; Ear comments: RT - Ear debrided. Ant 30% perf with otorrhea. LT - Ear debrided. Ant <5% perf with otorrhea Patient ID: Ashley Espinoza is a 64 y.o. female. Procedures Cerumen was removed from the ears using binocular microscopy under micro with suction Assessment/Plan Diagnoses and all orders for this visit: Bilateral impacted cerumen Bilateral chronic otorrhea Bilateral tympanic membrane perforation Edgardo ears debrided. Corpodex for otorrhea. Pt advised she should not get her ears irrigated with TM perfs. documented in this [facility]12-23-2024 History of Present illness Narrative* Magda Gonzalez MA - 05/25/2024 11:30 AM EST Reason for Appointment: Patient ID: Ashley Espinoza is a 63 y.o. female who presents for Procedure (Pt is present today fora vaginal biopsy due to vaginal itching.) Patient presents today for vaginal biopsy due to vaginal itching and review pathology report of breast. MEDICATIONS Current Outpatient Medications Medication Instructions alendronate [...] Topical, 2 times daily, Apply pea-size amount toaffected area. cyanocobalamin (Vitamin B-12) 1000 MCG tablet Every 24 hours fexofenadine (Zenaida) 180 MG tablet Every 24 hours Sjwfryqjfay-Rqtweirxr-Xkf C-Mn (Glucosamine Chondroitin Complx) capsule 1 capsule, [...] Noted Age-related osteoporosis without current pathological fracture ([facility]) 06/24/2023 Cholesteatoma 06/24/2023 Chronic rhinitis 06/24/2023 Goiter ([facility]) 06/24/2023 Hearing loss of left ear 06/24/2023 Nontoxic multinodular goiter ([facility]) 06/24/2023 Obesity 06/24/2023 Other primary [...] membrane perforation 06/26/2023 Bilateral impacted cerumen 06/26/2023 Mammogram abnormal 05/11/2024 Mass of left breast 05/11/2024 Resolved Ambulatory Problems Diagnosis Date Noted No [...] membrane, bilateral Post-menopausal Tachycardia Thyroid nodule (CMS/HCC) Venous insufficiency Vulvar itching HISTORY PAST MEDICAL [...] SYSTEMS Review of Systems: Review of Systems Genitourinary: Positive for vaginal pain. All other systems reviewed and are negative. OBJECTIVE Objective: Physical Exam Constitutional: Appearance: Normal appearance. She is well-developed. Genitourinary: Vulva normal. Genitourinary Comments: Biopsy obtained. Cardiovascular: Rate and Rhythm: Normal rate and regular rhythm. Pulmonary: Effort: Pulmonary effort is normal. Breath sounds: Normal breath sounds. Abdominal: General: Bowel sounds are normal. There is no distension. Palpations: Abdomen is soft. Tenderness: There is no abdominal tenderness. There is no guarding or rebound. Musculoskeletal: General: No swelling. Normal range of motion. Right lower leg: No edema. Left lower leg: No edema. Neurological: Mental Status: She is alert and oriented to person, place, and time. Skin: General: Skin is warm and dry. Psychiatric: Mood and Affect: Mood normal. Behavior: Behavior normal. Vitals and nursing note reviewed. Exam conducted with a paintings restorer present. Vitals: Estimated body mass index is 32.64 kg/m as calculated from the following: Height as of 03/17/24: 5' 11 . Weight as of this encounter: 234 lb. BP: 124/80 No LMP recorded (lmp unknown). Patient has had a hysterectomy. ASSESSMENT & PLAN ICD-10-CM 1. Itching in the vaginal area N89.8 Biopsy vaginal 2. Encounter for biopsy Z76.89 Patient presents today for vaginal biopsy due to itching. Punch biopsy obtained from left labia. Patient tolerated procedure well and will be notified of results once received. Discussed recent breast biopsy results with patient and spouse as well. Patient to RTC for routine annual appt or PRN. Documented by Magda Gonzalez MA/Jessica Lauren LPN on behalf of: Piotr Hutton DO documented in this encounterHarry S. Truman Memorial Veterans' [id number] History of Present illness Narrative* JOO Chamberlain - 05/05/2024 9:00 AM EST Reason for Appointment: Patient ID: Ashley Espinoza is a 63 y.o. female who presents [...] Topical, 2 times daily, Apply pea-size amount toaffected area. cyanocobalamin (Vitamin B-12) 1000 MCG tablet Every 24 hours fexofenadine (Zenaida) 180 MG tablet Every 24 hours Qnhverzswwe-Avwkixkfd-Kkb C-Mn (Glucosamine Chondroitin Complx) capsule 1 capsule, [...] Noted Age-related osteoporosis without current pathological fracture ([facility]) 06/24/2023 Cholesteatoma 06/24/2023 Chronic rhinitis 06/24/2023 Goiter ([facility]) 06/24/2023 Hearing loss of left ear 06/24/2023 Nontoxic multinodular goiter ([facility]) 06/24/2023 Obesity 06/24/2023 Other primary [...] COVID-19 Detached retina DVT (deep venous thrombosis) ([facility]) Hearing loss Hearing loss of right ear History of section History of hysterectomy Nonsmoker Obesity (BMI 30.0-34.9) Osteopenia of spine Osteoporosis ([facility]) Otorrhea of right ear Ovarian failure Palpitations Perforated tympanic membrane, bilateral Post-menopausal Tachycardia Thyroid nodule ([facility]) Venous insufficiency Vulvar itching HISTORY [...] nursing note reviewed. Exam conducted with a paintings restorer present. Vitals: Estimated body mass index is 32.89 kg/m as calculated from the following: Height as of 03/17/24: 5' 11 . Weight as of this encounter: 235 lb 12.8 oz. BP: 122/78 No LMP recorded (lmp unknown). Patient has had a hysterectomy. ASSESSMENT & PLAN ICD-10-CM 1. Well woman exam with routine gynecological exam Z01.419 THIN PREP TIS PAP AND HR HPV DNA 2. Postmenopausal state Z78.0 DEXA bone density 3. Osteoporosis, post-menopausal ([facility]) M81.0 alendronate (Fosamax) 70 MG tablet Patient presents today for annual and discuss follow up medication for vaginal itching. Patient voiced that she has had some improvement with the oral antibiotic and vaginal cream, but still bothersome. Patient will get refill on Clobetasol cream and that after talking with Dr. Hutton patient shouldschedule vaginal biopsy prior to leaving office today. Patient brought mammogram results with her and is scheduled @ [facility] for follow up. Annual Exam: Pap was [...] behalf of: JOO Chamberlain documented in this encounterHarry S. Truman Memorial Veterans' [id number] History of Present illness Narrative* Tyson Gonzalez, UCHE - 03/17/2024 1:00 PM EDT Patient: Ashley Espinoza : 1960 PCP: Robin Oswald MD SUBJECTIVE This is a 63 y.o. [...] prior surgery 20 years ago by another animal husbandry manager for the right 2nd hammertoe. Patient also [...] ONE TIME PER WEEK, Disp: 30 tablet, Rfl:11 Ascorbic Acid (vitamin C) 1000 MG tablet, [...] at the same time., Disp: , Rfl: Mjyazpenyku-Sjugwhqeo-Mzq C-Mn (Glucosamine Chondroitin Complx) capsule, 1 capsule [...] Ibuprofen Tyson Gonzalez DPM documented in this encounterHarry S. Truman Memorial Veterans' [id number] History of Present illness Narrative* JOO Chamberlain - 02/24/2024 9:40 AM EDT Images from the original note were not included. Reason for Appointment: Patient ID: Ashley Espinoza is a 63 y.o. female who presents for Vaginal Itching Patient presents today for Vaginal itching MEDICATIONS Current Outpatient Medications Medication Instructions alendronate [...] MCG (5000 UT) capsule Every 24 hours cyanocobalamin (Vitamin B-12) 1000 MCG tablet Every 24 hours fexofenadine (Zenaida) 180 MG tablet Every 24 hours Pcqzlzpenud-Ddeinjznj-Yzt C-Mn (Glucosamine Chondroitin Complx) capsule 1 capsule, [...] Noted Age-related osteoporosis without current pathological fracture ([facility]) 06/24/2023 Cholesteatoma 06/24/2023 Chronic rhinitis 06/24/2023 Goiter ([facility]) 06/24/2023 Hearing loss of left ear 06/24/2023 Nontoxic multinodular goiter ([facility]) 06/24/2023 Obesity 06/24/2023 Other primary [...] COVID-19 Detached retina DVT (deep venous thrombosis) ([facility]) Hearing loss Hearing loss of right ear History of section History of hysterectomy Nonsmoker Obesity (BMI 30.0-34.9) Osteopenia of spine Osteoporosis ([facility]) Otorrhea of right ear Ovarian failure Palpitations Perforated tympanic membrane, bilateral Post-menopausal Tachycardia Thyroid nodule ([facility]) Venous insufficiency Vulvar itching HISTORY [...] Negative. Respiratory: Negative. Cardiovascular: Negative. Gastrointestinal: Negative. Genitourinary: Vaginal itching Musculoskeletal: Negative. Skin: Negative. Neurological: Negative. All other systems reviewed and are negative. Hematological: Negative. Endocrine: Negative. Allergic/Immunologic: Negative. OBJECTIVE Objective: Physical Exam Constitutional: Appearance: Normal appearance. Genitourinary: Genitourinary Comments: Red pruitic rash, dry to left buttock, Vaginal itching, no rash or discharge apprecitated Left Labia: rash. Right Adnexa: not tender and no mass present. Left Adnexa: not tender and no mass present. No cervical discharge. Breasts: Breasts are soft. Right: Normal. Left: Normal. HENT: Head: Normocephalic. Nose: Nose normal. Mouth/Throat: Mouth: Mucous membranes are moist. Cardiovascular: Rate and Rhythm: Normal rate. Pulmonary: Effort: Pulmonary effort is normal. Abdominal: General: Bowel sounds are normal. Palpations: Abdomen is soft. Musculoskeletal: General: Normal range of motion. Cervical back: Normal range of motion. Neurological: General: No focal deficit present. Mental Status: She is alert. Skin: General: Skin is warm and dry. Psychiatric: Mood and Affect: Mood normal. Vitals and nursing note reviewed. Exam conducted with a paintings restorer present. Vitals: Estimated body mass index is 32.78 kg/m as calculated from the following: Height as of 02/18/24: 5' 11 . Weight as of 02/18/24: 235 lb. BP: No LMP recorded (lmp unknown). Patient has had a hysterectomy. ASSESSMENT & PLAN ICD-10-CM 1. Vaginal itching N89.8 SURESWAB(R) ADVANCED VAGINITIS PLUS, TMA CHLAMYDIA TRACHOMATIS (GENITO/STI) Neisseria gonorrhea DNA probe, direct Pt present today for vaginal itching off and on since April of last year. Pt complains of itching on both labia's and on left butt cheek inside region. Pt states she has not changed any detergent/soap and still has itching. Pt has tried OTC Monistat and had relief for a little while, however theitching came back again. Pt would like urine sent out for cx. Would like to see if yeast is found in her urine or diabetes. Pt was advised to undress from the bottom down and Ivy Bah will be in to perform cx's to send out. Cx's were collected by Ivy Bah and sent out to [facility]. Pt was prescribed clobetasol cream to use for the itching of the left butt cheek and diflucan for the yeast infection. Pt to f/up in a month, however if pt does not see a change with medication in 1-2 weeks to please call office to be seen. Pt verbally understood. Documented by Magda Gonzalez MA on behalf of: JOO Chamberlain documented in this encounterHarry S. Truman Memorial Veterans' [id number] History of Present illness Narrative* Tyson Gonzalez DPM - 02/18/2024 1:30 PM EDT Patient: Ashley Espinoza : 1960 PCP: Robin Oswald MD SUBJECTIVE This is a 63 y.o.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
[2025-04-14 12:44] LABS: Free T3 2.45 pg/mL (2.18-3.98); Thyroid Stimulating Hormone 3.217 uIU/mL (0.358-3.740)
== END 2025-04-14 11:49 | disposition home or self-care (01) ==
LOC: LAB 11:52
PROVIDERS: PCP Family Medicine; Visit Provider Family Medicine
DX: E04.1 Nontoxic single thyroid nodule (principal)
CPT/HCPCS: 36415; 80061; 82306; 83036; 83525; 84436; 84443; 84481

== ENCOUNTER 2025-04-20 07:09 | Outpatient (OUT) | payer MEDICARE, SELFPAY ==
--- OUTSIDE RECORDS SUMMARY | 2025-04-14 05:15 | XMS_ITS ---
Author Organization [facility] in [place] Address [address] [place] [address] Care Team Providers [employer] Radio Operator Name Role Phone Hugh Zhao Primary Care Provider Allergies Allergen (clinical drug ingredient) Drug/Non Drug Allergy documented on EMR Reaction Allergy Type Onset Date Status Penicillinunknown reactionDrug AllergyActive REASON FOR VISIT L total Knee Clearance- Dr Rivera- April 22, Thyroid US- was on thyroid meds years ago with Dr Jackson- was told one small nodule in the past, to small not concerning and stopped meds Medications Medication SIG (Take, Route, Frequency, Duration) Notes Start Date End Date Status Zinc 50 MG 1 tablet Orally Once a day ActiveVitamin D3 125 MCG (5000 UT)1 tablet Orally Once a dayActiveVitamin C 1000 MG1 tablet Orally Once a dayActiveTurmeric Curcumin 500 MGas directed Orally ActiveSuper B ComplexActiveGlucosamine Chondroitin Adv -as directed OrallyActive Fexofenadine HCl 180 MG1 tablet Swallow whole with water; do not take with fruit juices. Orally Once a dayActiveCalcium Citrate +DActiveAlendronate Sodium 70 MG TAKE 1 TABLET BY MOUTH ONCE A WEEK; Duration: 84ActiveMulti Vitamin -1 tablet Orally Once a dayActive Social History Tobacco Use: Social History Observation Description Date Details (start date - stop date) Never Smoker NA - NA Tobacco Use/Smoking Question Answer Notes Patient is a nonsmoker Problems Problem Type SNOMED Code ICD Code Onset Dates Problem Status W/U Status Risk Notes Problem Multinodular goiter (552699184) Multinodu lar goiter (E04.2) Activeconfirmed Vital Signs Weight 238.0 lbs 04/14/2025 Height 71 in 04/14/2025 Blood pressure systolic 108 mm Hg 04/14/20 25 Blood pressure diastolic 62 mm Hg 025 BMI 33.19 kg/m2 04/14/2025 Encounters Encounter Location Date Provider Diagnosis [facility] [address] [place] [address] 04/14/2025 Hugh Zhao Unilateral primary osteoarthritis, left knee M17.12 and Multinodular goiter E04.2 Assessments Encounter Date Diagnosis (ICD Code) Assessment Notes Treatment Notes Treatment Clinical Notes Section Notes 04/14/2025 Unilateral primary osteoarthriti s, left knee (ICD-10 - M17.12) No CAD SAUD Strokes Cleared for OR 04/14/2025Multinodular goiter (ICD-10 - E04.2) Plan Of Treatment Treatment Notes Assessment Notes Unilateral primary osteoarthritis, left knee No CAD SAUD Strokes Cleared for OR Pending Test Test Name Order Date NM thyroid w uptake 04/14/2025 Progress Notes * Ashley GANT SDOB:[birth year] (64 yo F)Acc No.[id number]:04/14/2025 Progress Note Patient: Ashley RIZVI :?Reece Zhao ([facility]), MDDOB:1960???Age: 64 Y???Sex:FemaleDate:04/14/2025Phone:[phone]:[address] [facility] [address], [place], [id number] In:10:08 AM ESTCheck Out:11:02 AM EST Subjective: * Chief Complaints: * L total Knee Clearance- Dr Rivera- April 22Thyroid US- was on thyroid meds years ago with Dr Jackson- was told one small nodule in the past, to small not concerning and stopped meds * ROS: ???EENT:?hearing changes?denies.?visual changes?denies. non-healing mouth sores?denies.?swollen glands or neck lumps?denies.?hoarseness?denies.?sore throat?denies.?difficulty swallowing?denies.?nose bleeds?denies.?nasal congestion?denies.?ear ache?denies.?ear discharge denies.?ringing in ears?denies.?light sensitivity?denies.?eye pain?denies.?blurring?denies.?eye irritation?denies.?double vision?denies. vision loss?denies.?General/Constitutional:?Sweats:?Denies.?Fatigue?denies.?Sleep proble ms?denies.?Anorexia?denies.?Malaise?denies.?Weight loss?denies. Fatigue or Weakness?denies.?Fever or Chills?denies.?Cardiovascular:?Shortness of Breath w/lying flat?denies.?Lightheadedne ss/dizziness?denies.?Chest tightness/ heavy pressure?denies.?Swelling of legs, a nkles, or feet?denies.?Waking up with shortness of breath?denies.?Chest pain&#16 0;denies.?Palpitations?denies.?Weight gain?denies.?Respiratory:?Chronic or frequent cough?denies.?Coughing up blood&#1 60;denies.?Difficulty breathing?denies.?Productive cough?denies.?Snoring&#1 60;denies.?Shortness of breath that awakens from sleep (PND)?denies.?Chest pain? denies.?Sputum production?denies.?Wheezing?denies.?Musculoskeletal:?Joint pain?denies.?Joint Fluid?denies.?Backpain?denies.?Knee pain?denies.?Neck pain?denies.?Joint Stiffness?denies.?Muscle cramps?denies.?Weakness of muscles?denies.?Arthritis?denies.?Muscle aches?denies.?Pain in shoulder(s)?denies.?Swollen joints?denies.? * Active Problem List M54.50 Low back pain at mul tiple sites Modified On:03/06/2023 Status:nqrhakdalM69.2Venous insufficiency Modified On:03/06/2023 Status:jpiqxxsfkB36.20Bakers cyst Modified On:03/06/2023 Status:odzvyacufI81.409DVT (deep venous thrombosis) Modified On:03/06/2023 Status:ismcakjcnQ22.9Goiter Modified On:03/06/2023 Status:oarvgpskeR28.2Palpitations Modified On:03/06/2023 Status:jrqfiuhdbB13.00Insomnia Modified On:03/06/2023 Status:mstvznggqF58.20Detached retina Modified On:03/06/2023 Status:gbpgmdruwD26.0Tachycardia Modified On:03/06/2023 Status:uahtktonpH20.9Anemia Modified On:03/06/2023 Status:fywmsrqldC49.90Osteoarthritis Modified On:03/06/2023 Status:dwdkpmkoiR42.1Thyroid nodule Modified On:03/06/2023 Status:fdgqfzzgeB99.50Arthralgia Modified On:03/06/2023 Status:jreiayydkL70.80Osteopenia Modified On:03/07/2023 Status:usqclhqunR97.2Paresthesia Modified On:03/06/2023 Status:smkqxbszrH19.9GE reflux Modified On:03/06/2023 Status:hnmbejdzuV04.9Hiatal hernia Modified On:03/06/2023 Status:khxxbieggW08.90Hearing loss Modified On:03/06/2023 Status:qrwltaqwwP03.0Age-related osteoporosis without current pathological fracture Modified On:04/29/2023 Status:fsxufootdE18.12Unilateral primary osteoarthritis, left knee Modified On:07/18/2023 Status:uygipcociV71.2Multinodular goiter Modified On:04/14/2025 Status:confirmed * Medical History: * Surgical History: T ympanostomy left ear Breast Implant Removal- Right Heart Catheterization Hip Replacement- Left 2011Hip Replacement- Right 2012Complete Hysterectomy 2017Synvisc Injection- Dr Calero 09/24/2024 * Hospitalization/Major Diagno stic Procedure: D enies Past Hospitalization * Family History: F ather: 69 yrs, Parkinsons. M other: 87 yrs, Lung cancer. B rother(s): , Non Hodgkins lymphoma. S ister(s): alive. S on(s): alive. 2 brother(s) , 1 sister(s) . 2 son(s) - healthy. . * Social History: ???Tobacco Use:?Tobacco Use/Smoking?Patient is a?nonsmoker * Medications: T akingAlendronate Sodium 70 MG Tablet TAKE 1 TABLET BY MOUTH ONCE A WEEK Calcium Citrate +D Fexofenadine HCl 180 MG Tablet 1 tablet Swallow whole with water; do not take with fruit juices. Orally Once a day Glucosamine Chondroitin Adv([email or web address]) - Tablet as directed Orally Multi Vitamin - Tablet 1 tablet Orally Once a day Super B Complex Turmeric Curcumin 500 MG Capsule as directed Orally Vitamin C 1000 MG Tablet 1 tablet Orally Once a day Vitamin D3 125 MCG (5000 UT) Tablet 1 tablet Orally Once a day Zinc 50 MG Tablet 1 tablet Orally Once a day Medication List reviewed and reconciled with the patientTaking Alendronate Sodium 70 MG Tablet TAKE 1 TABLET BY MOUTH ONCE A WEEK Taking Calcium Citrate +D Taking Fexofenadine HCl 180 MG Tablet 1 tablet Swallow whole with water; do not take with fruit juices. Orally Once a day Taking Glucosamine Chondroitin Adv([email or web address]) - Tablet as directed Orally Taking Multi Vitamin - Tablet 1 tablet Orally Once a day Taking Super B Complex Taking Turmeric Curcumin 500 MG Capsule as directed Orally Taking Vitamin C 1000 MG Tablet 1 tablet Orally Once a day Taking Vitamin D3 125 MCG (5000 UT) Tablet 1 tablet Orally Once a day Taking Zinc 50 MG Tablet 1 tablet Orally Once a day Medication List reviewed and reconciled with the patient * Allergies: P enicillin: unknown reaction - Allergyno[Allergies Verified] Objective: * Vitals: W t:238.0lbs, Ht: 71 in, BP:108/62mm Hg, BMI:33.19Index, Ht-cm: 180.34 cm, Wt-k.96 kg. * Examination: ???Physical Exam: ?GENERAL:?well developed, well nourished, in no acute distress.?HEAD:?normocephalic/atraumatic.?EYES:?pupils equal, round and reactive to light, conjunctivae and sclerae normal.?EARS:?no deformity or lesion of external ear, canals and TM appear normal bilaterally, TM's intact, not inflamed with normal light reflex, hearing grossly normal to conversational speech.?NOSE:?no deformity, discharge, inflammation, or lesions. ?MOUTH:?mucous membranes moist, normal oropharynx and posterior pharynx without lesions or exudates, tongue normal, dentition normal.?NECK:?neck supple, no masses or palpable cervical nodes, trachea midline, thyroid without nodules, masses, tenderness, or enlargement.?CHEST:?no chest wall deformity, no chest wall tenderness. ?LUNGS:?normal respiratory effort and clear to auscultation, no wheezes, rales, or rhonchi, good air exchange.?CARDIO:?regular rate and rhythm, normal S1 and S2, nor murmur, rub, or gallop.?PULSES:?normal capillary refill.?ABDOMEN:?soft, non-distended, non-tender, no masses.?MUSCULOSKELETAL:?no deformity or scoliosis noted, normal range of motion, joints normal, no erythema, edema, effusion, or ecchymosis.?EXTREMITY:?no clubbing, cyanosis, edema, or deformity withnormal ROM in both upper and lower bilateral extremities.?NEUROLOGIC:?grossly normal.?SKIN:?no rashes, ulcerations, or suspicious lesions.?LYMPH NODES:?no cervical adenopathy, nodes normal.?MENTAL STATUS:?alert and oriented x3, normal mood and affect.? Assessment: * Assessment: 1.?Unilateral primary osteoarthritis, left knee - M17.12 (Primary)???2.?Mul tinodular goiter - E04.2??? Plan: * Treatment: Notes: No CAD SAUD Strokes Cleared for OR??2.?Multinodular goiter?Imaging: NM thyroid w uptake * Procedure Codes: * Preventive Medicine: ??Screenings/Counseling:?BMI ACTION PLAN?Above Normal BMI Follow-up?Dietary management education, guidance, and counseling * * Sign off status: CompletedVisit Status:?CHK (Check Out) true * Provider: Geri Zhao ([facility])MD Date: 06/14/2024 Generated for Printing/FaLuciduxg/eTransmitting on:?04/20/2025 07:13 AM EST History and Physical Notes * Examination CategorySub-CategoryDetailNotesCategory NotesPhysical ExamGENERAL:well developed, well nourished, in no acute distressHEAD:normocephalic/atraumatic EYES:pupils equal, round and reactive to light, conjunctivae and sclerae normal EARS:no deformity or lesion of external ear, canals and TM appear normal bilaterally, TM's intact, not inflamed with normal light reflex, hearing grossly normal to conversational speechNOSE:no deformity, discharge, inflammation, or lesionsMOUTH:mucous membranes moist, normal oropharynx and posterior pharynx without lesions or exudates, tonguenormal, dentition normalNECK:neck supple, no masses or palpable cervical nodes, trachea midline, thyroid without nodules, masses, tenderness, or enlargementCHEST:no chest wall deformity, no chest wall tendernessLUNGS:normal respiratory effort and clear to auscultation, no wheezes, rales, or rhonchi, good air exchangeCARDIO:regular rate and rhythm, normal S1 and S2, nor murmur, rub, or gallopPULSES:normal capillary refillABDOMEN:soft, non-distended, non-tender, no massesRECTAL:MUSCULOSKELETAL:no deformity or scoliosis noted, normal range of motion, joints normal, no erythema, edema, effusion, or ecchymosisEXTREMITY:no clubbing, cyanosis, edema, or deformity with normal ROM in both upper and lower bilateral extremitiesNEUROLOGIC:grossly normalSKIN:no rashes, ulcerations, or suspicious lesionsLYMPH NODES:no cervical adenopathy, nodes normalMENTAL STATUS:alert and oriented x3, normal mood and affect
--- OUTSIDE RECORDS SUMMARY | 2025-04-16 10:13 | XMS_ITS | Continuity of Care Document ---
Author Organization [facility] Address [address] [place] [address] Phone Care Team Providers Care Emergency Doctor Name Role Phone Reece Zhao MD Primary Care Provider [phone] Stoney Rivera Jr, DO Attending Provider Care Teams Patient Care Team Team Status: Active Member Role/Relationship Status Sheeba Zhao MD Primary Care Provider Active Visit Care Team Team Status: Inactive Member Role/Relationship Status Sheeba Zhao MD Primary Care Provider Active Start: February 04, 2025 End: February 04, 2025Geormarielena Steplori Gomez DOAttending ProviderActiveStart: February 04, 2025 End: February 04, 2025 Patient Care Team Team Status: Inactive Member Role/Relationship Status Sheeba Zhao MD Primary Care Provider Active Start: February 18, 2025 End: February 18, 2025Geannmarie Steplori Gomez DOAttending ProviderActiveStart: February 18, 2025 End: February 18, 2025 Visit Care Team Team Status: Inactive Member Role/Relationship Status Sheeba Zhao MD Primary Care Provider Active Start: April 12, 2025 End: April 12, 2025Geormarielena Steplori Gomez DOAttending ProviderActiveStart: April 12, 2025 End: April 12, 2025 Chief Complaint and Reason for Visit Chief Complaint Admit Date 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, 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 February 18, 2025 7:30am DJD April 12, 2025 9:34am Allergies, Adverse Reactions, Alerts Allergen Type Severity Reaction Last Updated Verified Status Penicillins Allergy Unknown Unknown Reaction Angela metzger 2024 10:21am Yes Active Social History Smoking Status Status Start Date End Date Date of Observa tion Never smoked tobacco (finding) April 12, 2025 9:58am Observation Status Observation Response Date of Response Legal Sex Female (finding) Sex Assigned At BirthFemalHugoer 1959 Family History Relationship Condition Age at [...] 03, 2025 11:00pmUnknownGlucosamine-Chondroitin (Cosamin Ds) 500-400 mg wiltlsIadycb0GHELDAiuecCtcgzggqy 3rd, 2025 11:00pmUnknownMultivitamin (Daily Multi-Vitamin) hsvuogPsqmti7QQFNKUmcmuAflbvvfmp 3rd, 2025 11:00pmUnknownCalcium Citrate-Vitamin D3 (Calcium Citrate + D) 315 mg-5 mcg (200 unit) tabletActive1 TABPOTwice dailySept2024 11:00pmUnknownCholecalciferol (Vitamin D3) (Vitamin D3) 125 mcg (5,000 unit) crzjvgEcpkto238KDKKOGgchb dailySept2024 11:00pmUnknownVitamin B Complex (Balanced B-50) bjhmlsSqcjkm8EZAICRupcf February 03, 2025 11:00pmUnknownZinc 50 mg rgdlxrJwgzqa51RKSFDnvswRisuxihrs 3rd, 2025 11:00pmUnknownAscorbic Acid (Vitamin C) (Vitamin C) 1,000 mg tablet Uhayav3WXPFKcdbe dailySept2024 11:00pmUnknownAspirin (Aspirin Childrens) 81 mg tablet,yduuktqaBcgzybqwuhsa54JIWNCvucxFhdbuvtxb 3rd, 2025 11:00pmNov2024 10:25amTurmeric Root Extract 500 mg gltrfilUrfppr262 MGPOTwice dailySept2024 11:00pmUnknownMagnesium 200 mg tabletActive 400MGPODailySept2024 11:00pmUnknownIron Ps Tajdluv-W81-Rqgio Acid (Ferrex 150 Forte) 150-25-1 mg-mcg-mg rrluyjxKhmjgn6IENKRLxpjk morningApril 12, 2025 12:00amUnknownAlendronate (Fosamax) 70 mg dyqmdrMpiwtd85WKFEhgxpi weekApril 2024 11:00pmTakes on Immunizations Immunization Event Date Not Given Reason Dose Number Service 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 Lot Number Reason(s) Given Vaccine Information Statement (VIS) Detail Administration Location COVMO-19 [facility] ([facility]) August 15 COVID-19 [facility] ([facility])September 06, 2020Influenza Quadrivalent PF MDCK March 13, 2017Influenza Quadrivalent PF MDCKOctober 2017Influenza Quadrivalent PF MDCKNovember 2019influenza, unspecified formulation April 03, 2021Quadrivalent InfluenzaNov2018Quadrivalent InfluenzaNovember 2020Tetanus, Diphtheria, Pertussis (Tdap)March 13, 2017Shingles (Zoster)June 19, 2013 Procedures Procedure Date Performed Status OR Knee Arthroplasty, Total MIS (Left) February 18, 2025 6:50am active XR femur BI February 04, 2025 10:02am comp leted XR tibia/fibula BI February 04, 2025 10:01am c ompleted Relevant Diagnostic Tests and/or Laboratory Data Laboratory Results Test Collection Date/Time Result Date/Time Result Interpretation Reference Range Result Comment Performing Site Corrected White Blood Count February 04, 2025 8:20am February 04, 2025 9:00am 4.8 10*3/uL 3.8-11.6[facility] [id number] [address] [place] [address] 75481Edfxbqnyn White Blood CountApril 12, 2025 10:35amNovember 2024 10:55am5.6 10*3/uL3.8-11.6[facility] [id number] [address] [facility] 670[address]Xfbodqajgwf WBC CountSeptember 2024 8:20amSeptember 2024 9:00am4.8 10*3/uL3.8-11.6[facility] [id number] [address] [facility] 16260Rbxqxzrtdot WBC CountNovember 2024 10:35amNovember 2024 10:55am5.6 10*3/uL3.8-11.6[facility] [id number] [address] [facility] 32663Zpd Blood CountSeptember 2024 8:20amSeptember 2024 9:00am4.69 10*6/uL3.60-5.00[facility] [id number] [address] [facility] 12152Pby Blood CountNovember 2024 10:35amNovember 2024 10:55am4.70 10*6/uL3.60-5.00[facility] [id number] [address] [facility] 40226RblscozjrlEmwvcaxgz 2024 8:20amSeptember 2024 9:00am 14.8 g/dL11.8-15.4[facility] [id number] [address] [facility] 11726QiogiguyjdJgbcofme 2024 10:35amNovember 2024 10:55am14.4 g/dL11.8-15.4[facility] [id number] [address] [facility] 72675MxssykwyrdCmykrtfjw 2024 8:20amSeptember 2024 9:00am 42.5 %34.0-46.4[facility] [id number] [address] [facility] 36259IkodjvstlqZsygxlql 2024 10:35amNovember 2024 10:55am42.7 %34.0-46.4[facility] [id number] [address] [facility] 41489Gmsy Corpuscular VolumeSeptember 2024 8:20amSeptember 2024 9:00am90.5 jH29-487AlgmxlqiwMemorial Health System [facility] [id number] [address] [facility] 98911Ikvf Corpuscular VolumeNovember 2024 10:35amNovember 2024 10:55am91.0 jQ37-028BtdvftokoMemorial Health System [facility] [id number] [address] [facility] 58401Lfmm Corpuscular HemoglobinSeptember 2024 8:20amSeptember 2024 9:00am31.5 pg24.7-34.3[facility] [id number] [address] [facility] 64429Bwrd Corpuscular HemoglobinNovember 2024 10:35amNovember 2024 10:55am30.8 pg24.7-34.3[facility] [id number] [address] [facility] 91489Rrob Corpuscular Hemoglobin ConcentSeptember 2024 8:20am February 04, 2025 9:00am34.8 g/dL32.0-35.0[facility] [id number] [address] [place] [address] 95148Ggbd Corpuscular Hemoglobin ConcentNovember 2024 10:35am April 12, 2025 10:55am33.8 g/dL32.0-35.0[facility] [id number] [address] [facility] 94997Laa Cell Distribution WidthSeptember 2024 8:20amSeptember 2024 9:00am13.0 %11.9-15.3[facility] [id number] [address] [facility] 08404Ysi Cell Distribution WidthNovember 2024 10:35amNovember 2024 10:55am13.3 %11.9-15.3[facility] [id number] [address] [facility] 09041Eockoqqa CountSeptember 2024 8:20amSeptember 2024 9:82yb629 10*3/tY453-598Ibthmqmhn [facility] [id number] [address] [facility] 72386Flfnpxkj CountNovember 2024 10:35amNovember 2024 10:82ux478 10*3/lQ805-119VrcfohhzzMemorial [facility] [id number] [address] [facility] 61100Doeg Platelet VolumeSeptember 2024 8:20amSeptember 2024 9:00am7.2 fL6.3-10.7[facility] [id number] [address] [facility] 09629Bvnd Platelet VolumeNovember 2024 10:35amNovember 2024 10:55am7.1 fL6.3-10.7[facility] [id number] [address] [facility] 86298Lujuqlsdeen (%) (Auto)February 04, 2025 8:20amSeptember 2024 9:00am60.2 %.[facility] [id number] [address] [facility] 84087Xxkjqondjzn (%) (Auto)April 12, 2025 10:35amNovember 2024 10:55am62.8 %.[facility] [id number] [address] [facility] 53960Xfkrkgzxgyh (%) (Auto)February 04, 2025 8:20amSeptember 2024 9:00am24.2 %.[facility] [id number] [address] [facility] 41256Waxhlnfppgn (%) (Auto)April 12, 2025 10:35amNovember 2024 10:55am23.5 %.[facility] [id number] [address] [facility] 25661Vzfgkddwk (%) (Auto)February 04, 2025 8:20amSeptember 2024 9:00am10.5 %.[facility] [id number] [address] [facility] 29467Imwjvxxbw (%) (Auto)April 12, 2025 10:35amNovember 2024 10:55am9.4 %.[facility] [id number] [address] [facility] 33074Geznaxelvjt (%) (Auto)February 04, 2025 8:20amSeptember 2024 9:00am3.4 %.[facility] [id number] [address] [facility] 09564Qgfetesgexz (%) (Auto)April 12, 2025 10:35amNovember 2024 10:55am2.9 %.[facility] [id number] [address] [facility] 42674Xnvcsfzli (%) (Auto)February 04, 2025 8:20amSeptember 2024 9:00am1.7 %.[facility] [id number] [address] [facility] 95493Bubzfjwkl (%) (Auto)April 12, 2025 10:35amNovember 2024 10:55am1.4 %.[facility] [id number] [address] [facility] 18017Yhnqizcrj RBC Relative Count (auto)February 04, 2025 8:20am February 04, 2025 9:00am0.0 /100{WBC}0-0.5[facility] [id number] [address] [facility] 70144Pqbjlqqxc RBC Relative Count (auto)April 12, 2025 10:35am April 12, 2025 10:55am0.0 /100{WBC}0-0.5[facility] [id number] [address] [facility] 84757Xkrzdbyidtm # (Auto)February 04, 2025 8:20amSeptember 2024 9:00am2.9 10*3/uL1.8-7.7[facility] [id number] [address] [facility] 30745Kjklljbgqyw # (Auto)April 12, 2025 10:35amNovember 2024 10:55am3.5 10*3/uL1.8-7.7[facility] [id number] [address] [facility] 96120Omxyfxbinop # (Auto)February 04, 2025 8:20amSept2024 9:00am1.2 10*3/uL1.00-4.8[facility] [id number] [address] [facility] 11707Rfmwkpwfznx # (Auto)April 12, 2025 10:35amNovember 2024 10:55am1.3 10*3/uL1.00-4.8[facility] [id number] [address] [facility] 27046Cwwihcbhi # (Auto)February 04, 2025 8:20amSeptember 2024 9:00am0.5 10*3/uL0.0-0.8[facility] [id number] [address] [facility] 45650Wndddjgah # (Auto)April 12, 2025 10:35amNovember 2024 10:55am0.5 10*3/uL0.0-0.8[facility] [id number] [address] [facility] 00365Figgtdswcor # (Auto)February 04, 2025 8:20amSeptember 2024 9:00am0.2 10*3/uL0.0-0.45[facility] [id number] [address] [facility] 93857Wujwzdlsump # (Auto)April 12, 2025 10:35amNovember 2024 10:55am0.2 10*3/uL0.0-0.45[facility] [id number] [address] [facility] 99165Dxtqqjmwa # (Auto)February 04, 2025 8:20amSeptember 2024 9:00am0.1 10*3/uL0.0-0.2[facility] [id number] [address] [facility] 97543Bfstnozob # (Auto)April 12, 2025 10:35amNovember 2024 10:55am0.1 10*3/uL0.0-0.2[facility] [id number] [address] [facility] 20606Saarp ColorSeptember 2024 8:30amSeptember 2024 8:56am Dark-yellowAbnormal (applies to non-numeric results)[facility]ellowMemorial [facility] [id number] [address] [facility] 01589Uiocz ColorNovember 2024 10:05amNovember 2024 10:19amLight-yellowYellowMemorial Health System [facility] [id number] [address] [facility] 10051Xqqoo AppearanceSeptember 2024 8:30amSeptember 2024 8:56amClearClearMemorial Health System [facility] [id number] [address] [facility] 27608Hegnt AppearanceNovember 2024 10:05amNovember 2024 10:19amClearClearMemorial Health System [facility] [id number] [address] [facility] 37392Vgdoi Specific GravitySeptember 2024 8:30amSeptember 2024 8:56am1.0231.001-1.030[facility] [id number] [address] [facility] 50678Bxkga Specific GravityNovember 2024 10:05amNovember 2024 10:19am1.0181.001-1.030[facility] [id number] [address] [facility] 72797Navln pHSeptember 2024 8:30amSeptember 2024 8:56am5.5 5.0-9.0[facility] [id number] [address] [facility] 21120Ubshc pHNovember 2024 10:05amNovember 2024 10:19am 5.55.0-9.0[facility] [id number] [address] [facility] 35497Iadwg Leukocyte EsteraseSeptember 2024 8:30amSeptember 2024 8:56amNegativeNegativeMemorial Health System [facility] [id number] [address] [facility] 44468Vztbh Leukocyte EsteraseNovember 2024 10:05amNovember 2024 10:19amNegativeNegativeMemorial Health System [facility] [id number] [address] [facility] 61046Mqlqm NitriteSeptember 2024 8:30amSeptember 2024 8:56amNegativeNegativeFirelands [facility] [id number] [address] [facility] 24552Ieffc NitriteNovember 2024 10:05amNovember 2024 10:19amNegativeNegativeFirelands [facility] [id number] [address] [facility] [place] [address]Yzxnx ProteinSeptember 2024 8:30amSeptember 2024 8:56amNegative mg/dLNegativeFirdetroits [facility] [id number] [address] [facility] 97777Rstlv ProteinNovember 2024 10:05amNovember 2024 10:19amNegative mg/dLNegativeFirelands [facility] [id number] [address] [facility] 28799Rxner Glucose (UA)February 04, 2025 8:30amSeptember 2024 8:56amNormal mg/dLNormalFirdetroits [facility] [id number] [address] [facility] 89254Mpcbv Glucose (UA)April 12, 2025 10:05amNovember 2024 10:19amNormal mg/dLNormalFirdetroits [facility] [id number] [address] [facility] 96087Yjtls KetonesSeptember 2024 8:30amSeptember 2024 8:56amNegativeNegativeFirelands [facility] [id number] [address] [facility] 77463Fsltl KetonesNovember 2024 10:05amNovember 2024 10:19amNegativeNegativeFirdetroits [facility] [id number] [address] [facility] [place] [address]Gvboi UrobilinogenSeptember 2024 8:30amSeptember 2024 8:56amNormal mg/dLNormalFirelands [facility] [id number] [address] [facility] [place] [address]Zjnbu UrobilinogenNovember 2024 10:05amNovember 2024 10:19amNormal mg/dLNormalFirelands [facility] [id number] [address] [facility] 02749Wojkv BilirubinSeptember 2024 8:30amSeptember 2024 8:56amNegativeNegativeMemorial Health System [facility] [id number] [address] [facility] 20770Tblly BilirubinNovember 2024 10:05amNovember 2024 10:19amNegativeNegativeMemorial Health System [facility] [id number] [address] [facility] 53241Kkzla Occult BloodSeptember 2024 8:30amSeptember 2024 8:56amNegativeNegativeMemorial Health System [facility] [id number] [address] [facility] 12247Mqnaj Occult BloodNovember 2024 10:05amNovember 2024 10:19amNegativeNegativeMemorial Health System [facility] [id number] [address] [facility] 46656Zbpatht LevelSeptember 2024 8:20amSeptember 2024 11:16am94 mg/hS25-553ZDJ recommended reference rangeRandom Glucose Reference Range is dependent on time and content of last meal. Glucose of more than 200 mg/dL in a nonstressed, ambulatory subject supports the diagnosisof Diabetes Mellitus.[facility] [id number] [address] [facility] 01877Vbcocor LevelNovember 2024 10:35amNovember 2024 11:15am96 mg/nM41-944UUI recommended reference rangeRandom Glucose Reference Range is dependent on time and content of last meal. Glucose of more than 200 mg/dL in a nonstressed, ambulatory subject supports the diagnosisof Diabetes Mellitus.[facility] [id number] [address] [facility] 36638Sxkhy Urea NitrogenSeptember 2024 8:20amSeptember 2024 11:16am16 mg/dL7-[facility] [id number] [address] [facility] 51921Lsavm Urea NitrogenNovember 2024 10:35amNovember 2024 11:15am13 mg/dL7-[facility] [id number] [address] [facility] 92580UbazqmntznCzqjknppk 2024 8:20amSeptember 2024 11:16am 0.94 mg/dL0.60-1.20[facility] [id number] [address] [facility] 99646TwhsyybhvaUrgmnylc 2024 10:35amNovember 2024 11:15am0.84 mg/dL0.60-1.20[facility] [id number] [address] [facility] 75070Yecwfbnoy GFR (CKD-EPI)February 04, 2025 8:20amSeptember 2024 11:16am> 60.0 mL/MinMemorial Health System [facility] [id number] [address] [facility] 20936Rifqiznew GFR (CKD-EPI)April 12, 2025 10:35amNovember 2024 11:15am> 60.0 mL/MinMemorial [facility] System [facility] [id number] [address] [facility] 32952Tanbdv LevelSeptember 2024 8:20amSeptember 2024 11:90dt154 mmol/L584-203FronujcffMemorial Health System [facility] [id number] [address] [facility] 13208Woekcy LevelNovember 2024 10:35amNovember 2024 11:16qx907 mmol/V294-779HdkgkorjmMemorial Health System [facility] [id number] [address] [facility] 65418Dsqhhkmfm LevelSeptember 2024 8:20amSeptember 2024 11:16am4.4 mmol/L3.5-5.1[facility] [id number] [address] [facility] 77906Juxbylgpk LevelNovember 2024 10:35amNovember 2024 11:15am4.4 mmol/L3.5-5.1[facility] [id number] [address] [facility] 86581Ttxpldrf LevelSeptember 2024 8:20amSeptember 2024 11:91er142 mmol/T75-532JmeinvmglMemorial Health System [facility] [id number] [address] [facility] 88088Oyhqebfk LevelNovember 2024 10:35amNovember 2024 11:68bc258 mmol/P82-674KqtlwgihjMemorial Health System [facility] [id number] [address] [facility] 22659Vlvxqk Dioxide LevelSeptember 2024 8:20amSeptember 2024 11:16am30.3 mmol/L21.0-31.0[facility] [id number] [address] [facility] 55521Adbvoz Dioxide LevelNovember 2024 10:35amNovember 2024 11:15am31.9 mmol/LAbove high ikbydy48.0-31.0[facility] [id number] [address] [facility] 53583Waofj GapSeptember 2024 8:20amSeptember 2024 11:16am 9.1 mEq/L6.0-15.0[facility] [id number] [address] [facility] 26737Gvxdx GapNovember 2024 10:35amNovember 2024 11:15am 8.5 mEq/L6.0-15.0[facility] [id number] [address] [facility] 83593Aohrrpg LevelSeptember 2024 8:20amSeptember 2024 11:16am9.4 mg/dL8.6-10.3[facility] [id number] [address] [facility] 75451Qvbqsre LevelNovember 2024 10:35amNovember 2024 11:15am9.2 mg/dL8.6-10.3[facility] [id number] [address] [facility] 72284Ssbfqlsj Creatinine Clearance (ChemSeptember 2024 8:20am February 04, 2025 11:16amN/[facility] [id number] [address] [facility] 43702Rkbuuwyh Creatinine Clearance (ChemNovember 2024 10:35am April 12, 2025 11:15amN/[facility] [id number] [address] [facility] [address] Diagnostic Imaging Reports Author [facility] White [facility] CenterAuthoredSeptember 2024 2:27pmReport Dictated Date/TimeDictated ByStatusRadiology ReportSeptember 2024 2:27pm Chad White Jr [facility] [place] [address] [place] [address] XRay Report Signed Patient: Ashley Gant MR#: [id number] : 1960 Acct:[id number] Age/Sex: 64 / F ADM Date: 5 Loc: XDSHC Room: Type: REG CLI Attending Dr: Stoney Rivera Jr, DO Copies to: Stoney Rivera Jr, DO~ Ordering Provider: Stoney Rivera Jr, DO Date of Service: 02/04/25 XR/XR tibia/fibula BI: PRE OP ([id number]) XR/XR femur BI: PRE OP Bilateral lower [...] PROCESS. Impression dictated by: Chad White Jr., DEzioOEzio 02/04/2025 2:28 PM Dictation Location: [place] [address] Transcribed By: [facility] 02/04/25 1428 Dictated By: Chad White Jr, DO 02/04/25 1427 Signed By: <Electronically signed by Chad White Jr, DO in OV> 02/04/25 1428 Vital Signs Vital Reading Result Reference Range Collection Date/Time Height 71 [in_i] February 04, 2025 7:48clHsblib351.00 kgSeptember 2024 7:50amBody Cdggnblbztw15.3 [degF]97.6-99.0Sept2024 7:50amHeart Rate67 /xbo82-253 February 04, 2025 7:50amRespiratory rate20 /cuq14-66Ufpitfhnn 4th, 2025 7:50am Oxygen saturation by Pulse %95-100Sept2024 7:50amBP Lxpsitbh884 mm[Hg]100-140Sept2024 7:50amBP Cmvkfolde15 mm[Hg]60-100 February 04, 2025 7:50am Advance Directives Advance Directive Response Recorded Date/ Time Advance Directives No August 10 11:09am Insurance Providers Guarantor Ashley Gant Address [address] [facility] [address]Joxvxfm Info.Home Phone: Coverage Status Update:2025 Payer Group Member ID Coverage Type Subscriber Relationship to Subscriber Effective Date Expiration Date [employer] [facility] PFFS [id number] Stalin Id: [id number] [address] [facility] [address] Home Phone: Self Encounters Encounter Location(s) Arrival/Admit Date Discharge/Departure Date Discharge/Departure Disposition Provider(s) Departed Clinical -X-Ray [facility] February 04, 2025 8:33am February 04, 2025 8:34am Discharged to home care or self care (routine discharge) Stoney Rivera Jr DO Departed [facility] -[facility]gery [facility] February 18, 2025 7:30am February 18, 2025 7:31am Discharged to home care or self care (routine discharge) Stoney Rivera Jr DO Departed Clinical -Pre-Surgica l Testing April 12, 2025 9:34am April 12, 2025 9:35am Discharged to home care or self care (routine discharge) Stoney Rivera Jr DO
--- NOTE | 2025-04-20 07:00 | NM_ITS ---
The [address] [address] Patient Name: STONE ESPINOZA MRN: [id number] date: 1960 Sex: F Assigned Patient Location: [place] Current Patient Location: Accession/Order Number: [id number] Exam Date: 04/20/2025 07:00 Report Date: 04/22/2025 07:47 At the request of: ROBIN OSWALD MD Procedure: NM thyroid w uptake THYROID UPTAKE AND SCINTIGRAM COMPARISON: Ultrasounds 04/13/2025 CLINICAL DATA: Multinodular goiter Following the oral ingestion of 0.200 mCi iodine 123, thyroid uptakes were measured at 6 hours and 24 hours. These measure 8% and 17% respectively. Normal range for 6 hours is 6-14% and for 24 hours 10-30%. Gamma camera imaging was also performed. There is photopenia at the superior aspect of the left thyroid lobe which is approximately half the size of the right lobe on the scintigraphic views. The largest nodule measured on the left at the time of the ultrasound was at the mid to upper pole however there it is only 1 cm in size. If the nodule is cold, its size would not account for the size of the defect at the superior aspect of the left thyroid lobe on today's study. No definite hot nodules are seen. NM/NM thyroid w uptake IMPRESSION: LOW-NORMAL THYROID UPTAKE VALUES. RELATIVE PHOTOPENIA INVOLVING THE SUPERIOR ASPECT OF THE LEFT THYROID LOBE, DESCRIBED. Impression dictated by: Edith Comer M.D. 04/22/2025 7:47 AM Dictation Location: [place] [address] Electronically authenticated by: [id number] Date: 04/22/2025 07:47
--- OUTSIDE RECORDS SUMMARY | 2025-04-20 07:12 | XMS_ITS | Clinical Summary ---
Author Organization [employer] tem Address [id number] [address] 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 Name Role Phone Unavailable Primary Care Provider Unavailabl e Social History Tobacco UseTypesPacks/DayYears UsedDateSmoking Tobacco: Never AssessedChildcare AnswerDate EeggcwgbRfitgxdoyMugocqd13/12/2019EmploymentAnswerDate Recorded WlxkwwggfePicwrwf37/12/2019Purpose - LifeAnswerDate RecordedPurpose and direction in zxiyFirlvpr78/11/2021CommentsUnknownSex and Gender InformationValueDate RecordedSex Assigned at BirthNot on fileLegal SexFemale 01/06/2015 12:08 PM EDTGender IdentityNot on fileSexual OrientationNot on file Plan of Treatment Health MaintenanceDue DateLast DoneCommentsDepression Jjnfrxvhk09/29/1971Tobacco Wljwglkei26/29/1971Adult BMI Sfgifmtlu06/29/1977DTaP,Tdap and Td Vaccines (1 - Tdap)1978Zoster (Shingles) Vaccine (1 of 2)2009Fall Risk Screening 2024Influenza Mkvblij1302/01/2025RSV ( or age 60+ yrs) (1 - 1-dose 75+ series)2034 [employer] Devices Not on file
--- OUTSIDE RECORDS SUMMARY | 2025-04-20 07:12 | XMS_ITS | CCD ---
Author Organization 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 Name Role Phone MARY JO NORRIS Admitting [...] Care Provider Ivy Bah PA-C Attending Provider Piotr Hutton DO Attending Provider [phone] Robin Oswald MD Primary Care Provider Robin Oswald MD Primary Care Provider [phone] Robin Oswald MD Primary Care Provider [phone] Mary Jo Whitten Attending Provider [phone] Loretta Rivera DO Attending Provider Robin Oswald MD Primary Care Provider [phone] QUINN QUICK Attending Unavailable STEPANIC, JR., LORETTA [...] Admitting Unavailable Ivy Bah L Attending Unavailable Piotr Hutton Admitting Unavailable Piotr Hutton Attending Unavailable Robin Oswald MD Primary Care Provider [phone] Loretta Rivera DO Attending Provider [phone] Allergies Allergy ClassificationReported Allergen(s)Allergy TypeDate of OnsetReaction(s) Facility (1 source)PenicillinsDrug allergy (disorder)31-72-0967BfeSelect Medical [facility] [place] [facility] (20 sources)Penicillin GDrug Ohsiqcz99-15-8456NjcqiqtQLXB Healthcare (20 sources)OtherPropensity to adverse dzdskatfd19-22-5879GtbhatbEQZG Healthcare (1 source)PenicillinDrug Jqoxcdx71-58-9665ZcxysiytnC[facility] Clinic [facility] Hospital Repository (1 source)PenicillinsDrug allergy (disorder)47-07-6832GkxlepwgeCleveland Clinic [facility]cy Hospital Repository Medications Current Medications MedicationDrug Class(es)DatesSig (Normalized)Sig (Original)alendronic acid 70 mg oral tablet (20 sources)BisphosphonateStart: 14-80-8822tquu 1 tablet by mouth every week Start: 03-20-2023 End: 97-52-1819ajhl 1 tablet by mouth every weekalendronate (Fosamax) [...] 1000 mg oral tablet (20 sources)Vitamin CStart: 08-70-9172cxyc 1 g by mouth twice dailyAscorbic Acid [...] 200 unt oral tablet (20 sources)Vitamin DStart: 75-08-8565fufm 1 tablet by mouth twice daily End: 06-73-7517Pqifytu Citrate-Vitamin D (Calcium Citrate + D) 250-5 [...] oral capsule (2 sources)Cephalosporin AntibacterialStart: 11-17-2024 End: 11-61-5379lohm 1 capsule by mouth in the morningcephalexin (Keflex) 500 MG capsule Indications: Yeast infection Take 1 capsule (500 mg) by mouth inthe morning and 1 capsule (500 mg) before bedtime. Do all this for 10 days. 20 capsule 11/17/2024 11/27/2024 Activecholecalciferol 0.125 mg oral tablet (20 sources)Vitamin DStart: 49-70-4594yksl 1 tablet by mouth twice dailytake 1 tablet by mouth once dailycholecalciferol (Vitamin D-3) 25 MCG (1000 UT) tablet Take 1,000 Units by mouth Daily Active End: 41-35-6432fyowggbjltpasht (Vitamin D-3) 125 MCG (5000 UT) capsule 1 (one) time each day at the same time. 06/12/2024 Discontinued (Therapy completed)take 1 capsule by mouth once dailyCholecalciferol 125 MCG (5000 UT) 1 capsule Orally Once a day Activechondroitin sulfates 400 mg / glucosamine hydrochloride 500 mg oral tablet (2 sources)Start: 33-50-4696luqz 3 tablets by mouth once dailyciprofloxacin 3 mg/ml / dexamethasone 1 mg/ml otic suspension (3 sources)Corticosteroid, Quinolone AntimicrobialStart: 06-12-2024 End: 07-84-8427iilyzlszvvyyh-dexAMETHasone (CiproDEX) otic suspension Indications: Bilateral chronic otorrhea Administer 4 drops into each ear in the morning and 4 drops before bedtime. Do all this for 7 days. 7.5 mL 06/12/2024 06/19/2024 Activeclobetasol propionate 0.5 mg/ml topical cream (20 sources)CorticosteroidStart: 06-11-2024 End: 62-14-7191ydccmtjpgk (Temovate) 0.05 % cream Indications: Chronic dermatitis , Atopic dermatitis, unspecifiedtype Apply 1 application topically 2 (two) times a week Pea-size amount applied topically twice weekly. 60 g 3 06/11/2024 09/09/2024 ActiveStart: 04-16-2024 End: 81-03-7149muszdqluyp (Temovate) 0.05 % cream Indications: Dermatitis Apply 1 application topically in the morning and 1 application before bedtime. Apply pea-size amount to affected area.. 30 g 05/05/2024 06/04/2024 ActiveStart: 02-24-2024 End: 79-16-4112fbwadvjegd (Temovate) 0.05 % cream Indications: Vaginal itching [...] mg oral tablet (20 sources)Histamine-1 Receptor AntagonistStart: 57-79-4012xfik 1 tablet by mouth once dailyAllegra Activefluconazole 150 mg oral tablet (7 sources)Azole AntifungalStart: 11-17-2024 End: 83-54-3907anvdcqytynl (Diflucan) 150 MG tablet TAKE 1 TABLET BY MOUTH FOR 1 DOSE 11/17/2024 01/05/2025 Discontinued (Therapy completed)Start: 11-17-2024 End: 73-07-3358vvpp 1 tablet by mouth once, then take 1 tablet by mouth once fluconazole (Diflucan) 150 MG tablet Indications: Yeast infection Take 1 tablet (150 mg) by mouth 1(one) time for 1 dose This is a 1 time dose, take single tablet by mouth. 1 tablet 1 11/17/2024 11/17/2024 ExpiredStart: 02-24-2024 End: 15-80-7229svmb 1 tablet by mouth once, then take [...] b12 0.025 mg oral capsule (16 sources)Vitamin O72Jfawl: 41-67-4410amko 1 capsule by mouth once daily in the morningStart: 02-04-2025 End: 30-55-3722ismc 1 capsule by mouth once dailyFerrex 150 Forte 150-0.025-1 MG capsule Indications: Pre-op evaluation TAKE 1 CAPSULE BY MOUTH EVERY DAY 90 capsule 1 03/02/2025 ActiveGlucosamine Chondr Complex 500-400 MG (3 sources)take 1 capsule by mouth once dailyGlucosamine Chondr Complex 500-400 MG 1 capsule with a meal Orally Once a day VurrigOpwqbdawklc-Cxtvzegoi-Dzb C-Mn (Glucosamine Chondroitin Complx) capsule (20 sources)take 1 capsule by mouth every twelve zmwhnVkqtlrbfrmc-Ufvebuwfx-Kcu C-Mn (Glucosamine Chondroitin Complx) capsule 1 capsule every 12 (twelve)hours Activetake 1 capsule by mouth every twelve awwnvHnrheptfwbp-Yvnjcxdtw-Wqb C-Mn (Glucosamine Chondroitin Complx) capsule 1 capsule every 12 (twelve)hours. Activetake 1 capsule by mouth every twelve egsizNxmsutsuxrw-Wtzjeyblk-Qhq C-Mn (Glucosamine Chondroitin Complx) capsule 1 capsule every 12 (twelve)hours. 0 ActiveMagnesium (2 sources)Start: 17-80-7768bhey 2 tablets by mouth once dailyStart: 02-04-2025 take 2 tablets by mouth once dailymagnesium gluconate 550 mg oral tablet (20 sources)take 1 tablet by mouth in the morningmagnesium 30 MG tablet Take 30 mg by mouth in the morning and 30 mg before bedtime. ActiveMisc Natural Products (Glucosamine Chondroitin Adv) tablet (20 sources) End: 41-21-5347Npjn Natural Products (Glucosamine Chondroitin Adv) tablet as [...] 0 ActiveMultivitamin (Daily Multi-Vitamin) tablet (2 sources)Start: 19-97-4009ncry 1 tablet by mouth once dailyStart: 02-04-2025 take 1 tablet by mouth once dailynystatin 100 unt/mg topical powder (8 sources)Polyene AntifungalStart: 11-17-2024 End: 48-94-2847hzbrsrdp (Mycostatin) 242933 UNIT/GM powder Indications: Yeast infection Apply topically in the morning and in the evening and before bedtime. 15 g 11/17/2024 01/05/2025 Discontinued (Therapy completed)Turmeric Curcumin 500 MG (3 sources)Turmeric Curcumin 500 MG as directed Orally ActiveTurmeric extract (20 sources)Turmeric 500 MG capsule ActiveTurmeric 500 MG capsule Orally Active Turmeric 500 MG capsule Orally 0 ActiveTurmeric Root Extract 500 mg capsule (2 sources)Start: 46-86-2946bxim 1 capsule by mouth twice dailyStart: 02-04-2025 take 1 capsule by mouth twice dailyVitamin B Complex (Balanced B-50) tablet (2 sources)Start: 54-79-7157rfsp 1 tablet by mouth once dailyStart: 02-04-2025 take 1 tablet by mouth once dailyvitamin b12 1 mg oral tablet (20 sources)Vitamin Y11kuxergsakqtnnh (Vitamin B-12) 1000 MCG tablet 1 (one) time each day at the same time Activetake 1 tablet by mouth once daily Cyanocobalamin 1000 MCG 1 tablet Orally Once a day ActiveVitamin C 1000 MG (3 sources)take 1 tablet by mouth once dailyVitamin C 1000 MG 1 tablet Orally Once a day ActiveZinc (20 sources)Start: 21-24-3389lrsn 1 tablet by mouth once dailyStart: 02-04-2025 [...] 50 mg oral tablet (20 sources) End: 26-55-6816cmls gluconate 50 MG tablet 1 (one) time each day at the same time 01/05/2025 Discontinued (Therapycompleted) Completed/Discontinued Medications MedicationDrug Class(es)DatesSig (Normalized)Sig (Original)aspirin 81 mg chewable tablet (20 sources)Platelet Aggregation Inhibitor, Nonsteroidal Anti-inflammatory Drug Start: 02-04-2025 End: 35-81-2029mufb 1 tablet by mouth once dailyAspirin (Aspirin Childrens) 81 mg tablet,chewable Discontinued 81 MG PO Daily February 03, 2025 11:00pm April 12, 2025 10:25amaspirin 81 MG EC tablet 1 (one) time each day at the same time ActiveHYLAN G-F 20 (4 sources)Start: 59-79-5963Jtomxoy Mar, 16 mgStart: 59-94-9082Xnawewr Feb, 16 mgStart: 71-76-3876Pglrtgs Feb, 16 mgVitamin D 2000 UNIT (3 sources)Vitamin D 2000 UNIT Orally Not-Taking Problems Active Problems Problem ClassificationProblemDateDocumented DateEpisodic/ChronicAcquired foot deformities (4 sources)Hallux valgus (acquired), right foot; Translations: [Hallux valgus (acquired)]89-60-0803VatmphkPmiuhbkr foot deformities (4 sources)Acquired deformity of toe of right foot; Translations: [Acquired deformities of toe(s), unspecified, right foot]28-40-8287Gxtqfelb Administrative/social admission (1 source)Patient encounter status; Translations: [Persons encountering health services in other specified circumstances]98-38-2377OfrniyzkRyxjhvppe of lipid metabolism (1 source)Hyperlipidemia, unspecified; Translations: [HYPERLIPIDEMIA UNSPECIFIED]Onset: 87-04-6364QnrfefnYqakjsvhqatsy and screening for infectious disease (1 source)Encounter for screening for human papillomavirus (HPV); Translations: [ENC SCREENING HUMAN PAPILLOMAVIRUS]Onset: 14-20-4351RbzovrhmFoktbezcft disorders (20 sources)Primary ovarian failure; Translations: [Other primary ovarian failure]Onset: 84-05-021053592556-52-6427OxqjtevGpmomho (4 sources)Mycosis; Translations: [Candidiasis, unspecified]53-56-0617Ooragsvf Nutritional deficiencies (4 sources)Vitamin D deficiency, unspecified; Translations: [VITAMIN D DEFICIENCY UNSPECIFIED]Onset: 37-53-6731OablpgvWuxpandgqsrhyv (20 sources)Osteoarthritis of knee; Translations: [Unilateral primary osteoarthritis, left knee]Onset: 99-27-4443PhucugaOdoguwvikosi (20 sources)Senile osteoporosis; Translations: [Age-related osteoporosis without current pathological fracture]Onset: 533753-14-9271CrjmjqqFqgfa connective tissue disease (2 sources)Pain of left calf; Translations: [Pain in left lower leg]01-19-2025 EpisodicOther ear and sense organ disorders (20 sources)Hearing loss in left ear; Translations: [Unspecified hearing loss, left ear]Onset: 858344-55-4619BlletntXqeew ear and sense organ disorders (20 sources)Mixed conductive AND sensorineural hearing loss; Translations: [Mixed conductive and sensorineural hearing loss, unilateral, right ear with restricted hearing on the contralateral side]Onset: hronic Other ear and sense organ disorders (20 sources)Sensorineural hearing loss, bilateral; Translations: [Sensorineural hearing loss, bilateral]Onset: 309062-92-7460KsfunixRnlpa ear and sense organ disorders (15 sources)Hearing loss of left ear; Translations: [Unspecified hearing loss, left ear]Onset: 349591-36-6483XhdmshiCrynd ear and sense organ disorders (4 sources)Otorrhea; Translations: [Otorrhea, bilateral]36-86-5628MtynigltOtorm female genital disorders (5 sources)Pruritus of vagina; Translations: [Other specified noninflammatory disorders of vagina]12-26-3256SgrrcqhtJkpow nervous system disorders (9 sources)Chronic pain; Translations: [Other chronic pain]13-68-2440Icijeqv Other nervous system disorders (11 sources)Other chronic pain; Translations: [Other chronic pain]ChronicOther non-traumatic joint disorders (9 sources)Pain in left knee; Translations: [Pain in joint, lower leg]Episodic Other non-traumatic joint disorders (3 sources)Pain in right hip joint; Translations: [Pain in right hip]Onset: 588593-49-6893LwqqlsyyWxsgn nutritional; endocrine; and metabolic disorders (20 sources)Obesity; Translations: [Obesity, unspecified]Onset: 06-24-2023 38-63-1405UzrezauAkgcb upper respiratory disease (20 sources)Chronic rhinitis; Translations: [Chronic rhinitis]Onset: 06-24-2023 63-86-1439KqqlasoIjiknqrm codes; unclassified (1 source)Family history of malignant neoplasm of trachea, bronchus and lung; Translations: [FAM HX MALIG NEOPLSM TRACH BRON LNG]Onset: 24-88-7101Rnanfapf Residual codes; unclassified (2 sources)Postmenopausal state; Translations: [Asymptomatic menopausal state] 90-61-8679BkekfpiaBizjuzlt codes; unclassified (2 sources)Flushing; Translations: [Flushing]67-93-5647DmkjipyiBnnlhll disorders (20 sources)Goiter; Translations: [Nontoxic goiter, unspecified]Onset: 575424-29-9817ZeswnhkKmowybgovwaw (2 sources)CONTACT W/AND (SUSP) EXPOS COVID-19; Translations: [CONTACT W/AND (SUSP) EXPOS COVID-19]Onset: 89-84-0463Oxbylweeftsx (2 sources)Preprocedural examination ycjf24-74-8177Ozaac infection (1 source)COVID-19; Translations: [COVID-19]Onset: 09-08-2021 Past or Other Problems Problem ClassificationProblemDateDocumented DateEpisodic/ChronicDeficiency and other anemia (1 source)Anemia, unspecified; Translations: [ANEMIA UNSPECIFIED]Onset: 61-49-9278NkyzpsdsCcnhuhzq mellitus without complication (1 source)Other abnormal glucose; Translations: [OTHER ABNORMAL GLUCOSE]Onset: 87-79-2327YakplcjdMakeadldzwsdk symptoms and ill-defined conditions (1 source)Other abnormal findings in urine; Translations: [OTHER ABNORMAL FINDINGS IN URINE]Onset: 29-04-6730DcuhpiznKmiardz and fatigue (1 source)Other fatigue; Translations: [OTHER FATIGUE]Onset: 79-30-3948Fzrkoyqr Nonmalignant breast conditions (20 sources)Lump in left breast; Translations: [Unspecified lump in the left breast, unspecified quadrant]Onset: 838878-12-9421PxzfdwahGcyqz ear and sense organ disorders (20 sources)Cholesteatoma; Translations: [Unspecified cholesteatoma, unspecified ear]Onset: 396552-62-0301WzrviuucAzrar ear and sense organ disorders (20 sources)Impacted cerumen of bilateral ears; Translations: [Impacted cerumen, bilateral]Onset: 655480-95-5141TnniaebuSebus ear and sense organ disorders (20 sources)Otorrhea of right ear; Translations: [Otorrhea, right ear]Onset: 114409-76-3905FzjeuvqoItyes inflammatory condition of skin (4 sources)Other pruritus; Translations: [OTHER PRURITUS]Onset: 12-22-2021 EpisodicOther non-traumatic joint disorders (20 sources)Arthralgia of the pelvic region and thigh; Translations: [Pain in unspecified hip]Onset: 816673-86-9467ArboafwrJexey non-traumatic joint disorders (20 sources)Hip pain; Translations: [Pain in right hip]Onset: 06-24-2023 96-25-7382XomnlbodVmchu screening for suspected conditions (not mental disorders or infectious disease) (20 sources)Encounter for screening mammogram for malignant neoplasm of breast; Translations: [Encounter for screening for malignant neoplasm of cervix]Onset: 00-69-6468GsvhtiaeOirvg upper respiratory infections (1 source)Acute sinusitis, unspecified; Translations: [ACUTE SINUSITIS UNSPECIFIED]Onset: 64-86-0143OaldmaflEqkzja media and related conditions (20 sources)Perforation of tympanic membrane; Translations: [Unspecified perforation of tympanic membrane, unspecified ear]Onset: EpisodicUnclassified (1 source)CONTACT W/AND (SUSP) EXPOS COVID-19; Translations: [CONTACT W/AND (SUSP) EXPOS COVID-19]Onset: 09-06-2021 Results Test NameValueInterpretationReference RangeFacilityBasic Metabolic PanelOrdered By: Loretta Rivera on 18-81-8670Awhzs gap [Moles/Vol]8.5 mmol/LNormal6.0-15.0 [facility] HospitalComment on above:Performed By: #### BMP #### [facility] [address] [place] [address] USACalcium [Mass/Vol]9.2 mg/dLNormal8.6-10.3FSamaritan North Health CenterComment on above:Result Comment: PERFORMED BY: [place] [address] PATHOLOGIST DICTAPHONE TECHNICIAN LONI WRIGHT M.D.Performed By: #### BMP #### [place] [address] USAChloride [Moles/Vol]107 mmol/ZHrsryc11-309IfivgqdctCleveland Clinic Mercy HospitalComment on above:Performed By: #### BMP #### [place] [address] USACO2 [Moles/Vol]31.9 mmol/LHigh21.0-31.0[facility] HospitalComment on above:Performed By: #### BMP #### [place] [address] USACreatinine [Mass/Vol]0.84 mg/dLNormal0.60-1.20[facility] HospitalComment on above:Performed By: #### BMP #### [place] [address] USAGlucose [Mass/Vol]96 mg/gTHmntfl60-682AqfmeqzreCleveland Clinic Mercy HospitalComment on above:Result Comment: Random Glucose Reference Range is dependent on time and content of last meal. Glucose of more than 200 mg/dL in a nonstressed, ambulatory subject supports the diagnosis of Diabetes Mellitus. ADA recommended reference rangePerformed By: #### BMP #### [facility] [address] [place] [address] USAADA recommended reference rangeRandom Glucose Reference Range is dependent on time and content of last meal. Glucose of more than 200 mg/dL in a nonstressed, ambulatory subject supports the diagnosisof Diabetes Mellitus.Potassium [Moles/Vol]4.4 mmol/LNormal3.5-5.1FSamaritan North Health CenterComment on above:Performed By: #### BMP #### [facility] [address] [place] [address] USASodium [Moles/Vol]143 mmol/VRfrmia001-373QzkemniozCleveland Clinic Mercy HospitalComment on above:Performed By: #### BMP #### [facility] [address] [place] [address] USAUrea nitrogen [Mass/Vol]13 mg/dLNormal7-25[facility] HospitalComment on above:Performed By: #### BMP #### [facility] [address] [place] [address] USABasic Metabolic Panelon 38-42-2469HSK/1.73 sq M.predicted MDRD (S/P/Bld) [Vol rate/Area]mL/min/{1.73_m2}NormalThe [facility] Physician GroupComment on above:Performed By: #### BMP #### [facility] [address] [place] [address] USABasic metabolic 1998 panelon 57-11-8988Whras gap [Moles/Vol]8.5 mmol/L6.0 - 15.0NOMS HealthcareCalcium [Mass/Vol]9.2 mg/dL8.6 - 10.3 mg/dLNOMS HealthcareChloride [Moles/Vol]107 mmol/L98 - 107 mmol/LNOMS HealthcareCO2 [Moles/Vol]31.9 mmol/LHigh21.0 - 31.0 mmol/LNOMS Healthcare Creatinine (U) [Mass/Vol]0.84 mg/dL0.60 - 1.20 mg/dLNOMS HealthcareESTIMATED GFR NOMS HealthcareGlucose [Mass/Vol]96 mg/dL70 - 100 mg/dLNOMT HealthcareComment on above:Random Glucose Reference Range is dependent on time and content of last meal. Glucose of more than 200 mg/dL in a nonstressed, ambulatory subject supports the diagnosis of Diabetes Mellitus. ADA recommended reference range Interpretation and review of laboratory resultsAbnormalNOMT HealthcarePotassium [Moles/Vol]4.4 mmol/L3.5 - 5.1 mmol/LNOMS HealthcareSodium [Moles/Vol]143 mmol/L 136 - 145 mmol/LNOMS HealthcareUrea nitrogen [Mass/Vol]13 mg/dL7 - 25 mg/dLNOMercy Hospital South, formerly St. Anthony's Medical CenterNOMT HealthcareBilirubin Test strip Ql (U)Ordered By: Loretta Rivera on 59-39-4814Orimlugrb Ql (U)NegativeNegativeCleveland Clinic Mercy Hospital CBC W Auto Differential panel (Bld)on 46-01-0139Uiuqwmkzm (Bld) [#/Vol]0.1 10*3/uL0.0 - 0.2 10*3/uLNOMS HealthcareBasophils/100 WBC Manual cnt (Syn fld)1.4 %.[facility] CenterEosinophils (Bld) [#/Vol]0.2 10*3/uL0.0 - 0.45 10*3/uLNOMS HealthcareEosinophils/100 WBC Manual cnt (Syn fld)2.9 %.[facility] Erythrocyte distribution width (RBC) [Ratio]13.3 %11.9 - 15.3 %[facility] Hematocrit (Bld) [Volume fraction]42.7 %34.0 - 46.4 %[facility] CenterHemoglobin (Bld) [Mass/Vol]14.4 g/dL11.8 - 15.4 g/dLParkland Health CenterLymphocytes (Bld) [#/Vol]1.3 10*3/uL1.00 - 4.8 10*3/uLNOMS HealthcareLymphocytes/100 WBC Manual cnt (Syn fld)23.5 %.[facility] Health CenterMCH (RBC) [Entitic mass]30.8 pg24.7 - 34.3 pg [facility] CenterMCHC (RBC) [Mass/Vol]33.8 g/dL32.0 - 35.0 g/dLParkland Health CenterMCV (RBC) [Entitic vol]91.0 fL80 - 100 fLParkland Health CenterMonocytes (Bld) [#/Vol]0.5 10*3/uL0.0 - 0.8 10*3/uLNOMS HealthcareMonocytes+Macrophages/100 [...] Count Auto DiffOrdered By: Loretta Rivera on 88-57-2661Hnfknpaav (Bld) [#/Vol]0.1 10*3/uLNormal0.0-0.2 [facility] HospitalComment on above:Result Comment: PERFORMED BY: [place] [address] PATHOLOGIST DICTAPHONE TECHNICIAN LONI WRIGHT M.D.Performed By: #### CBC #### [facility] [address] [place] [address] USABasophils/100 WBC (Bld)1.4 %Normal.[facility] HospitalComment on above:Performed By: #### CBC #### [facility] [address] [place] [address] USAEosinophils (Bld) [#/Vol]0.2 10*3/uLNormal0.0-0.45 [facility] HospitalComment on above:Performed By: #### CBC #### [facility] [address] [place] [id number] USAEosinophils/100 WBC (Bld)2.9 %Normal.[facility] HospitalComment on above:Performed By: #### CBC #### [facility] [address] [place] [address] USAErythrocyte distribution width (RBC) [Ratio]13.3 %Normal 11.9-15.3FSamaritan North Health CenterComment on above:Performed By: #### CBC #### [facility] [address] [place] [address] USAHematocrit (Bld) [Volume fraction]42.7 %Ioxzwu91.0-46.4 [facility] HospitalComascension standish hospital on above:Performed By: #### CBC #### [facility] [address] [place] [address] USAHemoglobin (Bld) [Mass/Vol]14.4 g/pQDhobav61.8-15.4 [facility] HospitalComment on above:Performed By: #### CBC #### [facility] [address] [place] [address] USALymphocytes (Bld) [#/Vol]1.3 10*3/uLNormal1.00-4.8 [facility] HospitalComment on above:Performed By: #### CBC #### [facility] [address] [place] [id number] USALymphocytes/100 WBC (Bld)23.5 %Normal.[facility] HospitalComment on above:Performed By: #### CBC #### [facility] [address] [place] [address] USAMCH (RBC) [Entitic mass]30.8 rmItrdvh72.7-34.3FSamaritan North Health CenterComment on above:Performed By: #### CBC #### [facility] [address] [place] [address] USAMCV (RBC) [Entitic vol]91.0 xBNjthlw86-221CpprhbivyCleveland Clinic Mercy HospitalComment on above:Performed By: #### CBC #### [facility] [address] [place] [address] USAMonocytes (Bld) [#/Vol]0.5 10*3/uLNormal0.0-0.8[facility] HospitalComment on above:Performed By: #### CBC #### [facility] [address] [place] [address] USAMonocytes/100 WBC (Bld)9.4 %Normal.[facility] HospitalComment on above:Performed By: #### CBC #### [facility] [address] [place] [address] USANeutrophils (Bld) [#/Vol]3.5 10*3/uLNormal1.8-7.7FSamaritan North Health CenterComment on above:Performed By: #### CBC #### [facility] [address] [place] [address] USANeutrophils/100 WBC (Bld)62.8 %Normal.[facility] HospitalComment on above:Performed By: #### CBC #### [facility] [address] [place] [address] USAPlatelet mean volume (Bld) [Entitic vol]7.1 fLNormal 6.3-10.7FSamaritan North Health CenterComment on above:Performed By: #### CBC #### [facility] [address] [place] [address] USAPlatelets (Bld) [#/Vol]243 10*3/qLEfixqb118-085LefzhkjwoCleveland Clinic Mercy HospitalComment on above:Performed By: #### CBC #### [facility] [address] [place] [address] USARBC (Bld) [#/Vol]4.70 10*6/uLNormal3.60-5.00[facility] HospitalComment on above:Performed By: #### CBC #### [facility] [address] [place] [address] USAWBC (Bld) [#/Vol]5.6 10*3/uLNormal3.8-11.6FSamaritan North Health CenterComment on above:Performed By: #### CBC #### [facility] [address] [place] [address] USAComplete Blood Count Auto Diffon [id number] Corpuscular HGB Conc33.8 g/cEVmfckv66.0-35.0The [facility] Physician GroupComment on above:Performed By: #### CBC #### [facility] [address] [place] [address] USANRBC%0.0 /100{WBC}Normal0-0.5The [facility] Comment on above:Performed By: #### CBC #### [facility] [address] [place] [address] USAWhite Blood Count5.6 [CFU]/mLNormal3.8-11.6The [facility] Physician GroupComment on above:Performed By: #### CBC #### [facility] [address] [place] [address] USAGlomerular filtration rate [Volume Rate/Area] in Serum, Plasma or Blood by CreatinineOrdered By: Loretta Rivera on 99-95-9967Gnbhmokypf filtration rate [Volume Rate/Area] in Serum, Plasma or Blood by Creatinine> 60.0 mL/MinCleveland Clinic Mercy HospitalGlucose [Mass/volume] in Urine by Test stripOrdered By: Loretta Rivera on 04-38-7087Cxxleyn Test strip (U) [Mass/Vol] Normal mg/dLNormalCleveland Clinic Mercy HospitalHemoglobin Test strip Ql (U) Ordered By: Loretta Rivera on 62-24-6088Bwjdwzixbr Ql (U)NegativeNegative [facility] HospitalLeukocytes [#/volume] corrected for nucleated erythrocytes in Blood by Automated counOrdered By: Loretta Rivera on 04-12-2025 WBC corrected for nucl RBC Auto (Bld) [#/Vol]5.6 10*3/uL3.8-11.6FSamaritan North Health CenterMCHC Auto (RBC) [Mass/Vol]Ordered By: Loretta Rivera on 46-59-1993VYLC (RBC) [Mass/Vol]33.8 g/dL32.0-35.0C[facility] Clinic Mercy HospitalNitrite Test strip Ql (U)Ordered By: Loretta Rivera on 66-14-7263Xqftaoi Ql (U)NegativeNegativeCleveland Clinic Mercy HospitalNo Panel Information Ordered By: Loretta Rivera on 67-58-1358Zlriqthq Creatinine Clearance (ChemN/A [facility] Mercy HospitalNucleated erythrocytes [Presence] in Blood by Automated countOrdered By: Loretta Rivera on 82-74-0963Iogjholdv RBC Auto Ql (Bld)0.0 /100{WBC}0-0.5FSamaritan North Health CenterPST Type and Screenon 39-57-4274PUP and Rh group Nom (Bld)Blood group A Rh(D) positiveNoUNC Hospitals Hillsborough Campus Physician GroupComment on above:Order Comment: Comment please run c s if UA+ Name Collection Type:: Clean-Voided MidstreamProtein Test strip (U) [Mass/Vol] Ordered By: Loretta Rivera on 33-69-3034Azhangr (U) [Mass/Vol]NegativeNegative [facility] Northpecific gravity Test strip (U) [Rel density] Ordered By: Loretta Rivera on 34-68-3998Vugxdqmh gravity (U) [Rel density]1.018 1.001-1.030C[facility] Mercy HospitalUrinalysisOrdered By: Loretta Rivera on 15-10-0507Amsvayelea (U)ClearNormalClearCleveland Clinic Mercy HospitalComment on above:Order Comment: Comment please run c s if UA+ Name Collection Type:: Clean-Voided MidstreamPerformed By: #### UA #### [facility] [address] [place] [address] USAColor (U)Light-yellowNormalYellowCleveland Clinic Mercy HospitalComment on above:Order Comment: Comment please run c s if UA+ Name Collection Type:: Clean-Voided MidstreamPerformed By: #### UA #### [facility] [address] [place] [id number] USAKetones Ql (U)NegativeNormalNegOhioHealth Riverside Methodist HospitalComment on above:Order Comment: Comment please run c s if UA+ Name Collection Type:: Clean-Voided MidstreamPerformed By: #### UA #### [facility] [address] [place] [address] USALeukocyte esterase Test strip Ql (U)NegativeNormalNegative [facility]cy HospitalComment on above:Order Comment: Comment please run c s if UA+ Name Collection Type:: Clean-Voided MidstreamPerformed By: #### UA #### [facility] [address] [place] [address] USApH (U)5.5 [pH]Normal5.0-9.0C[facility] Mercy HospitalComment on above:Order Comment: Comment please run c s if UA+ Name Collection Type:: Clean-Voided MidstreamPerformed By: #### UA #### [place] [address] USAUrinalysison 34-01-1435Ogtzzozkt,UrineNegativeNormal NegativeThe [facility] Physician GroupComment on above:Order Comment: Comment please run c s if UA+ Name Collection Type:: Clean-Voided MidstreamPerformed By: #### UA #### [place] [address] USAGlucose Ql (U)NormalNormalNormChillicothe Hospitale [facility] Physician GroupComment on above:Order Comment: Comment please run c s if UA+ Name Collection Type:: Clean-Voided MidstreamPerformed By: #### UA #### [place] [address] USANitrite,UrineNegativeNormalNegativeThe [facility] Physician GroupComment on above:Order Comment: Comment please run c s if UA+ Name Collection Type:: Clean-Voided MidstreamPerformed By: #### UA #### [place] [id number] USAOccult Blood,UrineNegativeNormalNegativeThe [facility] Physician GroupComment on above:Order Comment: Comment please run c s if UA+ Name Collection Type:: Clean-Voided MidstreamResult Comment: PERFORMED BY: [place] [address] PATHOLOGIST DICTAPHONE TECHNICIAN LONI WRIGHT M.D.Performed By: #### UA #### [facility] [address] [place] [address] USAProtein,UrineNegativeNormalNegativeThe [facility] Physician GroupComment on above:Order Comment: Comment please run c s if UA+ Name Collection Type:: Clean-Voided MidstreamPerformed By: #### UA #### [facility] [address] [place] [address] USASpecificy [place],Urine1.948Wajxjy9.001-1.030The [facility] Physician GroupComment on above:Order Comment: Comment please run c s if UA+ Name Collection Type:: Clean-Voided MidstreamPerformed By: #### UA #### [place] [address] USAUrobilinogen,UrineNormalNormalNormalThe [facility] Physician GroupComment on above:Order Comment: Comment please run c s if UA+ Name Collection Type:: Clean-Voided MidstreamPerformed By: #### UA #### [place] [address] USAUrinalysis, manual onlyon 45-76-0516Qzwuijokwe (U)Clear ClearNOMS HealthcareBILIRUBIN,URINENegativeNegativeNOMS HealthcareColor (U) Light-YellowYellowNOMS HealthcareGlucose Ql (U)NormalNormal mg/dLNOMT Healthcare Ketones Ql (U)NegativeNegativeNOMercy Hospital South, formerly St. Anthony's Medical CenterLeukocyte esterase Test strip Ql (U)NegativeNegativeNOMT HealthcareNITRITE,URINENegativeNegativeNOMT Healthcare OCCULT BLOOD,URINENegativeNegativeNOMS HealthcarepH (U)5.5 [pH]5.0 - 9.0NOMS HealthcarePROTEIN,URINENegativeNegative mg/dLNOMT HealthcareSPECIFICY GRAVITY,URINE1.0181.001 - 1.030NOMS HealthcareUROBILINOGEN,URINENormalNormal mg/dLNOMT HealthcareComment please run c s if UA+ Name Collection Type:: Clean-Voided MidstreamFIREncompass Health Rehabilitation Hospital [facility] Urobilinogen Test strip (U) [Mass/Vol]Ordered By: Loretta Rivera on 04-12-2025 Urobilinogen (U) [Mass/Vol]Normal mg/dLNoUniversity Hospitals TriPoint Medical Center Appearance of UrineOrdered By: Loretta Rivera on 29-15-8540Ndtomilvhv (U)Clear NormalCleLutheran HospitalComment on above:Order Comment: Comment Culture if UA positive Name Collection Type:: Clean-Voided MidstreamPerformed By: #### UA #### [facility] [address] [place] [address] USABasic Metabolic Panelon 50-72-8168OST/1.73 sq M.predicted MDRD (S/P/Bld) [Vol rate/Area]mL/min/{1.73_m2}NormalThe [facility] Physician GroupComment on above:Performed By: #### BMP, CBC #### [facility] [address] [place] [id number] USABasic metabolic 1998 panelon 04-04-6343Xvurs gap [Moles/Vol]9.1 mmol/L6.0 - 15.0NOMS HealthcareCalcium [Mass/Vol]9.4 mg/dL8.6 - 10.3 mg/dLNOMS HealthcareChloride [Moles/Vol]105 mmol/L98 - 107 mmol/LNOMS HealthcareCO2 [Moles/Vol]30.3 mmol/L21.0 - 31.0 mmol/LNOMS HealthcareCreatinine (U) [Mass/Vol]0.94 mg/dL0.60 - 1.20 mg/dLNOMT HealthcareESTIMATED GFRNOMS HealthcareGlucose [Mass/Vol]94 mg/dL70 - 100 mg/dLNOMT HealthcareComment on above:Random Glucose Reference Range is dependent on time and content of last meal. Glucose of more than 200 mg/dL in a nonstressed, ambulatory subject supports the diagnosis of Diabetes Mellitus. ADA recommended reference range Potassium [Moles/Vol]4.4 mmol/L3.5 - 5.1 mmol/LNOMS HealthcareSodium [Moles/Vol] 140 mmol/L136 - 145 mmol/LNOMS HealthcareUrea nitrogen [Mass/Vol]16 mg/dL7 - 25 mg/dLNOMercy Hospital South, formerly St. Anthony's Medical CenterNOMS HealthcareBasophils [#/volume] in Blood by Automated counton 07-38-2283Ujjjmesjd (Bld) [#/Vol]0.1 10*3/uLNormal0.0-0.2NOMS Healthcare Comment on above:Result Comment: PERFORMED BY: [place] [address] PATHOLOGIST DICTAPHONE TECHNICIAN LONI WRIGHT M.D.Performed By: #### BMP, CBC #### [facility] [address] [place] [address] USABasophils/100 leukocytes in Blood by Automated count Ordered By: Loretta Rivera on 81-62-5378Jumybygic/100 WBC (Bld)1.7 %Normal. [facility] HospitalComment on above:Performed By: #### BMP, CBC #### [place] [address] USABilirubin Test strip Ql (U)Ordered By: Loretta Rivera on 68-67-7130Chrupzpcd Ql (U)NegativeNegativeUpper Valley Medical Center W Auto Differential panel (Bld)on 15-06-1643Nassqndll/100 WBC Manual cnt (Syn fld)1.7 %.NOMS HealthcareEosinophils/100 WBC Manual cnt (Syn fld)3.4 %.[facility] Health CenterErythrocyte distribution width (RBC) [Ratio]13 %11.9 - 15.3 %NOMBarnes-Jewish HospitalLymphocytes/100 WBC Manual cnt (Syn fld)24.2 %.[facility] Monocytes+Macrophages/100 WBC Manual cnt (Syn fld)10.5 %.[facility] Neutrophils/100 WBC Manual cnt (Syn fld)60.2 %.NOMS HealthcareNRBC0 /100{WBC}0 - 0.5 /100{WBC}NOM HealthcareRBC LM.HPF (Urine sed) [#/Area]4.69 10*6/uL3.60 - 5.00 10*6/uLNOMS HealthcareWBC LM.HPF (Urine sed) [#/Area]4.8 [CFU]/mL3.8 - 11.6 [CFU]/mLNOMS HealthcareCalcium [Mass/volume] in Serum or PlasmaOrdered By: Loretta Rivera on 48-16-4480Bkdhbeu [Mass/Vol]9.4 mg/dLNormal8.6-10.3FSamaritan North Health CenterComment on above:Result Comment: PERFORMED BY: [place] [address] PATHOLOGIST DICTAPHONE TECHNICIAN LONI WRIGHT M.D.Performed By: #### BMP, CBC #### [place] [address] USACarbon dioxide, total [Moles/volume] in Serum or Plasma Ordered By: Loretta Rivera on 91-97-0276QL5 [Moles/Vol]30.3 mmol/LNormal 21.0-31.0C[facility] HospitalComment on above:Performed By: #### BMP, CBC #### [place] [address] USAChloride [Moles/volume] in Serum or PlasmaOrdered By: Loretta Rivera on 28-39-4197Pziqpuuy [Moles/Vol]105 mmol/IWzxcpz89-281WbiyespimCleveland Clinic Mercy HospitalComment on above:Performed By: #### BMP, CBC #### [place] [address] USAColor of Urine by AutoOrdered By: Loretta Rivera on 44-78-7462Hypte (U)Dark-yellowCritically abnormalYellowCleveland Clinic Mercy HospitalComment on above:Order Comment: Comment Culture if UA positive Name Collection Type:: Clean-Voided MidstreamPerformed By: #### UA #### [place] [address] USAComplete Blood Count Auto Diffon 46-76-3349Lruj Corpuscular HGB Conc34.8 g/fLHfrhmv43.0-35.0The [facility] Physician GroupComment on above:Performed By: #### BMP, CBC #### [place] [address] USANRBC%0.0 /100{WBC}Normal0-0.5The [facility] Physician Group Comment on above:Performed By: #### BMP, CBC #### [place] [address] USAWhite Blood Count4.8 [CFU]/mLNormal3.8-11.6The [facility] Physician GroupComment on above:Performed By: #### BMP, CBC #### [facility] [address] [place], [place] [address] USACreatinine [Mass/volume] in Serum or PlasmaOrdered By: Loretta Rivera on 70-47-5648Dwqvircifa [Mass/Vol]0.94 mg/dLNormal0.60-1.20 [facility] HospitalComment on above:Performed By: #### BMP, CBC #### [facility] [address] [place] [address] USAECG 12 lead ECGon 98-73-8500YGF [address] [facility] [place] [address] [place], [place] [id number] Electrocardiograph Report Signed Patient: Ashley Espinoza MR#: [id number] 8 : 1960 Acct:[id number] Age/Sex: 64 / F ADM Date: 02/04/25 Loc: Room: Type: [facility] Attending Dr: Loretta Rivera Jr, DO Ordering [...] rhythm Normal ECG Confirmed by Ashley Rand ([id number]) on 02/04/2025 10:58:57 AM Referred By: Electronically Signed By: Ashley Rand Transcribed By: MUS Signed By Ashley Rand MD [id number] [facility] Physician GroupEosinophils [#/volume] in Blood by Automated counton 10-75-9909Mtxerqpynzt (Bld) [#/Vol]0.2 10*3/uLNormal0.0-0.45 NOMS HealthcareComment on above:Performed By: #### BMP, CBC #### [facility] [address] [place] [id number] USAEosinophils/100 leukocytes in Blood by Automated count Ordered By: Loretta Rivera on 56-56-9608Ratvxfdkdwj/100 WBC (Bld)3.4 %Normal. [facility] HospitalComment on above:Performed By: #### BMP, CBC #### [facility] [address] [place] [address] USAErythrocyte distribution width [Ratio] by Automated count Ordered By: Loretta Rivera on 70-60-4768Wyscynzcvmt distribution width (RBC) [Ratio]13.0 %Jmzjml76.9-15.3FSamaritan North Health CenterComment on above: Performed By: #### BMP, CBC #### [facility] [address] [place] [id number] USAErythrocytes [#/volume] in Blood by Automated countOrdered By: Loretta Rivera on 67-03-9652GSX (Bld) [#/Vol]4.69 10*6/uLNormal3.60-5.00 [facility] HospitalComment on above:Performed By: #### BMP, CBC #### [facility] [address] [place] [id number] USAGlomerular filtration rate [Volume Rate/Area] in Serum, Plasma or Blood by CreatinineOrdered By: Loretta Rivera on 15-61-7698Wqpwykwvio filtration rate [Volume Rate/Area] in Serum, Plasma or Blood by Creatinine> 60.0 mL/MinCleveland Clinic Mercy HospitalGlucose [Mass/volume] in Serum or Plasma Ordered By: Loretta Rivera on 20-29-4748Czqdmbv [Mass/Vol]94 mg/hNWqebak53-182 [facility] HospitalComment on above:ADA recommended reference rangeRandom Glucose [...] reference rangePerformed By: #### BMP, CBC #### [facility] [address] [place] [address] USAGlucose [Mass/volume] in Urine by Test stripOrdered By: Loretta Rivera on 62-96-5540Kdbnibj Test strip (U) [Mass/Vol]Normal mg/dLNormal [facility] HospitalHematocrit [Volume Fraction] of Blood by Automated counton 91-46-9332Pwxnwsjyrk (Bld) [Volume fraction]42.5 %Normal 34.0-46.4NOMT HealthcareComment on above:Performed By: #### BMP, CBC #### [facility] [address] [place] [address] USAHemoglobin Test strip Ql (U)Ordered By: Loretta Rivera on 03-95-2756Wnvygepahf Ql (U)NegativeNegOhioHealth Riverside Methodist Hospital Hemoglobin [Mass/volume] in Bloodon 61-93-5610Elciydsxqi (Bld) [Mass/Vol]14.8 g/iXAezilu45.8-15.4NOMT HealthcareComment on above:Performed By: #### BMP, CBC #### [facility] [address] [place] [address] USAKetones [Presence] in Urine by Test stripOrdered By: Loretta Rivera on 75-47-1931Hzbsukh Ql (U)NegativeMemorial Health System Selby General HospitalComment on above:Order Comment: Comment Culture if UA positive Name Collection Type:: Clean-Voided MidstreamPerformed By: #### UA #### [facility] [address] [place] [address] USALeukocyte esterase [Presence] in Urine by Test strip Ordered By: Loretta Rivera on 38-09-9119Trqsadmcw esterase Test strip Ql (U) NegativeNormSt. Anthony's HospitalComment on above:Order Comment: Comment Culture if UA positive Name Collection Type:: Clean-Voided MidstreamPerformed By: #### UA #### [facility] [address] [place] [address] USALeukocytes [#/volume] corrected for nucleated erythrocytes in Blood by Automated counOrdered By: Loretta Rivera on 24-05-9052GGM corrected for nucl RBC Auto (Bld) [#/Vol]4.8 10*3/uL3.8-11.6FSamaritan North Health CenterLeukocytes [#/volume] in Blood by Automated counton 16-24-0480YUI (Bld) [#/Vol]4.8 10*3/uLNormal3.8-11.6NOMS HealthcareComment on above:Performed By: #### BMP, CBC #### [facility] [address] [place] [phone] USALymphocytes [#/volume] in Blood by Automated counton 37-28-2700Fuaqqohoinz (Bld) [#/Vol]1.2 10*3/uLNormal1.00-4.8N[facility] Healthcare Comment on above:Performed By: #### BMP, CBC #### [place] [address] USALymphocytes/100 leukocytes in Blood by Automated count Ordered By: Loretta Rivera on 13-37-4305Oucnmxseues/100 WBC (Bld)24.2 %Normal. [facility] HospitalComment on above:Performed By: #### BMP, CBC #### [place] [id number] USAMCH [Entitic mass] by Automated counton 13-57-8792BJC (RBC) [Entitic mass]31.5 aqCzkjze69.7-34.3NOMS HealthcareComment on above: Performed By: #### BMP, CBC #### [place] [id number] USAMCHC [Mass/volume] by Automated counton 12-51-7580IEUG (RBC) [Mass/Vol]34.8 g/dL32.0-35.0NOMS HealthcareMCV [Entitic volume] by Automated counton 65-45-4084LPC (RBC) [Entitic vol]90.5 rYMluisu90-648YTVS HealthcareComment on above:Performed By: #### BMP, CBC #### [place] [id number] USAMonocytes [#/volume] in Blood by Automated counton 61-16-4783Akgtrfeyq (Bld) [#/Vol]0.5 10*3/uLNormal0.0-0.8NOMT HealthcareComment on above:Performed By: #### BMP, CBC #### [facility] [address] [place] [address] USAMonocytes/100 leukocytes in Blood by Automated count Ordered By: Loretta Rivera on 71-37-6509Revxyngjd/100 WBC (Bld)10.5 %Normal. [facility] HospitalComment on above:Performed By: #### BMP, CBC #### [facility] [address] [place] [address] USANeutrophils [#/volume] in Blood by Automated counton 36-36-6574Opyrqxhktwi (Bld) [#/Vol]2.9 10*3/uLNormal1.8-7.7NOMT Healthcare Comment on above:Performed By: #### BMP, CBC #### [facility] [address] [place] [address] USANeutrophils/100 leukocytes in Blood by Automated count Ordered By: Loretta Rivera on 07-40-5187Opdhsykrjup/100 WBC (Bld)60.2 %Normal. [facility] HospitalComment on above:Performed By: #### BMP, CBC #### [facility] [address] [place] [address] USANitrite Test strip Ql (U)Ordered By: Loretta Rivera on 33-74-1082Ydenjtu Ql (U)NegativeNegativeCleveland Clinic Mercy HospitalNo Panel Informationon 73-47-4123BQDSParkland Health CenterNo Panel InformationOrdered By: Loretta Rivera on 87-69-7510Zrwaqnus Creatinine Clearance (ChemN/AFSamaritan North Health CenterNucleated erythrocytes [Presence] in Blood by Automated countOrdered By: Loretta Rivera on 45-90-1583Euhrtdxgl RBC Auto Ql (Bld)0.0 /100{WBC}0-0.5FSamaritan North Health CenterPST Type and Screenon 02-04-2025 ABO and Rh group Nom (Bld)Blood group A Rh(D) positiveNormalThe [facility] Physician GroupComment on above:Order Comment: Date of Surgery: [id number] # of PRBC units on hold?: 2Platelet mean volume [Entitic volume] in Blood by Automated counton 82-56-5075Mezvghkf mean volume (Bld) [Entitic vol]7.2 fLNormal 6.3-10.7NOMS HealthcareComment on above:Performed By: #### BMP, CBC #### [facility] [address] [place] [id number] USAPlatelets [#/volume] in Blood by Automated counton 20-46-4936Njtcwieca (Bld) [#/Vol]222 10*3/qTGqybgp642-063SOOO HealthcareComment on above:Performed By: #### BMP, CBC #### [address] [address] USAPotassium [Moles/volume] in Serum or PlasmaOrdered By: Loretta Rivera on 03-89-4227Ympfukldh [Moles/Vol]4.4 mmol/LNormal3.5-5.1 [facility] HospitalComment on above:Performed By: #### BMP, CBC #### [place] [id number] USAProtein Test strip (U) [Mass/Vol]Ordered By: Loretta Rivera on 99-19-7498Lfhcvse (U) [Mass/Vol]NegativeNegativePremier Health Miami Valley Hospital Northerum or plasma anion gap determinationOrdered By: Loretta Rivera on 19-82-2924Anaev gap [Moles/Vol]9.1 mmol/LNormal6.0-15.0[facility] HospitalComment on above:Performed By: #### BMP, CBC #### [address] [address] USASodium [Moles/volume] in Serum or PlasmaOrdered By: Loretta Rivera on 78-40-6143Kxefhh [Moles/Vol]140 mmol/COilqyk480-415RtdeupanmCleveland Clinic Mercy HospitalComment on above:Performed By: #### BMP, CBC #### [address] [address] USASpecific gravity Test strip (U) [Rel density]Ordered By: Loretta Pastranalakewood health center on 90-22-3903Axdargbn gravity (U) [Rel density]1.0231.001-1.030 [facility] HospitalUrea nitrogen [Mass/volume] in Serum or Plasma Ordered By: Loretta Victorianolakewood health center on 14-53-3732Trrr nitrogen [Mass/Vol]16 mg/dLNormal 12-25[facility] HospitalComment on above:Performed By: #### BMP, CBC #### [facility] [address] [place] [address] USAUrinalysison 71-16-0130Eetpgqihi,UrineNegativeNormal NegativeThe [facility] Physician GroupComment on above:Order Comment: Comment Culture if UA positive Name Collection Type:: Clean-Voided MidstreamPerformed By: #### UA #### [place] [address] USAGlucose Ql (U)NormalNormalNormalThe [facility] Physician GroupComment on above:Order Comment: Comment Culture if UA positive Name Collection Type:: Clean-Voided MidstreamPerformed By: #### UA #### [place] [address] USANitrite,UrineNegativeNormalNegativeThe [facility] Physician GroupComment on above:Order Comment: Comment Culture if UA positive Name Collection Type:: Clean-Voided MidstreamPerformed By: #### UA #### [place] [address] USAOccult Blood,UrineNegativeNormalNegativeThe [facility] Physician GroupComment on above:Order Comment: Comment Culture if UA positive Name Collection Type:: Clean-Voided MidstreamResult Comment: PERFORMED BY: [place] [address] PATHOLOGIST DICTAPHONE TECHNICIAN LONI WRIGHT M.D.Performed By: #### UA #### [place] [address] USAProtein,UrineNegativeNormalNegativeThe [facility] Physician GroupComment on above:Order Comment: Comment Culture if UA positive Name Collection Type:: Clean-Voided MidstreamPerformed By: #### UA #### [facility] [address] [place] [address] USASpecificy [place],Urine1.007Cmiwyy6.001-1.030The [facility] Physician GroupComment on above:Order Comment: Comment Culture if UA positive Name Collection Type:: Clean-Voided MidstreamPerformed By: #### UA #### [facility] [address] [place] [address] USAUrobilinogen,UrineNormalNormalNormalThe [facility] Physician GroupComment on above:Order Comment: Comment Culture if UA positive Name Collection Type:: Clean-Voided MidstreamPerformed By: #### UA #### [place] [address] USAUrinalysis, manual onlyon 19-57-8710Ailbixieck (U)Clear ClearNOMS HealthcareBILIRUBIN,URINENegativeNegativeNOMS HealthcareColor (U) Dark-YellowCritically abnormalYellowNOMS HealthcareGlucose Ql (U)NormalNormal mg/dLNOMT HealthcareInterpretation and review of laboratory resultsAbnormalNOMS HealthcareKetones Ql (U)NegativeNegativeNOMS HealthcareLeukocyte esterase Test strip Ql (U)NegativeNegativeNOMS HealthcareNITRITE,URINENegativeNegativeNOMS HealthcareOCCULT BLOOD,URINENegativeNegativeNOMS HealthcarepH (U)5.5 [pH]5.0 - 9.0NOMS HealthcarePROTEIN,URINENegativeNegative mg/dLNOMT HealthcareSPECIFICY GRAVITY,URINE1.0231.001 - 1.030NOMS HealthcareUROBILINOGEN,URINENormalNormal mg/dLNOMS HealthcareComment Culture if UA positive Name Collection Type:: Clean-Voided MidstreamFIRELANDSUrobilinogen Test strip (U) [Mass/Vol]Ordered By: Loretta Rivera on 68-61-6171Gwixmbaimgsc (U) [Mass/Vol]Normal mg/dLNoUniversity Hospitals TriPoint Medical CenterX-ray reportOrdered By: Chad White on 95-22-4048Mvinu reportMERCY HEALTH ST[facility] Main [place] [address] [place] [address] XRay Report Signed Patient: Ashley Espinoza MR#: [id number] : 1960 Acct:[id number] Age/Sex: 64 / F ADM Date: 5 Loc: [facility]: Loretta Rivera Jr DO Copies to: Loretta Rivera Jr, DO~ Ordering Provider: Loretta Rivera Jr, DO Date of Service: 02/04/25 XR/XR tibia/fibula BI: PRE OP ([id number]) XR/XR femur BI: PRE OP Bilateral lower [...] Jr., D.OEzio 02/04/2025 2:28 PM Dictation Location: [place] [address] Transcribed By: [facility] 02/04/25 1428 Dictated By: Chad White Jr, DO 02/04/25 1427 Signed By: 02/04/25 1428 [facility] HospitalXR tibia/fibula BIon 96-11-0373LD tibia/fibula [facility] Main [address] [address] XRay Report Signed Patient: Ashley Espinoza MR#: [id number] 8 : 1960 Acct:[id number] Age/Sex: 64 / F ADM Date: 02/04/25 Loc: [facility] Room: Type: [facility] Attending Dr: Loretta Rivera Jr DO Copies to: Loretta Rivera Jr, DO Ordering Provider: Loretta Rivera Jr, DO Date of Service: 02/04/25 XR/XR tibia/fibula BI: PRE OP ([id number]) XR/XR femur BI: PRE OP Bilateral lower [...] Jr., D.O. 02/04/2025 2:28 PM Dictation Location: [place] [address] Transcribed By: [facility] 02/04/25 1428 Dictated By: Chad White Jr, DO 02/04/25 1427 Signed By: 02/04/[address] Physician GrouppH of Urine by Test stripOrdered By: Loretta Rivera on 76-15-8890jK (U)5.5 [pH]Normal5.0-9.0[facility] Clinic Mercy HospitalComment on above:Order Comment: Comment Culture if UA positive Name Collection Type:: Clean-Voided MidstreamPerformed By: #### UA #### [place] [address] USAUS.doppler Lower extremity vein - lefton 01-22-2025 No sonographic evidence of deep venous thrombosis of the left lower extremity. ELECTRONICALLY SIGNED BY: FAITH Price EXAM: [facility] US LOWER EXTREMITY VENOUS DUPLEX LEFT TECHNIQUE: LEFT lower extremity venous duplex exam was performed. HISTORY: Left calf pain. FINDINGS: The common femoral, femoral, deep femoral, popliteal and calf veins were evaluated for deep venous thrombosis. The veins were evaluated with color Doppler imaging, compression and augmentation if possible. No sonographic evidence of deep venous thrombosis. IMAGINGSteffGiovani minor DO - 01/22/2025 EXAM: [facility] US LOWER EXTREMITY VENOUS DUPLEX LEFT TECHNIQUE: [...] extremity. ELECTRONICALLY SIGNED BY: Giovani Mcdonnell DO [facility].doppler Lower extremity vein - leftOrdered By: Giovani Mcdonnell on 48-17-9489AJJA [employer] Work Phone: US.doppler Lower extremity vein - lefton 01-21-2025 Radiology Study observation (narrative)[facility] US LOWER EXTREMITY VENOUS DUPLEX LEFTon 08-11-9205AUKM US LOWER EXTREMITY VENOUS DUPLEX LEFTEXAM: [facility] US LOWER EXTREMITY VENOUS DUPLEX LEFT TECHNIQUE: [...] left lower extremity. ELECTRONICALLY SIGNED BY: Sara PriceLourdes Medical Center Informationon 78-08-9141Tifxwvtfw Study observation (narrative)[facility] Hip - left 3 Viewson 94-01-4958Fseetdr Result: AP and lateral of left hip showed acceptable position and alignment of left total hip arthroplasty. There was no evidence of loosening of the acetabular cup or femoral stem. Femoral head was well centered in the acetabular liner without evidence of asymmetric or accelerated wear. There was no gross evidence of fracture and/or dislocation. Impression: Unremarkable left total hip arthroplasty. [facility] Hip - right 3 Viewson 13-68-3143Sgkodbw Result: AP and lateral of right hip showed acceptable position and alignment of right total hip arthroplasty. There was no evidence of loosening of the acetabular cup or femoral stem. Femoral head was well centered in the acetabular liner without evidence of asymmetric or accelerated wear. There was no gross evidence of fracture and/or dislocation. Impression: Unremarkable right total hip arthroplasty. [facility] diagnostic mammo LT w/CADon 10-40-1102BC diagnostic mammo LT w/[facility] [address] [place], [place] [id number] Mammography Report Signed Patient: Ashley Espinoza MR#: [id number] : 1960 Acct:[id number] Age/Sex: 64 / F Adm Date: 01/04/25 Loc: [place] Room: Type: [facility] Attending Dr: Mary Jo Norris BAIT DIGGER-C Ordering Provider: Mary Jo Norris CNP Date of Service: 01/04/25 Procedure(s): MM diagnostic mammo LT w/CAD Accession Number(s): ([id number]) MM/MM diagnostic mammo LT w/CAD: R92 Copies [...] Jr., D.OEzio 01/04/2025 9:12 AM Dictation Location: [facility] Dictated By: Chad White Jr, DO 01/04/25 0909 Signed By: 01/04/[address] [place] [address] Physician GroupMammography reportOrdered By: Chad White on 67-67-1943Rknwaxkthw imaging [facility] [address] [place] [address] Mammography Report Signed Patient: Ashley Espinoza MR#: [id number] : 1960 Acct:[id number] Age/Sex: 64 / F Adm Date: 5 Loc: [place] Room: Type: [facility] Attending Dr: Mary Jo Norris BAIT DIGGER-C Ordering Provider: Mary Jo Norris CNP Date of Service: 01/04/25 Procedure(s): MM diagnostic mammo LT w/CAD Accession Number(s): ([id number]) MM/MM diagnostic mammo LT w/CAD: R92 Copies [...] Jr., D.O. 01/04/2025 9:12 AM Dictation Location: [facility] Dictated By: Chad White Jr, DO 01/04/25 0909 Signed By: 01/04/25 0912 [facility] HospitalXR Knee - left 1 or 2 Viewson 18-10-8911Smtgcxt Result: X-rays AP and lateral of left [...] adequately ossified. [facility]OM[facility] HealthcareNOMS HealthcareRadiology Study observation (narrative)[facility] HealthcareNo Panel InformationOrdered By: Piotr Hutton on 78-56-6332Boovhxmnbdxpz Pathology TestSee [facility] Community HospitalComment on above:See report. Scanned copy available in EMR.Pathology Request for Lab Corpon 54-03-3328Rfzbxvell Request for Lab CorpNoUNC [facility] Comment on above:Order Comment: PATHOLOGY AMBULATORY SPECIMENResult Comment: See report. Scanned copy available in EMR. PERFORMED BY: [address] [place] [address] PATHOLOGIST DICTAPHONE TECHNICIAN LOREE MADDEN M.D.Performed By: #### PATH TO [facility] #### [address] [address] [facility] 05-19-2024L Specimen: [id number] Received: 05/20/24 Status: EDGAR Moya Num: [id number] Spec Type: Surgical Subm Dr: Vane Rivas MD Tissues: A BREAST CORE NO CALCS (LT BREAST) Procedures: HE/4, Gross/Micro L4, AE1-AE3/2, CD68/2 Age/ Patient Sex Location Account Attending Physician Ashley Espinoza 63/F LABELL [id number] Ivy Bah NP-C SPEC NUM: [id number] RECD: 05/20/24 STATUS: EDGAR MOYA NUM: [id number] HILDA: 05/19/24 [facility] DR: Vane Rivas MD ENTERED: 05/20/[address]: Go,Crista ARZATE SPEC TYPE: Surgical DEPT: [facility] ENTERED BY: [id number] RECV BY: [id number] ORDERED: HE/4, Gross/Micro L4, AE1-AE3/2, CD68/2 ORDERED: [...] the fragmented fibrofatty tissue filtered, and Specimen: [id number] Received: 05/20/24 Status: EDGAR Moya Num: [id number] Spec Type: Surgical Subm Dr: Vane Rivas MD Tissues: A BREAST CORE NO CALCS (LT BREAST) Procedures: HE/4, Gross/Micro L4, AE1-AE3/2, CD68/2 Patient: MadhuTed aldanaa [id number] (Continued) Specimen: [id number] Received: 05/20/24 (Continued) Gross Description (Continued) Signed (signature on file) Kar Muller MD 05/22/24 0901 Specimen: [id number] Received: 05/20/24 Status: EDGAR Moya Num: [id number] Spec Type: Surgical Subm Dr: Vane Rivas MD Tissues: A BREAST CORE NO CALCJonathan (LT BREAST) Procedures: HE/4, Gross/Micro L4, AE1-AE3/2, CD68/2 Patient: Ashley Espinoza [id number] (Continued) Specimen: [id number] Received: 05/20/24-1347 (Continued) Gross Description (Continued) entirely submitted in [place] A2. Fixation time: Time tissue removed from patient: 1507 Time specimen placed in formalin: 1508 Cold ischemic time: 1 minute Total fixation time: 26 hours and 30 minutes (2, anders, HA81-1986 A) Microscopic Description Microscopic examinations are performed supporting the above interpretation CPT Codes 41119 [id number] 27719 Specimen: [id number] Received: 05/20/24 Status: EDGAR Moya Num: [id number] Spec Type: Surgical Subm Dr: Vane Rivas MD Tissues: A BREAST CORE NO CALCS (LT BREAST) Procedures: HE/4, Gross/Micro L4, AE1-AE3/2, CD68/2 Patient: Ashley Espinoza [id number] (Continued) Signed (signature on file) Kar Muller MD 05/22/[address] [place] [address] Physician Group POST BIOPSY LTon 00-64-[place] [address] Mammography Report Signed Patient: ASHLEY ESPINOZA MR#: [id number] : 1960 Acct:[id number] Age/Sex: 63 / F ADM Date: 05/19/24 Loc: US Attending Dr: Ivy Bah Ordering Physician: Ivy Bah Results: Date of Service: 05/19/24 Follow Up: Procedure(s): MM post biopsy LT Accession Number(s): [id number] cc: Ivy Bah; Robin Oswald M.D. Patient Name: ASHLEY ESPINOZA MR#: [id number] : 1960 Exam Date: 05/19/2024 Ordering Doctor: [...] M.D. Signed By: 05/19/24 1537 DD/ TD/TT: Casino Banker:TBHRadiology, Radiologist, - 05/19/2024 [place] [address] Mammography Report Signed Patient: ASHLEY ESPINOZA MR#: [id number] : 1960 Acct:[id number] Age/Sex: 63 / F ADM Date: 05/19/24 Loc: US Attending Dr: Ivy Bah Ordering Physician: Ivy Bah Results: Date of Service: 05/19/24 Follow Up: Procedure(s): MM post biopsy LT Accession Number(s): [id number] cc: Ivy Bah; Robin Oswald M.D. Patient Name: ASHLEY ESPINOZA MR#: [id number] : 1960 Exam Date: 05/19/2024 Ordering Doctor: [...] Signed By: 05/19/24 1537 DD/ 35 TD/TT: Casino Banker: MARE HealthcareRadiology Study observation (narrative)MARE HealthcareMM POST BIOPSY LTOrdered By: Radiologist Radiology on 95-33-7680[facility] Work Phone: US GUIDED BREAST BIOPSY LTon 41-48-2588[place]pc[place], [place] [address] Ultrasound Report Signed Patient: ASHLEY ESPINOZA MR#: [id number] : 1960 Acct:[id number] Age/Sex: 63 / F ADM Date: 05/19/24 Loc: US Attending Dr: Ivy Bah Ordering Physician: Ivy Bah Date of Service: 05/19/24 Procedure(s): US breast vac bx w/ clip LT Accession Number(s): [id number] cc: Ivy Bah; Robin Oswald M.D. [place] [id number] Patient Name: ASHLEY ESPINOZA MRN: [id number] date: 1960 Sex: F Assigned Patient Location: Current Patient Location: Accession/Order Number: [id number] Exam Date: 05/19/2024 14:17 Report Date: 05/19/2024 [...] Signed By: 05/19/24 1534 DD/ 31 TD/TT: Casino Banker:TBHRadiology, Radiologist, MD - 05/19/2024 [place] [address] Ultrasound Report Signed Patient: ASHLEY ESPINOZA MR#: [id number] : 1960 Acct:[id number] Age/Sex: 63 / F ADM Date: 05/19/24 Loc: US Attending Dr: Ivy Bah Ordering Physician: Ivy Bah Date of Service: 05/19/24 Procedure(s): US breast vac bx w/ clip LT Accession Number(s): [id number] cc: Ivy Bah; Robin Oswald M.D. [place] [id number] Patient Name: ASHLEY ESPINOZA MRN: [id number] date: 1960 Sex: F Assigned Patient Location: Current Patient Location: Accession/Order Number: [id number] Exam Date: 05/19/2024 14:17 Report Date: 05/19/2024 [...] M.D. Signed By: 05/19/241533 DD/ 31 TD/TT: Casino Banker: [facility] HealthcareRadiology Study observation (narrative)NOMS HealthcareUS GUIDED BREAST BIOPSY LTOrdered By: Radiologist Radiology on 48-73-6956ERDV Healthcare Work Phone: IGP,APTIMA HPV,AGE GDLNon 86-39-8221JQY GDLN ACOG TESTINGNote.[facility] HealthcareComment on above:TESTS RESULT FLAG UNITS REF RANGE LAB Clinician Provided Cytology Information Source.............Vagina No. of containers..01 ThinPrep Vial Age Algo ACOG Kiah... 30-65 01 FLAG LEGEND: L-Low Normal,H-High Normal,LL-Alert Low,HH-Alert High <-Panic Low,>-Panic High,A-Abnormal,AA-Critical Abnormal Performed at: 01 =[address] [address] Johana Quinonez MD, HPV APTIMANegativeNegativeBLUE MOUNTAIN [facility]ITAL HealthcareComment on above:This nucleic acid amplification test detects fourteen high- risk HPV types (16,18,31,33,35,39,45,51,52,56,58,59,66,68) without differentiation. Performed at: =[address] [id number] Assistant Floor Covering Printer: Johana Quinonez MD, Phone: [phone] Performed at: [address] [id number] Assistant Floor Covering Printer: Johana Quinonez MD, Phone: [phone] IGP, APTIMA HPV, RFX 16/18,45Note.[facility]land Health CenterComment on above:TESTS RESULT FLAG UNITS REF RANGE LAB DIAGNOSIS: 02 NEGATIVE FOR INTRAEPITHELIAL LESION OR MALIGNANCY. Specimen adequacy: 02 Satisfactory for evaluation. Performed by: Claire Friedman, Sugar Boiler (ASCP) . 02 Note: Note 02 The [...] High,A-Abnormal,AA-Critical Abnormal Performed at: 02 [facility] [address] [place] [address] Johana Quinonez MD, SPATULA-[facility] DIAGNOSTIC MAMMO UNILAT LTon 08-10-9188[place], [place] [address] Mammography Report Signed Patient: ASHLEY ESPINOZA MR#: [id number] : 1960 Acct:[id number] Age/Sex: 63 / F ADM Date: 05/08/24 Loc: MAMMO Attending Dr: Iyv Bah Ordering Physician: Iyv Bah Results: Date of Service: 05/08/24 Follow Up: Procedure(s): MM diagnostic mammo unilat LT Accession Number(s): [id number] cc: Ivy Bah; Robin Oswald M.D. Patient Name: ASHLEY ESPINOZA MR#: [id number] : 1960 Exam Date: 05/08/2024 Ordering Doctor: [...] cancer at age 87. LOCATION: [facility] BREAST COMPOSITION: The breasts are [...] M.D. Signed By: 05/08/241513 DD/ 12 TD/TT: Casino Banker:TBHRadiology, Radiologist, MD - 05/08/2024 [place] [address] Mammography Report Signed Patient: ASHLEY ESPINOZA MR#: [id number] : 1960 Acct:[id number] Age/Sex: 63 / F ADM Date: 05/08/24 Loc: MAMMO Attending Dr: Ivy Bah Ordering Physician: Ivy Bah Results: Date of Service: 05/08/24 Follow Up: Procedure(s): MM diagnostic mammo unilat LT Accession Number(s): [id number] cc: Ivy Bah; Robin Oswald M.D. Patient Name: ASHLEY ESPINOZA MR#: [id number] : 1960 Exam Date: 05/08/2024 Ordering Doctor: [...] cancer at age 87. LOCATION: [facility] BREAST COMPOSITION: The breasts are [...] Signed By: 05/08/24 1514 DD/ 1513 TD/TT: Casino Banker: MARE Flores InformationOrdered By: Radiologist Radiology on 17-90-5936ZHEN [facility] Work Phone: No Panel Informationon 57-40-1279Goezcofef Study observation (narrative)MARE Mathew BREAST LT LIMITEDon 82-75-3266Fvj[place], [place] [address] Ultrasound Report Signed Patient: ASHLEY ESPINOZA MR#: [id number] : 1960 Acct:[id number] Age/Sex: 63 / F ADM Date: 05/08/24 Loc: MAMMO Attending Dr: Ivy Bah Ordering Physician: Ivy Bah Date of Service: 05/08/24 Procedure(s): US breast LT limited Accession Number(s): [id number] cc: Ivy Bah; Robin Oswald M.D. Patient Name: ASHLEY ESPINOZA MR#: [id number] : 1960 Exam Date: 05/08/2024 Ordering Doctor: [...] cancer at age 87. LOCATION: [facility] BREAST COMPOSITION: The breasts are [...] M.D. Signed By: 05/08/24 1514 DD/ TD/TT: Casino Banker:TBHRadiology, Radiologist, - 05/08/2024 [place] [address] Ultrasound Report Signed Patient: ASHLEY ESPINOZA MR#: [id number] : 1960 Acct:[id number] Age/Sex: 63 / F ADM Date: 05/08/24 Loc: MAMMO Attending Dr: Ivy Bah Ordering Physician: Ivy Bah Date of Service: 05/08/24 Procedure(s): US breast LT limited Accession Number(s): [id number] cc: Ivy Bah; Robin Oswald M.D. Patient Name: ASHLEY ESPINOZA MR#: [id number] : 1960 Exam Date: 05/08/2024 Ordering Doctor: [...] cancer at age 87. LOCATION: [facility] BREAST COMPOSITION: The breasts are [...] M.D. Signed By: 05/08/244 DD/ 12 TD/TT: Casino Banker: MARE Arias TOMOSYNTHESIS SCREENING BIon 55-73-8457Uel[place], [place] [address] Mammography Report Signed Patient: ASHLEY ESPINOZA MR#: [id number] : 1960 Acct:[id number] Age/Sex: 63 / F ADM Date: 04/28/24 Loc: MAMMO Attending Dr: Ivy Bah Ordering Physician: Ivy Bah Results: Date of Service: 04/28/24 Follow Up: Procedure(s): MM tomosynthesis screening BI Accession Number(s): [id number] cc: Ivy Bah; Robin Oswald M.D. Patient Name: ASHLEY ESPINOZA MR#: [id number] : 1960 Exam Date: 04/28/2024 Ordering Doctor: [...] cancer at age 87. LOCATION: [facility] BREAST COMPOSITION: The breasts are [...] Signed By: 04/28/24 153 DD/ 153 TD/TT: Casino Banker:TBHRadiology, Radiologist, MD - 04/28/2024 [place] [address] Mammography Report Signed Patient: ASHLEY ESPINOZA MR#: [id number] : 1960 Acct:[id number] Age/Sex: 63 / F ADM Date: 04/28/24 Loc: MAMMO Attending Dr: Ivy Bah Ordering Physician: Ivy Bah Results: Date of Service: 04/28/24 Follow Up: Procedure(s): MM tomosynthesis screening BI Accession Number(s): [id number] cc: Ivy Bah; Robin Oswald M.D. Patient Name: ASHLEY ESPINOZA MR#: [id number] : 1960 Exam Date: 04/28/2024 Ordering Doctor: [...] cancer at age 87. LOCATION: [facility] BREAST COMPOSITION: The breasts are [...] Signed By: 04/28/24 1532 DD/ 1531 TD/TT: Casino Banker: [facility] CenterRadiology Study observation (narrative)[facility] TOMOSYNTHESIS SCREENING BIOrdered By: Radiologist Radiology on 10-25-4566LMUDParkland Health Center Work Phone: URETHRITIS/DISCHARGE PLUS VAGINITIS (HTRX)on 44-78-2193VTCQWIZRZ VAGINAE0.000NOMS HealthcareATOPOBIUM VAGINAENot detectedNOMS HealthcareBVAB 2,3 (BACTERIAL [...] Cervical or vaginal smear or scraping studyon 08-45-0328YPIO HealthcareCULTURE URINEon 11-27-2231TUURKPR URINECulture Observations: NO GROWTH.NormalSelect Medical Cleveland Clinic Rehabilitation Hospital, AvonComment on above:Performed By: #### URCX #### [facility] [address] [place] [address] [address] Nellie Schuler RANDOM W/MICROSCOPICon 23-87-2060RPCCDNZLNNDQ SEENNormalNONE SEENSelect Medical Cleveland Clinic Rehabilitation Hospital, AvonComment on above:Performed By: #### A1C #### [facility] [address] [place] [address] [address] Nellie Solano Ql (U)NegativeNormalNEGATIVESelect Medical [facility], [place] Comment on above:Performed By: #### A1C #### [facility] [address] [place] [address] [address] Nellie Galvez SEENNormalNONE SEENSelect Medical [facility] Clinic Rehabilitation Hospital, AvonComment on above:Performed By: #### A1C #### [facility] [address] [place] [address] [address] Nellie Garcia (U)CLEARNormalCLEARSelect Medical [facility] Clinic Rehabilitation Hospital, AvonComment on above: Performed By: #### A1C #### [facility] [address] [place] [address] [address] Nellie Linda (U)DK. YELLOWNormalYELLOWSelect Medical Cleveland Clinic Rehabilitation Hospital, AvonComment on above:Performed By: #### A1C #### [facility] [address] [place] [address] [address] Nellie Jo LM Nom (Urine sed)NONE SEENNormalNONE SEENSelect Medical Cleveland Clinic Rehabilitation Hospital, AvonComment on above:Performed By: #### A1C #### [facility] [address] [place] [address] [address] Yilan ChangEpithelial cells LM Ql (Urine sed)RARENormalNONE SEEN /RAREThe [facility] Medical CenterComment on above:Performed By: #### A1C #### [facility] [address] [place] [address] Dr. Nellie MullerGlucose Ql (U)NegativeNormalNEGATIVESelect Medical [facility] Clinic [facility] Hospital, AvonComment on above:Performed By: #### A1C #### [facility] [address] [place] [address] Dr. Nellie MullerHemoglobin Ql (U)NegativeNormalNEGATIVEMemorial Health System on above:Performed By: #### A1C #### [facility] [address] [place] [address] Dr. Nellie MullerKetones Ql (U)NegativeNormalNEGATIVESelect Medical [facility] Hospital, AvonComment on above:Performed By: #### A1C #### [facility] [address] [place] [address] Dr. Nellie MullerLEUKOCYTESNegativeNormalNEGATIVESelect Medical [facility] Hospital, AvonComment on above:Performed By: #### A1C #### [facility] [address] [place] [address] Dr. Nellie MullerMUCOUSNONE SEENNormalNONE SEENSelect Medical [facility] Hospital, AvonComment on above:Performed By: #### A1C #### [facility] [address] [place] [address] Dr. Nellie MullerNitrite Ql (U)NegativeNormalNEGATIVESelect Medical Cleveland Clinic Rehabilitation Hospital, AvonComment on above:Performed By: #### A1C #### [facility] [address] [place] [address] Dr. Nellie MullerpH (U)6.0 [pH]Normal5-9The [facility] on above: Performed By: #### A1C #### [facility] [address] [place] [address] Dr. Nellie MullerKbnyvTSG0-4Awkdnr0-2Aqk [facility] CenterComment on above:Performed By: #### A1C #### [facility] [address] [place] [address] Dr. Yilan ChangSPEC GRAVITY1.403Hxmlyw5.005-<=1.025The [facility] Medical CenterComment on above:Performed By: #### A1C #### [facility] [address] [place] [address] [address] Nellie Schuler PROTEINNegativeNormalNEGATIVE/ TRACEThe [facility] Comment on above:Performed By: #### A1C #### [facility] [address] [place] [address] [address] Nellie MullerUrobilinogen Qn (U)0.2 {Dylan'U}/dLNormal0.2 - 1.0The [facility] Medical CenterComment on above:Performed By: #### A1C #### [facility] [address] [place] [address] Dr. Nellie MullerWBCNONE SEENNormalNONE SEENThe [facility] Medical CenterComment on above: Performed By: #### A1C #### [facility] [address] [place] [address] Dr. Nellie MullerMG MAMM SCREEN 3D EDGARDO CADon 27-42-2051SM MAMM SCREEN 3D EDGARDO CAD Patient: ASHLEY ESPINOZA Exam Date: 04/10/2022 : 1960 Gender:F Ordering : DR HANDY JACOME . Admission #: [id number] Family : Order #: [id number] CLICK HERE TO VIEW EXAM RADIOLOGY REPORT [...] cancer at age 87. LOCATION: [facility] BREAST COMPOSITION: Almost entirely fatty. [...] by: Vane Rivas MD on 04/11/2022 at 07:21[facility] Memorial HospitalOG PANEL 2: 30 to 65on 04-06-2022..NormalThe [facility] Medical CenterComascension standish hospital on above:Result Comment: Performed at: WBPerformed By: #### A1C #### [facility] [address] [place] [address] Dr. Nellie MullerAge Gdln ACOG Puyfavy93-92HvjctjWcjLutheran HospitalComascension standish hospital on above:Performed By: #### A1C #### [facility] [address] [place] [address] Dr. Nellie MullerDIAGNOSIS:CommentGreen Cross Hospital on above: Result Comment: NEGATIVE FOR INTRAEPITHELIAL LESION OR MALIGNANCY. CELLULAR CHANGES ASSOCIATED WITH ATROPHY ARE PRESENT. Performed at: WBPerformed By: #### A1C #### [facility] [address] [place] [address] Dr. Nellie Verdugo AptimaNegativeNormalNegativeSelect Medical [facility] Clinic Rehabilitation Hospital, AvonComascension standish hospital on above:Result Comment: This nucleic acid amplification test detects fourteen high-risk HPV types (16,18,31,33,35,39,45,51,52,56,58,59,66,68) without differentiation. Performed at: =GPerformed By: #### A1C #### [facility] [address] [place] [address] Dr. Nellie Verdugo Genotype ReflexCommentMercy Health – The Jewish HospitalComascension standish hospital on above:Result Comment: Criteria not met, HPV Genotype not performed. Performed at: WBPerformed By: #### A1C #### [facility] [address] [place] [address] Dr. Nellie MullerMethodology:CommentGreen Cross Hospital on above: Result Comment: This liquid based ThinPrep(R) pap test was screened with the use of an image guided system. Performed at: WBPerformed By: #### A1C #### [facility] [address] [place] [address] Dr. Nellie MullerNote:CommentGreen Cross Hospital on above:Result Comment: The Pap smear is a screening test designed to aid in the detection of premalignant and malignant conditions of the uterine cervix. It is not a diagnostic procedure and should not be used as the sole means of detecting cervical cancer. Both false-positive and false-negative reports do occur. . Performed at: WBPerformed By: #### A1C #### [facility] [address] [place] [address] Dr. Nellie MullerPerformed by:CommentGreen Cross Hospital on above: Result Comment: Carla Costa, Sugar Boiler Performed at: WBPerformed By: #### A1C #### [facility] [address] [place] [address] Dr. Nellie Ramosimeselwyn adequacy:CommentGreen Cross Hospital on above:Result Comment: Satisfactory for evaluation. Endocervical component may not be distinguished in cases of atrophy. Performed at: WBPerformed By: #### A1C #### [facility] [address] [place] [address] Dr. Nellie StoreyLTSELENA URINEon [id number] URINECulture Observations: NO GROWTH.NormalThe [facility] CenterComment on above:Performed By: #### A1C #### [facility] [address] [place] [address] Dr. Nellie MullerUA RANDOM W/MICROSCOPICon [id number]C SEENSelect Medical [facility] Hospital, AvonComment on above:Performed By: #### A1C #### [facility] [address] [place] [address] Dr. Nellie MullerBilirubin Ql (U)NegativeNormalNEGATIVEThe [facility] Comment on above:Performed By: #### A1C #### [facility] [address] [place] [address] Dr. Nellie MullerCASTTAE SEENNormalNONE SEENSelect Medical [facility] Hospital, AvonComment on above:Performed By: #### A1C #### [facility] [address] [address] [address] Nellie MullerClarity (U)CLEARNormalCLEARSelect Medical [facility] Hospital, AvonComment on above: Performed By: #### A1C #### [facility] [address] [address] [address] Nellie Perkinslor (U)YELLOWNormalYELLOWSelect Medical [facility] Hospital, AvonComment on above: Performed By: #### A1C #### [facility] [address] [address] [address] Nellie MullerCrystals LM Nom (Urine sed)NONE SEENNormalNONE SEENSelect Medical [facility] Hospital, AvonComment on above:Performed By: #### A1C #### [facility] [address] [place] [address] Dr. Ballard ChangEpithelial cells LM Ql (Urine sed)RARENormalNONE SEEN /RARESelect Medical [facility] Clinic [facility] Hospital, AvonComment on above:Performed By: #### A1C #### [facility] [address] [place] [address] Dr. Nellie MullerGlucose Ql (U)NegativeNormalNEGATIVESelect Medical [facility] Hospital, AvonComment on above:Performed By: #### A1C #### [facility] [address] [place] [address] Dr. Nellie MullerHemoglobin Ql (U)NegativeNormalNEGATIVEMemorial Health System on above:Performed By: #### A1C #### [facility] [address] [place] [address] Dr. Nellie MullerKetones Ql (U)NegativeNormalNEGATIVESelect Medical [facility], AvonComment on above:Performed By: #### A1C #### [facility] [address] [address] [address] Nellie MullerLEUKOCYTESNegativeNormalNEGATIVESelect Medical [facility], AvonComascension standish hospital on above:Performed By: #### A1C #### [facility] [address] [place] [address] Dr. Nellie MullerMUCOUSNONE SEENNormalNONE SEENSelect Medical [facility], AvonComment on above:Performed By: #### A1C #### [facility] [address] [place] [address] Dr. Nellie Hargrove Ql (U)NegativeNormalNEGATIVEThe [facility] CenterComment on above:Performed By: #### A1C #### [facility] [address] [place] [address] Dr. Nellie MullerpH (U)5.0 [pH]Normal5-9The [facility] CenterComment on above: Performed By: #### A1C #### [facility] [address] [place] [address] Dr. Nellie MullerMvconMOO3-1Pxoftu2-8Lva [facility] CenterComment on above:Performed By: #### A1C #### [facility] [address] [place] [address] Dr. Nellie MullerSPEC GRAVITY>=1.629Iyhqfbjh1.005-<=1.025The [facility] Comment on above:Performed By: #### A1C #### [facility] [address] [place] [address] Dr. Nellie Schuler PROTEINNegativeNormalNEGATIVE/ TRACEThe [facility] Comment on above:Performed By: #### A1C #### [facility] [address] [place] [address] Dr. Nellie Johnson Qn (U)0.2 {Dylan'U}/dLNormal0.2 - 1.0The [facility] CenterComment on above:Performed By: #### A1C #### [facility] [address] [place] [address] Dr. Nellie MullerWBC0-2AbnormalNONE SEENThe [facility] CenterComment on above: Performed By: #### A1C #### [facility] [address] [place] [address] Dr. Nellie MullerINSULINon 06-17-8860Npevkmr30.3 uIU/mLNormal2.6-24.9The [facility] CenterComment on above:Performed By: #### A1C #### [facility] [address] [place] [address] Dr. Nellie Corado AUTO DIFFon 65-65-9380ZXCL #0.1 103/ulNormal0.0-0.1The [facility] CenterComment on above:Performed By: #### CBC #### [facility] [address] [place] [address] Dr. Nellie MullerBasophils/100 WBC (Bld)1.8 %Normal0.2-2.0The [facility] Comment on above:Performed By: #### CBC #### [facility] [address] [place] [address] Dr. Nellie Patel #0.2 103/ulNormal0.0-0.7The [facility] CenterComment on above: Performed By: #### CBC #### [facility] [address] [place] [address] Dr. Nellie Roseosinophils/100 WBC (Bld)4.0 %Normal0.9-7.0The [facility] Comment on above:Performed By: #### CBC #### [facility] [address] [place] [address] Dr. Nellie Roserythrocyte distribution width (RBC) [Ratio]13.1 %Vlovcz45.0-15.0 The [facility] CenterComment on above:Performed By: #### CBC #### [facility] [address] [place] [address] Dr. Nellie MullerHematocrit (Bld) [Volume fraction]46.5 %Lqajep12.0-48.0The [facility] CenterComment on above:Performed By: #### CBC #### [facility] [address] [place] [address] Dr. Nellie MullerHemoglobin (Bld) [Mass/Vol]15.3 g/fRZmtylo19.0-16.0The [facility] CenterComment on above:Performed By: #### CBC #### [facility] [address] [place] [address] Dr. Nellie Kothari #0.02 10e3/ulNormal0.00-0.03The [facility] CenterComment on above:Performed By: #### CBC #### [facility] [address] [place] [address] Dr. Nellie Kothari %0.4 %Normal0.0-0.5The [facility] on above: Performed By: #### CBC #### [facility] [address] [place] [address] Dr. Nellie Spann #1.3 103/ulNormal1.2-3.8The [facility] CenterComascension standish hospital on above:Performed By: #### CBC #### [facility] [address] [place] [address] Dr. Nellie Hectorhocytes/100 WBC (Bld)28.4 %Qkshby60.5-60.0The [facility] on above:Performed By: #### CBC #### [facility] [address] [place] [address] Dr. Nellie DuranUAL DIFF REQNONormalThe [facility] CenterComment on above: Performed By: #### CBC #### [facility] [address] [place] [address] Dr. Nellie Bragg (RBC) [Entitic mass]30.4 pcNjqdhv83.7-34.0The [facility] on above:Performed By: #### CBC #### [facility] [address] [place] [address] Dr. Nellie Bragg (RBC) [Mass/Vol]32.9 g/vVEryqat73.9-35.2The [facility] on above:Performed By: #### CBC #### [facility] [address] [place] [address] Dr. Nellie Bragg (RBC) [Entitic vol]92.4 uTSafzzw01.0-99.0The [facility] on above:Performed By: #### CBC #### [facility] [address] [place] [address] Dr. Nellie Cardenas #0.4 103/ulNormal0.3-0.8The [facility] on above:Performed By: #### CBC #### [facility] [address] [address] [address] Nellie Vidalocytes/100 WBC (Bld)9.2 %Normal1.7-12.0The [facility] Comment on above:Performed By: #### CBC #### [facility] [address] [place] [address] Dr. Nellie SpicerUT #2.6 103/ulNormal1.4-6.5The [facility] CenterComment on above:Performed By: #### CBC #### [facility] [address] [place] [address] Dr. Nellie Spicerutrophils/100 WBC (Bld)56.2 %Cybuip99.0-75.0The [facility] CenterComment on above:Performed By: #### CBC #### [facility] [address] [place] [address] Dr. Nellie Lovelllet mean volume (Bld) [Entitic vol]8.9 fLCritically low 9.5-13.5The [facility] CenterComment on above:Performed By: #### CBC #### [facility] [address] [place] [address] Dr. Nellie MullerPLT197 103/nuDgifpn525-352Gms [facility] CenterComment on above: Performed By: #### CBC #### [facility] [address] [place] [address] Dr. Nellie MullerRBC5.03 106/ulNormal4.20-5.40The [facility] CenterComment on above:Performed By: #### CBC #### [facility] [address] [place] [address] Dr. Nellie MullerWBC4.6 103/ulNormal4.0-11.0The [facility] CenterComment on above: Performed By: #### CBC #### [facility] [address] [place] [address] Dr. Nellie MullerFRTRACY T3on 38-30-6920FGDX T32.70 pg/mlLNormal2.18-3.98The Go HospitalComment on above:Performed By: #### CMP, T4, LIPID, FT3, TSH #### [facility] [address] [address] [address] Nellie MullerGLYCOHEMOGLOBIN A1Con 41-83-6294USZ RECOMMENDATIONSEE BELOWFisher-Titus Medical CenterComascension standish hospital on above:Result Comment: ADA RECOMMENDED LIMIT 4.0 - 6.0 ADA THERAPEUTIC TARGET < 7.0 ACTION SUGGESTED > 7.0Performed By: #### A1C #### [facility] [address] [place] [address] Dr. Nellie MullerGlucose [Mass/Vol]114 mg/dLGreen Cross Hospital on above:Performed By: #### A1C #### [facility] [address] [place] [address] Dr. Nellie MullerHbA1c (Bld) [Mass fraction]5.6 %Normal4.5-6.2[facility] on above:Performed By: #### A1C #### [facility] [address] [place] [address] Dr. Nellie MullerLIPID PROFILEon 42-40-1615TYUD-HDL RATIO NORMSEE [facility] SystemComascension stand[facility] hospital on above:Result Comment: 3.3 - 4.4 LOW RISK 4.4 - 7.1 AVERAGE RISK 7.1 - 11.0 MODERATE RISK >11.0 HIGH RISKPerformed By: #### CMP, T4, LIPID, FT3, TSH #### [facility] [address] [place] [address] Dr. Nellie MullerCholesterol [Mass/Vol]280 mg/dLCritically high<=200The [facility] on above:Performed By: #### CMP, T4, LIPID, FT3, TSH #### [facility] [address] [place] [address] Dr. Nellie MullerCholesterol in HDL [Mass/Vol]69 mg/dLCritically zzvc30-54Abn [facility] on above:Performed By: #### CMP, T4, LIPID, FT3, TSH #### [facility] [address] [place] [address] Dr. Nellie Laraesterol in LDL [Mass/Vol]186.2 mg/dLMercy Health – The Jewish HospitalComment on above:Performed By: #### CMP, T4, LIPID, FT3, TSH #### [facility] [address] [address] [address] Nellie Gilmore.total/Cholesterol in HDL [Mass ratio]4.1 {ratio} NormalThe [facility] CenterComment on above:Performed By: #### CMP, T4, LIPID, FT3, TSH #### [facility] [address] [address] [address] Nellie Iniguez NORMAL> or = 60 mg/dl - LOW CARDIOVASCULAR RISK <40 mg/dl - HIGH CARDIOVASCULAR RISKNoLutheran HospitalComment on above:Performed By: #### CMP, T4, LIPID, FT3, TSH #### [facility] [address] [address] [address] Nellie MullerLDL CALC NORMALSEE BELOWMercy Health – The Jewish HospitalComment on above:Result Comment: <100 mg/dl OPTIMAL 100 - 129 mg/dl NEAR OR ABOVE OPTIMAL 130 - 159 mg/dl BORDERLINE HIGH 160 - 189 mg/dl HIGH >190 mg/dl VERY HIGH Performed By: #### CMP, T4, LIPID, FT3, TSH #### [facility] [address] [address] [address] Nellie MullerTriglyceride [Mass/Vol]124 mg/dLNormal<=150The [facility] Comment on above:Performed By: #### CMP, T4, LIPID, FT3, TSH #### [facility] [address] [address] [address] Nellie MullerVLDL CALC24.8 mg/dLNoLutheran HospitalComment on above: Performed By: #### CMP, T4, LIPID, FT3, TSH #### [facility] [address] [address] [address] Nellie MullerPROF 14(COMP METB)on 55-72-0100Nkrpziv [Mass/Vol]4.0 g/dLNormal 3.4-5.0The [facility] Hospitalment on above:Performed By: #### CMP, T4, LIPID, FT3, TSH #### [facility] [address] [place] [address] Dr. Nellie MullerAlbumin/Globulin [Mass ratio]1.4 {ratio}NormalThe [facility] Hospitalment on above:Performed By: #### CMP, T4, LIPID, FT3, TSH #### [facility] [address] [place] [address] Dr. Nellie Jacome [Catalytic activity/Vol]77 U/DTwjguv00-238Kza [facility] CenterComascension standish hospital on above:Performed By: #### CMP, T4, LIPID, FT3, TSH #### [facility] [address] [place] [address] Dr. Nellie Patel [Catalytic activity/Vol]26 U/AMlunry19-92Zwc [facility] CenterComment on above:Performed By: #### CMP, T4, LIPID, FT3, TSH #### [facility] [address] [place] [address] Dr. Nellie Aguilera gap [Moles/Vol]9.1 mmol/LNormalThe [facility] Hospitalment on above:Performed By: #### CMP, T4, LIPID, FT3, TSH #### [facility] [address] [place] [address] Dr. Nellie Jolly [Catalytic activity/Vol]35 U/WZvfylp75-86Lgq [facility] on above:Performed By: #### CMP, T4, LIPID, FT3, TSH #### [facility] [address] [place] [address] Dr. Nellie MullerBilirubin [Mass/Vol]0.7 mg/dLNormal0.2-1.0The [facility] Comment on above:Performed By: #### CMP, T4, LIPID, FT3, TSH #### [facility] [address] [place] [address] Dr. Nellie MullerCalcium [Mass/Vol]8.8 mg/dLNormal8.5-10.1[facility] [place] Comment on above:Performed By: #### CMP, T4, LIPID, FT3, TSH #### [facility] [address] [place] [address] Dr. Nellie MullerChloride [Moles/Vol]105 mmol/LRvdsvn91-444DtqSelect Medical [facility] [place] Comment on above:Performed By: #### CMP, T4, LIPID, FT3, TSH #### [facility] [address] [address] [address] Nellie MullerCO2 [Moles/Vol]31.2 mmol/UVpmfwu19.0-32.0[facility] [place] Comment on above:Performed By: #### CMP, T4, LIPID, FT3, TSH #### [facility] [address] [place] [address] Dr. Nellie MullerCreatinine [Mass/Vol]0.94 mg/dLNormal0.55-1.02[facility], AvonComment on above:Performed By: #### CMP, T4, LIPID, FT3, TSH #### [facility] [address] [place] [address] Dr. Nellie RoseGFR-AF COMORAN>60Normal>=60[facility], AvonComment on above:Performed By: #### CMP, T4, LIPID, FT3, TSH #### [facility] [address] [place] [address] Dr. Nellie Aranda-NON AF FZDYAVIS48 mL/min/1.58u4Zrmgru>=60[facility], AvonComment on above:Performed By: #### CMP, T4, LIPID, FT3, TSH #### [facility] [address] [place] [address] Dr. Nellie MullerGlobulin (S) [Mass/Vol]2.9 g/dLNormalThe [facility] CenterComment on above:Performed By: #### CMP, T4, LIPID, FT3, TSH #### [facility] [address] [place] [address] Dr. Nellie MullerGlucose [Mass/Vol]101 mg/jZWiulse45-830YrwSelect Medical [facility], [place] Comment on above:Performed By: #### CMP, T4, LIPID, FT3, TSH #### [facility] [address] [place] [address] Dr. Nellie MullerPotassium [Moles/Vol]4.3 mmol/LNormal3.5-5.1The [facility] Comment on above:Performed By: #### CMP, T4, LIPID, FT3, TSH #### [facility] [address] [place] [address] Dr. Nellie MullerProtein [Mass/Vol]6.9 g/dLNormal6.4-8.2The [facility] Comment on above:Performed By: #### CMP, T4, LIPID, FT3, TSH #### [facility] [address] [place] [address] Dr. Nellie MullerSodium [Moles/Vol]141 mmol/UZfcwfa441-139Tvt [facility] Comment on above:Performed By: #### CMP, T4, LIPID, FT3, TSH #### [facility] [address] [place] [address] Dr. Nellie MullerUrea nitrogen [Mass/Vol]12.0 mg/dLNormal7.0-18.0[facility], AvonComment on above:Performed By: #### CMP, T4, LIPID, FT3, TSH #### [facility] [address] [place] [address] Dr. Nellie Mora nitrogen/Creatinine [Mass ratio]12.8 mg/mgNormalThe [facility] CenterComment on above:Performed By: #### CMP, T4, LIPID, FT3, TSH #### [facility] [address] [place] [address] Dr. Nellie Brush4on 71-57-1241C3 [Mass/Vol]10.00 ug/dLNormal4.80-13.90The [facility] on above:Performed By: #### CMP, T4, LIPID, FT3, TSH #### [facility] [address] [place] [address] Dr. Nellie Hardy 32-47-0984JWY8.842 uIU/mLNormal0.358-3.740[facility] on above:Performed By: #### CMP, T4, LIPID, FT3, TSH #### [facility] [address] [place] [address] Dr. Nellie MullerVITAMIN D 25 OHon 63-91-9997UWA D 25-OH110.9 ng/mLNormalLicking Memorial Hospital on above:Performed By: #### VITAD #### [facility] [address] [place] [address] Dr. Nellie Traore D RANGESSEE [facility] on above: Result Comment: <20 ng/mL Vit D deficient 20 - <30 ng/mL Vit D insufficient 30 - 100 ng/mL Vit D sufficient >100 ng/mL Potential ToxicityPerformed By: #### VITAD #### [facility] [address] [place] [address] Dr. Nellie MullerCovid-19 PCR (CVDTBH)on 16-98-2445KYJC-CoV-2 (COVID-19) RNA CHRISTY+probe Ql (Unsp spec)DetectedCritically abnormalNOT DETECTEDLicking Memorial Hospital on above:Result Comment: This test is not yet approved or cleared by the [place] FDA. When there are no FDA-approved or cleared tests available, and other criteria are met, FDA can make tests available under an emergency access mechanism called an Emergency Use Authorization (EUA). The EUA for this test is supported by the Conservation Worker of Health and Human Service's (HHS's) declaration [...] be used). Performed By: #### A1C #### [facility] [address] [place] [address] Dr. Nellie MullerINFLLUZ ELENANZA A AND B AGon 85-28-2397NTOJDPFYLILKA [facility] on above:Result Comment: Negative for Flu A protein angiten. Infection due to Flu A cannot be ruled out. FluA angiten in the sample may be below the detection limit of the test.Performed By: #### INFLUAB #### [facility] [address] [place] [address] Dr. Nellie WagnerUBNEGHSEE [facility] SystemComment on above: Result Comment: Negative for Flu B protein antigen. Infection due to Flu B cannot be ruled out. FluB antigen in the sample may be below the detection limit of the test.Performed By: #### INFLUAB #### [facility] [address] [place] [address] Dr. Nellie Betancourt AGNegativeNormalNEGATIVE SEE COMMENTThe [facility] on above:Performed By: #### INFLUAB #### [facility] [address] [place] [address] Dr. Nellie Richardson AGNegativeNormalNEGATIVE SEE COMMENTThe [facility] CenterComascension standish hospital on above:Performed By: #### INFLUAB #### [facility] [address] [place] [address] Dr. Nellie MullerINTERNAL CONTROLSWithin Normal LimitsNormalWithin Normal Limits The [facility] CenterComasc[facility] stand[facility] hospital on above:Performed By: #### INFLUAB #### [facility] [address] [place] [address] Dr. Nellie Muller Vital Signs Date TimeVital SignValuePerforming LkjhoaidxOaijwcbg23-32-4456 09:58-0400Body lupcjf290.3 cmCleveland Clinic Medina Hospitalt Elva BAIT DIGGER Work Phone: [facility] CenterWlvynrmerj40-21-6286 09:58-0400Body mass index (BMI) [Ratio]33.33 kg/d0Exmqs Elva BAIT DIGGER Work Phone: [phone] EditionParkland Health CenterZekbktisni54-92-2495 09:58-0400Body ggpluw756.41 kgGrant Elva BAIT DIGGER Work Phone: [phone] MediaParkland Health CenterEgfsswgerb24-89-0835 13:20-0400Body ibwzye256.3 cmHalle Dhaliwal BAIT DIGGER Work Phone: [phone] [place], [place] [address]Jpckpbkhpw96-98-0214 13:20-0400Body mass index (BMI) [Ratio]32.36 kg/w6Faxsb Elva BAIT DIGGER Work Phone: [facility] [phone] 13:20-0400Body nwfesh170.23 kgGrant Elva BAIT DIGGER Work Phone: [facility] CenterDbfxsenuon24-24-7163 09:08-0400Body fszzou041.3 cmQuinn Quick MD Work Phone: [facility] CenterEnckcfmyng02-36-0907 09:08-0400Body mass index (BMI) [Ratio]32.5 kg/t0GnhjlyQuinn Quick MD Work Phone: [facility] CenterIatvxjhjis01-91-9695 09:08-0400Body watpxl697.69 kgHiluli Quick MD Work Phone: [facility] CenterYcecyetozz18-64-4966 09:08-0400Diastolic blood mm[Hg]Quinn Quick MD Work Phone: [facility] CenterAuuqneeexp90-97-4251 09:08-0400Systolic blood xiemqnbm371 mm[Hg]Quinn Quick MD Work Phone: [facility] [phone] 14:59-0400Body mass index (BMI) [Ratio]32.6 kg/m2[employer] Work Phone: [facility] CenterZdevmljscx39-87-0335 14:59-0400Body prvkqu191.03 kgIvy GE Work Phone: [facility] CenterIvuzntmveu64-61-0315 14:59-0400Diastolic blood mmmatbub31 mm[Hg][employer] Work Phone: [facility] CenterMwkaqpvwdl90-96-4478 14:59-0400Systolic blood mm[Hg][employer] Work Phone: [facility] CenterTxqhmfjxvf49-03-0839 15:11-0400Body .34 cmC[facility]05-01-2025 15:11-0400Body mass index (BMI) [Ratio]33.6 kg/a0NjatrndbwC[facility] Clinic [facility]05-01-2025 15:11-0400Body .31 kgCleveland Clinic [facility]05-01-2025 15:11-0400Diastolic blood nzpngvay39 mm[Hg][facility]05-01-2025 15:11-0400 Heart rate97 /[facility]05-01-2025 15:11-8128AuZ5% (BldA) [Mass fraction]97 %[facility] [facility] 15:11-0400 Systolic blood ylhiyenc299 mm[Hg][facility]04-24-2025 15:01-0400Body byhumj950.34 [facility] 15:01-0400Body mass index (BMI) [Ratio]33.6 kg/y4EglgdzrjrC[facility] Clinic [facility]04[facility]20[facility] 15:01-0400Body hilbwi302.31 [facility]24 15:01-0400Diastolic blood uotrhxze585 mm[Hg][facility]04-24-2025 15:01-0400Heart rate62 /[facility]04-24-2025 15:01-6261RaY8% (BldA) [Mass fraction]97 %[facility]04-24-2025 15:01-0400Systolic blood gfnxgwlo675 mm[Hg][facility]04-17-2025 14:54-0400Diastolic blood ssgcestk66 mm[Hg] [facility]04-17-2025 14:54-0400Heart rate96 /[facility]04-17-2025 14:54-6197KwR3% (BldA) [Mass fraction]96 % [facility]04-17-2025 14:54-0400Systolic blood rsmgrahq909 mm[Hg][facility]03-10-2025 12:20-0400Body vaeeaj494.48 kg Ivy Bah PA-C Work Phone: [facility]03-10-2025 12:20-0400 Diastolic blood bpjdiqch70 mm[Hg]Ivy Bah PA-C Work Phone: 1(122)082-[address] [place], [place] 7934303-10-2025 12:20-0400 Heart rate86 /minIvy Bah PA-C Work Phone: 1(502)562-[address] [place], [place] 7934303-10-2025 12:20-0400 SaO2% (BldA) [Mass fraction]96 %Ivy Bah PA-C Work Phone: 1(640)993-[address] [place], [place] 7934303-10-2025 12:20-0400 Systolic blood vcifvapt195 mm[Hg]Ivy Bah PA-C Work Phone: 1(202)[address] [place], [place] 5256502-04-2025 08:58-0500 Body ikbebi719.3 cmQuinn Quick MD Work Phone: [phone]02-04-2025 08:58-0500Body mass index (BMI) [Ratio]32.08 kg/v1DxnxldQuinn Quick MD Work Phone: 1(642)[address] [place], [place] 8340202-04-2025 08:58-0500Body pebrzs391.33 kgQuinn Quick MD Work Phone: 1(629)[address] [place], [place] 8340202-04-2025 08:58-0500Diastolic blood rdkywkby29 mm[Hg]Quinn Quick MD Work Phone: 1(520)[facility] CenterEibcaqiejz14-77-4097 08:58-0500Heart rate96 /min Quinn Quick MD Work Phone: 1(750)[address] [place], [place] 8340202-04-2025 08:58-0500Systolic blood mm[Hg]Quinn Quick MD Work Phone: 1(144)[address] [place], [place] 8340201-10-2025 09:38-0500Body wejpef902.3 cmQuinn Quick MD Work Phone: 1(349)[address] [place], [place] 8340201-10-2025 09:38-0500Body mass index (BMI) [Ratio]32.64 kg/a5QumamyQuinn Quick MD Work Phone: 1(516)[address] [place], [place] 8340201-10-2025 09:38-0500Body nkgxyh088.14 kgQuinn Quick MD Work Phone: [facility] CenterKseqbfcedq85-92-7796 09:38-0500Diastolic blood yimyygcq23 mm[Hg]Quinn Quick MD Work Phone: [facility] CenterIjkuzgtipz64-07-8078 09:38-0500Heart rate82 /min Quinn Quick MD Work Phone: [facility] CenterEubundkyqk54-64-1384 09:38-0500Systolic blood dmcxxjau130 mm[Hg]Quinn Quick MD Work Phone: [facility] CenterSiahwpxucb87-82-8272 11:55-0500Body mass index (BMI) [Ratio]32.64 kg/x7Bfexe Brennen DO Work Phone: [facility] CenterQnrlfrvxps85-09-7812 11:55-0500Body iqzncv590.14 kgCorey Brennen DO Work Phone: [facility] CenterKyrwpjjdym09-19-6614 11:55-0500Diastolic blood zgskaygz51 mm[Hg]Piotr Brennen DO Work Phone: [facility] CenterGtscfayfmn18-11-6350 11:55-0500Systolic blood jakkpquy845 mm[Hg]Piotr Brennen DO Work Phone: [facility] CenterEquhxnmsgd60-00-6650 09:04-0500Body mass index (BMI) [Ratio]32.89 kg/m2Ivy GE Work Phone: [facility] CenterRjjftsgobp10-35-9971 09:04-0500Body musgmf664.96 kgIvy GE Work Phone: [facility] CenterPdftxyeqox46-30-1211 09:04-0500Diastolic blood kjflruwm35 mm[Hg]Ivy GE Work Phone: [facility] CenterYayxtqiokj14-69-2920 09:04-0500Systolic blood swluaxfg190 mm[Hg]Ivy GE Work Phone: [facility] CenterMfpvofszxx95-71-6467 12:58-0400Body zjkkda504.3 cmTyson Gonzalez DPM Work Phone: [facility] CenterShjrncwvqy60-01-6453 12:58-0400Body mass index (BMI) [Ratio]33.33 kg/k1Xxoikpgh Brown DPM Work Phone: [place] [address]Qwaouwlofb47-42-4734 12:58-0400Body qalzlu917.41 kgTyson Carlos DPM Work Phone: [place] [address]Fqnmsriuuv62-31-6361 12:58-0400Diastolic blood uftkbplz28 mm[Hg]Tyson Gonzlaez DPM Work Phone: [place] [address]Kkdtdfcaon08-61-9298 12:58-0400Heart rate82 /min Tyson Gonzalez DPM Work Phone: [place] [address]Ttagvoyzzf45-01-0279 12:58-0400Systolic blood yvyfasph884 mm[Hg]Tyson Gonzalez DPM Work Phone: [facility] CenterBtjyqzflho55-91-3412 10:07-0400Body mass index (BMI) [Ratio]33.19 kg/m2Amy Olvin PA Work Phone: [facility] CenterMtdpnbcqxa67-13-7813 10:07-0400Body gsfaoz653.96 kgAmy Olvin PA Work Phone: [facility] CenterNbenjdogvx47-60-4834 13:30-0400Body vzksyz208.3 cmAnnashabnam Gonzalez DPM Work Phone: [place] [address]Xfwqkmimtx19-43-4911 13:30-0400Body mass index (BMI) [Ratio]32.78 kg/l7Pzuycaug Carlos DPM Work Phone: [place] [address]Ejbuctiiqo99-60-3597 13:30-0400Body hkwewl211.59 kgTyson Carlos DPM Work Phone: [place] [address]Tznfvhzhoe71-93-0200 13:30-0400Diastolic blood gtdrqazo54 mm[Hg]Tyson Gonzalez DPM Work Phone: [place] [address]Jvmdujijaa40-54-0603 13:30-0400Heart rate74 /min Tyson Gonzalez DPM Work Phone: [facility] Dfvtxmhglo73-19-7621 13:30-0400Respiratory rate18 /minTyson Gonzalez DPM Work Phone: [facility] CenterPiiohngtnw01-63-8416 13:30-0400Systolic blood kluutcxd430 mm[Hg]Tyson Gonzalez DPM Work Phone: [facility] CenterQisxungehc91-92-3218 11:00-0400Body xgoscl358.34 cmSmk Kan Other [facility] Other 10-13-2023 11:00-0400Body mass index (BMI) [Ratio] 31.94 kg/w7Opgwzy Galilea Other [facility] Other 10-13-2023 11:00-0400Body ibmmab983.87 kgShlennyemilio Galilea Other [employer] Other 10-13-2023 11:00-0400Diastolic blood fwjdydzg12 mm[Hg] Shan Kan Other [employer] Other 10-13-2023 11:00-0400Systolic blood trjyoccs645 mm[Hg] Shan Kan Other [employer] Other 09-21-2023 15:15-0400Body .34 Vamsicassandra Galilea Other [employer] Other 09-21-2023 15:15-0400Body mass index (BMI) [Ratio] 32.02 kg/e4Ivzxlw Zaky Other [employer] Other 09-21-2023 15:15-0400Body bdraca103.15 kgSherif Galilea Other [facility] [employer] Other 09-21-2023 15:15-0400Diastolic blood mm[Hg] Shan Kan Other [facility] Other 09-21-2023 15:15-7169KcG1% (BldA) [Mass fraction]94 % Shan Kan Other [employer] Other 09-21-2023 15:15-0400Systolic blood vmmdjkpo606 mm[Hg] Shan Kan Other [employer] Other 09-08-2023 10:00-0400Body vyaqoz752.34 cmSmk Kan Other [facility] [employer] Other 09-08-2023 10:00-0400Body mass index (BMI) [Ratio] 30.68 kg/f0Oyfjpntash Kan Other [employer] Other 09-08-2023 10:00-0400Body mgyeao99.79 kgShtash Kan Other [employer] Other 09-08-2023 10:00-0400Diastolic blood odzrmhpf84 mm[Hg] Shan Kan Other [facility] Other 09-08-2023 10:00-0400Systolic blood ahzeostv605 mm[Hg] Shan Kan Other [employer] Other Encounters Encounter DateEncounter TypeCare ProviderFacilityStart: 04-12-2025 End: 02-46-0166Fdobwanc Result EncounterJr. Loretta Tasneem Nicole DO Work Phone: noms External Department UnsolicitedStart: 04-12-2025 End: 71-48-0491Eouddwom Result EncounterJr. Loretta Tasneem Victorianoanic DO Work Phone: noms External Department UnsolicitedStart: 04-12-2025 End: 20-45-0831Kwmnhwk encounter procedureGeormarielena Pastranalori Jr NB-Stu-Jgpzmogn Testing Work Phone: Start: 04-12-2025 End: 22-96-7174acnqgsedurMidaap Victorianolori JrFacility:[facility] Northtart: 03-29-2025 End: 90-89-0148Shlxks flowsheetHalle Dhaliwal BAIT DIGGER Work Phone: NOQP [facility] [facility]opaedicsStart: 03-29-2025 End: 79-79-5368Ydzfid flowsheetHalle Dhaliwal BAIT DIGGER Work Phone: NOWE [facility] [facility]opaedicsStart: 03-29-2025 End: 39-16-2455Kkanhbu encounter procedureHalle Dhaliwal BAIT DIGGER Work Phone: NOTF [place] [facility] OrthopaedicsComment on above:Pre-op evaluation (Primary Dx); Primary osteoarthritis of left kneeStart: 03-29-2025 End: 70-73-1114Lrijatqfubnav examination Anh Dhaliwal BAIT DIGGER Work Phone: noms HealthcareStart: 03-29-2025 End: 46-02-8331hxbhxclxhxQBNJN T OLSENNot AvailableStart: 03-17-2025 End: 70-64-4090Aiodpw flowsheetJr. Loretta Pastranaanic DO Work Phone: noms [facility]opaedicsStart: 03-17-2025 End: 11-25-2824Xwqdnn flowsheetJr. Loretta Pastranaanic DO Work Phone: noms [facility]opaedicsStart: 03-17-2025 End: 72-31-2979Rahsaa outpatient visit 40 minutesJr. Loretta Rivera DO Work Phone: NOMS [facility] OrthopaedicsComment on above:Primary osteoarthritis of left knee (Primary Dx); Acute pain of left kneeStart: 03-17-2025 End: 16-05-9490drabhqfyihXM., LORETTA RIVERANot AvailableStart: 02-26-2025 End: 00-51-7094Fjhjlugouapxn examination doneJr. Loretta Rivera DO Work Phone: [facility] HealthcareStart: 02-26-2025 End: 28-16-3024CzjzytOr. Loretta Rivera DO Work Phone: NOM[facility] [place] [facility]opaedicsComment on above:Pre-op evaluationStart: 02-10-2025 End: 42-52-8307Qwxnzffvx encounterJr. Loretta Rivera DO Work Phone: [facility]opaedicsStart: 02-08-2025 End: 87-36-2649Puuqlbyvw encounterJr. Loretta Rivera DO Work Phone: NOFD [place] [facility] OrthopaedicsComment on above:Surgery QuestionsStart: 02-04-2025 End: 92-20-7498Yiavvaxa Result EncounterJr. Loretta Rivera DO Work Phone: NOFN External Department UnsolicitedStart: 02-04-2025 End: 26-54-8148Zqjueyhe Result EncounterJr. Loretta Rivera DO Work Phone: NOYN External Department UnsolicitedStart: 02-04-2025 End: 07-23-6620Hcphbbq encounter procedureHalle Dhaliwal BAIT DIGGER Work Phone: NOMS [facility] [facility] OrthopaedicsComment on above:Pre-op evaluation (Primary Dx)Start: 02-04-2025 End: 12-61-3431Xzkgcldowlscf examination doneHalle Dhaliwal BAIT DIGGER Work Phone: [facility] HealthcareStart: 02-04-2025 End: 96-53-5538turqtglnmjZHMDV T OLSENNot AvailableStart: 02-04-2025 End: 48-32-4940Ayqaoty encounter procedureGeorge Tasneem Rivera Jr DO-[facility] CtrStart: 02-04-2025 End: 66-33-3957xayuchluysIkgehps M Hoy MD Work Phone: [facility] Work Phone: Start: 01-21-2025 End: 85-36-1284mlaoghlsutXNLORETTA Holguin AvailableStart: 01-19-2025 End: 46-94-5385Ajxzeu flowsheetJr. Loretta Rivera DO Work Phone: NOM[facility]opaedicsStart: 01-19-2025 End: 58-83-1177Qvxyfn flowsheetJr. Loretta Rivera DO Work Phone: NOCB [facility]opaedicsStart: 01-19-2025 End: 08-28-9795Hjurws outpatient visit 15 minutesJr. Loretta Rivera DO Work Phone: N[facility] [place] OrthopaedicsComment on above:Right hip pain; Left hip pain; Pain of left calfStart: 01-19-2025 End: 18-69-6383voqnbotmgaTP., LORETTA Osman AvailableStart: 01-05-2025 End: 62-05-6438Gjmaak flowsheetQuinn Quick MD Work Phone: NOMS [place] OtolaryngologyStart: 01-05-2025 End: 73-51-9108Adohtq flowsGenaro Quick MD Work Phone: NOOI [place] OtolaryngologyStart: 01-05-2025 End: 93-91-5134Xkpyln outpatient visit 10 minutesHiluli Quick MD Work Phone: NOMS [place] OtolaryngologyComment on above:Bilateral tympanic membrane perforation (Primary Dx); Hot flashesStart: 01-05-2025 End: 88-33-8080amgskwbmdaEHVERJ H TIMMISNot AvailableStart: 01-04-2025 End: 31-56-7547Smhfguq encounter procedureManinderasia Angy Norris [facility] Work Phone: Start: 01-04-2025 End: 48-04-7909nsdxarsugdDrnlnnm M Hoy MD Work Phone: [facility] Work Phone: Start: 12-02-2024 End: 34-67-1183Uskqdz flowsheetJr. Loretta Boateng Steplori DO Work Phone: noms SWS ORTHOStart: 12-02-2024 End: 63-18-8128Wavvtj flowsheetJr. Loretta Boateng Stepanic DO Work Phone: noms SWS ORTHOStart: 12-02-2024 End: 61-28-2954Cxcpjz outpatient visit 40 minutesJr. Loretta Rivera DO Work Phone: NORR SWS ORTHOComment on above:Primary osteoarthritis of left knee (Primary Dx); Acute pain of left kneeStart: 12-02-2024 End: 25-80-7202pddkuxcczxQJ., LORETTA Osman AvailableStart: 11-17-2024 End: 20-58-7681jqncbqgxywXQS RAMEYNot AvailableStart: 11-17-2024 End: 67-89-9073Wnrxue flowsheetJr. Loretta Rivera DO Work Phone: NOJW FB ORTHOPAEDICSStart: 11-17-2024 End: 04-31-4000Ehwcwu flowsheetJr. Loretta Rivera DO Work Phone: noms FB ORTHOPAEDICSStart: 11-17-2024 End: 91-97-1669Ajqkgp outpatient visit 15 minutesAmy Olvin GE Work Phone: noms BCP OBComment on above:Yeast infectionPrimary osteoarthritis of left knee (Primary Dx); Acute pain of left kneeStart: 11-17-2024 End: 91-27-5180nceqlwovgcFX., LORETTA Osman AvailableStart: 10-01-2024 End: 92-31-8741teocfaffxbTccmprlesKettering Health [facility] Work Phone: Start: 10-01-2024 End: 83-00-4133Dgbinie encounter procedureFirclinch valley medical center Physician [facility] Work Phone: Start: 09-24-2024 End: 62-12-2825xfcefotfobOdizfjixo [facility] Work Phone: Start: 09-24-2024 End: 00-92-2645Cldrrzb encounter procedureFirclinch valley medical center Physician [facility] Pain [facility] Work Phone: Start: 09-17-2024 End: 94-07-1648Kwbwpiu encounter procedureFirsthealth [facility] Work Phone: Start: 08-10-2024 End: 14-98-4360xbunvctamnRtr Olvin GE-Tasneem Work Phone: [facility] Work Phone: Start: 08-10-2024 End: 32-43-4273Abjubhi encounter procedureIvy Bah PA-Tasneem Work Phone: [facility] Work Phone: Start: 07-28-2024 End: 03-67-4270Elrezf flowsheetJr. Loretta Rivera DO Work Phone: noms FB ORTHOPAEDICSStart: 07-28-2024 End: 97-70-5316Tcbfvo flowsheetJr. Loretta Rivera DO Work Phone: noms FB ORTHOPAEDICSStart: 07-28-2024 End: 71-78-7395Asmvud outpatient visit 15 minutesJr. Loretta Rivera DO Work Phone: noms FB ORTHOPAEDICSComment on above:Primary osteoarthritis of left kneeStart: 07-28-2024 End: 62-43-9858swbdqweoxzBA., LORETTA Osman AvailableStart: 07-07-2024 End: 49-62-9811Xmzqja flowsheetHiluli Quick MD Work Phone: noms CI ENTStart: 07-07-2024 End: 48-48-6261Psxvsw Cony Quick MD Work Phone: noms CI ENTStart: 07-07-2024 End: 86-40-8940Uzjefs outpatient visit 10 minutesHiluli Quick MD Work Phone: noms CI ENTComment on above:Bilateral chronic otorrhea (Primary Dx)Start: 07-07-2024 End: 06-88-0244mdowfekjhkNFMKNU Jody Dee AvailableStart: 06-19-2024 End: 12-37-2953Wqrrdbepa encounterHiluli Quick MD Work Phone: noms CI ENTComment on above:Med RefillStart: 06-12-2024 End: 66-59-9460Bhkinw flowsheetQuinn Quick MD Work Phone: noms ENT NORWALKStart: 06-12-2024 End: 28-46-1191Jiuhlr Cony Quick MD Work Phone: noms ENT NORWALKStart: 06-12-2024 End: 05-99-7627Jbqdhz outpatient visit 25 minutesHiluil Quick MD Work Phone: noms ENT NORWALKComment on above:Bilateral impacted cerumen (Primary Dx); Bilateral chronic otorrhea; Bilateral tympanic membrane perforationStart: 06-12-2024 End: 51-95-2333svnrunamisJQAKOK Jody Dee AvailableStart: 05-25-2024 End: 19-79-8773Lbljeprm ReferredIvy Bah PA-C Work Phone: [facility]-LAB Path Spec [place] HospStart: 05-25-2024 End: 53-70-5200Nowrtpc encounter procedureCorey Brennen DO Work Phone: noms BCP OBComment on above:Itching in the vaginal area; Encounter for biopsyStart: 05-25-2024 End: 66-43-4522jlsqjghkmwRYPPD FAZIONot AvailableStart: 05-19-2024 End: 33-93-3554ooucybhqneOjt Theodore BahFacility:[facility] Start: 05-19-2024 End: 72-83-6094Msjdjscd ReferredIvy Bah PA-C Work Phone: [facility]-LAB Path Spec [place] HospStart: 05-19-2024 End: 78-77-0566Duzrlmsqt Result EncounterAmy [place]vin GE Work Phone: noms External Department UnsolicitedStart: 05-19-2024 End: 61-12-2195Sfcfbpaix Result EncounterAmy Olvin GE Work Phone: noms External Department UnsolicitedStart: 05-08-2024 End: 38-78-1555Ssyahiwww Result EncounterAmy Olvin GE Work Phone: noms External Department UnsolicitedStart: 05-08-2024 End: 76-93-2052Xnqujuxsp Result EncounterAmy Olvin GE Work Phone: noms External Department UnsolicitedStart: 05-05-2024 End: 43-57-3159Kpuolh flowsheetIvy GE Work Phone: noms BCP OBStart: 05-05-2024 End: 06-41-3020Smklsn flowsheetIvy GE Work Phone: noms BCP OBStart: 05-05-2024 End: 80-91-5965Apzjyobvp Result EncounterAmy Olvin GE Work Phone: noMS External Department UnsolicitedStart: 05-05-2024 End: 19-90-8423Vrdbihl encounter procedureIvy GE Work Phone: [facility] Work Phone: Start: 05-05-2024 End: 25-79-2452Unpaurcf preventive med est patient 40-64yrsAmy Olvin GE Work Phone: [facility] OBComment on above:Well woman exam with routine gynecological exam; Postmenopausal state; Osteoporosis, post-menopausal (CMS/HCC); Vaginal itchingStart: 05-05-2024 End: 55-22-1044pspitjiefpEJM RAMEYNot AvailableStart: 04-28-2024 End: 18-24-7186Mezxvjxig Result EncounterAmy Olvin GE Work Phone: noms External Department UnsolicitedStart: 04-28-2024 End: 97-59-9117Vhydwasiq Result EncounterIvy GE Work Phone: noms External Department UnsolicitedStart: 03-17-2024 End: 59-69-1222Tiexwi Trevor Gonzalez DPM Work Phone: noms [place] PODStart: 03-17-2024 End: 07-34-2314Tpktyk Trevor Gonzalez DPM Work Phone: noms [place] PODStart: 03-17-2024 End: 30-28-7448Fknwfy outpatient visit 15 minutesTyson Gonzalez DPM Work Phone: noms [place] PODComment on above:Hav (hallux abducto valgus), right (Primary Dx); Acquired deformity of right toe; DJD (degenerative joint disease), ankle and foot, leftStart: 02-24-2024 End: 20-59-4092Kxjvnu Nahed GE Work Phone: noms BCP OBStart: 02-24-2024 End: 05-60-1099Pswaig flowsYudith GE Work Phone: noms BCP OBStart: 02-24-2024 End: 85-07-6504Cdzdjyck Result EncounterIvy GE Work Phone: noms External Department UnsolicitedStart: 02-24-2024 End: 32-92-7116Vjgswm outpatient visit 15 minutesIvy GE Work Phone: noms BCP OBComment on above:Vaginal itching; Yeast infectionStart: 02-18-2024 End: 61-52-5265Trfpas flowsheetNicholas Asia Gonzalez DPM Work Phone: [facility]OMS [place] PODStart: 02-18-2024 End: 38-06-1043Rllshq flowsheetNicholas A Brown DPM Work Phone: [facility] [place] PODStart: 02-18-2024 End: 46-32-9102Gqjqcx outpatient new 30 minutesNicholas Asia Gonzalez DPM Work Phone: n[facility] [place] PODComment on above:Hav (hallux abducto valgus), right (Primary Dx); Acquired deformity of right toe; DJD (degenerative joint disease), ankle and foot, leftStart: 48-70-5705Sstvm abstractingJr. Loretta Rivera DO Work Phone: noms CI ORTHOPAEDICSStart: 07-15-2023 End: 61-12-6400Eiasis outpatient visit 25 minutesJr. Loretta Rivera DO Work Phone: noms SWS ORTHOComment on above:Primary osteoarthritis of left knee (Primary Dx)Start: 03-15-2023 End: 14-45-9136scuggqkpekXwrjde Galilea Other [facility] [employer] Other Start: 40-88-1177Pcfluwn encounter procedureSherif ZakyFPG Pain ManagementStart: 02-21-2023 End: 00-25-8918ahizururjyWuxtkq Galilea Other [facility] [employer] Other Start: 01-85-3150Hxsouxf encounter procedureSherif ZakyFPG Pain ManagementStart: 02-08-2023 End: 01-27-6356dnxyvturwfHggzex Galilea Other noP[employer]ision [employer] Other Start: 78-52-3187Pchbwf consultation new/estab patient 59 Lisbeth ZakyFPG Pain Management [place]walkStart: 2022 End: 20-44-8713xwtximyhemAMGLFE CRAMERFacility:F1Csnwy: 04-10-2022 End: 63-36-4583vjufrixqssWF HANDY JACOMEFacility:D9Vcuvv: 03-29-2022 End: 37-36-9630xyclkrwimtBU HANDY JACOMEFacility:A2Ngmws: 12-22-2021 End: 69-36-5481amsovqageuZULXII CRAMERFacility:V2Hmhzb: 12-01-2021 End: 76-07-3292dqlufgjtakZT ROBIN HOYFacility:H3Avytf: 09-06-2021 End: 68-92-5783pjxemkcxsoJX ROBIN HOYFacility:H1 Procedures DateProcedureProcedure DetailPerforming ClinicianStart: 76-08-0656Gfhibwzg screenDouglas HoyComment on above:Order Comment: Comment please run c s if UA+ Name Collection Type:: Clean-Voided MidstreamResult Comment: PERFORMED BY: [address] [place] [address] PATHOLOGIST DICTAPHONE TECHNICIAN LONI WRIGHT M.D.Start: 62-72-8482Ydmvb metabolic panel calcium totalJr. Loretta Boateng Steplori DO Work Phone: Start: 22-66-2460Eldavqzb blood count with white cell differential, automatedJr. Loretta Boateng Steplori DO Work Phone: Start: 36-09-6588Rkcot dip stick/tablet rgnt non-auto w/o micrscpJr. Loretta Rivera DO Work Phone: Start: 78-61-2013Josyz X-ray of bilateral femurs Robin Oswald MD Work Phone: [phone]-art: 20-86-7885Zbbju X-ray of bilateral tibia and bilateral fibulaRobin Oswald MD Work Phone: Start: 71-06-9385Kedzinrk screenDouglas HoyComment on above:Order Comment: Date of Surgery: 20250218 # of PRBC units on hold?: 2Result Comment: PERFORMED BY: [facility] [place] [address] PATHOLOGIST DICTAPHONE TECHNICIAN LONI WRIGHT M.D.Start: 87-91-8164Dzlby dip stick/tablet rgnt non-auto w/o micrscpJr. Loretta Boateng Nicole DO Work Phone: Start: 27-07-4048Huqhh metabolic panel calcium total Jr. Loretta Boateng Nicole DO Work Phone: Start: 26-89-5852Wisknxik blood count with white cell differential, automatedJr. Loretta Boateng Nicole DO Work Phone: Start: 75-30-8012Vesxc hip unilateral with pelvis 2-3 viewsJr. Loretta Boateng Nicole DO Work Phone: Start: 01-04-2025H/O: hysterectomyHistory of hysterectomyQuinn Quick MD Work Phone: Start: 12-04-2048Pjlesxtvcum of left breastRobin Oswald MD Work Phone: Start: 25-08-3283Qfcfzcqcab examination knee 1/2 views Jr. Loretta Boateng Nicole DO Work Phone: Start: 10-13-5294HS POST BIOPSY LTIvy GE Work Phone: Start: 97-26-6910EZ GUIDED BREAST BIOPSY LTIvy GE Work Phone: Start: 15-29-6113AP DIAGNOSTIC MAMMO UNILAT LTIvy GE Work Phone: Start: 17-97-9088SI BREAST LT LIMITEDIvy GE Work Phone: Start: 83-54-2016CWY,APTIMA HPV,AGE GDLNIvy GE Work Phone: Start: 23-07-5154Xghwymvfgag observation [Identifier] in Cervix by Cyto stainCorey Brennen DO Work Phone: Start: 82-05-7045ZA TOMOSYNTHESIS SCREENING BIIvy GE Work Phone: Start: 74-00-9879TjttsihzvzpHzm Ramey PA Work Phone: Start: 98-88-4395RLFDDPWKCE/DISCHARGE PLUS VAGINITIS (HTRX)Ivy GE Work Phone: Start: 44-63-0916Jlpmceammgp observation [Identifier] in Cervix by Cyto stainIvy GE Work Phone: Start: 58-79-7709Bcgh cerv/vag auto thin layer prep mnl screenIvy GE Work Phone: Start: 46-26-9868TvqgiyprjrvDb. Stepanic DO Work Phone: Start: 88-02-0824Mgpgrtnehyi observation [Identifier] in Cervix by Cyto stainTyson Gonzalez DPM Work Phone: Plan of Treatment DateCare ActivityDetailAuthorStart: 35-00-1141Wjffvfjks for malignant neoplasm of cervixNOMS HealthcareStart: 72-41-0146Fwmlbbzva for malignant neoplasm of cervixPap SmearNOMS HealthcareStart: 18-96-9596Wytripsvc for malignant neoplasm of cervixNOMS HealthcareStart: 53-56-5453Vfgjocndm for malignant neoplasm of colonNOMS HealthcareStart: 07-06-2025 End: 79-75-7760Jjvqcsj encounter faswlghxq80/03/2026 8:30 AM EST Office Visit [facility] [address] [facility] [address] [place] [id number] Quinn Quick MD [address] [place] [address] [facility] OtolaryngologyStart: 05-06-2025 End: 20-76-7711Qteuoap encounter fqaimwfuy38/04/2025 1:00 PM EST Office Visit [facility] [address] [place], [id number] Luis M Casey, PA [address] [facility] [place] [address] [facility]opaedicsStart: 03-77-0493Ojuqwtyid for malignant neoplasm of breastMammogramNOMT Healthcare Start: 03-29-2025 End: 19-03-1259Sktkveq encounter procedureNOMS Yadav OrthopaedicsComment on above:ArrivedStart: 03-17-2025 End: 80-39-4936Awygtsu encounter procedureNOMS Parker OrthopaedicsComment on above:ArrivedStart: 03-04-2025 End: 65-29-2379Swmjfoh encounter yhjvberyk43/02/2025 10:00 AM EDT [facility] [address] [facility] [address] [place] [address] Luis M Casey, PA [address] [facility] [place] [address] [facility]opaedicsStart: 02-04-2025 End: 69-90-8404Vijiwws encounter hwayrhrqw94/04/2025 1:30 PM EDT [facility] [address] [facility] [place] [phone] Halle Dhaliwal, BAIT DIGGER [address] [place] [address] [facility]adav OrthopaedicsStart: 15-34-0981Olccdvuwz vaccinationNOMS HealthcareStart: 01-26-2025 End: 79-94-4615Ggirmie encounter procedureNOMS FB ORTHOPAEDICSStart: 01-19-2025 End: 53-66-3086Ohynpjc encounter procedureNO [facility] OrthopaedicsComment on above:Right hip pain; Left hip painStart: 01-18-2025 End: 86-23-5547Klmgzyz encounter procedureNOMS SWS ORTHOStart: 01-05-2025 End: 59-37-0557Gbtbvyn encounter procedureNOMS CI ENTComment on above:Arrived Start: 12-02-2024 End: 65-52-5681Bropljd encounter procedureNOMS SWS ORTHOComment on above:Arrived Start: 11-17-2024 End: 84-47-6843Xamidvk encounter procedureNOMS FB ORTHOPAEDICSComment on above: ArrivedStart: 07-28-2024 End: 55-78-2066Aacoxea encounter /25/2025 8:30 AM EST Office Visit [facility] [address] [place] [address] Jr. Loretta Rivera, DO [address] [facility] [address] [place] [address] Primary osteoarthritis of left kneeNOMS FB ORTHOPAEDICSComment on above:Primary osteoarthritis of left kneeStart: 07-14-2024 End: 16-98-6038Nvxikfh encounter botzpesnh82/11/2025 8:45 AM EST Office Visit [facility] [address] [place] [address] Jr. Loretta Rivera, DO [address] [facility] [address] [place] [address] N[facility] FB ORTHOPAEDICSStart: 07-13-2024 End: 99-85-7077Nisajfk encounter slexgbepz04/10/2025 9:00 AM EST Office Visit [facility] [address] [place] [address] Jr. Loretta Rivera, DO [address] [facility] [address] [place] [address] N[facility] FB ORTHOPAEDICSStart: 07-07-2024 End: 23-81-6959Vttsjqv encounter procedureNOMS CI ENTComment on above:Arrived Start: 06-12-2024 End: 09-78-8408Iwlxycj encounter suueydxwp09/10/2025 9:50 AM EST Office Visit [facility] [address] [place] [address] Quinn Quick MD [address] [facility] [place] [address] ArrivedNOMS [facility] CARTERKComment on above:ArrivedStart: 73-70-9419Suwcjobqciih Vaccine: 65+ Years (1 of 1 - PCV)Pneumococcal Vaccine: 65+ Years (1 of 1 - PCV)NOM HealthcareStart: 05-25-2024 End: 41-86-0476Dvyebmo encounter xtdufaols20/23/2024 11:30 AM EST Procedure Visit [facility] [address] [place] [address] Piotr Hutton DO [address] [place] [address] [facility] OBStart: 05-05-2024 End: 58-97-0741VRX Skeletal system Views for bone densityDEXA bone density Imaging Routine Postmenopausal state Expected: 05/05/2024 (Approximate), Expires:05/05/2025[facility] Work Phone: comment on above:Expected: 05/05/2024 (Approximate), Expires: 05/05/2025Start: 05-05-2024 End: 40-86-1194Kycoaff encounter procedureNOGO[facility] OBComment on above:Arrived Start: 11-27-2024Medicare Annual Wellness (AWV)Medicare Annual Wellness (AWV) [facility] HealthcareStart: 03-17-2024 End: 45-04-7885Vhqqpnd encounter procedureNOMCBRIDE [facility] [place] PODComment on above:Hav (hallux abducto valgus), right (Primary Dx); Acquired deformity of right toe; DJD (degenerative joint disease), ankle and foot, leftStart: 02-24-2024 End: 54-32-6052Tysgmsd encounter /23/2024 9:40 AM EDT Office Visit [facility] [address] [place] [address] Ivy Bah PA [address] [place] [address] ArrivedNOMS BCP OBComment on above:ArrivedStart: 02-18-2024 End: 12-41-1988Nbfiyfcrubud / ancillary services kqsrgkoyqc37/17/2024 1:40 PM EDT Ancillary Procedure [facility] [address] [place] [address] ArrivedNOMS SC PODComment on above:ArrivedStart: 02-18-2024 End: 53-10-0059Pmttmzh encounter rfqfzmkab31/17/2024 1:30 PM EDT Office Visit [facility] [address] [place] [address] Tyson Gonzalez, DPStefan [address] [facility] [address] [place] [address] ArrivedNOMS SC PODComment on above:ArrivedStart: 02-02-2024 Influenza vaccinationInfluenza Vaccine (#1)NOMS HealthcareStart: 01-13-2024 End: 87-52-5156Lrkalnq encounter /12/2024 8:30 AM EDT Office Visit [facility] [address] [facility] [address] [place] [address] Jr. Loretat Rivera, DO [address] [facility] [address] [place] [address] [facility] ORTHOStart: 07-15-2023 End: 37-14-4900Okeltcq encounter ueqreycsf29/12/2024 8:00 AM EST Office Visit [facility] [address] [facility] [address] [place] [address] Jr. Loretta Rivera, DO [address] [facility] [address] [place] [address] N[facility]S [facility] ORTHOStart: 80-09-2112Katazmvxm for malignant neoplasm of breastMammogramNOMS HealthcareStart: 02-01-2023 Influenza vaccinationInfluenza Vaccine (#1)NOMS HealthcareStart: 2009 Pneumococcal Vaccine: 65+ Years (1 of 1 - PCV)Pneumococcal Vaccine: 65+ Years (1 of 1 - PCV)[facility] HealthcareStart: 35-73-4114Qeijkhdio for malignant neoplasm of colonNOMT HealthcareBacteria identified in Urine by CultureUrine culture Microbiology Routine Vaginal itching Ordered: 02/24/2024[facility] HealthcareComment on above:Ordered: 02/24/2024iopsy vaginalBiopsy vaginal Procedures Routine Itching in the vaginal area Ordered: 05/25/2024[facility] Healthcare Work Phone: comment on above:Ordered: 05/25/2024HLAMYDIA TRACHOMATIS (GENITO/STI)CHLAMYDIA TRACHOMATIS (GENITO/STI) Lab Routine Vaginal itching Ordered: 02/24/2024[facility] HealthcareComment on above:Ordered: 02/24/2024 Neisseria gonorrhoeae DNA [Presence] in Unspecified specimen by CHRISTY with probe detectionNeisseria gonorrhea DNA probe, direct Lab Routine Vaginal itching Ordered: 02/24/2024[facility] HealthcareComment on above:Ordered: 02/24/2024 SURESWAB(R) ADVANCED VAGINITIS PLUS, TMASURESWAB(R) ADVANCED VAGINITIS PLUS, TMA Pathology and Cytology Routine Vaginal itching Ordered: 02/24/2024[facility] Healthcare Work Phone: comment on above:Ordered: 02/24/2024THIN PREP TIS PAP AND HR HPV DNATHIN PREP TIS PAP AND HR HPV DNA Pathology and Cytology Routine Well woman exam with routine gynecological exam Ordered: 05/05/2024[facility] HealthcareComment on above:Ordered: 05/05/2024XR Foot - left 3 ViewsXR foot 3+ views left Imaging Routine DJD (degenerative joint disease), ankle and foot, left 02/18/2024 1:35 PM [facility] Work Phone: Immunizations Immunization DateImmunizationNotesCare JarpcmurLfpdfdht50-68-7078urgltguyv, injectable, quadrivalent, preservative freeIvy Bah PA-C Work Phone: [facility]11-19-2021influenza virus vaccine, unspecified formulationJr. Stepanic DO Work Phone: [facility] CenterXaqxhoepwm78-95-3554xzlnmcjzh virus vaccine, unspecified formulationAmy Peru PA-C Work Phone: [phone] [place], [place] 7934304-06-2021COVID-19 mRNA, Comirnaty (Pfizer)Ivy Peru PA-C Work Phone: [phone] [place], [place] 7934303-15-2021COVID-19 mRNA, Comirnaty (Pfizer)Ivy Olvin PA-C Work Phone: [phone] [place], [place] 7934311-13-2020Influenza, injectable, Madin Aleyda Canine Kidney, preservative free, quadrivalentAmy Olvin PA-C Work Phone: [phone] [place], [place] 7934311-25-2019influenza, injectable, quadrivalent, preservative freeAmy Peru PA-C Work Phone: [phone] [place], [place] 7934310-19-2018Influenza, injectable, Madin Aleyda Canine Kidney, preservative free, quadrivalentAmy Olvin PA-C Work Phone: [phone] [place], [place] 7934310-11-2017Influenza, injectable, Madin Aleyda Canine Kidney, preservative free, quadrivalentAmy Olvin PA-C Work Phone: [phone] [place], [place] 7934310-11-2017tetanus toxoid, reduced diphtheria toxoid, and acellular pertussis vaccine, adsorbedAmy Olvin PA-C Work Phone: [phone] [place], [place] 7934301-17-2014zoster vaccine, liveJr. Stepanic DO Work Phone: [facility] Payers DatePayer CategoryPayerPolicy [id number]-pay2023MedicaidAETNA MEDICARE ADVANTAGE [id number] 2023MedicareAETNA MEDICARE ADVANTAGE AETNA MEDICARE REPLACEMENT [id number] 2022-Present [address] [place] [id number] [id number] [id number] [id number] 2.840.1.276891.3.57[id number] 2.840.1.789429.3.57[id number] 2.840.1.705088.3.579.2.92308-22-0091Tctaaxx1237480 2.840.1.926840.3.57[id number] 2.0.1.447365.3.579.2.65403-47-7227Ulojxki0093687 2.16840.1.769273.3.57[id number] 2.16840.1.965962.3.579.2.157487-16-3274Xzpaaxf50542836 2.16840.1.019389.3.579.2.084702-47-0762Nuwebid36697110 2.16840.1.147503.3.579.2.716152-09-3109Vlkteqm16742895 2.16.840.1.791659.3.57[id number] 2.16.840.1.635625.3.579.2.252654-90-1000Vdsmcew52918602 2.16.840.1.343405.3.579.2.563038-43-6958Lirxxvv84551826 2.16.840.1.164832.3.579.2.12[id number] 2.16.840.1.799777.3.579.2.437409-38-2215Klpfhwt45359045 2.840.1.137295.3.579.2.914101-38-6067Cuoosxx04888913 2.840.1.380245.3.579.2.9930 2091Twnvwob58043001 2.16.840.1.587518.3.579.2.096181-60-5495Fwvesns4557211 2.16840.1.880525.3.579.2.008838-96-4092Vxrjixt4582336 2.840.1.953682.3.579.2.482641-11-4987Jfejqto1062697 2.16840.1.523563.3.579.2.019242-30-6305Zqyymig5388511 2.16840.1.331642.3.579.2.785493-89-7072Arviejd7338780 2.16840.1.192994.3.579.2.307469-78-4492Rtuecxc9000731 2.16840.1.521256.3.579.2.2095Cdeqgay89202198 2.16.840.1.997738.3.579.2.531 Hrfyvpo14121166 2..840.1.777844.3.579.2.026Ghybufi91574567 2.16.840.1.641535.3.579.2.531 Social History DateTypeDetailFacilityStart: 06-26-2023 End: 21-05-5683Zpi Assigned At [facility] [employer] Other Start: 01-14-2023 End: 26-65-2720Hdgcikb smoking status NHISNever smoked tobaccoNOMS Healthcare Start: 99-84-4087Kolotwf use and exposureSmokeless tobacco non-userNOMS HealthcareStart: 06-26-2023 End: 08-28-0836Lymguzc intakeLifetime non-drinker (finding)N[facility] HealthcareStart: 06-26-2023 End: 37-90-0697Pcbsyvn of Social functionNOMS HealthcareStart: 84-87-1262Xwfruan Commentcaffeine 1-2 cups per dayNOMS HealthcareStart: 93-79-7242Nvj Assigned At [facility] CampusNot on fileBL[facility]OUNTAIN [facility]ITAL HealthcareStart: 08-10-2024 End: 06-67-9173VcaBjcran (finding)[facility] Northtart: 40-61-5832Bvp Assigned At [facility] Hospitaltart: 82-31-2545QaaUyytoqAVKQ Healthcare Clinical Notes 02-08-2023 to 03-29-2025 Note Date & DfnsEeueHdxuetxh31-21-3715 History of Present illness Narrative* Halle Dhaliwal NP - 03/29/2025 10:00 AM EDT Images from the original note were not included. GENERAL HISTORY AND PHYSICAL: NAME: Ashley Espinoza : 1960 HISTORY OF PRESENT ILLNESS: Ashley Espinoza is an 64 y.o. @ female. Here for surgery instructions left total knee arthroplasty April 22 at [facility] [place] [place]. PAST MEDICAL HISTORY: Medical History[1] PAST SURGICAL [...] (Zenaida) 180 MG tablet Every 24 hours Yddseqaiszs-Kuzucnexb-Ike C-Mn (Glucosamine Chondroitin Complx) capsule 1 capsule, [...] left total knee arthroplasty April 22 @ [facility] [place] [place] Standing Status: Future Expected Date: 03/29/2025 Expiration [...] May 06 @ 1:00 with Hubert in [place]. [1] Past Medical History: Diagnosis Date Anemia [...] Unknown Penicillin G Unknown documented in this encounterParkland Health CenterRqhmdjgvcc79-98-6563 History of Present illness Narrative* Ezio Lua [...] (Zenaida) 180 MG tablet Every 24 hours Mwhpbiavvxr-Wtiykxvym-Lqj C-Mn (Glucosamine Chondroitin Complx) capsule 1 capsule, [...] without relief of her symptoms. 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 Physical therapy is contraindicated in this patient''s case because of the uwyo-zo-cxlg articulation of the patient's knee.. Questions answered in laymen terms at the bedside. The diagnosis, home exercise plan and any ongoing restrictions/ recommendations reviewed. If unable to be reached in office, I recommend evaluation at nearest Emergency Room if any symptoms worsened or new symptoms develop for requiring urgent evaluation. [1] Allergies Allergen Reactions Other Unknown Penicillin G Unknown documented in this encounterParkland Health CenterTjkxmvfruw84-68-6956 Telephone encounter Note* Telephone Encounter - Cassy Villa - 02/10/2025 10:53 AM EDT Confirmed with ashley that PT referral sent to [facility] Also advised her she could discontinue the iron for now [facility] Guyayllpyp20-24-0371 Miscellaneous Notes* Telephone Encounter - Cassy Villa - 02/10/2025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
--- OUTSIDE RECORDS SUMMARY | 2025-04-20 07:13 | XMS_ITS | Patient Health Record ---
Author Organization The [facility] in [place] Address [address] [place] [address] Care Team Providers Care Child Nutrition Manager Name Role Phone Hugh Zhao Primary Care Provider Mary Jo Awad [phone] Allergies Allergen (clinical drug ingredient) Drug/Non Drug Allergy documented on EMR Reaction Allergy Type Onset Date Status Penicillinunknown reactionDrug AllergyActive Results Component Value Reference Range Notes TSH Reviewed date:04/14/2025 06:55:00 PM Interpretation: Performing Lab: Notes/Report: [facility] , Thyroid Stimulating Hormone 3.217 0.358-3.740 u IU/mL Performing Lab:see noteML - [facility] LBT4 Reviewed date:04/14/2025 06:55:00 PM Interpretation: Performing Lab: Notes/Report: [facility] ,T4 Thyroxine9.804.80-13.90 ug/dLPerforming Lab:see noteML - [facility] LBFREE T3 Reviewed date:04/14/2025 06:55:00 PM Interpretation: Performing Lab: Notes/Report: [facility] ,Free T32.452.18-3.98 pg/mLPerforming Lab:see noteML - [facility] LB US THYROID Reviewed date:04/14/2025 06:55:00 PM Interpretation: Performing Lab: Notes/Report: Source Facility: [facility] [place] [address] The [place] [id number] Ultrasound Report Signed Patient: ASHLEY GANT MR#: [id number] : 1960 Acct:[id number] Age/Sex: 64 / F ADM Date: 04/12/25 Loc: US Attending Dr: MARY JO AWAD Ordering Physician: MARY JO AWAD Date of Service: 04/12/25 Procedure(s): US thyroid Accession Number(s): [id number] cc: MARY JO AWAD ; Reece Zhao M.D. [place] [address] Patient Name: ASHLEY GANT MRN: [id number] date: 1960 Sex: F Assigned Patient Location: US Current Patient Location: Accession/Order Number: [id number] Exam Date: 04/12/2025 12:51 Report Date: 04/13/2025 08:21 At the request of: MARY JO AWAD Procedure: US thyroid THYROID ULTRASOUND COMPARISON: None CLINICAL DATA: Thyroid nodule The right thyroid lobe measures 5.3 x 2.0 x 2.2 cm. The left lobe measures 4.0 x 1.8 x 1.8 cm. The isthmus measures 7 mm. Thyroid echotexture is heterogeneous. At the superior pole on the right, there is a cystic lesion with hypoechoic mural nodularity measuring 12 x 8 x 11 mm. At the inferior pole, there is a heterogeneous mixed echogenicity nodule measuring 6 x 6 x 6 mm. On the left at the mid to upper pole, there is an ill-defined nodule with isoechoic rim and cystic center measuring 10 x 10 x 8 mm. At the inferior pole on the left, there is another irregular mixed echogenicity nodule with hypoechoic rim and cystic center measuring 6 x 5 x 6 mm. US/US thyroid IMPRESSION: SMALL BILATERAL THYROID NODULES, DESCRIBED. Impression dictated by: Edith Comer M.D. 04/13/2025 8:21 AM Dictation Location: [place] [address] Electronically authenticated by: [id number] Y Date: 04/13/2025 08:21 Dictated By: Edith Comer M.D. Signed By: 04/13/25823 DD/ 0 TD/TT: Manager Home:MM post biopsy LT Reviewed date:05/25/2024 07:58:55 PM Interpretation: Performing Lab: Notes/Report: Source Facility: [facility]-[address] [place] [address] [place] [address] Mammography Report Signed Patient: ASHLEY GANT MR#: [id number] : 1960 Acct:[id number] Age/Sex: 63 / F ADM Date: 05/19/24 Loc: US Attending Dr: Ivy Manrique Ordering Physician: Ivy Manrique Results: Date of Service: 05/19/24 Follow Up: Procedure(s): MM post biopsy LT Accession Number(s): [id number] cc: Ivy Manrique; Reece Zhao M.D. Patient Name: ASHLEY GANT MR#: [id number] : 1960 Exam Date: 05/19/2024 Ordering Doctor: [...] Walker M.D. Signed By: 05/25/24 1452 DD/ 50 TD/TT: Manager Home:US breast LT limited Reviewed date:05/10/2024 06:21:15 PM Interpretation: Performing Lab: Notes/Report: Source Facility: [facility]-[address] [place] [address] [place] [address] Ultrasound Report Signed Patient: ASHLEY GANT MR#: [id number] : 1960 Acct:[id number] Age/Sex: 63 / F ADM Date: 05/08/24 Loc: MAMMO Attending Dr: Ivy Manrique Ordering Physician: Ivy Manrique Date of Service: 05/08/24 Procedure(s): US breast LT limited Accession Number(s): [id number] cc: Ivy Manrique; Reece Zhao M.D. Patient Name: ASHLEY GANT MR#: [id number] : 1960 Exam Date: 05/08/2024 Ordering Doctor: [...] lung cancer at age 87. LOCATION: [facility] BREAST COMPOSITION: The breasts are [...] on 05/08/2024 at 15:12 Dictated By: Damian Motnerroso M.D. Signed By: 05/08/241513 DD/ 12 TD/TT: Manager Home:MM diagnostic mammo BI Reviewed date:05/10/2024 06:21:15 PM Interpretation: Performing Lab: Notes/Report: Source Facility: [place] [address] Mammography Report Signed Patient: ASHLEY GANT MR#: [id number] : 1960 Acct:[id number] Age/Sex: 63 / F ADM Date: 05/08/24 Loc: MAMMO Attending Dr: Ivy Manrique Ordering Physician: Ivy Manrique Results: Date of Service: 05/08/24 Follow Up: Procedure(s): MM diagnostic mammo unilat LT Accession Number(s): [id number] cc: Ivy Manrique; Reece Zhao M.D. Patient Name: ASHLEY GANT MR#: [id number] : 1960 Exam Date: 05/08/2024 Ordering Doctor: [...] lung cancer at age 87. LOCATION: [facility] BREAST COMPOSITION: The breasts are [...] Signed By: 05/08/24 1514 DD/ 1513 TD/TT: Manager Home:Amy LOPEZ HPV,Age Gdln Reviewed date:05/12/2024 08:36:46 PM Interpretation: Performing Lab: Notes/Report: SPATULA-ALONE VAGINA [facility] ,Age Gdln ACOG TestingNote. L-Low Normal,H-High Normal,LL-Alert Low,HH-Alert High Performed at: [address] [place] [address] TESTS RESULT FLAG UNITS REF RANGE LAB Clinician Provided Cytology Information Source.............Vagina 01 =G Labn[facility] [place] Age Algo ACOG Kiah... 30-65 01 Johana Quinonez MD, FLAG LEGEND: No. of containers..01 ThinPrep Vial <-Panic Low,>-Panic High,A-Abnormal,AA-Critical Abnormal IGP, Aptima HPV, rfx 16/18,45Note. <-Panic Low,>-Panic High,A-Abnormal,AA-Critical Abnormal Performed at: L-Low Normal,H-High Normal,LL-Alert Low,HH-Alert High should not be used as the sole means of detecting cervical Test Methodology: Note 02 Satisfactory for evaluation. . 02 The Pap smear is a screening test designed to aid in the the use of an image guided system. occur. Paramjit Friedman, Md Pediatric Allergist (ASCP) 02 [facility] [place] TESTS RESULT FLAG UNITS REF RANGE LAB [address] [facility] [place] [address] Note: Note 02 DIAGNOSIS: 02 This liquid based ThinPrep(R) pap test was screened with HPV Genotype Reflex Note 02 detection of premalignant and malignant conditions of the uterine cervix. It is not a diagnostic procedure and Criteria not met, HPV Genotype not performed. FLAG LEGEND: Johana Quinonez MD, Specimen adequacy: 02 NEGATIVE FOR INTRAEPITHELIAL LESION OR MALIGNANCY. Performed by: 02 cancer. Both false-positive and false-negative reports do HPV AptimaNegativeNegative Salon Coordinator: Johana Quinonez MD, Phone: [phone] Performed at: [facility] Salon Coordinator: Johana Quinonez MD, Phone: [phone] This nucleic acid amplification test detects fourteen high- [address] [place], [place] [id number] without differentiation. [address] [place], [place] [id number] risk HPV types (16,18,31,33,35,39,45,51,52,56,58,59,66,68) Performed at: =[facility] Performing Lab:[facility] L[facility] tomosynthesis screening BI Reviewed date:04/28/2024 05:35:58 PM Interpretation: Performing Lab: Notes/Report: Source Facility: [place] [address] Mammography Report Signed Patient: ASHLEY GANT MR#: [id number] : 1960 Acct:[id number] Age/Sex: 63 / F ADM Date: 04/28/24 Loc: MAMMO Attending Dr: Ivy Manrique Ordering Physician: Ivy Manrique Results: Date of Service: 04/28/24 Follow Up: Procedure(s): MM tomosynthesis screening BI Accession Number(s): [id number] cc: Ivy Manrique; Reece Zhao M.D. Patient Name: ASHLEY GANT MR#: [id number] : 1960 Exam Date: 04/28/2024 Ordering Doctor: [...] lung cancer at age 87. LOCATION: [facility] BREAST COMPOSITION: The breasts are [...] Monterroso M.D. Signed By: 04/28/24 1532 DD/ 153 TD/TT: Manager Home:US breast vac bx w/ clip RT Reviewed date:06/03/2024 03:32:49 PM Interpretation: Performing Lab: Notes/Report: Source Facility: [place] [address] [place] [address] Ultrasound Report Signed with Addvlad Patient: ASHLEY GANT MR#: [id number] : 1960 Acct:[id number] Age/Sex: 63 / F ADM Date: 05/19/24 Loc: US Attending Dr: Ivy Manrique Ordering Physician: Ivy Manrique Date of Service: 05/19/24 Procedure(s): US breast vac bx w/ clip LT Accession Number(s): [id number] cc: Ivy Manrique; Reece Zhao M.D. ADDENDUM The [address] [address] Patient Name: ASHLEY GANT MRN: [id number] date: 1960 Sex: F Assigned Patient Location: Current Patient Location: US Accession/Order Number: [id number] Exam Date: 05/19/2024 14:17 Report Date: 06/03/2024 04:55 At the request of: IVY MANRIQUE Procedure: US breast vac bx w/ clip LT Begin Addendum #1 COLLECTED DATE: 05/19/2024 Final Diagnosis Report for [facility] [place] [place] Pathological Diagnosis: Left breast lesion at [...] Addendum Cosigned By: DD/ /27/454 TD/TT: / [place] [address] Patient Name: ASHLEY GANT MRN: [id number] date: 1960 Sex: F Assigned Patient Location: US Current Patient Location: US Accession/Order Number: [id number] Exam Date: 05/19/2024 14:17 Report Date: 05/19/2024 [...] Signed By: 05/19/24 1534 DD/ 1532 TD/TT: Manager Home: Reason For Referral No Information Medications Medication SIG (Take, Route, Frequency, Duration) Notes Start Date End Date Status Zinc 50 MG 1 tablet Orally Once a day ActiveVitamin D3 125 MCG (5000 UT)1 tablet Orally Once a dayActiveVitamin C 1000 MG1 tablet Orally Once a dayActiveGlucosamine Chondroitin Adv -as directed OrallyActiveFexofenadine HCl 180 MG1 tablet Swallow whole with water; do not take with fruit juices. Orally Once a dayActiveCalcium Citrate +DActive Alendronate Sodium 70 MGTAKE 1 TABLET BY MOUTH ONCE A WEEK; Duration: 84Active Turmeric Curcumin 500 MGas directed OrallyActiveSuper B ComplexActiveMulti Vitamin -1 tablet Orally Once a dayActive Social History Tobacco Use: Social History Observation Description Date Details (start date - stop date) Never Smoker NA - NA Tobacco Use/Smoking Question Answer Notes Patient is a nonsmoker Alcohol Screen (Audit-C) Question Answer Notes Did you have a drink containing alcohol in the p ast year? No Fngheg2IwrcoduighzmosSztffvbbFLLMV-K (Standard) Question Answer Notes Did you have a drink containing alcohol in the p ast year? No Ripqnc7NpfurwdfedmbszRnwvukok Problems Problem Type SNOMED Code ICD Code Onset Dates Problem Status W/U Status Risk Notes Problem Age-related osteoporosis (243503 002) Age-related osteoporosis without current pathological fracture (M81.0) ActiveconfirmedProblemOsteoarthritis of knee (013763771)Unilateral primary osteoarthritis, left knee (M17.12)ActiveconfirmedProblemPalpitations (55279121) Palpitations (R00.2)ActiveconfirmedProblemOsteoarthritis (290655298) Osteoarthritis (M19.90)ActiveconfirmedProblemTachycardia (7084494)Tachycardia (R00.0)ActiveconfirmedProblemPeripheral venous insufficiency (79019208)Venous insufficiency (I87.2)ActiveconfirmedProblemAnemia (847943182)Anemia (D64.9) ActiveconfirmedProblemOsteopenia (433264591)Osteopenia (M85.80)Activeconfirmed ProblemInsomnia (244673574)Insomnia (G47.00)ActiveconfirmedProblemHiatal hernia (24506452)Hiatal hernia (K44.9)ActiveconfirmedProblemDeep venous thrombosis (432604305)DVT (deep venous thrombosis) (I82.409)ActiveconfirmedProblem Arthralgia (51071484)Arthralgia (M25.50)ActiveconfirmedProblemThyroid nodule (011216228)Thyroid nodule (E04.1)ActiveconfirmedProblemHearing loss (13737869) Hearing loss (H91.90)ActiveconfirmedProblemParesthesia (12361407)Paresthesia (R20.2)ActiveconfirmedProblemMultinodular goiter (112287274)Multinodular goiter (E04.2)ActiveconfirmedProblemGoiter (4253875)Goiter (E04.9)Activeconfirmed ProblemSynovial popliteal cyst (disorder) (4472879776)Bakers cyst (M71.20)Active confirmedProblemDetached retina (39293391)Detached retina (H33.20)Active confirmedProblemGastroesophageal reflux disease (846514201)GE reflux (K21.9) ActiveconfirmedProblemLow back pain (finding) (162650861)Low back pain at multiple sites (M54.50)Activeconfirmed Vital Signs Temperature 98.5 degrees Fahrenheit 06/08/2024 Blood pressure rvqgmxfym55 mm Hg04/14/20250518Ebeliq04 in04/14/2025lood pressure dmwkxzuo008 mm Hg04/14/20253299Lrmfkd715.0 lbs106/14/2024BMI33.19 kg/m204/14/2025 Encounters Encounter Location Date Provider Diagnosis [address] [address] 06/08/2024 Mary Jo Awad Cerumen impaction H61.20 [place] [address] [place] [address] 02/08/2025 Mary Jo Awad Pre-operative clearance Z01.818 and Thyroid nodule E04.1 [facility] [address] [place] [address] 04/14/2025 Hugh Zhao Unilateral primary osteoarthritis, left knee M17.12 and Multinodular goiter E04.2 [facility] [address] [place] [address] 01/04/2025 Hugh Ferminy [facility] [place] [address] 02/08[facility]2025[facility] [facility] [place] [address]/02/2025Pamela [facility] [address] [facility] [place] [address]/05/2025Doug [facility] [facility] [place] [address]/05/2025Doug [facility] [facility] [place] [address] 04/28/2024[facility] [facility] [place] [address]/[facility] [facility] [place] [address]/4Doug [facility] [facility] [place] [address]/01/2025[facility] R92.8 Assessments Encounter Date Diagnosis (ICD Code) Assessment Notes Treatment Notes Treatment Clinical Notes Section Notes 06/08/2024 Cerumen impaction (ICD-10 - H61. 20) ear wash on left, some cerumen removed ear canal red , irritated fu Timmis abraham 02/08/2025Thyroid nodule (ICD-10 - E04.1)02/08/2025Pre-operative clearance (ICD- 10 - Z01.818) PST results reviewed labs ok EKG ok patient denies CP, SOB normal activity level besides knee pain ok for surgery 04/14/2025Unilateral primary osteoarthritis, left knee (ICD-10 - M17.12) No CAD SAUD Strokes Cleared for OR 04/14/2025Multinodular goiter (ICD-10 - E04.2)12/08/2024bnormal mammogram (ICD- 10 - R92.8) Plan Of Treatment Pending Test Test Name Order Date CMP (COMPLETE METABOLIC PANEL) HEMOGLOBIN A1C (GLYCO) 03/07/2023 HEMOGLOBIN A1C (GLYCO) [...] 3D GLOBAL 12/08 THYROID PANEL (T4/TSH/FREE T3) 3 THYROID PANEL (T4/TSH/FREE T3) 5 BI US BREAST COMPLETE LEFT 12/08/2024 NM thyroid w uptake 04/14/2025 Insurance Providers Payer Name Payer Address Payer Phone Subscriber Number Group Number Insured Name Patient Relationship to Insured Coverage Start Date Coverage End Date [employer] MED[employer]ARE [address] [place], [place] [id number] Denise Gant - patient is the insured [...] Hearing loss H91.90 Surgical History Surgery Date(Month/Year) Tympanostomy left ear Breast Implant Removal- RightHeart CatheterizationHip Replacement- [id number] Replacement- [id number] Gcsawbiqzrxb2251Rlemmil Injection- Dr Calero 09/24/2024
== END 2025-04-20 07:10 | disposition home or self-care (01) ==
LOC: NM 07:09
PROVIDERS: PCP Family Medicine; Visit Provider Family Medicine
DX: E04.2 Nontoxic multinodular goiter (principal)
CPT/HCPCS: 78014; A9516

== ENCOUNTER 2025-05-24 11:22 | Outpatient (OUT) | payer MEDICARE, SELFPAY ==
--- OUTSIDE RECORDS SUMMARY | 2025-05-07 09:00 | XMS_ITS | Encounter Summary ---
Author Organization [facility] Address [address] [place] [address] Care Team Providers Care Center Lead Consultant Name Role Phone Reece Zhao MD Primary Care Provider [phone] Reason for Visit * Rehabilitation - Outpatient (Routine) - AuthorizedSpecialtyDiagnoses / ProceduresReferred By ContactReferred To ContactPhysical Therapy Diagnoses Primary osteoarthritis of left knee Procedures [place] OFFICE/OUTPATIENT [facility] MDM 60 MINUTES Ivan Stevenson, DRUGLESS DOCTOR [address] [place] [address] Phone: tel: fax: Salma Greene PT Referral IDStatusReasonStart DateExpiration DateVisits RequestedVisits [id number] Specialty Services Required 999 Encounter Details DateTypeDepartmentCare Team (Latest Contact Info)Mecdrlgnicg44/05/2025 9:00 AM ESTClinical Support [facility] [address] [facility] [address] [place] [address] Anne Marie Agrawal, PT [address] [facility] [address] [place] [address] Primary osteoarthritis of left knee (Primary Dx); Acute postoperative pain of left knee; Status post left knee replacement Social History Tobacco UseTypesPacks/DayYears UsedDateSmoking Tobacco: NeverSmokeless Tobacco: NeverAlcohol UseStandard Drinks/WeekCommentsNever0 (1 standard drink = 0.6 oz pure alcohol)caffeine 1-2 cups per dayCommentsNoSex and Gender InformationValueDate RecordedSex Assigned at BirthNot on fileLegal SexFemale 08/15/2022 6:56 PM EDTGender IdentityNot on fileSexual OrientationNot on file documented as of this encounter Progress Notes * Anne Marie Agrawal, PT - 05/07/2025 9:00 AM EST Physical Therapy Physical Therapy Daily Visit Patient Name: Ashley Gant Today's Date: 05/07/2025 Subjective Current Problem: s/p left TKA with pain and difficulty walking. Pt is being seen today for follow up visit for s/p left TKA. Date of Surgery: 04/23/2025 with 1 night stay in hospital. Current deficits: Difficulty with all mobility secondary to recent left TKA and pain. Visit Number 6. Time In: 9:00 am; Time out: 9:38 am Total time: 38 minutes 32281 TherEx x 30 minutes 97407 gait training x 8 minutes Precautions: WBAT left LE; left TKA protocol Pain Management: The patient is complaining of pain located in the left knee and thigh region. Painrating 6/10. The pain is improved by ice and medication of percocet and Tylenol as needed. The painis aggravated by activity. The pain is described as aching, throbbing and stiffness. Prior level of function: Ambulation: antalgic gait pattern on left LE. Assistive devices: FWW ADL and IADL: Independent. Home Environment: Pt lives with in a 2 story home, first floor accessible. 7-8 step to enter. Walk in shower in basement; tub/combo on second floor; has half bath on first. Extracurricular Activities: active Objective General Visit Information: Passive ROM: leftt knee 10 to 82 degrees. Joint play: hypomobile. Manual muscle testing: leftt knee flexion/extension: 3-/5. Palpation: Minimal warmth upon palpation, consistent with post-operative conditions. Surgical incision intact with sterile strips and open to air. Negative Davey Sign. Functional Mobility: Bed Mobility: min A Sit to Stand: SBA Stair Negotiation: SBA/CGA Ambulation: Patient is ambulating with mild antalgic type pattern with walker, uneven reciprocal gait pattern; good heel to toe gait pattern; SBA. Pt ambulated approx 90' x 2 with slow danni. Limited knee flexion during swing phase. Tinetti Gait and Balance Assessment: Sitting balance: Steady, safe = 1. Rises from chair: use of hands= 1. Attempts to rise: needed a few trials= 1. Immediate standing balance (first 5 seconds): Steady but uses walker or other support = 1. Standing balance: Steady but uses walker or other support = 1. Nudged: Staggers, grabs, catches self = 1. Eyes closed: Steady = 1. Turning 360 degrees: Discontinuous steps = 0 , Unsteady (grabs, staggers) = 0. Sitting down: Uses arms or not a smooth motion = 1. Balance Score: 8/16. Indication of gait: No hesitancy = 1. Step of length and height: Step to = 0. Foot clearance: L foot clears floor = 1 , R foot clears floor = 1. Step symmetry: Right and left step length no equal = 0. Step continuity: Stopping or discontinuity between steps = 0. Path: Mild/moderate deviation or uses w/ aid = 1. Trunk: No sway but flex knees or back or uses arms for stability = 1. Walking time: Heels apart = 0. Gait score: 5/12. Total Score = Balance + Gait 13/28. Tinetti tool score: < = 18 High. Physical Education Intervention Physical Therapy Education: Pt was educated on the importance of cyrotherapy and elevation. Reviewed proper pillow placement under LE to maintain good extension. Stressed the importance also of ambulating at at least every other hour for 2-5 minutes duration and completion of HEP 2x/day. Patient was educated with regards to signs and symptoms to monitor with respect to blood clots and infection. Therapeutic Exercise : Pt completed left LE supine exercises of glut sets, quad sets, and ankle pumps (hourly) at this time, 10x and AAROM heel slides and hip abduction/adduction AAROM, 10x. Completed seated heel slides with plastic bag to promote flexion of knee, 10x with 15-30 second holds. Completed standing exercises of heel raises, marches, ham curls and mini squats at kitchen sink. Completed 3 sets of 3 reps of AAROM LAQ. Completed standing knee flexion on step with gentle rocking and holds, 10x. Completed static knee extension on chair x 5 minute tolerance HEP updated and reviewed. Gait Training: Gait training this date with FWW with instruction for reciprocal gait pattern for with increase cues for heel to toe pattern and knee flexion during swing. Therapeutic Activity: Worked on proper sit to stand, stand to sit transfers this date from kitchen chair, bed side and recliner with good carryover with SBA with verbal cues for proper sequencing andhand placement. Worked on getting in/out of bed this date; min A/CGA with LE ascend and descend along with increased cues for sequencing and task segmentation. Assessment & Plan Making steady slow progress with ROM and strengthening. Hips are very weak making it difficult to perform bed mobility and marches. Assessment Impairments: abnormal gait, abnormal or restricted ROM, impaired balance, impaired physical strength, pain with function and weight-bearing intolerance Barriers to therapy: Increased pain, edema,bruising and knee weakness. Prognosis: good Goals Short Term Goals Goal 1 : Patient will be independent with HEP with good compliance and independence. Goal 2 : Patient will demonstrate 5-90 degrees of passive range of motion of left knee flexion. Goal 3 : Patient will ambulate >6 minutes modified independently with wheeled walker with good reciprocal gait pattern. Goal 4 : Patient will demonstrate all sit< >stand transfers and supine< >sit bed mobility, modified independent with no cues for proper sequencing. Goal 5 : Patient will ascend/descend 7-8 steps with AD with supervision, step to gait pattern. Success Coach Goals Goal 1 : Patient will demonstrate 0-110 degrees or greater of active left knee flexion in order to improve indpendence with ambulation up and down steps. Goal 2 : Patient will demonstrate 4+/5 or better left knee strength in order to safely return to activities of interest. Goal 3 : Patient will ambulate community distances on even and uneven surfaces, independently with no AD, normalized gait pattern and < 1/10 report of pain in right knee. Goal 4 : Pt will ascend/descend 8-12 steps with railing with reciprical gait pattern independently. Goal 5 : Patient will demonstrate good static and dynamic standing balance for >15 mintues without LOB or increase in knee pain. Goal 6 : Pt will improve Tinetti Balance test to 28/28 to indicate no fall risk. Plan Planned modality interventions: cryotherapy Planned therapy interventions: bed mobility training, dressing changes, functional ROM exercises, gait training, home exercise program, manual therapy, neuromuscular re-education, soft tissue mobilization, strengthening, stretching, therapeutic activities and transfer training Frequency: 3x/week. Duration in weeks: 6 Treatment plan discussed with: patient Plan details: Educated to continue icing and elevating. Pt will continues to benefit from PT interventions to improve overall strength, ROM and functional mobility to achieve PLOF. documented in this encounter Plan of Treatment DateTypeDepartmentCare Team (Latest Contact Info)Ifmchxlpsjg01/22/2025 1:30 PM ESTTreatment [facility] [place] [facility] [address] [place] [address] Aline Lozada, SHEET LAYER 05/26/2025 12:30 PM ESTTreatment [facility] [place] [facility] [address] [place] [address] Aline Lozada, SHEET LAYER 2025 11:30 AM ESTTreatment [facility] [place] [facility] [address] [place] [address] Salma Greene, PT 06/02/2025 10:00 AM ESTTreatment [facility] [place] [facility] [address] [place] [address] Aline Lozada, SHEET LAYER 06/10/2025 10:15 AM ESTOffice Visit [facility] [address] [facility] [address] [place] [phone] Luis M Casey, PA [address] [facility] [place] [address] 07/06/2025 8:30 AM ESTOffice Visit [facility] [place] [facility] [address] [facility] [address] [place] [phone] Antonia Jackson MD [address] [place] [address] documented as of this encounter Visit Diagnoses Diagnosis Primary osteoarthritis of left knee- Primary Acute postoperative pain of left knee Status post left knee replacement documented in this encounter Care Teams Team MemberRelationshipSpecialtyStart DateEnd Date Reece Zhao MD [address] [place] [address] PCP - GeneralFamily Medicine01/14/23documented as of this encounter
--- OUTSIDE RECORDS SUMMARY | 2025-05-10 09:00 | XMS_ITS | Encounter Summary ---
Author Organization [facility] Address [address] [place] [address] Care Team Providers Care Cell Geneticist Name Role Phone Reece Zhao MD Primary Care Provider [phone] Reason for Visit * Rehabilitation - Outpatient (Routine) - AuthorizedSpecialtyDiagnoses / ProceduresReferred By ContactReferred To ContactPhysical Therapy Diagnoses Primary osteoarthritis of left knee Procedures [place] OFFICE/OUTPATIENT [facility] MDM 60 MINUTES Ivan Stevenson, TELEPHONE INSTALLER [address] [place] [address] Phone: tel: fax: Salma Greene PT Referral IDStatusReasonStart DateExpiration DateVisits RequestedVisits [id number] Specialty Services Required 999 Encounter Details DateTypeDepartmentCare Team (Latest Contact Info)Owvmxrtfekd00/08/2025 9:00 AM ESTClinical Support [facility] Home Health [address] [facility] [address] [place] [address] Anne Marie Agrawal, PT [address] [facility] [address] [place] [address] Primary osteoarthritis of left knee (Primary Dx); [...] Notes * Anne Marie Agrawal, PT - 05/10/2025 9:00 AM EST Physical Therapy Physical Therapy Daily Visit Patient Name: Ashley Gant Today's Date: 05/10/2025 Subjective Current Problem: s/p left TKA with pain and difficulty walking. Pt is being seen today for follow up visit for s/p left TKA. Date of Surgery: 04/23/2025 with 1 night stay in hospital. Current deficits: Difficulty with all mobility secondary to recent left TKA and pain. Visit Number 7. Time In: 9:00 am; Time out: 9:38 am Total time: 38 minutes 75938 TherEx x 30 minutes 44011 gait training x 8 minutes Precautions: WBAT [...] Information: Passive ROM: leftt knee 10 to 90 degrees; AROM 75 degrees Joint play: hypomobile. Manual muscle testing: leftt [...] toe gait pattern; SBA. Pt ambulated approx 200' x 2 with slow danni. Fairknee flexion during swing phase. Tinetti Gait and [...] Completed static knee extension on chair x 7 minute tolerance HEP updated and reviewed. Gait [...] AD with supervision, step to gait pattern. Senior Living Goals Goal 1 : Patient will demonstrate [...] Educated to continue icing and elevating. Pt to transition to OP at [facility] on 05/12/25 documented in this encounter Plan of Treatment DateTypeDepartmentCare Team (Latest Contact Info)Oxyzkvsjukn04/22/2025 1:30 PM ESTTreatment [facility] Physical Therapy [address] [facility] [address] [place] [address] Aline Lozada, SHIFTMAN 05/26/2025 12:30 PM ESTTreatment [facility] Physical Therapy [address] [facility] [address] [place] [address] Aline Lozada, SHIFTMAN 2025 11:30 AM ESTTreatment [facility] Physical Therapy [address] [facility] [address] [place] [address] Salma Greene, PT 06/02/2025 10:00 AM ESTTreatment [facility] Physical Therapy [address] [facility] [address] [place] [address] Aline Lozada, SHIFTMAN 06/10/2025 10:15 AM ESTOffice Visit [facility] [address] [facility] [address] [place] [address] Luis M Casey, PA [address] [place] [phone] 07/06/2025 8:30 AM ESTOffice Visit [facility] [place] [facility] [address] [facility] [address] [place] [phone] Antonia Jackson MD [address] [facility] [address] [place] [address] documented as of this encounter Visit Diagnoses Diagnosis Primary osteoarthritis of left knee- Primary Acute postoperative pain of left knee Status post left knee replacement documented in this encounter Care Teams Team MemberRelationshipSpecialtyStart DateEnd Date Reece Zhao MD [address] [place] [address] PCP - GeneralFamily Medicine01/14/23documented as of this encounter
--- OUTSIDE RECORDS SUMMARY | 2025-05-12 13:30 | XMS_ITS | Encounter Summary ---
Author Organization [facility] Address [address] [facility] [place] [address] Care Team Providers Care Contract Clerk Name Role Phone Reece Zhao MD Primary Care Provider [phone] Reason for Visit * Rehabilitation - Outpatient (Routine) - AuthorizedSpecialtyDiagnoses / ProceduresReferred By ContactReferred To ContactPhysical Therapy Diagnoses Primary osteoarthritis of left knee Procedures [place] OFFICE/OUTPATIENT [facility] MDM 60 MINUTES Ivan Stevenson, BUSINESS PROCESS REPRESENTATIVE [address] [place] [address] Phone: tel: fax: Salma Greene PT Referral IDStatusReasonStart DateExpiration DateVisits RequestedVisits [id number] Specialty Services Required [phone] Encounter Details DateTypeDepartmentCare Team (Latest Contact Info)Ztnybhltrfj40/10/2025 1:30 PM ESTTreatment [facility] [address] [place] [address] Salma Greene PT Primary osteoarthritis of left knee (Primary Dx); [...] as of this encounter Progress Notes * Salma Greene, PT - 05/12/2025 1:30 PM EST Images from the original note were not included. Physical Therapy Treatment Visit / UPOC Patient Name: Ashley Gant Today's Date: 05/12/2025 Encounter Diagnoses Name Primary? Primary osteoarthritis of left knee Yes Acute postoperative pain of left knee Status post left knee replacement Visit number: 8 (7 in home sessions) Timed Code Treatment Minutes: 55 minutes Total Treatment Time: 55 minutes Time In: 1330 Time Out: 1427 History: Pt underwent surgery for left TKA on 04/22/25. Pt currently ambulates with use of RW. Lives in 2 story home but states she has been staying on first floor since time of surgery. Pt states she is still taking pain meds as need and otherwise OTC meds. Still icing at home. Precautions: [place] Subjective: left knee Pain: 2-10/10 depending on activity Objective: PT Evaluation (05/12/2025) LEFT KNEE AROM: 5 degrees to 96 degrees in supine PROM: 3 degrees to 98 degrees in supine Joint play: good patellar mobility MMT: fair contraction left VMO Palpation: moderate tenderness left dougie-patella Functional: pt ambulates with use of RW and step through gait pattern Treatment: Education: HEP education with demonstration, Educated on Eval Findings and POC Manual Therapy: Passive ROM, Joint mobilization, Soft Tissue Mobilization, Myofascial Release, Muscle Energy Technique, Neural Mobilization, Myofascial Cupping, Dry Needling, IASTM, and Scar mobilization as needed. Therapeutic Exercise: (40 minutes) Strength, Endurance, Flexibility, ROM, HEP, Neural Mobilization,Power, and Core Stability as needed. Pt performed and instructed in home program this date; writteninstructions and pictures issued with good pt understanding. Therapeutic Activity: (15 minutes) Exercises to improve dynamic activities, functional tasks, functional mobility to return to prior activity level as needed. Neuromuscular re-education: Balance Training, Muscle Facilitation, Dynamic Stability, Core Stabilization, and Blood Flow Restriction Training (BFRT) as needed. Modalities: Heat, Ice, Electrical Stimulation, Ultrasound, Cervical Mechanical Traction, Lumbar Mechanical Traction, Iontophoresis, and Fluidotherapy as needed. Assessment: Pt is 64 y/o female with recent left TKA. Pt currently ambulates with use of RW. Pt with good patellar mobility. Pt with weakness left quad and fair VMO strength. Pt instructed in progression of home program and will benefit from further PT. RTD on June 10 Outcome Measure: Lower Extremity Functional Scale (LEFS): 23/80 Rehab Diagnosis: left knee pain, decrease ROM and strength left LE, difficulty walking Short Term Goal: To be met in 2 weeks Goal 1: Pt to be instructed in home exercise program. Detention Goals: To be met in 10 weeks Goal 1: Pt to report independence and compliance with home program. Goal 2: Pt to achieve 120 degrees left knee flexion to assist with functional tasks such as squatting. Goal 3: Pt to be lacking no greater than 1 degree left knee extension to assist with proper gait. Goal 4: Pt to achieve 4+ to 5/5 strength left knee flexion and extension to assist with functional mobility and ADL's. Goal 5: Pt to score no less than 55/80 on LEFS indicating improved QOL. Pt will benefit from skilled PT for 2-3x/week from 05/12/2025 to 08/10/2025 to address the above impairments. I hereby deem this POC medically necessary. Please sign below. Date: Cosigned by Ivan Stevenson NP at 05/12/2025 2:34 PM EST documented in this encounter Plan of Treatment DateTypeDepartmentCare Team (Latest Contact Info)Pnodtlsivyd38/22/2025 1:30 PM ESTTreatment [facility] [place] [facility] [address] [place] [address] [place] [address] Aline Lozada, RADIATION ONCOLOGY THERAPIST 05/26/2025 12:30 PM ESTTreatment [facility] [place] [facility] [address] [facility] [address] [place] [address] MiguelAline calderon, RADIATION ONCOLOGY THERAPIST 2025 11:30 AM ESTTreatment [facility] [place] [facility] [address] [facility] [address] [place] [address] Salma Greene, PT 06/02/2025 10:00 AM ESTTreatment [facility] [place] [facility] [address] [facility] [address] [place] [address] NevilleAline, RADIATION ONCOLOGY THERAPIST 06/10/2025 10:15 AM ESTOffice Visit [facility] [address] [facility] [address] [place] [address] Luis M Casey, PA [address] [facility] [phone] 07/06/2025 8:30 AM ESTOffice Visit [facility] [place] [facility] [address] [facility] [address] [place] [address] Antonia Jackson MD [address] [facility] [address] [place] [address] documented as of this encounter Visit Diagnoses Diagnosis Primary osteoarthritis of left knee- Primary Acute postoperative pain of left knee Status post left knee replacement documented in this encounter Care Teams Team MemberRelationshipSpecialtyStart DateEnd Date Reece Zhao MD [address] [facility] [place] [address] PCP - GeneralFamily Medicine01/14/23documented as of this encounter
--- OUTSIDE RECORDS SUMMARY | 2025-05-14 11:00 | XMS_ITS | Encounter Summary ---
Author Organization [facility] Healthcare Address [address] [facility] [place] [address] Care Team Providers Care Pulp Tester Name Role Phone Reece Zhao MD Primary Care Provider [phone] Reason for Visit * Rehabilitation - Outpatient (Routine) - AuthorizedSpecialtyDiagnoses / ProceduresReferred By ContactReferred To ContactPhysical Therapy Diagnoses Primary osteoarthritis of left knee Procedures [place] OFFICE/OUTPATIENT [facility] MDM 60 MINUTES Ivan Stevenson, PLASTIC BOAT PATCHER [address] [place] [address] Phone: tel: fax: Salma Greene PT Referral IDStatusReasonStart DateExpiration DateVisits RequestedVisits [id number] Specialty Services Required [phone] Encounter Details DateTypeDepartmentCare Team (Latest Contact Info)Hpwcfxzaqlp33/12/2025 11:00 AM ESTTreatment [facility] [address] [place] [address] Aline Lozada, LUCI Primary osteoarthritis of left knee (Primary Dx); [...] as of this encounter Progress Notes * Aline Lozada, FOX RAISER - 05/14/2025 11:00 AM EST Images from the original note were not included. Physical Therapy Treatment Visit Patient Name: Ashley Gant Today's Date: 05/14/2025 Encounter Diagnoses Name Primary? Primary osteoarthritis of left knee Yes Acute postoperative pain of left knee Status post left knee replacement Visit number: 9 (7 in home sessions) Timed Code Treatment Minutes: 43 minutes Total Treatment Time: 43 minutes Time In: 11:00 AM Time Out: 11:43 AM History: Pt underwent surgery for left TKA on 04/22/25. Pt currently ambulates with use of RW. Lives in 2 story home but states she has been staying on first floor since time of surgery. Pt states she is still taking pain meds as need and otherwise OTC meds. Still icing at home. Precautions: [place] Subjective: Reports soreness in the left knee. She indicates limited mobility in the left knee prior to surgery and is uncertain about her recovery prognosis. Pain: 2-10/10 depending on activity Objective: PT [...] Educated on Eval Findings and POC Manual Therapy (18 minutes): Passive ROM, Joint mobilization, Soft Tissue Mobilization, Myofascial Release, Muscle Energy Technique, Neural Mobilization, Myofascial Cupping, Dry Needling, IASTM, and Scar mobilization as needed. Therapeutic Exercise: (25 minutes) Strength, Endurance, Flexibility, ROM, HEP, Neural Mobilization,Power, and Core Stability as needed. Pt performed and instructed in home program this date; writteninstructions and pictures issued with good pt understanding. Therapeutic Activity: () Exercises to improve dynamic activities, functional tasks, functional mobility to return to prior activity level as needed. Neuromuscular re-education: Balance Training, Muscle Facilitation, Dynamic Stability, Core Stabilization, and Blood Flow Restriction Training (BFRT) as needed. Modalities (8 minutes) : Heat, Ice, Electrical Stimulation, Ultrasound, Cervical Mechanical Traction, Lumbar Mechanical Traction, Iontophoresis, and Fluidotherapy as needed. CP X 18 with pt in supine Assessment: Pt is 64 y/o female with recent left TKA. Pt currently ambulates with use of RW. Pt with good patellar mobility. Significant quadriceps weakness was observed. The patient demonstrated difficulty completing SAQ and LAQ exercises due to this weakness. Cues to decrease hip flexion and increase quadriceps activation during marching exercises. Tolerated 8 minutes of CP before requesting to discontinue. Will continue to monitor and progress as tolerated. RTD on June 10 Outcome Measure: Lower Extremity Functional Scale (LEFS): 23/80 Rehab Diagnosis: left knee pain, decrease ROM and strength left LE, difficulty walking Short Term Goal: To be met in 2 weeks Goal 1: Pt to be instructed in home exercise program. Care Home Goals: To be met in 10 weeks [...] necessary. Please sign below. Date: Cosigned by Salma Greene PT at 05/21/2025 10:51 AM EST documented in this encounter Plan of Treatment DateTypeDepartmentCare Team (Latest Contact Info)Xynodlwhypk11/22/2025 1:30 PM ESTTreatment [facility] [place] [facility] [address] [place] [address] Aline Lozada, FOX RAISER 05/26/2025 12:30 PM ESTTreatment [facility] [place] [facility] [address] [place] [address] Aline Lozada, FOX RAISER 2025 11:30 AM ESTTreatment [facility] [place] [facility] [address] [place] [address] Salma Greene, PT 06/02/2025 10:00 AM ESTTreatment [facility] [place] [facility] [address] [place] [address] Aline Lozada, FOX RAISER 06/10/2025 10:15 AM ESTOffice Visit [facility] [place] [facility] [address] [facility] [address] [place] [phone] Luis M Casey, PA [address] [facility] [place] [phone] 07/06/2025 8:30 AM ESTOffice Visit [facility] [place] [facility] [address] [facility] [address] [place] [address] Antonia Jackson MD [address] [facility] [address] [place] [address] documented as of this encounter Visit Diagnoses Diagnosis Primary osteoarthritis of left knee- Primary Acute postoperative pain of left knee Status post left knee replacement documented in this encounter Care Teams Team MemberRelationshipSpecialtyStart DateEnd Date Reece Zhao MD [address] [place] [address] PCP - GeneralFamily Medicine01/14/23documented as of this encounter
--- OUTSIDE RECORDS SUMMARY | 2025-05-18 14:30 | XMS_ITS | Encounter Summary ---
Author Organization [facility] Healthcare Address [address] [place] [address] Care Team Providers Care Front Office Secretary Name Role Phone Reece Zhao MD Primary Care Provider [phone] Reason for Visit * Rehabilitation - Outpatient (Routine) - AuthorizedSpecialtyDiagnoses / ProceduresReferred By ContactReferred To ContactPhysical Therapy Diagnoses Primary osteoarthritis of left knee Procedures [place] OFFICE/OUTPATIENT [facility] MDM 60 MINUTES Ivan Stevenson, AIR VICE MARSHAL [address] [place] [address] Phone: tel: fax: Salma Greene PT Referral IDStatusReasonStart DateExpiration DateVisits RequestedVisits [id number] Specialty Services Required [phone] Encounter Details DateTypeDepartmentCare Team (Latest Contact Info)Poncvbsjjlp19/16/2025 2:30 PM ESTTreatment [facility] [address] [place] [address] Aline Lozada, LUCI Primary osteoarthritis of left [...] this encounter Progress Notes * Aline Lozada, MEAT LUGGER - 05/18/2025 2:30 PM EST Images from the original note were not included. Physical Therapy Treatment Visit Patient Name: Ashley Gant Today's Date: 05/18/2025 Encounter Diagnoses Name Primary? Primary osteoarthritis of left knee Yes Acute postoperative pain of left knee Status post left knee replacement Visit number: 9 (7 in home sessions) Timed Code Treatment Minutes: 38 minutes Total Treatment Time: 38 minutes Time In: 2:50 PM Time Out: 3:28 PM History: Pt underwent surgery for left TKA on 04/22/25. Pt currently ambulates with use of RW. Lives in 2 story home but states she has been staying on first floor since time of surgery. Pt states she is still taking pain meds as need and otherwise OTC meds. Still icing at home. Precautions: [place] Subjective: Reports increased swelling on Saturday. She indicated that she remained seated with the knee flexed for most of the day and did not elevate the limb as recommended. Pain: 2-10/10 depending on activity Objective: PT [...] on Eval Findings and POC Manual Therapy (10 minutes): Passive ROM, Joint mobilization, Soft Tissue Mobilization, Myofascial Release, Muscle Energy Technique, Neural Mobilization, Myofascial Cupping, Dry Needling, IASTM, and Scar mobilization as needed. Therapeutic Exercise: (28 minutes) Strength, Endurance, Flexibility, ROM, HEP, Neural [...] Flow Restriction Training (BFRT) as needed. Modalities (declined) : Heat, Ice, Electrical Stimulation, Ultrasound, Cervical Mechanical Traction, Lumbar Mechanical Traction, Iontophoresis, and Fluidotherapy as needed. CP X 18 with pt in supine Assessment: Pt is 64 y/o female with recent left TKA. Pt currently ambulates with use of RW. Pt with good patellar mobility. L knee flexion measured 104 degrees Significant quadriceps weakness was observed. She continues to have difficulty lifting her affectedleg without assistance. Tolerates ext stretch for full 4 minutes well. Will continue to monitor andprogress as tolerated. RTD on June 10 Outcome Measure: Lower Extremity Functional Scale (LEFS): 23/ Rehab Diagnosis: left knee pain, decrease ROM [...] Date: Cosigned by Salma Greene PT at 05/19/2025 5:45 PM EST documented in this encounter Plan of Treatment DateTypeDepartmentCare Team (Latest Contact Info)Plgbkxncwfb73/22/2025 1:30 PM ESTTreatment [facility] [place] [facility] [address] [place] [address] Neville Aline, MEAT LUGGER 05/26/2025 12:30 PM ESTTreatment [facility] [place] [facility] [address] [place] [address] Aline Lozada, MEAT LUGGER 2025 11:30 AM ESTTreatment [facility] [place] [facility] [address] [place] [address] Jc Salma, PT 06/02/2025 10:00 AM ESTTreatment [facility] [place] [facility] [address] [place] [address] Aline Lozada, MEAT LUGGER 06/10/2025 10:15 AM ESTOffice Visit [facility] [place] [facility] [address] [facility] [address] [place] [address] Luis M Casey, PA [address] [facility] [place] [address] 07/06/2025 8:30 AM ESTOffice Visit [facility] [place] [facility] [address] [facility] [address] [place] [address] Antonia Jackson MD [address] [facility] [address] [place] [address] documented as of this encounter Visit Diagnoses Diagnosis Primary osteoarthritis of left knee- Primary Acute postoperative pain of left knee Status post left knee replacement documented in this encounter Care Teams Team MemberRelationshipSpecialtyStart DateEnd Date Reece Zhao MD [address] [place] [address] PCP - GeneralFamily Medicine01/14/23documented as of this encounter
--- OUTSIDE RECORDS SUMMARY | 2025-05-20 11:00 | XMS_ITS | Encounter Summary ---
Author Organization [facility] Address [address] [facility] [place] [address] Care Team Providers Care Trailer Mechanic Name Role Phone Reece Zhao MD Primary Care Provider [phone] Reason for Visit * Rehabilitation - Outpatient (Routine) - AuthorizedSpecialtyDiagnoses / ProceduresReferred By ContactReferred To ContactPhysical Therapy Diagnoses Primary osteoarthritis of left knee Procedures ID OFFICE[facility]OUTPATIENT [facility] MDM 60 MINUTES Ivan Stevenson, SERVICE TECH [address] [place] [address] Phone: tel: fax: Salma Greene PT Referral IDStatusReasonStart DateExpiration DateVisits RequestedVisits [id number] Specialty Services Required [phone] Encounter Details DateTypeDepartmentCare Team (Latest Contact Info)Fjlmofnyndm16/18/2025 11:00 AM ESTTreatment [facility] [address] [place] [address] Guadalupe Hernandez, LUCI Primary osteoarthritis of left knee (Primary [...] as of this encounter Progress Notes * Guadalupe Hernandez, NURSE PRACTITIONER PHYSICIANS ASSISTANT - 05/20/2025 11:00 AM EST Physical Therapy Treatment Visit Patient Name: Ashley Gant Today's Date: 05/20/2025 Encounter Diagnoses Name Primary? Primary osteoarthritis of left knee Yes Acute postoperative pain of left knee Status post left knee replacement Visit number: 11 (7 in home sessions) Timed Code Treatment: 40 minutes Total Treatment Time: 55 minutes Time In: 10:55 AM Time Out: 11:50 AM History: Pt underwent surgery for left TKA on 04/22/25. Pt currently ambulates with use of RW. Lives in 2 story home but states she has been staying on first floor since time of surgery. Pt states she is still taking pain meds as need and otherwise OTC meds. Still icing at home. Precautions: [place] Subjective: Reports overall L knee tightness taking tylenol Pain: 2/10 present Objective: PT Evaluation (05/12/2025) LEFT KNEE AROM: 5 degrees to 96 degrees in supine PROM: 3 degrees to 98 degrees in supine Joint play: good patellar mobility MMT: fair contraction left VMO Palpation: moderate tenderness left dougie-patella Functional: pt ambulates with use of RW and step through gait pattern Treatment: Manual Therapy (8 minutes): Delivered manual ther to L knee LE PROM in flex and ext, Therapeutic Exercise: (42 minutes) Guided pt through ther and flex ex per grid to improve left LE quad functional Strength, Endurance, Flexibility, ROM, HEP, Neural Mobilization, Power, and Core Stability as needed Nustep and static stretching (15 minutes unsupervised ) Therapeutic Activity: () Exercises to improve dynamic activities, functional tasks, functional mobility to return to prior activity level as needed. Neuromuscular re-education: Balance Training, Muscle Facilitation, Dynamic Stability, Core Stabilization, and Blood Flow Restriction Training (BFRT) as needed. Modalities (declined) CP with pt in supine Assessment: Visit #11, 7 in home session pt recent left TKA performed on 04-22-24. Ambulates into clinic with use of RW, decreased WB on L with slow danni. L knee demos mod edema full ext and achieved 108 deg flex in supine. Pain and edema limiting motion. Better tolerance to ext stretch this date. Will continue to monitor and progress as tolerated. RTD on June 10 Outcome Measure: Lower Extremity Functional Scale (LEFS): 23/80 Rehab Diagnosis: left knee pain, decrease ROM and strength left LE, difficulty walking Short Term Goal: To be met in 2 weeks Goal 1: Pt to be instructed in home exercise program. Yard Jacker Goals: To be met in 10 weeks [...] Please sign below. Date: Cosigned by Salma Greene, PT at 05/24/2025 9:04 AM EST documented in this encounter Plan of Treatment DateTypeDepartmentCare Team (Latest Contact Info)Xhbfeiteyml57/22/2025 1:30 PM ESTTreatment [facility] [place] [facility] [address] [place] [address] Aline Lozada PTA 05/26/2025 12:30 PM ESTTreatment [facility] [place] [facility] [address] [place] [address] Aline Lozada PTA 2025 11:30 AM ESTTreatment [facility] [place] [facility] [address] [facility] [address] [place] [address] Salma Greene, PT 06/02/2025 10:00 AM ESTTreatment [facility] [place] [facility] [address] [facility] [address] [place] [address] Aline Lozada, NURSE PRACTITIONER PHYSICIANS ASSISTANT 06/10/2025 10:15 AM ESTOffice Visit [facility] [place] [facility] [address] [facility] [address] [place] [address] Luis M Casey, PA [address] [facility] [place] [address] 07/06/2025 8:30 AM ESTOffice Visit [facility] [place] [facility] [address] [facility] [address] [place] [address] Antonia Jackson MD [address] [facility] [address] [place] [address] documented as of this encounter Visit Diagnoses Diagnosis Primary osteoarthritis of left knee- Primary Acute postoperative pain of left knee Status post left knee replacement documented in this encounter Care Teams Team MemberRelationshipSpecialtyStart DateEnd Reece Zhao MD [address] [facility] [place] [address] PCP - GeneralFamily Medicine01/14/23documented as of this encounter
--- OUTSIDE RECORDS SUMMARY | 2025-05-24 11:25 | XMS_ITS | Encounter Summary ---
Author Organization [facility] Address [address] [place] [address] Care Team Providers Care Petrol Tanker Driver Name Role Phone Reece Zhao MD Primary Care Provider [phone] Encounter Details DateTypeDepartmentCare Team (Latest Contact Info)Sdthehttecx84/18/2025Travel Social History Tobacco UseTypesPacks/DayYears UsedDateSmoking Tobacco: NeverSmokeless Tobacco: NeverAlcohol UseStandard Drinks/WeekCommentsNever0 (1 standard drink = 0.6 oz pure alcohol)caffeine 1-2 cups per dayCommentsNoSex and Gender InformationValueDate RecordedSex Assigned at BirthNot on fileLegal SexFemale 08/15/2022 6:56 PM EDTGender IdentityNot on fileSexual OrientationNot on file documented as of this encounter Plan of Treatment DateTypeDepartmentCare Team (Latest Contact Info)Bemynhmmiuk06/22/2025 1:30 PM ESTTreatment [facility] [place] [facility] [address] [facility] [address] [place] [address] Aline Lozada, TRIMMING MACHINE SET UP OPERATOR 05/26/2025 12:30 PM ESTTreatment [facility] [place] [facility] [address] [facility] [address] [place] [address] Aline Lozada, TRIMMING MACHINE SET UP OPERATOR 2025 11:30 AM ESTTreatment [facility] [place] [facility] [address] [facility] [address] [place] [address] Salma Greene, PT 06/02/2025 10:00 AM ESTTreatment [facility] [place] [facility] [address] [facility] [address] [place] [address] Aline Lozada PTA 06/10/2025 10:15 AM ESTOffice Visit [facility] [address] [facility] [address] [place] [address] Luis M Casey, PA [address] [place] [address] 07/06/2025 8:30 AM ESTOffice Visit [facility] [place] [facility] [address] [facility] [address] [place] [address] Antonia Jackson MD [address] [facility] [address] [place] [address] documented as of this encounter Visit Diagnoses Not on filedocumented in this encounter Care Teams Team MemberRelationshipSpecialtyStart DateEnd Reece Zhao MD [address] [facility] [place] [address] PCP - GeneralFamily Medicine01/14/23documented as of this encounter
--- OUTSIDE RECORDS SUMMARY | 2025-05-24 11:25 | XMS_ITS | Encounter Summary ---
Author Organization [facility] Address [address] [facility] [place] [address] Care Team Providers Care Diversional Therapist'S Assistant Name Role Phone Reece Zhao MD Primary Care Provider [phone] Reason for Visit * ReasonOnset DateCommentsThyroid Yybsmuz6304/16/2025nuclear steubma3804/16/2025 Encounter Details DateTypeDepartmentCare Team (Latest Contact Info)Tdqiyiznirc58/14/2025Telephone [facility] [address] [place] [address] Michelle Adam MA Thyroid Problem; nuclear testing Social History Tobacco UseTypesPacks/DayYears UsedDateSmoking Tobacco: NeverSmokeless Tobacco: NeverAlcohol UseStandard Drinks/WeekCommentsNever0 (1 standard drink = 0.6 oz pure alcohol)caffeine 1-2 cups per dayCommentsNoSex and Gender InformationValueDate RecordedSex Assigned at BirthNot on fileLegal SexFemale 08/15/2022 6:56 PM EDTGender IdentityNot on fileSexual OrientationNot on file documented as of this encounter Miscellaneous Notes * Telephone Encounter - Michelle Adam MA - 04/19/2025 10:17 AM EST ABBY Gaspar * Telephone Encounter - Cassy Villa - 04/19/2025 10:03 AM EST Ashley called to inform us she is scheduled for the nuclear scan 04/20/25 & 04/21/25 * Telephone Encounter - Michelle Adam MA - 04/19/2025 8:14 AM EST I called and spoke to Ashley's and let him know Hubert's recommendations. She is going to callback and let us know what she decides to do. * Telephone Encounter - JOO Kaplan - 04/16/2025 3:50 PM EST Would prefer this be done before surgery if possible earlier in the week. Can do it after but she needs to be resting after surgery and elevating.. icing.. not going back and forth to imaging test.. maybe wait post surgery if unable to do it before or we can re-eval at 2 wks post op. * Telephone Encounter - Michelle Adam MA - 04/16/2025 1:39 PM EST Patient called and stated Dr. Zhao would like to do a nuclear thyroid scan. She would either take a pill or do an IV and then they would go back in for the scan the following day. She is supposed to have a total knee replacement . Her thyroid is functioning okay, more of a diagnostic testing to see about the nodules. documented in this encounter Plan of Treatment DateTypeDepartmentCare Team (Latest Contact Info)Vetixxvtqpa88/22/2025 1:30 PM ESTTreatment [facility] [place] [facility] [address] [facility] [address] [place] [address] Aline Lozada PTA 05/26/2025 12:30 PM ESTTreatment [facility] [place] [facility] [address] [facility] [address] [place] [address] Aline Lozada SHIPPING AND RECEIVING MATERIAL HANDLER 2025 11:30 AM ESTTreatment [facility] [place] [facility] [address] [facility] [address] [place] [address] Jc Salma, PT 06/02/2025 10:00 AM ESTTreatment [facility] [place] [facility] [address] [facility] [address] [place] [address] Aline Lozada, SHIPPING AND RECEIVING MATERIAL HANDLER 06/10/2025 10:15 AM ESTOffice Visit [facility] [place] [facility] [address] [facility] [address] [place] [address] Luis M Casey, PA [address] [facility] [place] [address] 07/06/2025 8:30 AM ESTOffice Visit [facility] [place] [facility] [address] [facility] [address] [place] [address] Antonia Jackson MD [address] [facility] [address] [place] [address] documented as of this encounter Visit Diagnoses Not on filedocumented in this encounter Care Teams Team MemberRelationshipSpecialtyStart DateEnd Reece Zhao MD [address] [place] [address] PCP - GeneralFamily Medicine01/14/23documented as of this encounter
--- OUTSIDE RECORDS SUMMARY | 2025-05-24 11:25 | XMS_ITS | Encounter Summary ---
Author Organization [facility] Address [address] [place] [address] Care Team Providers Care Information Technology Technician Name Role Phone Reece Zhao MD Primary Care Provider [phone] Encounter Details DateTypeDepartmentCare Team (Latest Contact Info)Wivptrczdet86/09/2025Travel Social History Tobacco UseTypesPacks/DayYears UsedDateSmoking Tobacco: NeverSmokeless Tobacco: NeverAlcohol UseStandard Drinks/WeekCommentsNever0 (1 standard drink = 0.6 oz pure alcohol)caffeine 1-2 cups per dayCommentsNoSex and Gender InformationValueDate RecordedSex Assigned at BirthNot on fileLegal SexFemale 08/15/2022 6:56 PM EDTGender IdentityNot on fileSexual OrientationNot on file documented as of this encounter Plan of Treatment DateTypeDepartmentCare Team (Latest Contact Info)Sobrpmejrqb97/22/2025 1:30 PM ESTTreatment [facility] [place] [facility] [address] [facility] [address] [place] [address] Aline Lozada, MOTOR VEHICLE EMISSIONS INSPECTOR 05/26/2025 12:30 PM ESTTreatment [facility] [place] [facility] [address] [facility] [address] [place] [address] Aline Lozada, MOTOR VEHICLE EMISSIONS INSPECTOR 2025 11:30 AM ESTTreatment [facility] [place] [facility] [address] [facility] [address] [place] [address] Salma Greene, PT 06/02/2025 10:00 AM ESTTreatment [facility] [place] [facility] [address] [facility] [address] [place] [address] Aline Lozada PTA 06/10/2025 10:15 AM ESTOffice Visit [facility] [address] [facility] [address] [place] [address] Luis M Casey, PA [address] [place] [address] 07/06/2025 8:30 AM ESTOffice Visit [facility] [place] [facility] [address] [facility] [address] [place] [address] Antonia Jackson MD [address] [facility] [address] [place] [address] documented as of this encounter Visit Diagnoses Not on filedocumented in this encounter Care Teams Team MemberRelationshipSpecialtyStart DateEnd Reece Zhao MD [address] [facility] [place] [address] PCP - GeneralFamily Medicine01/14/23documented as of this encounter
--- OUTSIDE RECORDS SUMMARY | 2025-05-24 11:25 | XMS_ITS | Clinical Summary ---
Author Organization [facility] Healthcare Address [address] [place] [address] Care Team Providers Care Access Clinician Name Role Phone Reece Zhao MD Primary Care Provider [phone] Allergies Active AllergyReactionsCriticalityNoted LqkiHgaolenoVykytGsrmchb46/27/2023 Penicillin KRiziqhk97/14/2023 Medications MedicationSigDispense QuantityRefillsLast FilledStart DateEnd DateStatus Xvtxwyzvxbb-Cdhjpifuo-Ott C-Mn (Glucosamine Chondroitin Complx) capsule 1 capsule [...] the morning and 30 mg before bedtime.Active cholecalciferol (Vitamin D-3) 25 MCG (1000 UT) tablet Take 1,000 Units by mouth DailyActive Ferrex 150 Forte 150-0.025-1 MG capsule Indications:Pre-op evaluationTAKE 1 CAPSULE BY MOUTH EVERY DAY 90 capsule 109/30/2025Active Additional Information Patient taking differently:1 capsule Oral Daily,(No times of day reported), Reported on 03/29/2025 rivaroxaban (Xarelto) 10 MG tablet Indications:History of DVT (deep vein thrombosis)Take 1 tablet (10 mg) by mouth Daily 14 tablet 5Active alendronate (Fosamax) 70 MG tablet Indications:Osteoporosis, post-menopausalTAKE 1 TABLET BY MOUTH ONE TIME PER WEEK 30 tablet 5Active oxyCODONE-acetaminophen (Percocet) 5-325 MG tablet Indications:Status post total left knee replacement,Primary osteoarthritis of left kneeTake 1 tablet by mouth every 6 (six) hours if needed for moderate pain for up to 5 days 20 tablet Expired HYDROcodone-acetaminophen (Pontiac) 5-325 MG tablet Indications:S/P TKR (total knee replacement), leftTake 1 tablet by mouth every 6 (six) hours if needed for severe pain for up to 5 days 20 tablet Expired Active Problems ProblemNoted DateDiagnosed DatePrimary osteoarthritis of left knee04/26/2025 Acute postoperative pain of left knee04/26/2025Status post left knee replacement 04/26/2025History of aqyhxjimhtnf62/04/2025Otorrhea of right ear01/04/2025 Mammogram /09/2024Mass of left ujsvpn5305/11/2024ilateral tympanic membrane fgyfhooutmg05/24/2024ilateral impacted mqooyer3706/26/2023ge-related osteoporosis without current pathological immbxyhn35/22/2024holesteatoma 06/24/2023hronic ainbnpmy91/22/8710Wfpzww53/22/2024Hearing loss of left ear 06/24/2023Nontoxic multinodular pupyyy2806/24/20238857Ujctear63/22/2024Other primary ovarian slytett2306/24/2023Osteoarthritis of knee06/24/2023ain in joint involving pelvic region and thigh06/24/2023erforation of tympanic pvyjxqjg28/22/2024ight hip pain06/24/2023Mixed conductive and sensorineural hearing loss of right ear with restricted hearing of left ear06/24/2023Sensorineural hearing loss (SNHL), kumxeznci60/22/2024Vaginal czcwrrn5006/24/2023 Encounters DateTypeDepartmentCare VkoeFlklbfsxtzv81/18/2025 11:00 AM ESTTreatment [facility] [place] [facility] [address] [place] [address] Guadalupe Hernandez, BOILER OUT Primary osteoarthritis of left knee (Primary Dx); Acute postoperative pain of left knee; Status post left knee /18/2025amboo flowsheet [facility] [place] [facility] [address] [place] [address] Guadalupe Hernandez, BOILER OUT 05/20/20252030Gajytr55/16/2025 2:30 PM ESTTreatment [facility] [place] [facility] [address] [place] [address] Gezo, Aline, BOILER OUT Primary osteoarthritis of left knee (Primary Dx); Acute postoperative pain of left knee; Status post left knee vvikqjpxzgd12/16/2025amboo flowsheet [facility] [place] [facility] [address] [place] [address] Gezo, Alien, BOILER OUT 05/18/20256947Nlrmkm06/15/2025Telephone [facility] [address] [place] [phone] Michelle Adam MA Increased Wxxcgfsp79/12/2025 11:00 AM ESTTreatment [facility] [place] [facility] [address] [place] [address] Gezo, Aline, BOILER OUT Primary osteoarthritis of left knee (Primary Dx); Acute postoperative pain of left knee; Status post left knee pvrkfipfqfv85/12/2025amboo flowsheet [facility] [place] [facility] [address] [place] [address] Gezo, Aline, BOILER OUT 05/14/20257385Fokomc07/10/2025 1:30 PM ESTTreatment [facility] [place] [facility] [address] [place] [address] Salma Greene, PT Primary osteoarthritis of left knee (Primary Dx); Acute postoperative pain of left knee; Status post left knee ptvhstnuigp28/10/2025Plan of Care Documentation [facility] [address] [facility] [address] [place] [address] 05/12/20253823Gudtfc38/09/3459Rcllbc40/08/2025 9:00 AM ESTClinical Support [facility] [address] [place] [address] Anne Marie Agrawal, PT Primary osteoarthritis of left knee (Primary Dx); Acute postoperative pain of left knee; Status post left knee kdtslyzykob28/05/2025 9:00 AM ESTClinical Support [facility] Physical [facility] [address] [facility] [address] [place] [address] Anne Marie Agrawal, PT Primary osteoarthritis of left knee (Primary Dx); Acute postoperative pain of left knee; Status post left knee dzgfwmgovdt20/04/2025 1:00 PM ESTOffice Visit [facility] [address] [facility] [address] [place] [address] Luis M Casey PA S/P TKR (total knee replacement), left (Primary Dx)05/06/20250511Usswup26/03/2025 12:15 PM ESTClinical Support [facility] Physical [facility] [address] [facility] [address] [place] [address] Anne Marie Agrawal, PT Primary osteoarthritis of left knee (Primary Dx); Acute postoperative pain of left knee; Status post left knee ctkorrscvmm18/01/2025 2:00 PM ESTClinical Support [facility] Physical [facility] [address] [facility] [address] [place] [address] Anne Marie Agrawal, PT Primary osteoarthritis of left knee (Primary Dx); Acute postoperative pain of left knee; Status post left knee zchcvawkrfu99/01/5149Dmcdsx86/28/2025 9:00 AM ESTClinical Support [facility] [place] [facility] [address] [place] [address] Anne Marie Agrawal M, PT Primary osteoarthritis of left knee (Primary Dx); Acute postoperative pain of left knee; Status post left knee gljashrkyih71/26/2025Telephone [facility] [place] [facility] [address] [place] [address] Jr. Stoney Rivera, DO NOT SLEEPING?04/27/2025 9:00 AM ESTClinical Support [facility] [place] [facility] [address] [place] [address] Anne Marie Agrawal M, PT Primary osteoarthritis of left knee (Primary Dx); Acute postoperative pain of left knee; Status post left knee edppnjqpjvn81/24/9139Yytwln51/24/2025Plan of Care Documentation [facility] [place] [facility] [address] [place] [address] 04/25/2025 10:00 AM ESTClinical Support [facility] [place] [facility] [address] [place] [address] Anne Marie Agrawal M, PT Primary osteoarthritis of left knee (Primary Dx); Acute postoperative pain of left knee; Status post left knee /22/2025External Result Encounter [facility] External Department Unsolicited Jr. Stoney Rivera, DO 04/24/2025External Result Encounter [facility] External Department Unsolicited Jr. Stoney Rivera, DO 04/23/2025External Result Encounter [facility]OMS External Department Unsolicited Jr. Stoney Rivera, DO 04/23/2025External Result Encounter [facility]OMS External Department Unsolicited Jr. Stoney Rivera, DO 04/22/2025External Result Encounter NOMS External Department Unsolicited Jr. Stoney Rivera, DO 04/21/2025Refill [facility] [address] [place] [address] Ivan Stevenson, POLICE WORKER Status post total left knee replacement (Primary Dx); Primary osteoarthritis of left knee04/20/2025Telephone [facility] [address] [facility] [place] [phone] Jr. Stoney Rivera, DO Getting Meds for Sx106/19/2024Refill [facility] [address] [place] [address] Magda Gonzalez MA Osteoporosis, post-jmjprjolzb32/14/2025[facility]phone [facility] [address] [place] [address], [place] [phone] Michelle Adam MA Thyroid Problem; nuclear jctadsw4704/14/2025Telephone [facility] [address] [place] [address], [place] [phone] Ivan Stevenson, HONG 04/12/2025External Result Encounter NOMS External Department Unsolicited Jr. Stoney Rivera, DO 04/12/2025External Result Encounter [facility]OM[facility] External Department Unsolicited Jr. Stoney Rivera, DO 04/12/2025External Result Encounter [facility]OM[facility] External Department Unsolicited Jr. Stoney Rivera, DO 03/29/2025 10:00 AM EDTOffice Visit [facility] [place] [phone] Ivan Stevenson, POLICE WORKER Pre-op evaluation (Primary Dx); Primary osteoarthritis of left knee03/29/2025amboo flowsheet [facility] [address] [facility] [place] [phone] Ivan Stevenson, POLICE WORKER 03/29/20255744Mjpqcd78/15/2025 8:45 AM EDTOffice Visit [facility] [address] [place] [address] Jr. Stoney Rivera, DO Primary osteoarthritis of left knee (Primary Dx); Acute pain of left knee03/17/2025amboo flowsheet [facility] [address] [place] [address] Jr. Stoney Rivera, DO 03/17/20252953Mljgjw82/26/2025Refill [facility] [address] [facility] [place] [phone] Jr. Stoney Rivera, DO Pre-op evaluationfrom Last 3 Months Immunizations ImmunizationAdministration DatesNext Edwin, live06/19/2013 Family History Medical HistoryRelationNameCommentsHodgkin's lymphomaBrotherEmphysemaFather CancerMaternal GrandmotherLung cancerMotherRelationNameStatusCommentsBrother Deceased2, 1 deceasedFatherDeceasedMaternal GrandfatherDeceasedMaternal GrandmotherDeceasedMotherDeceasedPaternal GrandfatherDeceasedPaternal GrandmotherDeceased Social History Tobacco UseTypesPacks/DayYears UsedDateSmoking Tobacco: NeverSmokeless Tobacco: Never Tobacco Cessation:Counseling Given: Not Answered Alcohol UseStandard Drinks/WeekCommentsNever0 (1 standard drink = 0.6 oz pure alcohol)caffeine 1-2 cups per dayCommentsNoSex and Gender Information ValueDate RecordedSex Assigned at BirthNot on fileLegal RcuZxfedo77/15/2023 6:56 PM EDTGender IdentityNot on fileSexual OrientationNot on file Last Filed Vital Signs Vital SignReadingTime TakenCommentsBlood Koakteqk374/7708 9:08 AM EDT Zhrhq514107/07/2024 8:58 AM ESTTemperature--Respiratory Wzhs481602/18/2024 1:30 PM EDTOxygen Saturation--Inhaled Oxygen Concentration--Vdvbld923 kg (239 lb) 03/29/2025 9:58 AM SWTRfeenk531.3 cm (5' 11 )03/29/2025 9:58 AM EDTBody Mass Index33.3310 9:58 AM EDT Plan of Treatment DateTypeDepartmentCare Team (Latest Contact Info)Fwaxwznpftd11/22/2025 1:30 PM ESTTreatment [facility] [place] [facility] [address] [place] [address] NevilleAline, BOILER OUT 05/26/2025 12:30 PM ESTTreatment [facility] [place] [facility] [address] [place] [address] NevilleAline, BOILER OUT 2025 11:30 AM ESTTreatment [facility] [place] [facility] [address] [place] [address] Salma Greene, PT 06/02/2025 10:00 AM ESTTreatment [facility] [place] [facility] [address] [place] [address] Neville Aline, BOILER OUT 06/10/2025 10:15 AM ESTOffice Visit [facility] [place] [facility] [address] [facility] [address] [place] [address] Luis M Casey, PA [address] [place] [address] 07/06/2025 8:30 AM ESTOffice Visit [facility] [place] [facility] [address] [place] [address] Antonia Jackson MD [address] [place] [address] Procedures Procedure NamePriorityDate/TimeAssociated DiagnosisCommentsBASIC METABOLIC PANEL Tnyvhwh0104/24/2025 5:17 AM EST CBC WITH AUTO AMUKYRSJOTBWOxkdton47/22/2025 5:17 AM EST BASIC METABOLIC EGASRSivrebh08/21/2025 5:15 AM EST CBC WITH AUTO UJGACJSSFVFHIribpwy23/21/2025 5:15 AM EST XR KNEE 1-2 VIEWS LEFT04/22/2025 6:28 PM EST BASIC METABOLIC CMEKCUqfjsro24/10/2025 10:35 AM EST CBC WITH AUTO LDEZKCHAMUSRMitzvhh44/10/2025 10:35 AM EST URINALYSIS, MANUAL JFJIVmzbmbx39/10/2025 10:05 AM EST from Last 3 Months Results * (ABNORMAL) CBC auto differential (04/24/2025 5:17 AM EST) Only the most recent of3 resultswithin the time period is included. ComponentValueRef RangeTest MethodAnalysis TimePerformed AtPathologist Signature WBC9.53.8 - 11.6 [CFU]/mL04/24/2025 5:59 AM [facility] UNCORRECTED WHITE BLOOD COUNT9.53.8 - 11.6 10*3/uL04/24/2025 5:59 AM [facility] CtrRBC4.063.60 - 5.00 10*6/uL04/24/2025 5:59 AM [facility] LrzMFNIBFFEPZ00.711.8 - 15.4 g/dL04/24/2025 5:59 AM [facility] SvoJOJCBLAKHI63.834.0 - 46.4 %04/24/2025 5:59 AM [facility] GysKUK53.780 - 100 fL04/24/2025 5:59 AM [facility] GppFZQ29.324.7 - 34.3 pg04/24/2025 5:59 AM [facility] NnyBYCH57.532.0 - 35.0 g/dL04/24/2025 5:59 AM [facility] CtrRED CELL DISTRIBUTION WIDTH, RDW13.111.9 - 15.3 % 04/24/2025 5:59 AM [facility] CtrPLATELET IZBTE850390 - 450 10*3/uL04/24/2025 5:59 AM [facility] CtrMEAN PLATELET VOLUME, MPV7.46.3 - 10.7 fL04/24/2025 5:59 AM [facility] NEUTROPHILS, %76.0. %04/24/2025 5:59 AM [facility] LYMPHOCYTES, %10.9. %04/24/2025 5:59 AM [facility] MONOCYTE/MACROPHAGE, %12.8. %04/24/2025 5:59 AM [facility] CtrEOSINOPHILS, %0.0. %04/24/2025 5:59 AM [facility] BASOPHILS, %0.3. %04/24/2025 5:59 AM [facility] CtrNRBC0.00 - 0.5 /100{WBC}04/24/2025 5:59 AM [facility] CtrNEUTROPHILS7.2 1.8 - 7.7 10*3/uL04/24/2025 5:59 AM [facility] CtrLYMPHOCYTES 1.01.00 - 4.8 10*3/uL04/24/2025 5:59 AM [facility] MONOCYTES1.2(H)0.0 - 0.8 10*3/uL04/24/2025 5:59 AM [facility] CtrEOSINOPHILS0.00.0 - 0.45 10*3/uL04/24/2025 5:59 AM [facility] CtrBASOPHILS0.00.0 - 0.2 10*3/uL04/24/2025 5:59 AM [facility] CtrSpecimen (Source)Anatomical Location / LateralityCollection Method / VolumeCollection TimeReceived TimeBlood (Blood)04/24/2025 5:17 AM EST04/24/2025 5:48 AM EST Narrative Authorizing ProviderResult TypeResult StatusJr. Stoney Rivera DOLAB BLOOD ORDERABLESFinal ResultPerforming OrganizationAddressCity/State/ZIP CodePhone Number [facility] [address] [place] [address], [facility] [address] [place] [address] * (ABNORMAL) Basic metabolic panel (04/24/2025 5:17 AM EST) Only the most recent of3 resultswithin the time period is included. ComponentValueRef RangeTest MethodAnalysis TimePerformed AtPathologist Signature Urpezbk373(H)70 - 100 mg/dL04/24/2025 6:16 AM [facility] Comment: Random Glucose Reference Range is dependent on time and content of last meal. Glucose of more than 200 mg/dL in a nonstressed, ambulatory subject supports the diagnosis of Diabetes Mellitus. ADA recommended reference range HJL957 - 25 mg/dL04/24/2025 6:16 AM [facility] CtrCREATININE 0.820.60 - 1.20 mg/dL04/24/2025 6:16 AM [facility] ESTIMATED GFR>60. 6:16 AM [facility] CshYnekga952 136 - 145 mmol/L106/24/2024 6:16 AM [facility] CtrPotassium, Bld4.03.5 - 5.1 mmol/L106/24/2024 6:16 AM [facility] Gcpyomjx74912 - 107 mmol/L106/24/2024 6:16 AM [facility] Carbon Ielhxyd68.921.0 - 31.0 mmol/L106/24/2024 6:16 AM [facility] CtrAnion Gap11.16.0 - 15.011 6:16 AM [facility] CtrCalcium8.68.6 - 10.3 mg/dL04/24/2025 6:16 AM [facility] CtrCREATININE CLR CALC YJPXVELK59.17106/24/2024 6:16 AM [facility] CtrSpecimen (Source)Anatomical Location / LateralityCollection Method / VolumeCollection TimeReceived TimeOtherTopography unknown / Unknown 04/24/2025 5:17 AM EST04/24/2025 5:48 AM EST Narrative Authorizing ProviderResult TypeResult StatusJr. Stoney MONTGOMERY BLOOD ORDERABLESFinal ResultPerforming OrganizationAddressCity/State/ZIP CodePhone Number [address] [address], [facility] [address] [place] [address] * XR knee 1 or 2 views left (04/22/2025 6:28 PM EST)Anatomical RegionLaterality ModalityLower Extremities, KneeLeftRadiographic ImagingSpecimen (Source) Anatomical Location / LateralityCollection Method / VolumeCollection Time Received Time04/22/2025 6:28 PM EST Impressions 04/22/2025 6:31 PM EST Uncomplicated left knee arthroplasty ?? Impression dictated by: Richard Moreland M.D. ??04/22/2025 6:29 PM ? Dictation Location: RADIO-PC-20 ? Transcribed By: ? PWS ?04/22/25 1829 ? Dictated By: ?Richard Moreland DO ?04/22/25 1828 ? Signed By: <Electronically signed by Richard Moreland, DO in OV> ? 04/22/25 1829 Narrative 04/22/2025 6:31 PM EST [facility] [place] ?[address] ? [place] [address] ?XRay Report ? Signed ? Patient: Ashley Gant ?MR#: [id number] ?? 8 ? : 1960 ?Acct:[id number] ? Age/Sex: 64 / F ?ADM Date: 11/20/25 ? Loc: 4N ?Room: ??6F0378-0 ?Type: REG SDC ?? Attending Dr: Stoney Rivera Jr DO ?? Copies to: Stoney Rivera Jr, DO ? Ordering Provider: Stoney Rivera Jr, DO ?? Date of Service: 04/22/25 ?? XR/XR knee LT 2V: post op ? 2 views left knee postoperative assessment ? Left knee arthroplasty. ??No hardware complication. ??Adequate bony alignment without acute displaced fracture. ??Soft tissue postsurgical changes. ? XR/XR knee LT 2V ?? Procedure Note Radiology, Radiologist, MD - 04/22/2025 [facility] [place] [address] [place] [address] XRay Report Signed Patient: Elijah Gant#: [id number] 8 : 9Acct:[id number] Age/Sex: 64 / FADM Date: 04/22/25 Loc: Room: 3N0754-9Cpcr: [facility] Attending Dr: Stoney Rivera Jr DO Copies to: Stoney Rivera Jr, DO Ordering Provider: Stoney Rivera Jr, DO Date of Service: 04/22/25 XR/XR knee LT 2V: post op 2 views left knee postoperative assessment Left knee arthroplasty. No hardware complication. Adequate bonyalignment without acute displaced fracture. Soft tissue postsurgical changes. XR/XR knee LT 2V IMPRESSION: Uncomplicated left knee arthroplasty Impression dictated by: Richard Moreland M.D. 04/22/2025 6:29 PM Dictation Location: [place] [address] Transcribed By: [facility] 04/22/251828 Dictated By: Richard Moreland DO 04/22/251827 Signed By: <Electronically signed by Richard Moreland DO in OV> 04/22/251828 Authorizing ProviderResult TypeResult StatusJr. Stoney Rivera DOIMG XR PROCEDURESFinal Result * Urinalysis, manual only (04/12/2025 10:05 AM EST)ComponentValueRef RangeTest MethodAnalysis TimePerformed AtPathologist SignatureCOLOR,URINELight-Yellow Gwvclc7904/12/2025 10:19 AM [facility] CtrAPPEARANCE,URINE QqcxpBylib35/03/2025 10:19 AM [facility] CtrSPECIFICY GRAVITY,URINE1.0181.001 - 1.27130 10:19 AM [facility] CtrPH,URINE5.55.0 - 9.011 10:19 AM [facility] CtrLEUKOCYTE ESTERASE,ACNTSMeeatnayXyecyxco05/10/2025 10:19 AM [facility] CtrNITRITE,AUKZAWvbsugclPbjrugxe53/10/2025 10:19 AM [facility] CtrPROTEIN,URINENegativeNegative mg/dL 04/12/2025 10:19 AM [facility] CtrGLUCOSE,URINE (UA)Normal Normal mg/dL04/12/2025 10:19 AM [facility] CtrKETONES,URINE IvwqgdvxPbeemfyd30/10/2025 10:19 AM [facility] UROBILINOGEN,URINENormalNormal mg/dL04/12/2025 10:19 AM [facility] CtrBILIRUBIN,YLROSXlizzvvqGkjmrlef83/10/2025 10:19 AM [facility] CtrOCCULT BLOOD,IYOOLQnewdtlpPoirlkej81/10/2025 10:19 AM [facility] CtrSpecimen (Source)Anatomical Location / LateralityCollection Method / VolumeCollection TimeReceived TimeOther 04/12/2025 10:05 AM EST04/12/2025 10:13 AM EST [facility] - 04/12/2025 10:19 AM EST Comment please run c s if UA+ Name Collection Type:: Clean-Voided Midstream Authorizing ProviderResult TypeResult StatusJr. Stoney MONTGOMERY URINE ORDERABLESFinal ResultPerforming OrganizationAddressCity/State/ZIP CodePhone Number [facility] [address] [place] [address], [facility] [address] [place] [address] from Last 3 Months Insurance Care Teams Team MemberRelationshipSpecialtyStart DateEnd Reece Zhao MD [address] [place] [address] PCP - GeneralFanjly Medicine01/14/23
--- OUTSIDE RECORDS SUMMARY | 2025-05-24 11:25 | XMS_ITS | Encounter Summary ---
Author Organization [facility] Address [address] [place] [address] Care Team Providers Care Creeler Name Role Phone Reece Zhao MD Primary Care Provider [phone] Encounter Details DateTypeDepartmentCare Team (Latest Contact Info)Feyhxrfhlzd23/12/2025amboo flowsheet [facility] [place] [facility] [address] [place] [address] Aline Lozada, AIRPLANE INSPECTOR Social History Tobacco UseTypesPacks/DayYears UsedDateSmoking Tobacco: NeverSmokeless Tobacco: NeverAlcohol UseStandard Drinks/WeekCommentsNever0 (1 standard drink = 0.6 oz pure alcohol)caffeine 1-2 cups per dayCommentsNoSex and Gender InformationValueDate RecordedSex Assigned at BirthNot on fileLegal SexFemale 08/15/2022 6:56 PM EDTGender IdentityNot on fileSexual OrientationNot on file documented as of this encounter Plan of Treatment DateTypeDepartmentCare Team (Latest Contact Info)Yswrupcnuvh10/22/2025 1:30 PM ESTTreatment [facility] [place] [facility] [address] [place] [address] Aline Lozada, AIRPLANE INSPECTOR 05/26/2025 12:30 PM ESTTreatment [facility] [place] [facility] [address] [place] [address] Aline Lozada AIRPLANE INSPECTOR 2025 11:30 AM ESTTreatment [facility] [place] [facility] [address] [place] [address] Salma Greene, PT 06/02/2025 10:00 AM ESTTreatment [facility] [place] [facility] [address] [place] [address] MiguelAline calderon, AIRPLANE INSPECTOR 06/10/2025 10:15 AM ESTOffice Visit [facility] [place] [facility] [address] [facility] [address] [place] [address] Luis M Casey, PA [address] [facility] [place] [address] 07/06/2025 8:30 AM ESTOffice Visit [facility] [place] [facility] [address] [place] [address] Antonia Jackson MD [address] [facility] [address] [place] [address] documented as of this encounter Visit Diagnoses Not on filedocumented in this encounter Care Teams Team MemberRelationshipSpecialtyStart DateEnd Date Reece Zhao MD [address] [place] [address] PCP - GeneralFamily Medicine01/14/23documented as of this encounter
--- OUTSIDE RECORDS SUMMARY | 2025-05-24 11:25 | XMS_ITS | Encounter Summary ---
Author Organization [facility] Address [address] [place] [address] Care Team Providers Care Community Coordinator For [employer] Name Role Phone Reece Zhao MD Primary Care Provider [phone] Encounter Details DateTypeDepartmentCare Team (Latest Contact Info)Muldfnfebia12/10/2025Plan of Care Documentation [facility] [place] [facility] [address] [facility] [address] [place] [address] Social History Tobacco UseTypesPacks/DayYears UsedDateSmoking Tobacco: NeverSmokeless Tobacco: NeverAlcohol UseStandard Drinks/WeekCommentsNever0 (1 standard drink = 0.6 oz pure alcohol)caffeine 1-2 cups per dayCommentsNoSex and Gender InformationValueDate RecordedSex Assigned at BirthNot on fileLegal SexFemale 08/15/2022 6:56 PM EDTGender IdentityNot on fileSexual OrientationNot on file documented as of this encounter Plan of Treatment DateTypeDepartmentCare Team (Latest Contact Info)Abzyzfbjnkj45/22/2025 1:30 PM ESTTreatment [facility] [place] [facility] [address] [facility] [address] [place] [address] Aline Lozada, HAT BLOCKER 05/26/2025 12:30 PM ESTTreatment [facility] [place] [facility] [address] [facility] [address] [place] [address] Aline Lozada, HAT BLOCKER 2025 11:30 AM ESTTreatment [facility] [place] [facility] [address] [facility] [address] [place] [address] Salma Greene, PT 06/02/2025 10:00 AM ESTTreatment [facility] [place] [facility] [address] [facility] [address] [place] [address] Aline Lozada, HAT BLOCKER 06/10/2025 10:15 AM ESTOffice Visit [facility] [address] [facility] [address] [place] [address] Luis M Casey, PA [address] [facility] [place] [address] 07/06/2025 8:30 AM ESTOffice Visit [facility] [place] [facility] [address] [facility] [address] [place] [address] Antonia Jackson MD [address] [place] [address] [place], [place] [phone] documented as of this encounter Visit Diagnoses Not on filedocumented in this encounter Care Teams Team MemberRelationshipSpecialtyStart DateEnd Date Reece Zhao MD [address] [facility] [place] [address] [phone] PCP - GeneralGreater Regional Healthly Medicine01/14/23documented as of this encounter
--- OUTSIDE RECORDS SUMMARY | 2025-05-24 11:25 | XMS_ITS | Encounter Summary ---
Author Organization [facility] Address [address] [place] [address] Care Team Providers Care Baby Counselor Name Role Phone Reece Zhao MD Primary Care Provider [phone] Encounter Details DateTypeDepartmentCare Team (Latest Contact Info)Mbkneixtbzy51/18/2025amboo flowsheet [facility] [place] [facility] [address] [facility] [address] [place] [address] Guadalupe Hernandez, LUCI Social History Tobacco UseTypesPacks/DayYears UsedDateSmoking Tobacco: NeverSmokeless Tobacco: NeverAlcohol UseStandard Drinks/WeekCommentsNever0 (1 standard drink = 0.6 oz pure alcohol)caffeine 1-2 cups per dayCommentsNoSex and Gender InformationValueDate RecordedSex Assigned at BirthNot on fileLegal SexFemale 08/15/2022 6:56 PM EDTGender IdentityNot on fileSexual OrientationNot on file documented as of this encounter Plan of Treatment DateTypeDepartmentCare Team (Latest Contact Info)Yvdankbrqcy09/22/2025 1:30 PM ESTTreatment [facility] [place] [facility] [address] [facility] [address] [place] [address] Aline Lozada PTA 05/26/2025 12:30 PM ESTTreatment [facility] [place] [facility] [address] [facility] [address] [place] [address] Aline Lozada PTA 2025 11:30 AM ESTTreatment [facility] [place] [facility] [address] [facility] [address] [place] [address] Salma Greene, PT 06/02/2025 10:00 AM ESTTreatment [facility] [place] [facility] [address] [facility] [address] [place] [address] MiguelAline calderon, FILER AND SANDER 06/10/2025 10:15 AM ESTOffice Visit [facility] [place] [facility] [address] [facility] [address] [place] [address] Luis M Casey, PA [address] [place] [address] 07/06/2025 8:30 AM ESTOffice Visit [facility] [place] [facility] [address] [facility] [address] [place] [address] Antonia Jackson MD [address] [facility] [address] [place] [address] documented as of this encounter Visit Diagnoses Not on filedocumented in this encounter Care Teams Team MemberRelationshipSpecialtyStart DateEnd Date Reece Zhao MD [address] [facility] [place] [address] PCP - GeneralFamily Medicine01/14/23documented as of this encounter
--- OUTSIDE RECORDS SUMMARY | 2025-05-24 11:25 | XMS_ITS | Encounter Summary ---
Author Organization [facility] Address [address] [place] [address] Care Team Providers Care Fast Food Crew Member Name Role Phone Reece Zhao MD Primary Care Provider [phone] Encounter Details DateTypeDepartmentCare Team (Latest Contact Info)Wqabwsuevme54/10/2025Travel Social History Tobacco UseTypesPacks/DayYears UsedDateSmoking Tobacco: NeverSmokeless Tobacco: NeverAlcohol UseStandard Drinks/WeekCommentsNever0 (1 standard drink = 0.6 oz pure alcohol)caffeine 1-2 cups per dayCommentsNoSex and Gender InformationValueDate RecordedSex Assigned at BirthNot on fileLegal SexFemale 08/15/2022 6:56 PM EDTGender IdentityNot on fileSexual OrientationNot on file documented as of this encounter Plan of Treatment DateTypeDepartmentCare Team (Latest Contact Info)Qgbbwugecet27/22/2025 1:30 PM ESTTreatment [facility] [place] [facility] [address] [facility] [address] [place] [address] Aline Lozada, BIOCHEMICAL ENGINEER 05/26/2025 12:30 PM ESTTreatment [facility] [place] [facility] [address] [facility] [address] [place] [address] Aline Lozada, BIOCHEMICAL ENGINEER 2025 11:30 AM ESTTreatment [facility] [place] [facility] [address] [facility] [address] [place] [address] Salma Greene, PT 06/02/2025 10:00 AM ESTTreatment [facility] [place] [facility] [address] [facility] [address] [place] [address] Aline Lozada PTA 06/10/2025 10:15 AM ESTOffice Visit [facility] [address] [facility] [address] [place] [address] Luis M Casey, PA [address] [place] [address] 07/06/2025 8:30 AM ESTOffice Visit [facility] [place] [facility] [address] [place] [address] [place] [address] Antonia Jackson MD [address] [facility] [address] [place] [address] documented as of this encounter Visit Diagnoses Not on filedocumented in this encounter Care Teams Team MemberRelationshipSpecialtyStart DateEnd Reece Zhao MD [address] [facility] [place] [address] PCP - GeneralFamily Medicine01/14/23documented as of this encounter
--- OUTSIDE RECORDS SUMMARY | 2025-05-24 11:25 | XMS_ITS | Encounter Summary ---
Author Organization [facility] Address [address] [facility] [place] [address] Care Team Providers Care Physical Science Technician Name Role Phone Reece Zhao MD Primary Care Provider [phone] Reason for Visit * ReasonOnset DateCommentsIncreased Hvjqhpve41/15/2025 Encounter Details DateTypeDepartmentCare Team (Latest Contact Info)Wjjooctbugn46/15/2025Telephone [facility] [address] [place] [address] Michelle Adam MA Increased Swelling Social History Tobacco UseTypesPacks/DayYears UsedDateSmoking Tobacco: NeverSmokeless Tobacco: NeverAlcohol UseStandard Drinks/WeekCommentsNever0 (1 standard drink = 0.6 oz pure alcohol)caffeine 1-2 cups per dayCommentsNoSex and Gender InformationValueDate RecordedSex Assigned at BirthNot on fileLegal SexFemale 08/15/2022 6:56 PM EDTGender IdentityNot on fileSexual OrientationNot on file documented as of this encounter Miscellaneous Notes * Telephone Encounter - Michelle Adam MA - 05/17/2025 3:19 PM EST I called and informed patient. She was grateful for return call. * Telephone Encounter - JOO Kaplan - 05/17/2025 12:39 PM EST She will need to still intermittently ICE and Elevate.. She can dc tedhose at 4 wks post op,, but may need them if she has swelling in the lower legs with activtity..Just make sure not having any increased calf pain.. if so then Ultrasound.. otherwise the swelling should go down with ice and elevation. * Telephone Encounter - Michelle Adam MA - 05/17/2025 9:58 AM EST Ashley called and stated that she has always had a little fluid and swelling in her left knee. Sheon her own yesterday decided to keep her leg bend (intermittent) what she said 3-3.5 hours in between being active. She did not do exercises but instead kept her leg bent through out the day. Her knee is now much more swollen. I did ask her who asked her to keep it bent, and she said she decided to do it own her own and thought that was the end goal was to give it that range of motion. I let her know that we do want her tohave some ROM but I was unsure that keeping it bent though the day was the best option vs. Doing the exercises given. She did ice yesterday after increased swelling and told me that she put back on the sravan hose from the hospital and mentioned that she is still taking baby Asprin. She does not go back to PT until tomorrow. documented in this encounter Plan of Treatment DateTypeDepartmentCare Team (Latest Contact Info)Qigxcfzxatm23/22/2025 1:30 PM ESTTreatment [facility] [place] [facility] [address] [facility] [address] [place] [address] Aline Lozada, [employer] RETAILER SALES CONSULTANT 05/26/2025 12:30 PM ESTTreatment [facility] [place] [facility] [address] [facility] [address] [place] [address] Aline Lozada, LUCI 2025 11:30 AM ESTTreatment [facility] [place] [facility] [address] [facility] [address] [place] [address] Salma Greene, PT 06/02/2025 10:00 AM ESTTreatment [facility] [place] [facility] [address] [facility] [address] [place] [address] Aline Lozada, [employer] RETAILER SALES CONSULTANT 06/10/2025 10:15 AM ESTOffice Visit [facility] [place] [facility] [address] [facility] [address] [place] [address] Luis M Casey, PA [address] [facility] [place] [address] 07/06/2025 8:30 AM ESTOffice Visit [facility] [place] [facility] [address] [facility] [address] [place] [address] Antonia Jackson MD [address] [facility] 130 [place] [address] documented as of this encounter Visit Diagnoses Not on filedocumented in this encounter Care Teams Team MemberRelationshipSpecialtyStart DateEnd Date Reece Zhao MD [address] [facility] [place] [address] PCP - GeneralFamily Medicine01/14/23documented as of this encounter
--- OUTSIDE RECORDS SUMMARY | 2025-05-24 11:25 | XMS_ITS | Encounter Summary ---
Author Organization [facility] Address [address] [place] [address] Care Team Providers Care Hand Frame Surgical Elastic Knitter Name Role Phone Reece Zhao MD Primary Care Provider [phone] Encounter Details DateTypeDepartmentCare Team (Latest Contact Info)Lantbocowrf79/12/2025Travel Social History Tobacco UseTypesPacks/DayYears UsedDateSmoking Tobacco: NeverSmokeless Tobacco: NeverAlcohol UseStandard Drinks/WeekCommentsNever0 (1 standard drink = 0.6 oz pure alcohol)caffeine 1-2 cups per dayCommentsNoSex and Gender InformationValueDate RecordedSex Assigned at BirthNot on fileLegal SexFemale 08/15/2022 6:56 PM EDTGender IdentityNot on fileSexual OrientationNot on file documented as of this encounter Plan of Treatment DateTypeDepartmentCare Team (Latest Contact Info)Xtckekqvsnk61/22/2025 1:30 PM ESTTreatment [facility] [place] [facility] [address] [facility] [address] [place] [address] Aline Lozada, BEHAVIORAL TECHNICIAN 05/26/2025 12:30 PM ESTTreatment [facility] [place] [facility] [address] [facility] [address] [place] [address] Aline Lozada, BEHAVIORAL TECHNICIAN 2025 11:30 AM ESTTreatment [facility] [place] [facility] [address] [facility] [address] [place] [address] Salma Greene, PT 06/02/2025 10:00 AM ESTTreatment [facility] [place] [facility] [address] [place] [address] [place] [address] Aline Lozada PTA 06/10/2025 10:15 AM ESTOffice Visit [facility] [address] [place] [address] [place] [address] Luis M Casey, PA [address] [place] [address] 07/06/2025 8:30 AM ESTOffice Visit [facility] [place] [facility] [address] [place] [address] [place] [address] Antonia Jackson MD [address] [place] [address] [place] [address] documented as of this encounter Visit Diagnoses Not on filedocumented in this encounter Care Teams Team MemberRelationshipSpecialtyStart DateEnd Reece Zhao MD [address] [facility] [place] [phone] PCP - GeneralFamily Medicine01/14/23documented as of this encounter
--- OUTSIDE RECORDS SUMMARY | 2025-05-24 11:25 | XMS_ITS | Encounter Summary ---
Author Organization [facility] Address [address] [place] [address] Care Team Providers Care Oil Field Rig Builder Name Role Phone Reece Zhao MD Primary Care Provider [phone] Encounter Details DateTypeDepartmentCare Team (Latest Contact Info)Tkljqdpgsnt44/16/2025Travel Social History Tobacco UseTypesPacks/DayYears UsedDateSmoking Tobacco: NeverSmokeless Tobacco: NeverAlcohol UseStandard Drinks/WeekCommentsNever0 (1 standard drink = 0.6 oz pure alcohol)caffeine 1-2 cups per dayCommentsNoSex and Gender InformationValueDate RecordedSex Assigned at BirthNot on fileLegal SexFemale 08/15/2022 6:56 PM EDTGender IdentityNot on fileSexual OrientationNot on file documented as of this encounter Plan of Treatment DateTypeDepartmentCare Team (Latest Contact Info)Pymmldskyou20/22/2025 1:30 PM ESTTreatment [facility] [place] [facility] [address] [facility] [address] [place] [address] Aline Lozada, OFFSET PROOF PRESS OPERATOR 05/26/2025 12:30 PM ESTTreatment [facility] [place] [facility] [address] [facility] [address] [place] [address] Aline Lozada, OFFSET PROOF PRESS OPERATOR 2025 11:30 AM ESTTreatment [facility] [place] [facility] [address] [facility] [address] [place] [address] Salma Greene, PT 06/02/2025 10:00 AM ESTTreatment [facility] [place] [facility] [address] [place] [address] [place] [address] Aline Lozada PTA 06/10/2025 10:15 AM ESTOffice Visit [facility] [address] [place] [address] [place] [address] Luis M Casey, PA [address] [place] [address] 07/06/2025 8:30 AM ESTOffice Visit [facility] [place] [facility] [address] [place] [address] [place] [address] Antonia Jackson MD [address] [place] [address] [place] [address] documented as of this encounter Visit Diagnoses Not on filedocumented in this encounter Care Teams Team MemberRelationshipSpecialtyStart DateEnd Reece Zhao MD [address] [facility] [place] [phone] PCP - GeneralFamily Medicine01/14/23documented as of this encounter
--- OUTSIDE RECORDS SUMMARY | 2025-05-24 11:25 | XMS_ITS | Encounter Summary ---
Author Organization [facility] Address [address] [place] [address] Care Team Providers Care Cv Rn Name Role Phone Reece Zhao MD Primary Care Provider [phone] Encounter Details DateTypeDepartmentCare Team (Latest Contact Info)Jgbgobzhasp94/16/2025amboo flowsheet [facility] [place] [facility] [address] [facility] [address] [place] [address] Aline Lozada, SOAPSTONER Social History Tobacco UseTypesPacks/DayYears UsedDateSmoking Tobacco: NeverSmokeless Tobacco: NeverAlcohol UseStandard Drinks/WeekCommentsNever0 (1 standard drink = 0.6 oz pure alcohol)caffeine 1-2 cups per dayCommentsNoSex and Gender InformationValueDate RecordedSex Assigned at BirthNot on fileLegal SexFemale 08/15/2022 6:56 PM EDTGender IdentityNot on fileSexual OrientationNot on file documented as of this encounter Plan of Treatment DateTypeDepartmentCare Team (Latest Contact Info)Lfarqnxeemm36/22/2025 1:30 PM ESTTreatment [facility] [place] [facility] [address] [facility] [address] [place] [address] Aline Lozada, SOAPSTONER 05/26/2025 12:30 PM ESTTreatment [facility] [place] [facility] [address] [facility] [address] [place] [address] Aline Lozada SOAPSTONER 2025 11:30 AM ESTTreatment [facility] [place] [facility] [address] [facility] [address] [place] [address] Salma Greene, PT 06/02/2025 10:00 AM ESTTreatment [facility] [place] [facility] [address] [facility] [address] [place] [address] MiguelAline calderon, SOAPSTONER 06/10/2025 10:15 AM ESTOffice Visit [facility] [place] [facility] [address] [facility] [address] [place] [address] Luis M Casey, PA [address] [facility] [place] [address] 07/06/2025 8:30 AM ESTOffice Visit [facility] [place] [facility] [address] [facility] [address] [place] [address] Antonia Jackson MD [address] [facility] [address] [place] [address] documented as of this encounter Visit Diagnoses Not on filedocumented in this encounter Care Teams Team MemberRelationshipSpecialtyStart DateEnd Date Reece Zhao MD [address] [facility] [place] [address] PCP - GeneralFamily Medicine01/14/23documented as of this encounter
--- NOTE | 2025-05-24 11:50 | MM_ITS ---
Patient Name: STONE ESPINOZA MR#: [id number] : 1960 Exam Date: 05/24/2025 Ordering Doctor: JOO MANRIQUE . RADIOLOGY REPORT PROCEDURE: MM TOMOSYNTHESIS SCREENING BI COMPARISON: MM POST BIOPSY LT, 05/19/2024. MM DIAGNOSTIC MAMMO UNILAT LT, 05/08/2024. MM TOMOSYNTHESIS SCREENING BI, 04/28/2024. MM TOMOSYNTHESIS SCREENING BI, 04/23/2023. INDICATIONS: Screening Calculator Name NCI Breast Cancer Risk Assessment Tool 5 Year Breast Cancer Risk 2.50% Lifetime Breast Cancer Risk 9.40% Personal Breast Cancer No Personal Ovarian Cancer No Treatments None Family Cancers Mother with lung cancer at age 88. LOCATION: [facility] BREAST COMPOSITION: The breasts are almost entirely fatty. FINDINGS: DIAGNOSTIC CATEGORY 1--NEGATIVE. RIGHT BREAST: No significant suspicious finding. LEFT BREAST: No significant suspicious finding. RECOMMENDATIONS: ROUTINE MAMMOGRAM AND CLINICAL EVALUATION IN 12 MONTHS. Dictated by: James Whittaker MD on 05/24/2025 at 13:08 Approved by: James Whittaker MD on 05/24/2025 at 13:10
== END 2025-05-24 11:23 | disposition home or self-care (01) ==
LOC: MAMMO 11:23
PROVIDERS: PCP Family Medicine; Visit Provider Physician Assistant
DX: Z12.31 Encounter for screening mammogram for malignant neoplasm of breast (principal); Z80.1 Family history of malignant neoplasm of trachea, bronchus and lung
CPT/HCPCS: 77063; 77067